=== PATIENT | female | born 1955 | race African-American/Black ===

== ENCOUNTER 2020-04-21 14:46 | Outpatient (CLI) | payer MEDICARE, MEDICAID, SELFPAY ==
[2020-04-21 16:32] LABS: Basophils Absolute Auto 0.1 K/mm3 (0.0-0.1); Basophils Percent Auto 0.8 % (0.2-1.2); Eosinophils Absolute Auto 0.2 K/mm3 (0-0.3); Eosinophils Percent Auto 3.8 % (0-4.4); Hematocrit 36.8 % (37.0-47.0); Hemoglobin 12.1 g/dL (12.0-15.0); Immature Granulocyte Absolute 0.04 K/mm3 (0.00-0.031); Immature Granulocyte Percent A 0.7 % (0-0.5); Lymphocytes Absolute Auto 2.47 K/mm3 (0.9-3.2); Lymphocytes Percent Auto 40.4 % (18.3-44.2); Mean Corpuscular HGB Conc 32.9 g/dl (32-36); Mean Corpuscular Hemoglobin 33.8 pg (26-34); Mean Corpuscular Volume 102.8 fl (80-100); Mean Platelet Volume 11.5 fl (7.4-10.4); Monocytes Absolute Auto 0.5 K/mm3 (0.1-0.6); Monocytes Percent Auto 7.5 % (2.6-8.5); Neutrophils Absolute Auto 2.9 K/mm3 (1.3-6.7); Neutrophils Percent Auto 46.8 % (45.5-73.1); Platelet Count Result 268 k/mm3 (150-375); Red Blood Count 3.58 M/mm3 (4.2-5.4); Red Cell Distribution Width 14.1 % (11.5-14.5); White Blood Count 6.1 K/mm3 (4.5-10.0)
[2020-04-21 16:35] LABS: Add Urine Microscopic? NO; Appearance Urine Clear (Clear); Bilirubin Urine Negative (Negative); Blood Urine Negative (Negative); Color Urine Yellow (Yellow); Glucose Urine UA Negative (Negative); Ketones Urine Negative (Negative); Leukocyte Esterase Ur Negative LEU/UL (NEGATIVE); Nitrate Urine Negative (Negative); Protein Urine Negative (Negative); Specific Grav Ur 1.013 (1.001-1.035); Urobilinogen Urine Negative mg/dL (<2.0)
[2020-04-21 16:43] LABS: INR 4.4; Prothrombin Time 41.6 Seconds (11.1-14.7)
[2020-04-21 17:14] LABS: Alanine Aminotransferase 14 U/L (4-35); Albumin Level 4.6 g/dL (3.5-5.1); Alkaline Phosphatase 117 U/L (38-126); Aspartate Amino Transferase 34 U/L (14-36); Bilirubin,Total 0.6 mg/dL (0.2-1.3); Blood Urea Nitrogen 25 mg/dL (7-17); Calcium 9.1 mg/dL (8.4-10.2); Carbon Dioxide 29 mmol/L (22-30); Chloride 102 mmol/L (98-107); Cholesterol 160 mg/dL (0-200); Estimated Glomerular Filt Rate 32; Glucose 81 mg/dL (65-105); HDL Direct 45 mg/dL; Potassium 3.8 mmol/L (3.4-5.0); Sodium 138 mmol/L (137-145); Triglycerides 121 mg/dL (<150); Uric Acid 9.4 mg/dL (2.5-7.5)
[2020-04-21 17:25] LABS: LDL Cholesterol Direct 75 mg/dL
[2020-04-21 18:21] LABS: Vitamin D 25 Hydroxy 25.1 ng/mL
== END 2020-04-21 14:47 | disposition home or self-care (01) ==
PROVIDERS: PCP Internal Medicine; Visit Provider Internal Medicine
DX: I10 Essential (primary) hypertension (principal); E78.2 Mixed hyperlipidemia; E55.9 Vitamin D deficiency, unspecified; D51.9 Vitamin B12 deficiency anemia, unspecified
CPT/HCPCS: 36415; 80053; 80061; 81003; 82306; 82607; 84550; 85025; 85610

== ENCOUNTER 2020-10-12 16:50 | Outpatient (RCR) | payer MEDICARE, MEDICAID, SELFPAY ==
[2020-07-15 17:46] LABS: INR 2.9; Prothrombin Time 29.9 Seconds (11.1-14.7)
[2020-08-19 18:01] LABS: INR 3.1; Prothrombin Time 31.2 Seconds (11.1-14.7)
[2020-09-14 17:53] LABS: INR 3.8; Prothrombin Time 36.9 Seconds (11.1-14.7)
[2020-10-12 17:27] LABS: INR 3.6; Prothrombin Time 36.5 Seconds (11.1-14.7)
== END 2020-10-13 23:59 | disposition home or self-care (01) ==
LOC: ANHLAB 16:50
PROVIDERS: PCP Internal Medicine; Visit Provider Internal Medicine
DX: I48.91 Unspecified atrial fibrillation (principal)
CPT/HCPCS: 36415; 85610

== ENCOUNTER 2021-01-07 16:28 | Outpatient (RCR) | payer MEDICARE, MEDICAID, SELFPAY ==
[2020-10-30 17:58] LABS: INR 2.2; Prothrombin Time 24.9 Seconds (11.1-14.7)
[2020-12-09 16:58] LABS: INR 2.1; Prothrombin Time 24.5 Seconds (11.1-14.7)
[2021-01-07 17:21] LABS: INR 2.7; Prothrombin Time 29.2 Seconds (11.1-14.7)
== END 2021-01-28 23:59 | disposition home or self-care (01) ==
LOC: ANHLAB 16:28
PROVIDERS: PCP Internal Medicine; Visit Provider Internal Medicine
DX: I48.91 Unspecified atrial fibrillation (principal)
CPT/HCPCS: 36415; 85610

== ENCOUNTER 2021-03-26 15:47 | Emergency (ER) | payer MEDICARE, MEDICAID, SELFPAY ==
[2021-03-26] VITALS (17 sets, daily range): BP systolic 102–117; BP diastolic 51–56; PULSE 51–60; RESP 14–23; TEMP 36.4; O2SAT 100
--- NOTE | ~2021-03-26 | XR_ITS ---
XR chest 2V 03/26/2021 16:26 Indication: Chest pain Procedure: 2 view chest Comparison: 11/14/2018 Findings: Status post median sternotomy. There is a prosthetic heart valve. Moderate cardiomegaly. No focal air space disease, pulmonary edema, pleural effusion or suspected pneumothorax. No acute osseo us abnormality. Impression: 1: No acute cardiopulmonary disease. Reviewed, dictated and finalized at location [facility]. Impression: 1: No acute cardiopulmonary disease.
--- NOTE | 2021-03-26 15:56 | ECG_ITS ---
Measurements Intervals [place] Rate: 56 P: 66 NV: 170 QRS: 98 QRSD: 112 T: 31 QT: 443 QTc: 428 Interpretive Statements SINUS BRADYCARDIA WITH MARKED SINUS ARRHYTHMIA RIGHT AXIS DEVIATION INCOMPLETE RIGHT BUNDLE BRANCH BLOCK NONSPECIFIC T-WAVE ABNORMALITY- INFERIOR LEADS BASELINE ARTIFACT- I, II, AVR BORDERLINE ECG Electronically Signed On 03-26-2021 19:26:34 CDT by Aston Vlilagomez D.O.
[2021-03-26 16:17] LABS: Basophils Absolute Auto 0.1 K/mm3 (0.0-0.1); Basophils Percent Auto 1.5 % (0.2-1.2); Eosinophils Absolute Auto 0.2 K/mm3 (0-0.3); Eosinophils Percent Auto 3.2 % (0-4.4); Hematocrit 34.8 % (37.0-47.0); Hemoglobin 11.6 g/dL (12.0-15.0); Immature Granulocyte Absolute 0.02 K/mm3 (0.00-0.031); Immature Granulocyte Percent A 0.3 % (0-0.5); Lymphocytes Absolute Auto 1.88 K/mm3 (0.9-3.2); Lymphocytes Percent Auto 30.4 % (18.3-44.2); Mean Corpuscular HGB Conc 33.3 g/dl (32-36); Mean Corpuscular Hemoglobin 34.9 pg (26-34); Mean Corpuscular Volume 104.8 fl (80-100); Mean Platelet Volume 11.2 fl (7.4-10.4); Monocytes Absolute Auto 0.6 K/mm3 (0.1-0.6); Monocytes Percent Auto 9.2 % (2.6-8.5); Neutrophils Absolute Auto 3.4 K/mm3 (1.3-6.7); Neutrophils Percent Auto 55.4 % (45.5-73.1); Platelet Count Result 229 k/mm3 (150-375); Red Blood Count 3.32 M/mm3 (4.2-5.4); Red Cell Distribution Width 13.3 % (11.5-14.5); White Blood Count 6.2 K/mm3 (4.5-10.0)
[2021-03-26 16:29] LABS: INR 2.3
[2021-03-26 16:30] LABS: Partial Thromboplastin Time 37.9 SECONDS (22.3-36.8)
--- NOTE | 2021-03-26 16:33 | PC.NURSE ---
PT REFUSED 325MG ASPIRIN. SHE STATES HER DOCTOR TOLD HER SHE SHOULDNT TAKE IT DUE TO HER BLOOD THINNERS
[2021-03-26 17:13] LABS: Anion Gap 5 mmol/L (8-16); Blood Urea Nitrogen 25 mg/dL (7-17); Calcium 8.8 mg/dL (8.4-10.2); Carbon Dioxide 30 mmol/L (22-30); Chloride 105 mmol/L (98-107); Estimated Glomerular Filt Rate 27; Glucose 94 mg/dL (65-105); Sodium 140 mmol/L (137-145)
--- NOTE | 2021-03-26 17:40 | ED.CHESTPAIN ---
HPI - Chest Pain General Chief Complaint: Chest Pain <DAVID Saab Last Filed: 03/26/21 19:59> Stated Complaint: chest pain with inspiration <DAVID Saab Last Filed: 03/26/21 19:59> Time Seen by Provider: 03/26/21 16:41 <DAVID Saab Last Filed: 03/26/21 19:59> Source: patient <DAVID Saab Last Filed: 03/26/21 19:59> Mode of arrival: ambulatory <DAVID Saab Last Filed: 03/26/21 19:59> Limitations: no limitations <DAVID Saab Last Filed: 03/26/21 19:59> History of Present Illness HPI narrative: This is a 66 year old female that presents to the ER for left sided chest pain since yesterday. Reports the pain is constant and a dull ache. No known alleviating or exacerbating factors. Denies fever, cough, shortness of breath or lower extremity edema. <DAVID Saab Last Filed: 03/26/21 19:59> Related Data Home Medications: Home Medications Medication Instructions Recorded Confirmed albuterol sulfate INHALATION 03/26/21 diltiazem HCl 03/26/21 furosemide 03/26/21 lisinopril 03/26/21 methimazole 03/26/21 metoprolol tartrate 03/26/21 03/26/21 simvastatin mg 03/26/21 warfarin 03/26/21 <DAVID Saab Last Filed: 03/26/21 19:59> Allergies/Adverse Reactions: Allergies Allergy/AdvReac Type Severity Reaction Status Date / Time methylprednisolone Allergy Unknown Other Verified 03/26/21 16:33 <DAVID Saab Last Filed: 03/26/21 19:59> Review of Systems Review of Systems: Narrative: CONSTITUTIONAL: Denies fever CARDIOVASCULAR: Reports chest pain. Denies edema. RESPIRATORY: Denies cough or dyspnea. <DAVID Saab Last Filed: 03/26/21 19:59> All systems reviewed & are unremarkable except as noted in HPI and below <Ning Mcdonald PA-C - Last Filed: 03/26/21 19:59> [facility] Past Medical History Medical History: Medical History (Updated 03/26/21 @ 19:49 by Ning Mcdonald PA-C) History of atrial fibrillation History of hyperlipidemia History of hypertension <Ning Mcdonald PA-C - Last Filed: 03/26/21 19:59> Social History Social History: Social History Gender identity (if verbalized by the patient): Female <Ning Mcdonald PA-C - Last Filed: 03/26/21 19:59> Exam Narrative: Exam Narrative: GENERAL: Well-appearing, obese, and in no acute distress. HEAD: Normocephalic, atraumatic. EYES: EOMI. ENT: Nares clear, no rhinorrhea or epistaxis. Mucous membranes moist. Oropharynx without tonsillar hypertrophy exudate or other lesions. NECK: Supple. No adenopathy or masses. CHEST: Clear to auscultation. No respiratory distress. No wheezes rales or rhonchi HEART: Irregularly irregular. No murmur heard. Normal peripheral pulses. EXTREMITIES: Normal range of motion. No edema. SKIN: Warm, dry, no rash. NEURO: No focal deficits. Alert and oriented x3. PSYCH: Normal mood and affect <Ning Mcdonald PA-C - Last Filed: 03/26/21 19:59> Course Consultations Consultation #1: Spoke with Dr. Jones about patient and work-up. Recommends admission for further observation <Ning Mcdonald PA-C - Last Filed: 03/26/21 19:59> Date: 03/26/21 <Ning Mcdonald PA-C - Last Filed: 03/26/21 19:59> Time: 19:46 <DAVID Saab Last Filed: 03/26/21 19:59> Vital Signs Vital signs: Vital Signs Temperature 36.4 C L 03/26/21 15:49 Pulse Rate 58 L 03/26/21 15:49 Respiratory Rate 20 03/26/21 15:49 Blood Pressure 102/51 L 03/26/21 15:49 Pulse Oximetry 100 03/26/21 15:49 Temperature 36.4 C L 03/26/21 15:49 Pulse Rate 57 L 03/26/21 19:00 Respiratory Rate 14 03/26/21 19:00 Blood Pressure 117/56 L 03/26/21 18:31 Pulse Oximetry 100 03/26/21 16:47 <Ning Mcdonald PA-C - Last Filed: 03/26/21 19:59> Vital Signs Temperature 36.4 C L 03/26/21 15:49 Pulse Rate 58 L 03/26/21 1
[2021-03-26 17:41] LABS: Troponin I < 0.012 ng/mL (0.000-0.034)
[2021-03-26] MEDS: ACETAMINOPHEN 500 MG TABLET 1000 MG PO (17:56)
--- NOTE | 2021-03-26 19:13 | PC.NURSE ---
Report received from SHERINE Price. Assumed care of patient at this time.
[2021-03-26 19:29] LABS: Troponin I < 0.012 ng/mL (0.000-0.034)
[2021-03-26 19:58] LABS: D Dimer 0.27 ug/mL (<0.48)
== END 2021-03-26 20:02 | disposition left against medical advice (07) ==
PROVIDERS: Emergency Medicine; Physician Assistant; Emergency Provider Emergency Medicine; PCP Internal Medicine
DX: R07.9 Chest pain, unspecified (principal); I48.91 Unspecified atrial fibrillation; I12.9 Hypertensive chronic kidney disease with stage 1 through stage 4 chronic kidney disease, or unspecified chronic kidney disease; N18.9 Chronic kidney disease, unspecified; E78.5 Hyperlipidemia, unspecified; D50.9 Iron deficiency anemia, unspecified; Z79.01 Long term (current) use of anticoagulants; R00.1 Bradycardia, unspecified; I45.10 Unspecified right bundle-branch block; R94.31 Abnormal electrocardiogram [ECG] [EKG]
CPT/HCPCS: 36415; 71046; 80048; 84484; 85025; 85380; 85610; 85730; 93005; 99284; A9270

== ENCOUNTER 2021-05-07 08:51 | Emergency (ER) | payer MEDICARE, MEDICAID, SELFPAY ==
--- NOTE | ~2021-05-07 | CT_ITS ---
EXAMINATION: CT abdomen pelvis w con EXAM DATE: 05/07/2021 10:40 INDICATION: Left lower quadrant pain . TECHNIQUE: Spiral CT of the abdomen and pelvis was performed following intravenous injection of 100 m L Omnipaque 350. Axial, coronal and sagittal images of the abdomen and pelvis were reviewed. The do se-length product (DLP) for this examination was 467.53 mGy-cm. The exposure was tailored according to patient size (auto mA exposure control), and iterative reconstruction (ASIR) was used as additiona l dose reduction technique. Comparison is made to prior examination from 11/11/2018. FINDINGS: There is severe right atrial enlargement. Mildly diffusely heterogeneous liver enhancement could be passive venous congestion from right heart failure. There is a 1.2 cm left liver lobe cyst. Spleen, adrenal glands, pancreas are unremarkable. Gallbladder is unremarkable. No biliary obstructi on. Portal and splenic veins are patent. Kidneys enhance symmetrically. There is no hydronephrosis . There are small regions bilateral renal cortical scarring from prior infections or infarctions. Lob ular renal contours bilaterally. The uterus is not identified and has likely been surgically resecte d. The bladder is unremarkable. There is no retroperitoneal or pelvic lymphadenopathy. There is m ild scattered arteriosclerotic disease. The appendix is normal. Mild to moderate scattered colonic diverticulosis. There is moderate amount o f inflammation along the descending colon, appearance is consistent with acute uncomplicated divertic ulitis. No drainable abscess or perforation. The stomach and small bowel are unremarkable. There is expected amount of colonic stool. No free intraperitoneal gas. The lung bases are unremarkable. Mild to moderate chronic compression fracture superior endplate of L2. Moderate disc disease at L4-5 . There are no osteoblastic or osteolytic lesions identified. IMPRESSION: 1. Acute uncomplicated descending colonic diverticulitis. 2. Right atrial enlargement. Heterogeneous liver enhancement likely from passive hepatic venous tani estion. 3. Small regions bilateral renal cortical scarring. Reviewed, dictated and finalized at location A. IMPRESSION: 1. Acute uncomplicated descending colonic diverticulitis. 2. Right atrial enlargement. Heterogeneous liver enhancement likely from passi ve hepatic venous congestion. 3. Small regions bilateral renal cortical scarring.
--- NOTE | 2021-05-07 09:32 | ED.ABDPAIN ---
HPI - Abdominal Pain General Chief Complaint: Abdominal Pain Stated Complaint: left flank pain Time Seen by Provider: 05/07/21 09:32 Source: patient and RN notes reviewed Mode of arrival: ambulatory Limitations: no limitations History of Present Illness HPI narrative: Patient 66 years old -[place] female brought to the emergency room by a family member via private car from home complaining of left lower quadrant pain that started last night, constant associated with nausea. Patient denies any fever, chills, vomiting or history of similar symptoms. History of atrial fibrillation on Coumadin, hypertension, hyperlipidemia, CABG, coronary stents, hysterectomy, patient smokes, does not drink or uses drugs,. Patient did not get vaccinated for COVID-19 Related Data Home Medications Medication Instructions Recorded Confirmed albuterol sulfate INHALATION 03/26/21 diltiazem HCl 03/26/21 furosemide 03/26/21 lisinopril 03/26/21 methimazole 03/26/21 metoprolol tartrate 03/26/21 03/26/21 simvastatin mg 03/26/21 warfarin 03/26/21 Allergies Allergy/AdvReac Type Severity Reaction Status Date / Time methylprednisolone Allergy Unknown Other Verified 05/07/21 09:57 Review of Systems Review of Systems: Narrative: CONSTITUTIONAL: Denies fever, chills, or sweats. EYES: Denies visual changes, redness, or discharge. ENT: Denies rhinorrhea, congestion, sore throat, or otalgia. CARDIOVASCULAR: Denies chest pain, palpitations, or edema. RESPIRATORY: Denies cough or dyspnea. GASTROINTESTINAL: Denies abdominal pain, nausea, vomiting, or diarrhea. GENITOURINARY: Denies dysuria or hematuria. SKIN: Denies rash or itching. MUSCULOSKELETAL: Denies back pain, joint pain, or myalgia. NEUROLOGIC: Denies headache, numbness, or weakness. PSYCHIATRIC: Denies anxiety or depression. PMFSH Past Medical History Medical History History of atrial fibrillation History of hyperlipidemia History of hypertension Social History Social History Gender identity (if verbalized by the patient): Female Exam Narrative: Exam Narrative: General appearance: Well-developed, well-nourished Skin: Normal color Head: Normocephalic, nontraumatic Eyes: Clear conjunctiva ENT: Oropharynx normal, ears normal, nose normal Neck: Supple, nontender Chest and respiratory: Airway patent, no respiratory distress, no accessory muscle use Heart: Regular rate/rhythm Abdomen: Soft, mild tenderness left abdomen, no organomegaly, quiet bowel sounds Vascular: Normal peripheral pulses, normal capillary refill. Musculoskeletal: Normal range of motion, nontender back Neurologic: Alert and oriented ?3, [employer] is normal as tested, no gross motor deficit Course Course Emergency Course: Stable Vital Signs Vital signs: Vital Signs Temperature 36.8 C 05/07/21 09:35 Pulse Rate 110 H 05/07/21 09:35 Respiratory Rate 16 05/07/21 09:35 Blood Pressure 115/85 05/07/21 09:35 Pulse Oximetry 99 05/07/21 09:35 Temperature 36.8 C 05/07/21 09:35 Pulse Rate 110 H 05/07/21 09:35 Respiratory Rate 16 05/07/21 09:35 Blood Pressure 115/85 05/07/21 09:35 Pulse Oximetry 99 05/07/21 09:35 MDM - Abdominal Pain MDM Narrative Medical decision making narrative: Patient presents with left lower quadrant pain. Diverticulitis is my concern. Labs, IV fluids, IV Dilaudid and Zofran, CT scan with contrast ordered. Further plan to follow Differential Diagnosis Differential diagnosis: Likely abdominal pain, constipation, diverticulitis and pancreatitis Lab Data Result diagrams: 0
[2021-05-07 09:35] VITALS: BP 115/85; PULSE 110; RESP 16; TEMP 36.8; O2SAT 99
[2021-05-07 09:59] LABS: Basophils Absolute Auto 0.1 K/mm3 (0.0-0.1); Basophils Percent Auto 0.7 % (0.2-1.2); Eosinophils Absolute Auto 0.1 K/mm3 (0-0.3); Eosinophils Percent Auto 0.8 % (0-4.4); Hematocrit 38.3 % (37.0-47.0); Hemoglobin 12.5 g/dL (12.0-15.0); Immature Granulocyte Absolute 0.02 K/mm3 (0.00-0.031); Immature Granulocyte Percent A 0.3 % (0-0.5); Lymphocytes Absolute Auto 0.93 K/mm3 (0.9-3.2); Lymphocytes Percent Auto 12.5 % (18.3-44.2); Mean Corpuscular HGB Conc 32.6 g/dl (32-36); Mean Corpuscular Hemoglobin 34.3 pg (26-34); Mean Corpuscular Volume 105.2 fl (80-100); Mean Platelet Volume 10.8 fl (7.4-10.4); Monocytes Absolute Auto 0.5 K/mm3 (0.1-0.6); Monocytes Percent Auto 6.9 % (2.6-8.5); Neutrophils Absolute Auto 5.9 K/mm3 (1.3-6.7); Neutrophils Percent Auto 78.8 % (45.5-73.1); Platelet Count Result 237 k/mm3 (150-375); Red Blood Count 3.64 M/mm3 (4.2-5.4); Red Cell Distribution Width 12.7 % (11.5-14.5); White Blood Count 7.4 K/mm3 (4.5-10.0)
[2021-05-07 10:11] LABS: Alanine Aminotransferase 21 U/L (4-35); Albumin Level 4.3 g/dL (3.5-5.1); Alkaline Phosphatase 86 U/L (38-126); Anion Gap 5 mmol/L (8-16); Aspartate Amino Transferase 41 U/L (14-36); Bilirubin,Total 0.5 mg/dL (0.2-1.3); Blood Urea Nitrogen 24 mg/dL (7-17); Calcium 9.5 mg/dL (8.4-10.2); Carbon Dioxide 31 mmol/L (22-30); Chloride 106 mmol/L (98-107); Estimated Glomerular Filt Rate 32; Glucose 93 mg/dL (65-105); Lipase 117 U/L (23-300); Potassium 4.9 mmol/L (3.4-5.0); Sodium 142 mmol/L (137-145)
[2021-05-07] MEDS: ONDANSETRON INJ 4 MG/2 ML VIAL IV PUSH (10:20)
[2021-05-07] MEDS: HYDROmorphone HCL INJ (*CRX) 1 MG/ML SYR 0.5 MG IV PUSH (10:20)
[2021-05-07] MEDS: SODIUM CHLORIDE 0.9% IV 1,000 ML 999 ML IV CONT (10:21)
[2021-05-07 10:22] LABS: Add Urine Microscopic? YES; Appearance Urine Clear (Clear); Bacteria Urine Trace /hpf; Bilirubin Urine Negative (Negative); Blood Urine Negative (Negative); Color Urine Yellow (Yellow); Glucose Urine UA Negative (Negative); Ketones Urine Negative (Negative); Leukocyte Esterase Ur Negative LEU/UL (Negative); Mucus Urine Rare /lpf; Nitrate Urine Negative (Negative); Protein Urine 1+ mg/dL (Negative); RBC Urine 0-2 /hpf (0-2); Specific Grav Ur 1.025 (1.001-1.035); Squamous Epithelial Cell Urine Many /hpf (Few); WBC Urine 0-3 /hpf
[2021-05-07 12:00] VITALS: BP 119/65; PULSE 99; RESP 16; O2SAT 97
== END 2021-05-07 12:00 | disposition home or self-care (01) ==
PROVIDERS: Emergency Provider Emergency Medicine; PCP Internal Medicine
DX: K57.92 Diverticulitis of intestine, part unspecified, without perforation or abscess without bleeding (principal); I48.91 Unspecified atrial fibrillation; E78.5 Hyperlipidemia, unspecified; I10 Essential (primary) hypertension; I25.10 Atherosclerotic heart disease of native coronary artery without angina pectoris; Z95.5 Presence of coronary angioplasty implant and graft; Z95.1 Presence of aortocoronary bypass graft; Z79.01 Long term (current) use of anticoagulants; F17.200 Nicotine dependence, unspecified, uncomplicated; R93.2 Abnormal findings on diagnostic imaging of liver and biliary tract
CPT/HCPCS: 36415; 74177; 80053; 81001; 83690; 85025; 96361; 96374; 96375; 99284; J1170; J2405; J7030; Q9967

== ENCOUNTER 2021-05-12 15:08 | Outpatient (RCR) | payer MEDICARE, MEDICAID, SELFPAY ==
[2021-02-12 16:01] LABS: INR 3.2; Prothrombin Time 33.1 Seconds (11.1-14.7)
[2021-03-12 10:19] LABS: INR 2.9; Prothrombin Time 31.2 Seconds (11.1-14.7)
[2021-04-19 16:40] LABS: INR 2.4
[2021-05-12 15:44] LABS: INR 2.7; Prothrombin Time 29.4 Seconds (11.1-14.7)
== END 2021-05-13 23:59 | disposition home or self-care (01) ==
LOC: ANHLAB 15:08
PROVIDERS: PCP Internal Medicine; Visit Provider Internal Medicine
DX: I48.91 Unspecified atrial fibrillation (principal)
CPT/HCPCS: 36415; 85610

== ENCOUNTER 2021-06-20 07:24 | Emergency (ER) | payer MEDICARE, MEDICAID, SELFPAY ==
--- NOTE | ~2021-06-20 | CT_ITS ---
EXAMINATION: CT lumbar spine wo con DATE: 06/20/2021 08:37 INDICATION: Low back pain TECHNIQUE: Computed tomography (CT) of the lumbar spine was performed without intravenous contrast. A utomated exposure control and iterative reconstruction technique were employed. Exam dose: 781.67 mG y-cm total exam DLP. COMPARISON: None FINDINGS: Normal alignment of the lumbar spine. No spondylolysis or spondylolisthesis. There is moderate compression fracture deformity of L2, with prominent concavity of the superior vert ebral endplate. There is moderate degenerative disease at L3-4 and moderately severe degenerative disc disease at L4- 5.. The sacroiliac joints appear normal. Incidentally noted is diverticulosis of the sigmoid colon. IMPRESSION: L2 compression fracture deformity of uncertain age Moderate degenerative disc disease at L3-4 Moderately severe degenerative disc disease at L4-5 Diverticulosis of the sigmoid colon Reviewed, dictated and finalized at Location [facility]. Reviewed, dictated and finalized at location A.
[2021-06-20 07:25] VITALS: BP 104/58; PULSE 96; RESP 20; TEMP 36.5; O2SAT 100
[2021-06-20 07:35] VITALS: BP 104/58; PULSE 96; RESP 20; TEMP 36.5; O2SAT 100
--- NOTE | 2021-06-20 07:43 | ED.BACK ---
HPI - Back Pain/Injury General Chief Complaint: Back Pain/Injury Stated Complaint: BACK PAIN Time Seen by Provider: 06/20/21 07:43 History of Present Illness HPI Narrative: 66 yo female w/ h/o htn, valve replacement presents to the ED for back pain. Pain in right lower back since yesterday. Radiates to the hip and lateral leg. She had similar pain after injuring her back lifting in the past. No known injury this time. Related Data Home Medications Medication Instructions Recorded Confirmed albuterol sulfate 1 mcg INHALATION PRN 03/26/21 06/20/21 diltiazem HCl 120 mg PO DAILY 03/26/21 06/20/21 furosemide 40 mg PO DAILY 03/26/21 06/20/21 lisinopril 2.5 mg PO DAILY 03/26/21 06/20/21 methimazole 5 mg PO DAILY 03/26/21 06/20/21 metoprolol tartrate 25 mg PO DAILY 03/26/21 06/20/21 simvastatin 10 mg PO DAILY 03/26/21 06/20/21 warfarin 5 mg PO DAILY 03/26/21 06/20/21 Allergies Allergy/AdvReac Type Severity Reaction Status Date / Time methylprednisolone Allergy Unknown Other Verified 06/20/21 07:31 Review of Systems Review of Systems: All systems reviewed & are unremarkable except as noted in HPI and below Constitutional: Constitutional: Denies fever(s) Cardiovascular: Cardiovascular: Denies chest pain Respiratory: Respiratory: Denies dyspnea Gastrointestinal: Gastrointestinal: Reports abdominal pain (minimal) Genitourinary: Genitourinary: Denies hematuria, Denies nocturia and Denies dysuria Neurologic: Denies dizziness, Denies numbness and Denies weakness [facility] Past Medical History Medical History History of atrial fibrillation History of hyperlipidemia History of hypertension Social History Social History Gender identity (if verbalized by the patient): Female Exam Const: General: no acute distress and alert Orientation/consciousness: patient oriented x3 HENMT: Head: normal to inspection Resp: Effort & Inspection: normal respiratory effort Auscultation: clear to auscultation bilaterally Cardio: Rate: tachycardic GI: Inspection: non-distended Other: nontender : General: Yes no CVA tenderness Back/Spine/Pelvis: Cervical Spine: No Cervical spine tenderness Thoracic/Lumbar Spine: paraspinal muscle tenderness on the right in the lower lumbar Course Vital Signs Vital signs: Vital Signs Temperature 36.5 C 06/20/21 07:25 Pulse Rate 96 06/20/21 07:25 Respiratory Rate 20 06/20/21 07:25 Blood Pressure 104/58 L 06/20/21 07:25 Pulse Oximetry 100 06/20/21 07:25 Temperature 36.5 C 06/20/21 07:35 Pulse Rate 96 06/20/21 07:35 Respiratory Rate 20 06/20/21 07:35 Blood Pressure 104/58 L 06/20/21 07:35 Pulse Oximetry 100 06/20/21 07:35 MDM - Back Pain/Injury MDM Narrative Medical decision making narrative: L2 compression fracture. Pain improved with valium. Ambulating with stable gait. Differential Diagnosis Differential diagnosis: Likely sciatica and strain of lumbar region Medical Records Attestation: I reviewed the patient's medical records. Imaging Data Radiologist's impression: ITS Impressions Lumbar Spine CT 06/20/21 08:48 IMPRESSION: L2 compression fracture deformity of uncertain age Moderate degenerative disc disease at L3-4 Moderately severe degenerative disc disease at L4-5 Diverticulosis of the sigmoid colon Discharge Plan Discharge Clinical Impression: Compression fracture of L2 Qualifiers: Encounter type: initial encounter Qualified Code(s): S32.020A - Wedge compression fracture of second lumbar vertebra, initial encounter for closed fracture Patient Disposition: Home, Self-Care Condition: Stable Instructions: Vertebral Compression Fracture (ED) Prescriptions: New diazepam [Valium] 5 mg tablet 5 mg PO BID PRN (Reason: muscle spasm) Qty: 10 RF: 0 No Action furosemide 40 mg tablet
[2021-06-20] MEDS: diazePAM INJ (*CRX) 10 MG/2 ML SYRINGE 5 MG IM (07:56)
== END 2021-06-20 09:16 | disposition home or self-care (01) ==
PROVIDERS: Emergency Provider Emergency Medicine; PCP Internal Medicine
DX: S32.020A Wedge compression fracture of second lumbar vertebra, initial encounter for closed fracture (principal); I10 Essential (primary) hypertension; E78.5 Hyperlipidemia, unspecified; I48.91 Unspecified atrial fibrillation; Z95.2 Presence of prosthetic heart valve; Z79.01 Long term (current) use of anticoagulants; M51.36 Other intervertebral disc degeneration, lumbar region; K57.30 Diverticulosis of large intestine without perforation or abscess without bleeding; X58.XXXA Exposure to other specified factors, initial encounter
CPT/HCPCS: 72131; 96372; 99284; J3360

== ENCOUNTER 2021-09-01 16:06 | Outpatient (RCR) | payer MEDICARE, OTHER, MEDICAID, SELFPAY ==
[2021-06-09 17:28] LABS: INR 2.1; Prothrombin Time 22.9 Seconds (11.1-14.7)
[2021-07-08 17:05] LABS: INR 3.1; Prothrombin Time 31.2 Seconds (11.1-14.7)
[2021-08-04 17:13] LABS: INR 2.6; Prothrombin Time 27.3 Seconds (11.1-14.7)
[2021-09-01 16:54] LABS: INR 2.4; Prothrombin Time 25.5 Seconds (11.1-14.7)
== END 2021-09-07 23:59 | disposition home or self-care (01) ==
LOC: ANHLAB 16:06
PROVIDERS: PCP Internal Medicine; Visit Provider Internal Medicine
DX: I48.91 Unspecified atrial fibrillation (principal)
CPT/HCPCS: 36415; 85610

== ENCOUNTER 2021-10-20 07:46 | Inpatient (IN) | payer OTHER, SELFPAY ==
[2021-10-20] VITALS (25 sets, daily range): BP systolic 95–132; BP diastolic 58–91; PULSE 67–133; RESP 12–34; TEMP 36.6–37.4; O2SAT 94–100; BMI 30.1
--- NOTE | ~2021-10-20 | XR_ITS ---
EXAMINATION: XR chest 1V portable DATE: 10/20/2021 08:30 INDICATION: Cough and shortness of breath. TECHNIQUE: A single frontal view of the chest was obtained. COMPARISON: Chest 2 views 03/26/2021, 11/14/2018, CT abdomen and pelvis 05/07/2021 FINDINGS: There are airspace opacities in right middle lobe. There is mild atelectasis in lingula. Th ere is a small right pleural effusion. No pneumothorax. Cardiomegaly is noted. There are changes of h eart valve replacement. There is a thoracotomy defect of left fifth rib. IMPRESSION: 1. Worsened airspace opacities in right middle lobe, consistent with atelectasis versus pneumonia. 2. Mild atelectasis in lingula. 3. New small right pleural effusion. 4. Cardiomegaly. Reviewed, dictated and finalized at location B. PAPER PUBLISHER IMPRESSION: 1. Worsened airspace opacities in right middle lobe, consistent with atelectasi s versus pneumonia. 2. Mild atelectasis in lingula. 3. New small right pleural effusion. 4. Cardiomegaly.
--- NOTE | ~2021-10-20 | CT_ITS ---
EXAMINATION: CTA chest PE protocol DATE: 10/20/2021 14:39 INDICATION: Soreness breath and left and midsternal chest pain. TECHNIQUE: Computed tomography (CT) pulmonary angiogram of the chest was performed with 100 mL Omnipa que-350 intravenous contrast. Additional 3D reconstructions utilizing coronal maximum intensity proje ction (MIP) were performed. Automated exposure control and iterative reconstruction technique were em ployed. The dose-length product was 298.54 mGy-cm. COMPARISON: CT abdomen and pelvis dated 05/07/2021 and 11/11/2018 FINDINGS: Excellent contrast opacification of the pulmonary arteries. There is mild streak artifact from dense contrast in the superior vena cava and right atrium. Mild scattered respiratory motion artifact which does not significantly limit evaluation. No pulmonary embolism. Moderate emphysema with upper lung p redominance. Small right pleural effusion portion of which are loculated along the major and minor fi ssures. Chronic atelectasis/scarring most prominent at the posterior basilar segment of the right low er lobe, to a lesser degree at the inferior lingula and linear discoid atelectasis/scarring in the ri ght middle lobe. No pneumonia, pulmonary edema or left-sided pleural effusion. Indeterminate 8 mm nod ule with smooth margins in the right upper lobe which appears to been present with similar size on est radiograph dated 11/14/2018 which would favor old granulomatous disease. Moderate cardiomegaly wi th right atrial enlargement predominance. Postoperative changes of prior mitral valve repair with med matt sternotomy and left thoracotomy with resection of majority of the left fifth rib. Atherosclerotic coronary artery calcifications. No pericardial effusion. Thoracic aorta is normal in caliber. Goiter with prominent asymmetric masslike enlargement of the inferior left thyroid which extends into the s uperior mediastinum. No pathologically enlarged thoracic lymphadenopathy. Reflux of contrast into the inferior vena cava and hepatic veins consistent with tricuspid regurgitation. Mild thoracic spondylo sis with prominent posterior osteophytes bridging the T7-T8 disc space resulting in mild to moderate central canal stenosis at this level. Superior endplate compression fracture with large central Schmo rl's node at L2 IMPRESSION: 1. No pulmonary embolism. 2. Moderate emphysema. 3. Small right pleural effusion. 4. Indeterminate 8 mm right upper lobe pulmonary nodule which appears to been present on radiographs from 3 years prior favoring a benign etiology. Consider 12 month follow-up low-dose noncontrast chest CT. 5. Moderate cardiomegaly with prominent right atrial enlargement and likely tricuspid regurgitation. 6. Goiter with prominent asymmetric masslike enlargement of the left thyroid lobe which extends into the superior mediastinum. Consider thyroid ultrasound for risk stratification. 7. Prominent endplate osteophytes at T7-T8 resulting in mild to moderate central canal stenosis at th is level. Reviewed, dictated and finalized at location A. 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 No pulmonary embolism. 2. Moderate emphysema. 3. Small right pleural effusion. 4. Indeterminate 8 mm right upper lobe pulmonary nodule which appears to been p resent on radiographs from 3 years prior favoring a benign etiology. Consider 1 2 month follow-up low-dose noncontrast chest CT. 5. Moderate cardiomegaly with prominent right atrial enlargement and likely tri cuspid regurgitation. 6. Goiter with prominent asymmetric masslike enlargement of the left thyroid lo be which extends into the superior mediastinum. Consider thyroid ultrasound for risk stratification. 7. Prominent endplate osteophytes at T7-T8 resulting in mild to moderate centra l canal stenosis at this le
--- NOTE | 2021-10-20 08:07 | ECG_ITS ---
Measurements Intervals [place] Rate: 93 P: [place]: 0 QRS: 179 QRSD: 109 T: 4 QT: 380 QTc: 473 Interpretive Statements ATRIAL FIBRILLATION RIGHT AXIS DEVIATION INCOMPLETE RIGHT BUNDLE BRANCH BLOCK BORDERLINE ST-T WAVE ABNORMALITY- ANTEROLAT/INF LEADS BASELINE ARTIFACT- I, II, III, AVR, AVL, AVF, V1, V3-V6 ABNORMAL ECG Electronically Signed On 10-20-2021 11:59:50 [employer]ITY SERV[employer] DIRECTOR by Aston Villagomez D.O.
--- NOTE | 2021-10-20 08:07 | ED.CHESTPAIN ---
HPI - Chest Pain General Chief Complaint: Chest Pain Stated Complaint: CP Time Seen by Provider: 10/20/21 07:49 Source: RN notes reviewed History of Present Illness HPI narrative: Patient presents to emergency department from home for chest pain. Patient states she has had chest pain over the past 2 days chest pain is midsternal in nature and does not radiate described as a pressure associated with shortness of breath that is worse with activity. Patient states she does have a history of atrial fibrillation and is on anticoagulation which she has been taking she is recently admitted to [facility] and discharged on 10 October for chest pain and at that time her Lasix have been discontinued she is followed by Dr Jones she denies any fevers or chills or abdominal pain Related Data Home Medications Medication Instructions Recorded Confirmed albuterol sulfate 1 mcg INHALATION PRN 03/26/21 06/20/21 diltiazem HCl 120 mg PO DAILY 03/26/21 06/20/21 furosemide 40 mg PO DAILY 03/26/21 06/20/21 lisinopril 2.5 mg PO DAILY 03/26/21 06/20/21 methimazole 5 mg PO DAILY 03/26/21 06/20/21 metoprolol tartrate 25 mg PO DAILY 03/26/21 06/20/21 simvastatin 10 mg PO DAILY 03/26/21 06/20/21 warfarin 5 mg PO DAILY 03/26/21 06/20/21 Allergies Allergy/AdvReac Type Severity Reaction Status Date / Time methylprednisolone Allergy Unknown Other Verified 06/20/21 07:31 Review of Systems Review of Systems: Gen.: Denies fevers or chills ENT: Denies congestion Respiratory: Reports shortness of breath CV: Reports chest pain GI: Denies abdominal pain nausea, emesis or diarrhea Musculoskeletal: Denies back pain or muscle pain Neuro: Denies numbness, tingling, weakness or focal weakness Skin: Denies rash Except as documented, all other systems reviewed and negative PMFSH Past Medical History Medical History History of atrial fibrillation History of hyperlipidemia History of hypertension Social History Social History (Updated 10/20/21 @ 08:10 by Otf Harding DO) Smoking status: Never smoker Gender identity (if verbalized by the patient): Female Exam Narrative: APPEARANCE: No acute distress, nontoxic, resting in bed EYES: EOMI HEENT: Normocephalic, atraumatic, OMM RESPIRATORY: No respiratory distress Clear to auscultation bilaterally with no rhonchi wheezing or rales. CARDIOVASCULAR: Tachycardic and regular with grade 3 out of 6 systolic ejection murmur ABDOMINAL: Soft, nontender, nondistended, no rebound or guarding MUSCULOSKELETAl: Moves all extremities. No clubbing, cyanosis or edema. NEURO: Awake and alert. Following commands, speech normal, no focal deficits SKIN:: Warm, dry. No rashes lesions or abrasions PSYCHIATRIC: Normal affect/mood, Course Course Emergency Course: Patient states she did not take her medications this morning Discussed with Dr Hamilton presentation work-up agrees with admission at this time. Discharge patient antibiotics will start patient back on her regular Cardizem 30 mg every 6 and hold on Cardizem drip Discussed with patient and family results of workup and diagnosis. Discussed need for admission. Patient and family understand and agree to current treatment plan Vital Signs Vital signs: Vital Signs Temperature 97.8 F 10/20/21 07:49 Pulse Rate 129 H 10/20/21 07:49 Respiratory Rate 16 10/20/21 07:49 Blood Pressure 112/91 H 10/20/21 07:49 Pulse Oximetry 99 10/20/21 07:49 Temperature 97.8 F 10/20/21 07:49 Pulse Rate 124 H 10/20/21 08:00 Respiratory Rate 16 10/20/21 07:49 Blood Pressure 112/91 H 10/20/21 07:49 Pulse Oximetry 99 10/20/21 07:49 MDM - Chest Pain Lab Data Result diagrams: 10/20/21 08:20 10/20/21 08:20 Labs: Lab Results 10/20/21 10/20/21 10/20/21 Range/Units 08:20 08:20 08:20 WBC 5.1 (4.5-10.0) K/mm3 RBC 3.73 L (4.2-5.4) M/mm3 Hgb 12.9 (
[2021-10-20 08:32] LABS: Basophils Absolute Auto 0.1 K/mm3 (0.0-0.1); Basophils Percent Auto 1.6 % (0.2-1.2); Eosinophils Absolute Auto 0.1 K/mm3 (0-0.3); Eosinophils Percent Auto 2.4 % (0-4.4); Hemoglobin 12.9 g/dL (12.0-15.0); Immature Granulocyte Absolute 0.03 K/mm3 (0.00-0.031); Immature Granulocyte Percent A 0.6 % (0-0.5); Lymphocytes Absolute Auto 1.56 K/mm3 (0.9-3.2); Lymphocytes Percent Auto 30.6 % (18.3-44.2); Mean Corpuscular HGB Conc 33.1 g/dl (32-36); Mean Corpuscular Hemoglobin 34.6 pg (26-34); Mean Corpuscular Volume 104.6 fl (80-100); Mean Platelet Volume 10.5 fl (7.4-10.4); Monocytes Absolute Auto 0.5 K/mm3 (0.1-0.6); Monocytes Percent Auto 10.2 % (2.6-8.5); Neutrophils Absolute Auto 2.8 K/mm3 (1.3-6.7); Neutrophils Percent Auto 54.6 % (45.5-73.1); Platelet Count Result 231 k/mm3 (150-375); Red Blood Count 3.73 M/mm3 (4.2-5.4); Red Cell Distribution Width 14.4 % (11.5-14.5); White Blood Count 5.1 K/mm3 (4.5-10.0)
[2021-10-20 08:47] LABS: Alanine Aminotransferase 26 U/L (4-35); Albumin Level 3.9 g/dL (3.5-5.1); Alkaline Phosphatase 74 U/L (38-126); Anion Gap 6 mmol/L (8-16); Aspartate Amino Transferase 41 U/L (14-36); Bilirubin,Total 1.2 mg/dL (0.2-1.3); Blood Urea Nitrogen 21 mg/dL (7-17); Calcium 8.7 mg/dL (8.4-10.2); Carbon Dioxide 21 mmol/L (22-30); Chloride 109 mmol/L (98-107); Estimated CRCL calculation 33 ml/min; Estimated Glomerular Filt Rate 45; Glucose 96 mg/dL (65-110); Potassium 4.5 mmol/L (3.4-5.0); Sodium 136 mmol/L (137-145)
[2021-10-20 08:53] LABS: INR 3.3; Partial Thromboplastin Time 39.5 SECONDS (22.3-36.8); Prothrombin Time 32.3 Seconds (11.1-14.7)
[2021-10-20 08:59] LABS: NT Pro B Type Natriuretic Pept 2190 pg/mL (5-100); Troponin I < 0.012 ng/mL (0.000-0.034)
[2021-10-20 09:15] LABS: Lactic Acid Reflex 1.2 mmol/L (0.7-2.1)
[2021-10-20] MEDS: dilTIAZem HCl INJ 25 MG/5 ML VIAL 5 MG IV PUSH (09:48)
--- NOTE | 2021-10-20 10:30 | PC.NURSE ---
Called pharmacy for azithromycin none in pyxis at this time
[2021-10-20] MEDS: dilTIAZem HCL 30 MG TABLET PO ×4 (10:39→23:10)
--- NOTE | 2021-10-20 11:16 | PC.NURSE ---
Just received azithromycin from pharmacy but had exploded in the tube, called report to Juli BASURTO, informed RN of azithromycin, pharmacy states they will send to 213, no further questions or concerns
[2021-10-20 12:49] LABS: Troponin I < 0.012 ng/mL (0.000-0.034)
--- NOTE | 2021-10-20 13:18 | PC.NURSE ---
Report received by SHERINE Silva with the ED department. All questions answered and plan of care reviewed patient to go to IMU room 213.
--- NOTE | 2021-10-20 13:20 | ADMGEN ---
This patient, Veronica Adler, was admitted to IMU Room 213-01 at 1145. Patient/family oriented to hospital policies and general routines including ID bracelet, bed and alarms, visiting hours, pain management, procedures, bathroom and other care routines, personal items, smoking policy, room service/diet, and visiting hours. Information on how to activate the Rapid Response Team has been discussed. Patient/Family are encouraged to report perceived risks to care and to ask questions if they do not understand what they are told or what they should do.
--- NOTE | 2021-10-20 13:32 | PM.IMHP ---
H&P: HPI History of Present Illness Date/Time: 10/20/21 13:32Thialbertina is a 66 year old female patient who has a past medical history of having a mechanical valve replacement, congestive heart failure and atrial fibrillation. The patient stated that she was recently hospitalized at [facility] in [facility] approximately 1 week ago. She said that she had some medications changed. She states she never gets edema to her lower extremities or gained any weight. The patient stated that she recently was taken off of her Lasix by an ER doctor and that her diltiazem was changed as well. The patient came to the emergency room from home today because she had with been having chest pain for approximately 2 days. This was not midsternal in nature and came around her left breast. The area is nontender. She short of breath with exertion. No fever chills. Patient typically sees Dr. bonilla. the daughter stated that the patient had an echo September 22 at her doctor's office. The patient stated that she was hyper thyroidism and she has not had her thyroid level checked that she is aware of. Sodium is 136. Creatinine 1.4. Troponin negative x2. BNP is 2190. Chest x-ray was read as worsened airspace opacities in right middle lobe, consistent with atelectasis versus pneumonia. Mild atelectasis in lingula. New small right pleural effusion. Cardiomegaly. Her heart rate was in the 120s. The patient was given Cardizem in the emergency room and then given oral Cardizem. She was started on a azithromycin Rocephin for the possibility of pneumonia. The patient is being admitted observation status on the date of service of 10/20/2021. Chief Complaint: chest pain Review of Systems Review of Systems: All systems reviewed & are unremarkable except as noted in HPI and below Constitutional: Constitutional: Reports as per HPI and Reports no additional constitutional complaints Eyes: Eyes: Reports as per HPI and Reports no additional eye complaints ENT: Reports system reviewed and no additional complaints, except as documented and Reports Normal hearing present Cardiovascular: Cardiovascular: Reports no additional cardiovascular complaints Respiratory: Respiratory: Reports no additional respiratory complaints and Reports no additional respiratory complaints Gastrointestinal: Gastrointestinal: Reports as per HPI and Reports no additional gastrointestinal complaints Musculoskeletal: Musculoskeletal: Reports no additional musculoskeletal complaints Integumentary/Breasts: Skin/Breast: Reports system reviewed and no additional complaints, except as docu and Reports as per HPI Neurologic: Reports system reviewed and no additional complaints, except as documented, Reports as per HPI and Reports Normal hearing present Psychiatric: Psychiatric: Reports no additional psychiatric complaints and Reports as per HPI Endocrine: Endocrine: Reports no additional endocrine complaints Hematologic/Lymphatic: Hematologic/Lymphatic: Reports no additional hematologic/lymphatic complaints Allergic/Immunologic: Allergic/Immunologic: Reports no additional allergic/immunologic complaints [facility] Past Medical History Medical History (Updated 10/20/21 @ 13:49 by Padma Barry NP) Atrial fibrillation Congestive heart failure History of atrial fibrillation History of hyperlipidemia History of hypertension History of subarachnoid hemorrhage Hyperlipidemia Hypertension Hyperthyroidism Tobacco abuse Surgical History Surgical History (Updated 10/20/21 @ 14:07 by Padma Barry NP) H/O mechanical aortic valve replacement H/O: hysterectomy Hx of brain surgery Family History Family History (Updated 10/20/21 @ 13:50 by Padma Barry NP) Mother Brain aneurysm Other No known health problems Social History Social History (Updated 10/20/21 @ 13:50 by Padma Barry NP) Social History: The patient still continues to smoke a half pack a cigarett
[2021-10-20] MEDS: WARFARIN (*PBKC) 5 MG TABLET PO (17:25)
[2021-10-20 17:27] LABS: Troponin I < 0.012 ng/mL (0.000-0.034)
[2021-10-20] MEDS: KETOROLAC 15 MG/ML VIAL (*BKC) IV PUSH (21:25)
[2021-10-21] VITALS (15 sets, daily range): BP systolic 91–102; BP diastolic 53–80; PULSE 80–124; RESP 14–20; TEMP 36.1–37; O2SAT 97–100
[2021-10-21] MEDS: dilTIAZem HCL 30 MG TABLET PO ×3 (05:10→17:00)
[2021-10-21 05:50] LABS: Lactic Acid Reflex 0.9 mmol/L (0.7-2.1)
[2021-10-21 05:51] LABS: Anion Gap 6 mmol/L (8-16); Blood Urea Nitrogen 22 mg/dL (7-17); Calcium 8.9 mg/dL (8.4-10.2); Carbon Dioxide 22 mmol/L (22-30); Chloride 107 mmol/L (98-107); Estimated CRCL calculation 29 ml/min; Estimated Glomerular Filt Rate 39; Glucose 91 mg/dL (65-110); INR 3.5; Lactate Dehydrogenase 738 U/L (313-618); Magnesium 1.8 mg/dL (1.6-2.3); Potassium 4.2 mmol/L (3.4-5.0); Prothrombin Time 33.8 Seconds (11.1-14.7); Sodium 135 mmol/L (137-145)
[2021-10-21] MEDS: methiMAzole 5 MG TAB PO (08:10)
[2021-10-21] MEDS: METOPROLOL TARTRATE 25 MG TABLET PO ×2 (08:10→21:12)
[2021-10-21] MEDS: FUROSEMIDE INJ 40 MG/4 ML VIAL 20 MG IV PUSH (08:10)
[2021-10-21] MEDS: lisinopriL 2.5 MG TABLET PO (08:10)
--- NOTE | 2021-10-21 09:06 | PM.IMPN ---
Progress Note: A&P Assessment and Plan (1) Chest pain: Code(s): R07.9 - Chest pain, unspecified Status: Acute Assessment and Plan: Endorses chest tightness, worsened with inspiration. Seems to be most consistent with pleuritic chest pain, likely secondary to pneumonia. Troponins negative. CTA negative for PE. No signs/symptoms to suggest cardiac etiology, no concern for ACS. (2) Community acquired pneumonia: Code(s): J18.9 - Pneumonia, unspecified organism Status: Acute Assessment and Plan: Presents with 1 week of productive cough and CXR with airspace opacities in the right middle lobe. Continue azithromycin and Rocephin. She remains afebrile. Blood and sputum cultures pending. Will check urinary Legionella and pneumococcal antigens. Supportive care to include bronchodilators, expectorants, incentive spirometry. She is maintaining adequate O2 sats on room air. (3) Atrial fibrillation: Code(s): I48.91 - Unspecified atrial fibrillation Status: Chronic Assessment and Plan: EKG on presentation showed atrial fibrillation. She did have rapid ventricular response in the ED up to 130s and received IV diltiazem. May be related to acute infection. HR today in the 115s this morning but now ranging 90-100 after receiving medications. Continue PO Cardizem 30 mg PO q6h. Continue metoprolol tartrate 25 mg BID. (4) Congestive heart failure: Code(s): I50.9 - Heart failure, unspecified Status: Chronic Assessment and Plan: No echocardiogram on file. Reported by previous provider that she had an echo 09/22/2021, records have been requested from her die drawing checker office, Dr. Jones. Appears to be clinically compensated at this time. BNP is 2100. CXR shows cardiomegaly and small pleural effusion. She received 20 mg IV lasix on presentation. Will hold off on further diuresis at this time given her renal function and again no clinical signs of volume overload. (5) COPD (chronic obstructive pulmonary disease): Code(s): J44.9 - Chronic obstructive pulmonary disease, unspecified Status: Acute Assessment and Plan: Not in acute exacerbation. Continue p.r.n. Xopenex. She is not on any inhalers at home. (6) Acute renal failure: Code(s): N17.9 - Acute kidney failure, unspecified Status: Acute Assessment and Plan: Baseline unclear, she may have CKD, though no documented history of this. Review of prior records indicates creatinine ranging between 1.4-1.6. Creatinine is 1.6 today with GFR 39, which is consistent with prior labs. Continue to monitor labs. Renally dose medications and avoid nephrotoxins. (7) Hypertension: Code(s): I10 - Essential (primary) hypertension Status: Chronic Assessment and Plan: Blood pressure has been soft last night and today, 90s/60s. She is asymptomatic. Hold lisinopril. Caution with cardizem and metoprolol needed for rate control. Monitor HR and BP closely. Monitor BP trends and adjust medications as needed. (8) Hyperthyroidism: Code(s): E05.90 - Thyrotoxicosis, unspecified without thyrotoxic crisis or storm Status: Chronic Assessment and Plan: TSH mildly elevated with normal T4, T3 is pending. Continue methimazole. Of note, there was a goiter with asymmetric enlargement of the left thyroid lobe noted on CTA. She will need a thyroid ultrasound as an outpatient. She will also need repeat TSH with reflex in 4 weeks. (9) Tobacco abuse: Code(s): Z72.0 - Tobacco use Status: Chronic Assessment and Plan: She smokes 1/2 pack per day. Continue to reinforce smoking cessation. (10) H/O mechanical aortic valve replacement: Code(s): Z95.2 - Presence of prosthetic heart valve Status: Inactive Assessment and Plan: Continue warfarin. INR is therapeutic at 3.5 today. Continue to monitor PT/INR (11) Pulmona
[2021-10-21] MEDS: traMADol HCL (*CRX) 50 MG TABLET PO (11:41)
[2021-10-21] MEDS: ONDANSETRON INJ 4 MG/2 ML VIAL (13:04)
[2021-10-21] MEDS: WARFARIN (*PBKC) 5 MG TABLET PO (17:00)
--- NOTE | 2021-10-21 17:48 | PC.NURSE ---
patient downgraded to med-tele, report given at [id number], transferred to [facility] at [id number]
--- NOTE | 2021-10-21 18:07 | PC.NURSE ---
This patient, Veronica Adler, was received from IMU on 10/21/21 at 1807. Patient/family oriented to unit policies and routines
[2021-10-21] MEDS: guaiFENesin 12 HR 600 MG TABCR PO (21:13)
[2021-10-22] VITALS (13 sets, daily range): BP systolic 88–115; BP diastolic 48–73; PULSE 83–129; RESP 14–18; TEMP 36–36.7; O2SAT 96–100
[2021-10-22] MEDS: dilTIAZem HCL 30 MG TABLET PO ×3 (00:42→16:39)
[2021-10-22] MEDS: traMADol HCL (*CRX) 50 MG TABLET PO ×2 (00:44→20:44)
[2021-10-22 05:58] LABS: Hematocrit 37.1 % (37.0-47.0); Hemoglobin 12.2 g/dL (12.0-15.0); Mean Corpuscular HGB Conc 32.9 g/dl (32-36); Mean Corpuscular Hemoglobin 33.8 pg (26-34); Mean Corpuscular Volume 102.8 fl (80-100); Platelet Count Result 222 k/mm3 (150-375); Red Blood Count 3.61 M/mm3 (4.2-5.4); Red Cell Distribution Width 14.6 % (11.5-14.5); White Blood Count 4.8 K/mm3 (4.5-10.0)
[2021-10-22 06:08] LABS: Anion Gap 2 mmol/L (8-16); Blood Urea Nitrogen 23 mg/dL (7-17); Calcium 8.7 mg/dL (8.4-10.2); Carbon Dioxide 28 mmol/L (22-30); Chloride 104 mmol/L (98-107); Estimated CRCL calculation 29 ml/min; Estimated Glomerular Filt Rate 39; Glucose 87 mg/dL (65-110); Potassium 4.7 mmol/L (3.4-5.0); Sodium 134 mmol/L (137-145)
[2021-10-22 06:10] LABS: INR 4.2; Prothrombin Time 38.8 Seconds (11.1-14.7)
[2021-10-22] MEDS: guaiFENesin 12 HR 600 MG TABCR PO ×2 (08:25→20:43)
[2021-10-22] MEDS: methiMAzole 5 MG TAB PO (08:25)
[2021-10-22] MEDS: ONDANSETRON INJ 4 MG/2 ML VIAL IV PUSH (14:07)
--- NOTE | 2021-10-22 14:18 | PM.IMPN ---
Progress Note: A&P Assessment and Plan (1) Chest pain: Code(s): R07.9 - Chest pain, unspecified Status: Acute Assessment and Plan: 10/21 endorsed chest tightness, worsened with inspiration. Seems to be most consistent with pleuritic chest pain, likely secondary to pneumonia. Troponins negative. CTA negative for PE. No signs/symptoms to suggest cardiac etiology, no concern for ACS. (2) Community acquired pneumonia: Code(s): J18.9 - Pneumonia, unspecified organism Status: Acute Assessment and Plan: Presented with 1 week of productive cough and CXR with airspace opacities in the right middle lobe. Continue azithromycin and Rocephin. She remains afebrile. Blood and sputum cultures pending, negative to date. Urinary Legionella and pneumococcal antigens pending. Supportive care to include bronchodilators, expectorants, incentive spirometry. She is maintaining adequate O2 sats on room air. Edited at 1435: Received call from RN that patient became very nauseous and had emesis following administration of azithromycin. She had a similar reaction yesterday. Will stop azithromycin and transition to doxycycline. Antiemetics available as needed. (3) Atrial fibrillation: Code(s): I48.91 - Unspecified atrial fibrillation Status: Chronic Assessment and Plan: EKG on presentation showed atrial fibrillation. She did have rapid ventricular response in the ED up to 130s and received IV diltiazem. May be related to acute infection. HR today in the 80s-100. Continue PO Cardizem 30 mg PO BID and metoprolol tartrate 25 mg BID. Monitor on telemetry (4) Orthostatic hypotension: Code(s): I95.1 - Orthostatic hypotension Status: Acute Assessment and Plan: Blood pressure declined to 88/61 upon standing this afternoon. She is asymptomatic. Apply Bear hose. Begin gentle IV fluid hydration. Repeat orthostatics tomorrow. Fall precautions implemented. (5) Congestive heart failure: Code(s): I50.9 - Heart failure, unspecified Status: Chronic Assessment and Plan: No echocardiogram on file. Reported by previous provider that she had an echo 09/22/2021, records have been requested from her coke crane operator office, Dr. Jones. Appears to be clinically compensated at this time. BNP is 2100. CXR shows cardiomegaly and small pleural effusion. She received 20 mg IV lasix on presentation. She is euvolemic and will hold off on further diuresis at this time. (6) COPD (chronic obstructive pulmonary disease): Code(s): J44.9 - Chronic obstructive pulmonary disease, unspecified Status: Acute Assessment and Plan: Not in acute exacerbation. Continue p.r.n. Xopenex. She is not on any inhalers at home. (7) Acute renal failure: Code(s): N17.9 - Acute kidney failure, unspecified Status: Acute Assessment and Plan: Baseline unclear, she may have CKD, though no documented history of this. Review of prior records indicates creatinine ranging between 1.4-1.6. Creatinine is 1.6 today with GFR 39, which is consistent with prior labs. Continue to monitor labs. Renally dose medications and avoid nephrotoxins. (8) Hypertension: Code(s): I10 - Essential (primary) hypertension Status: Chronic Assessment and Plan: Blood pressure has been soft and she is orthostatic. See above. Hold lisinopril. Caution with cardizem and metoprolol needed for rate control. Switched her Cardizem from q.6 to q.12, which is consistent with her home dose, this should improve her BP. Monitor HR and BP closely. Monitor BP trends and adjust medications as needed. (9) Hyperthyroidism: Code(s): E05.90 - Thyrotoxicosis, unspecified without thyrotoxic crisis or storm Status: Chronic Assessment and Plan: TSH mildly elevated with normal T4 and T3. Continue methimazole. Of note, there was a goiter with asymmetric enlar
[2021-10-22] MEDS: SODIUM CHLORIDE 0.9% IV 1,000 ML 70 ML IV CONT (14:37)
[2021-10-22] MEDS: METOPROLOL TARTRATE 25 MG TABLET PO (20:43)
[2021-10-22] MEDS: DOXYCYCLINE HYCLATE 100 MG TABLET PO (20:43)
[2021-10-23] VITALS (13 sets, daily range): BP systolic 98–117; BP diastolic 50–76; PULSE 86–133; RESP 14–20; TEMP 35.8–36.7; O2SAT 93–96
[2021-10-23] MEDS: SODIUM CHLORIDE 0.9% IV 1,000 ML 70 ML IV CONT (04:18)
[2021-10-23 05:30] LABS: Hematocrit 37.5 % (37.0-47.0); Hemoglobin 12.4 g/dL (12.0-15.0); Mean Corpuscular HGB Conc 33.1 g/dl (32-36); Mean Corpuscular Hemoglobin 34.5 pg (26-34); Mean Corpuscular Volume 104.5 fl (80-100); Mean Platelet Volume 10.6 fl (7.4-10.4); Platelet Count Result 219 k/mm3 (150-375); Red Blood Count 3.59 M/mm3 (4.2-5.4); Red Cell Distribution Width 14.7 % (11.5-14.5); White Blood Count 5.3 K/mm3 (4.5-10.0)
[2021-10-23 05:40] LABS: INR 3.7; Prothrombin Time 35.3 Seconds (11.1-14.7)
[2021-10-23 05:47] LABS: Anion Gap 4 mmol/L (8-16); Blood Urea Nitrogen 22 mg/dL (7-17); Calcium 8.7 mg/dL (8.4-10.2); Carbon Dioxide 25 mmol/L (22-30); Chloride 109 mmol/L (98-107); Estimated CRCL calculation 29 ml/min; Estimated Glomerular Filt Rate 39; Glucose 91 mg/dL (65-110); Sodium 138 mmol/L (137-145)
--- NOTE | 2021-10-23 07:25 | ECG_ITS ---
Measurements Intervals [place] Rate: 122 P: VA: 0 QRS: 125 QRSD: 114 T: -18 QT: 327 QTc: 466 Interpretive Statements ATRIAL FIBRILLATION WITH RAPID VENTRICULAR RESPONSE LOW QRS VOLTAGE IN PRECORDIAL LEADS RIGHT BUNDLE BRANCH BLOCK LEFT POSTERIOR FASCICULAR BLOCK BASELINE ARTIFACT- V5 ABNORMAL ECG Electronically Signed On 10-23-2021 10:56:30 DATABASE TESTER by Aston Villagomez D.O.
[2021-10-23] MEDS: METOPROLOL TARTRATE 25 MG TABLET PO ×4 (08:30→21:02)
[2021-10-23] MEDS: DOXYCYCLINE HYCLATE 100 MG TABLET PO ×2 (08:31→21:02)
[2021-10-23] MEDS: guaiFENesin 12 HR 600 MG TABCR PO ×2 (08:31→21:02)
[2021-10-23] MEDS: methiMAzole 5 MG TAB PO (08:31)
[2021-10-23] MEDS: dilTIAZem HCL 30 MG TABLET PO (08:31)
--- NOTE | 2021-10-23 10:25 | PM.IMPN ---
Progress Note: A&P Assessment and Plan (1) Atrial fibrillation with rapid ventricular response: Code(s): I48.91 - Unspecified atrial fibrillation Status: Acute Assessment and Plan: EKG on presentation showed atrial fibrillation with rate in the 90s. She did have an episode of rapid ventricular response in the ED up to 130s and received IV diltiazem with improvement in rate. Subsequently rate was controlled until yesterday evening. Repeat EKG this morning showed AFib with RVR up to 120s. Consult placed to Cardiology, recommendations are appreciated. Continue with current regimen p.o. Cardizem 30 mg b.i.d. and metoprolol tartrate 25 mg b.i.d. while awaiting Cardiology recommendations. She is anticoagulated with warfarin due to mechanical valve history. (2) Chest pain: Code(s): R07.9 - Chest pain, unspecified Status: Acute Assessment and Plan: Resolved. 10/21 endorsed chest tightness, worsened with inspiration. Seems to be most consistent with pleuritic chest pain, likely secondary to pneumonia. Troponins negative. CTA negative for PE. No signs/symptoms to suggest cardiac etiology, no concern for ACS. (3) Community acquired pneumonia: Code(s): J18.9 - Pneumonia, unspecified organism Status: Acute Assessment and Plan: Presented with 1 week of productive cough and CXR with airspace opacities in the right middle lobe. Continue Rocephin. Azithromycin discontinued 10/22 due to N/V. Started p.o. doxycycline yesterday evening. She remains afebrile. Blood and sputum cultures pending, negative to date. Urinary Legionella and pneumococcal antigens pending. Supportive care to include bronchodilators, expectorants, incentive spirometry. She is maintaining adequate O2 sats on room air. (4) Orthostatic hypotension: Code(s): I95.1 - Orthostatic hypotension Status: Acute Assessment and Plan: Blood pressure declined to 88/61 upon standing yesterday. She remained asymptomatic. Started on gentle IV fluid rehydration. Bear hose applied. Repeat orthostatics ordered for this morning, awaiting results. Fall precautions implemented. (5) Congestive heart failure: Code(s): I50.9 - Heart failure, unspecified Status: Chronic Assessment and Plan: No echocardiogram on file. Reported by previous provider that she had an echo 09/22/2021, records have been requested from her merchandise presentation manager office, Dr. Jones. Appears to be clinically compensated at this time. BNP is 2100. CXR shows cardiomegaly and small pleural effusion. She received 20 mg IV lasix on presentation. She is euvolemic and will hold off on further diuresis at this time. (6) COPD (chronic obstructive pulmonary disease): Code(s): J44.9 - Chronic obstructive pulmonary disease, unspecified Status: Acute Assessment and Plan: Not in acute exacerbation. Continue p.r.n. Xopenex. She is not on any inhalers at home. (7) Acute renal failure: Code(s): N17.9 - Acute kidney failure, unspecified Status: Acute Assessment and Plan: Baseline unclear, she may have CKD, though no documented history of this. Review of prior records indicates creatinine ranging between 1.4-1.6. Creatinine is 1.6 today with GFR 39, which is consistent with prior labs. Continue to monitor labs. Renally dose medications and avoid nephrotoxins. (8) Hypertension: Code(s): I10 - Essential (primary) hypertension Status: Chronic Assessment and Plan: Blood pressure has been soft and she is orthostatic. See above. Hold lisinopril. Caution with cardizem and metoprolol needed for rate control. Monitor HR and BP closely. Monitor BP trends and adjust medications as needed. (9) Hyperthyroidism: Code(s): E05.90 - Thyrotoxicosis, unspecified without thyrotoxic crisis or storm Status: Chronic Assessment and Plan: TSH mildly elevated with normal T4
--- NOTE | 2021-10-23 12:17 | PM.CNCAR ---
Assessment and Plan Additional Plan AF with RVR, acute on chronic CHF, Hx of mechanical MV replacement (Bi-leaflet), Hx of hyperthyroidism, Plan lasix IV 40 mg BID, warafrin with target INR 2.5 to 3.5, get records from [facility]. d/c deltiazem and increase metopolrol to 25 mg QID History of Present Illness History of Present Illness Consult date/time: 10/23/21 12:17 Consult reason: atrial fibrillation Reason For Visit: community acquired pneumonia,chest pain,atrial fi Narrative: Patient with Hx of mechanical MV replacement, CHF and AF. She presented with progressive SOB on mild activity started several days ago, associated with LE edema. She recently has been off lasix stoped by physician. She had Hx of hyperthyroidism. On arrival to hospital she was noted to have AF with RVR but she didn't feel palpitations. Review of Systems Review of Systems: All systems reviewed & are unremarkable except as noted in HPI and below PMFSH Past Medical History Medical History (Updated 10/23/21 @ 10:29 by Melissa Mack PA-C) Atrial fibrillation Congestive heart failure History of atrial fibrillation History of hyperlipidemia History of hypertension History of subarachnoid hemorrhage Hyperlipidemia Hypertension Hyperthyroidism Tobacco abuse Surgical History Surgical History (Updated 10/20/21 @ 14:07 by Padma Barry NP) H/O mechanical aortic valve replacement H/O: hysterectomy Hx of brain surgery Family History Family History (Updated 10/20/21 @ 13:50 by Padma Barry NP) Mother Brain aneurysm Other No known health problems Social History Social History (Updated 10/20/21 @ 13:50 by Padma Barry NP) Social History: The patient still continues to smoke a half pack a cigarettes a day. She has 3 children. She lives home alone she is . She does not have a durable power deputy prosecuting attorney for healthcare. 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 Code status she is a full code Smoking packs per day: 0.5 Smoking cigarettes per day: 10.0 Years smoked: 51 Smoking pack-years: 25.50 Smoking status: Current every day smoker Tobacco type: cigarettes Second hand tobacco smoke exposure: No Alcohol intake: never Substance use: never Substance use type: does not use Gender identity (if verbalized by the patient): Female Spiritual care concerns: No Meds Home Medications and Allergies Home Medications Medication Instructions Recorded Confirmed Type lisinopril 2.5 mg PO DAILY 03/26/21 10/20/21 History methimazole 5 mg PO DAILY 03/26/21 10/20/21 History metoprolol tartrate 25 mg PO BID 03/26/21 10/21/21 History warfarin 5 mg PO HS 03/26/21 10/20/21 History atorvastatin 20 mg PO HS 10/20/21 10/20/21 History diltiazem HCl 30 mg PO BID 10/20/21 10/20/21 History tramadol 50 mg PO BID PRN 10/21/21 10/21/21 History Allergies Allergy/AdvReac Type Severity Reaction Status Date / Time methylprednisolone Allergy Unknown Other Verified 06/20/21 07:31 azithromycin Allergy Nausea and Verified 10/22/21 14:35 Vomiting Vital Signs Vital Signs - 24 hr 10/22/21 12:39 10/22/21 12:40 10/22/21 12:41 Temperature Pulse Rate Respiratory Rate Blood Pressure 94/73 L 90/58 L 88/61 L Pulse Oximetry 10/22/21 13:10 10/22/21 16:00 10/22/21 16:40 Temperature 36.6 C Pulse Rate 115 H 129 H 122 H Respiratory Rate 18 Blood Pressure 115/68 Pulse Oximetry 96 10/22/21 20:00 10/22/21 20:43 10/23/21 00:00 Temperature 36.7 C 36.7 C Pulse Rate 126 H 123 H 110 H Respiratory Rate 14 16 Blood Pressure 109/55 L 104/52 L Pulse Oximetry 96 93 10/23/21 04:00 10/23/21 08:00 10/23/21 08:30 Temperature 36.2 C L 36.3 C L Pulse Rate 126 H 133 H 132 H Respiratory Rate 14 20 Blood Pressure 104/58 L 98/76 L Pulse Oximetry 95 95 Exam Const: General: comfortable and no acute distress Other: Able to lie flat HENMT: General nose exam: Normal nares present and no ep
[2021-10-23] MEDS: traMADol HCL (*CRX) 50 MG TABLET PO (17:15)
[2021-10-23] MEDS: FUROSEMIDE INJ 40 MG/4 ML VIAL 20 MG IV PUSH (18:30)
[2021-10-23] MEDS: ALBUTEROL SULFATE NEB 2.5 MG/0.5 ML INH INHALATION (19:53)
[2021-10-23] MEDS: IPRATROPIUM BR 0.02% INH SOLN 0.5 MG/2.5 ML VIAL INHALATION (19:54)
[2021-10-23 20:54] LABS: Pneumococcal Antigen Urine Not Detected (Not Detected)
[2021-10-24] VITALS (23 sets, daily range): BP systolic 80–112; BP diastolic 62–80; PULSE 81–133; RESP 16–22; TEMP 36–37.1; O2SAT 96–97
[2021-10-24 00:54] LABS: Legionella pneumophila Ag Ur Not Detected (Not Detected)
[2021-10-24] MEDS: IPRATROPIUM BR 0.02% INH SOLN 0.5 MG/2.5 ML VIAL INHALATION ×2 (01:02→07:39)
[2021-10-24] MEDS: ALBUTEROL SULFATE NEB 2.5 MG/0.5 ML INH INHALATION ×2 (01:02→07:39)
[2021-10-24 05:30] LABS: Hematocrit 38.3 % (37.0-47.0); Mean Corpuscular HGB Conc 33.9 g/dl (32-36); Mean Corpuscular Hemoglobin 34.4 pg (26-34); Mean Corpuscular Volume 101.3 fl (80-100); Mean Platelet Volume 10.8 fl (7.4-10.4); Platelet Count Result 246 k/mm3 (150-375); Red Blood Count 3.78 M/mm3 (4.2-5.4); Red Cell Distribution Width 14.5 % (11.5-14.5); White Blood Count 5.6 K/mm3 (4.5-10.0)
[2021-10-24 05:44] LABS: INR 2.7; Prothrombin Time 28.1 Seconds (11.1-14.7)
[2021-10-24 05:49] LABS: Anion Gap 6 mmol/L (8-16); Blood Urea Nitrogen 22 mg/dL (7-17); Calcium 8.5 mg/dL (8.4-10.2); Carbon Dioxide 22 mmol/L (22-30); Chloride 106 mmol/L (98-107); Estimated CRCL calculation 30 ml/min; Estimated Glomerular Filt Rate 39; Glucose 112 mg/dL (65-110); Potassium 4.6 mmol/L (3.4-5.0); Sodium 134 mmol/L (137-145)
[2021-10-24] MEDS: METOPROLOL TARTRATE 50 MG TAB PO ×3 (06:32→21:00)
[2021-10-24] MEDS: ACETAMINOPHEN 325 MG TABLET 650 MG PO (06:45)
[2021-10-24] MEDS: METOPROLOL TARTRATE 25 MG TABLET PO (08:45)
[2021-10-24] MEDS: guaiFENesin 12 HR 600 MG TABCR PO ×2 (08:45→21:01)
[2021-10-24] MEDS: methiMAzole 5 MG TAB PO (08:46)
[2021-10-24] MEDS: DOXYCYCLINE HYCLATE 100 MG TABLET PO ×2 (08:46→21:01)
--- NOTE | 2021-10-24 11:05 | PM.PNCARD ---
Progress Note: A&P Additional Plan AF with RVR, acute on chronic CHF, Hx of mechanical MV replacement (Bi-leaflet), Hx of hyperthyroidism, Patient had signfciant increase in oral intake, Plan lasix IV 80 mg TID, warafrin with target INR 2.5 to 3.5, get records from [facility]. d/c diltiazem and increase metopolrol to 50 mg TID, restrict fluid intake Subjective Date/time seen: 10/24/21 11:05 Interval history: no acute events Tele; AF with HR in 110 to 120 Review of Systems Review of Systems: All systems reviewed & are unremarkable except as noted in HPI and below Exam Const: General: comfortable and no acute distress Other: Able to lie flat HENMT: General nose exam: Normal nares present and no epistaxis Mouth: Yes moist mucous membranes Eyes: Sclera: sclerae normal Pupils: Equal, round and reactive pupils present Neck: Neck: supple and JVD Carotids: no bruits Resp: Auscultation: rales (basal) and lung sounds not diminished Other: No chest wall tenderness Cardio: Rate: abnormal rate Rhythm: abnormal rhythm Heart sounds: no gallops, Murmur heart sound present, no rubs and Other heart sounds present (click of mechanical MV ) GI: Auscultation: normal bowel sounds Skin: General skin exam: normal color, rashes and/or lesions noted and no erythema Other: Warm Neuro: Cranial nerves: Yes Equal, round and reactive pupils present Speech: normal speech Other: No obvious focal deficit or facial asymmetry Extrem: General: edema (Bilateral LE) Other: Normal capillary refills Intact distal pulses. Objective Data Vital Signs Vital Signs: Vital Signs - 24 hr 10/23/21 12:00 10/23/21 15:41 10/23/21 16:00 Temperature 36.3 C L 36.2 C L Pulse Rate 98 103 H 115 H Respiratory Rate 19 18 Blood Pressure 106/63 98/72 L Pulse Oximetry 96 95 10/23/21 17:13 10/23/21 19:57 10/23/21 20:00 Temperature 36.0 C L Pulse Rate 110 H 89 118 H Respiratory Rate 20 20 Blood Pressure 117/50 L Pulse Oximetry 95 10/23/21 20:04 10/23/21 21:02 10/23/21 23:48 Temperature 35.8 C L Pulse Rate 91 118 H 108 H Respiratory Rate 20 18 Blood Pressure 104/69 Pulse Oximetry 95 10/24/21 00:00 10/24/21 01:02 10/24/21 01:09 Temperature Pulse Rate 105 H 85 81 Respiratory Rate 20 20 Blood Pressure Pulse Oximetry 10/24/21 04:00 10/24/21 04:41 10/24/21 06:22 Temperature 36.0 C L Pulse Rate 130 H 117 H 125 H Respiratory Rate 20 Blood Pressure 107/70 Pulse Oximetry 96 10/24/21 06:32 10/24/21 06:36 10/24/21 07:41 Temperature Pulse Rate 130 H 126 H 113 H Respiratory Rate 22 H Blood Pressure 106/65 Pulse Oximetry 96 10/24/21 07:49 10/24/21 08:00 10/24/21 08:45 Temperature Pulse Rate 102 H 118 H 120 H Respiratory Rate 20 Blood Pressure Pulse Oximetry 10/24/21 09:51 Temperature 36.6 C Pulse Rate 105 H Respiratory Rate 16 Blood Pressure 101/67 Pulse Oximetry 97 Intake/Output Intake/Output: Intake & Output 10/21/21 10/22/21 10/23/21 10/24/21 23:59 23:59 23:59 23:59 Intake Total 1140 1280 3590 360 Output Total 482 694 3093 Balance 415 1280 2790 -840 Meds/Results Medications: Active Medications Generic Name Dose Route Start Last Admin Trade Name Popeyeq PRN Reason Stop Dose Admin Acetaminophen 650 mg 10/21/21 09:40 10/24/21 06:45 Acetaminophen 325 Mg Tablet PO 650 mg Q4H PRN Administration Pain 1-5 Albuterol 2.5 mg 10/23/21 20:00 10/24/21 07:39 Albuterol Sulfate Neb 2.5 Mg/0.5 Ml Inh INHALATION 2.5 mg Q6HRT SHIRA Administration Doxycycline Hyclate 100 mg 10/22/21 21:00 10/24/21 08:46 Doxycycline Hyclate 100 Mg Tablet PO 100 mg Q12HR SHIRA Administration Furosemide 40 mg 10/24/21 09:00 Furosemide Inj 40 Mg/4 Ml Vial IV PUSH DAILY SHIRA Guaifenesin 600 mg 10/21/21 21:00 10/24/21 08:45 Guaifenesin 12 Hr 600 Mg Tabcr PO 600 mg Q12HR SHIRA Administration Ceftriaxone Sodium/Dextros
--- NOTE | 2021-10-24 14:21 | PM.IMPN ---
Progress Note: A&P Assessment and Plan (1) Atrial fibrillation with rapid ventricular response: Code(s): I48.91 - Unspecified atrial fibrillation Status: Acute Assessment and Plan: EKG on presentation showed atrial fibrillation with rate in the 90s. She did have an episode of rapid ventricular response in the ED up to 130s and received IV diltiazem with improvement in rate. Now unfortunately with RVR again up to 120s. Appreciate cardiology consult. Rate still poorly controlled this morning, therefore she has been transition to metoprolol tartrate 50 mg TID. PO Cardizem has been discontinued. She is anticoagulated with warfarin due to mechanical valve history. (2) Chest pain: Code(s): R07.9 - Chest pain, unspecified Status: Acute Assessment and Plan: Resolved. 10/21 endorsed chest tightness, worsened with inspiration. Seems to be most consistent with pleuritic chest pain, likely secondary to pneumonia. Troponins negative. CTA negative for PE. No signs/symptoms to suggest cardiac etiology, no concern for ACS. (3) Community acquired pneumonia: Code(s): J18.9 - Pneumonia, unspecified organism Status: Acute Assessment and Plan: Presented with 1 week of productive cough and CXR with airspace opacities in the right middle lobe. Continue Rocephin. Azithromycin discontinued 10/22 due to N/V and transitioned to PO Doxycycline. She remains afebrile. Blood cultures pending, negative to date. Sputum culture negative. Urinary Legionella and pneumococcal antigens negative. Supportive care to include bronchodilators, expectorants, incentive spirometry. She is maintaining adequate O2 sats on room air. (4) Orthostatic hypotension: Code(s): I95.1 - Orthostatic hypotension Status: Acute Assessment and Plan: Blood pressure declined to 88/61 upon standing 10/22. She remained asymptomatic. Bear hose applied. Fall precautions implemented. Not orthostatic today. Repeat tomorrow. (5) Acute on chronic diastolic CHF (congestive heart failure): Code(s): I50.33 - Acute on chronic diastolic (congestive) heart failure Status: Acute Assessment and Plan: No echocardiogram on file. Reported by previous provider that she had an echo 09/22/2021, records have been requested from her senior office support assistant [facility] office, Dr. Jones. BNP is 2100. CXR showed cardiomegaly and small pleural effusion. Continue with Lasix 40 mg IV BID per cardiology. Monitor intake and output. Heart healthy diet. (6) COPD (chronic obstructive pulmonary disease): Code(s): J44.9 - Chronic obstructive pulmonary disease, unspecified Status: Acute Assessment and Plan: Not in acute exacerbation, no wheezing on my exam. Continue p.r.n. Xopenex. She is not on any inhalers at home. (7) Acute renal failure: Code(s): N17.9 - Acute kidney failure, unspecified Status: Acute Assessment and Plan: Baseline unclear, she may have CKD, though no documented history of this. Review of prior records indicates creatinine ranging between 1.4-1.6. Renal function is consistent with baseline at this time. Continue to monitor labs. Renally dose medications and avoid nephrotoxins. Caution with diuresis. (8) Hypertension: Code(s): I10 - Essential (primary) hypertension Status: Chronic Assessment and Plan: Blood pressure has been soft and she is orthostatic. See above. Home lisinopril on hold. Caution with metoprolol which is needed for rate control. (9) Hyperthyroidism: Code(s): E05.90 - Thyrotoxicosis, unspecified without thyrotoxic crisis or storm Status: Chronic Assessment and Plan: TSH mildly elevated with normal T4 and T3. Continue methimazole. Of note, there was a goiter with asymmetric enlargement of the left thyroid lobe noted on CTA. Thyroid ultrasound 08/31/2021 also demonstrates enlargement of left lobe measuring up
[2021-10-24] MEDS: FUROSEMIDE INJ 40 MG/4 ML VIAL IV PUSH (16:56)
[2021-10-24] MEDS: traMADol HCL (*CRX) 50 MG TABLET PO (21:03)
[2021-10-25] VITALS (16 sets, daily range): BP systolic 95–112; BP diastolic 57–77; PULSE 92–136; RESP 14–18; TEMP 36.3–37; O2SAT 95–99
[2021-10-25] MEDS: METOPROLOL TARTRATE 50 MG TAB PO (05:57)
[2021-10-25 06:12] LABS: Hematocrit 37.5 % (37.0-47.0); Hemoglobin 12.8 g/dL (12.0-15.0); Mean Corpuscular HGB Conc 34.1 g/dl (32-36); Mean Corpuscular Hemoglobin 34.7 pg (26-34); Mean Corpuscular Volume 101.6 fl (80-100); Mean Platelet Volume 10.7 fl (7.4-10.4); Platelet Count Result 249 k/mm3 (150-375); Red Blood Count 3.69 M/mm3 (4.2-5.4); Red Cell Distribution Width 14.6 % (11.5-14.5); White Blood Count 6.5 K/mm3 (4.5-10.0)
[2021-10-25 06:29] LABS: Anion Gap 7 mmol/L (8-16); Blood Urea Nitrogen 27 mg/dL (7-17); Calcium 8.9 mg/dL (8.4-10.2); Carbon Dioxide 23 mmol/L (22-30); Chloride 105 mmol/L (98-107); Estimated CRCL calculation 28 ml/min; Estimated Glomerular Filt Rate 36; Glucose 109 mg/dL (65-110); Potassium 4.7 mmol/L (3.4-5.0); Sodium 135 mmol/L (137-145)
[2021-10-25] MEDS: METOPROLOL TARTRATE INJ 5 MG/5 ML VIAL IV PUSH (06:33)
[2021-10-25] MEDS: guaiFENesin 12 HR 600 MG TABCR PO ×2 (08:06→20:01)
[2021-10-25] MEDS: DOXYCYCLINE HYCLATE 100 MG TABLET PO ×2 (08:06→20:01)
[2021-10-25] MEDS: methiMAzole 5 MG TAB PO (08:06)
[2021-10-25] MEDS: FUROSEMIDE INJ 40 MG/4 ML VIAL IV PUSH (08:07)
--- NOTE | 2021-10-25 08:27 | PM.PNCARD ---
Progress Note: A&P Assessment and Plan (1) Acute on chronic diastolic CHF (congestive heart failure): Code(s): I50.33 - Acute on chronic diastolic (congestive) heart failure Status: Acute Assessment and Plan: There is no echocardiogram available for my review at this point. The most recent cardiac imaging I have available to me is from 2019 and shows normal LV systolic function. Today she seems to be well compensated to she can be shifted from IV lasix to oral. (2) Atrial fibrillation with rapid ventricular response: Code(s): I48.91 - Unspecified atrial fibrillation Status: Acute Assessment and Plan: Chronic atrial fibrillation which is ordinarily controlled with Diltiazem as an outpatient. Diltiazem was changed during recent admission at [facility] from diltiazem SR 120 q12 to IR diltiazem 30mg q12. She tells me she had been well controlled on her home dose of diltiazem SR 120mg b.i.d. Unsure why the change was made on discharge. My recommendation would be to simply place her back on her home dose of diltiazem that had been working well for her and discontinue her metoprolol. Continue to monitor on telemetry. Monitor HR and BP. (3) H/O mitral valve replacement with mechanical valve: Code(s): Z95.2 - Presence of prosthetic heart valve Status: Acute Assessment and Plan: Hx mechanical MVR on warfarin with target INR 2.5 - 3.5 Subjective Date/time seen: 10/25/21 08:27 Interval history: Cardiology follow up for atrial fibrillation Date of service 10/25/2021: She feels well this morning with no complaints whatsoever. She denies shortness of breath, chest pain, palpitations. Review of Systems Review of Systems: All systems reviewed & are unremarkable except as noted in HPI and below Exam Const: General: comfortable and no acute distress Other: Pleasant black woman sitting up on her couch in her room. Alert and oriented. Pleasant and cooperative. HENMT: Head: normal to inspection Ears: hearing grossly normal bilaterally General nose exam: Normal nares present and no epistaxis Mouth: Yes moist mucous membranes Eyes: Sclera: sclerae normal Pupils: Equal, round and reactive pupils present Neck: Neck: supple and JVD Carotids: no bruits Resp: Auscultation: not clear to auscultation bilaterally, rales (basal) on the right, no wheezes and lung sounds not diminished Cardio: Rate: abnormal rate and tachycardic Rhythm: abnormal rhythm Heart sounds: Clicking heart sound present, no gallops, Murmur heart sound present and no rubs Peripheral pulses: Peripheral pulses 2+ throughout GI: Auscultation: normal bowel sounds Skin: General skin exam: normal color, rashes and/or lesions noted and no erythema Other: Warm Neuro: Cranial nerves: Yes Equal, round and reactive pupils present Speech: normal speech Other: No obvious focal deficit or facial asymmetry Extrem: General: edema (trace bilateral LE) Psych: Appearance: grossly normal Mental Status: mental status grossly normal Objective Data Vital Signs Vital Signs: Vital Signs - 24 hr 10/24/21 08:45 10/24/21 09:51 10/24/21 11:17 Temperature 36.6 C Pulse Rate 120 H 105 H Respiratory Rate 16 Blood Pressure 101/67 80/62 L Pulse Oximetry 97 10/24/21 11:20 10/24/21 11:23 10/24/21 12:00 Temperature Pulse Rate 115 H Respiratory Rate Blood Pressure 105/69 112/68 Pulse Oximetry 10/24/21 13:41 10/24/21 14:00 10/24/21 16:00 Temperature 36.7 C Pulse Rate 116 H 120 H 133 H Respiratory Rate 18 Blood Pressure 108/76 Pulse Oximetry 97 10/24/21 18:00 10/24/21 20:00 10/24/21 21:00 Temperature 36.7 C 37.1 C Pulse Rate 119 H 131 H 119 H Respiratory Rate 18 16 Blood Pressure 105/80 109/68 Pulse Oximetry 97 96 10/25/21 00:00 10/25/21 04:00 10/25/21 04:38 Temperature 36.4 C L 36.4 C Pulse Rate 114 H 114 H 111 H Respiratory Rate 14 16 Blood Pressure 1
[2021-10-25 09:36] LABS: Prothrombin Time 22.2 Seconds (11.1-14.7)
--- NOTE | 2021-10-25 11:30 | PM.IMPN ---
Progress Note: A&P Assessment and Plan (1) Atrial fibrillation with rapid ventricular response: Code(s): I48.91 - Unspecified atrial fibrillation Status: Acute Assessment and Plan: EKG on presentation showed atrial fibrillation with rate in the 90s. She did have an episode of rapid ventricular response in the ED up to 130s and received IV diltiazem with improvement in rate. Now unfortunately with RVR again up to 120-130s. Appreciate cardiology consult. Received 5 mg IV Lopressor early this morning and rate remains elevated. She has been restarted on her PO diltiazem 120 mg BID. Metoprolol discontinued. Continue to monitor on telemetry. She is anticoagulated with warfarin due to mechanical valve history. (2) Chest pain: Code(s): R07.9 - Chest pain, unspecified Status: Acute Assessment and Plan: Resolved. 10/21 endorsed chest tightness, worsened with inspiration. Seems to be most consistent with pleuritic chest pain, likely secondary to pneumonia. Troponins negative. CTA negative for PE. No signs/symptoms to suggest cardiac etiology, no concern for ACS. (3) Community acquired pneumonia: Code(s): J18.9 - Pneumonia, unspecified organism Status: Acute Assessment and Plan: Presented with 1 week of productive cough and CXR with airspace opacities in the right middle lobe. Continue Rocephin. Azithromycin discontinued 10/22 due to N/V and transitioned to PO Doxycycline. She remains afebrile. Blood cultures pending, negative to date. Sputum culture negative. Urinary Legionella and pneumococcal antigens negative. Supportive care to include bronchodilators, expectorants, incentive spirometry. She is maintaining adequate O2 sats on room air. (4) Orthostatic hypotension: Code(s): I95.1 - Orthostatic hypotension Status: Acute Assessment and Plan: Blood pressure declined to 88/61 upon standing on 10/22. She remained asymptomatic. Bear hose applied. Fall precautions implemented. Negative orthostatics yesterday. Will repeat again today (5) Acute on chronic diastolic CHF (congestive heart failure): Code(s): I50.33 - Acute on chronic diastolic (congestive) heart failure Status: Acute Assessment and Plan: No echocardiogram on file. Reported by previous provider that she had an echo 09/22/2021, records have been requested from her door puller office, Dr. Jones. BNP is 2100. CXR showed cardiomegaly and small pleural effusion. Switch to Lasix 40 mg PO BID per cardiology. Monitor intake and output. Heart healthy diet. (6) COPD (chronic obstructive pulmonary disease): Code(s): J44.9 - Chronic obstructive pulmonary disease, unspecified Status: Acute Assessment and Plan: Not in acute exacerbation, no wheezing on my exam. Continue p.r.n. Xopenex. She is not on any inhalers at home. (7) Acute renal failure: Code(s): N17.9 - Acute kidney failure, unspecified Status: Acute Assessment and Plan: Baseline unclear, she may have CKD, though no documented history of this. Review of prior records indicates creatinine ranging between 1.4-1.6. Renal function is consistent with baseline at this time. Continue to monitor labs. Renally dose medications and avoid nephrotoxins. Caution with diuresis. (8) Hypertension: Code(s): I10 - Essential (primary) hypertension Status: Chronic Assessment and Plan: Blood pressure has been soft and she is orthostatic. See above. Home lisinopril on hold. Caution with diltiazem which is needed for rate control. (9) Hyperthyroidism: Code(s): E05.90 - Thyrotoxicosis, unspecified without thyrotoxic crisis or storm Status: Chronic Assessment and Plan: TSH mildly elevated with normal T4 and T3. Continue methimazole. Of note, there was a goiter with asymmetric enlargement of the left thyroid lobe noted on CTA. Thyroid ultrasound
[2021-10-25] MEDS: HEPARIN SOD/D5W 100 UNITS/ML 25,000 UNITS/250 ML BAG 11 UNITS IV CONT (14:19)
[2021-10-25] MEDS: FUROSEMIDE 40 MG TABLET PO (16:39)
[2021-10-25] MEDS: WARFARIN (*PBKC) 4 MG TABLET PO (17:31)
[2021-10-25 18:40] LABS: Partial Thromboplastin Time 110.7 SECONDS (22.3-36.8)
[2021-10-25] MEDS: traMADol HCL (*CRX) 50 MG TABLET PO (20:38)
[2021-10-26] VITALS (15 sets, daily range): BP systolic 90–108; BP diastolic 55–72; PULSE 85–140; RESP 15–18; TEMP 36.4–36.6; O2SAT 96–98
[2021-10-26 01:10] LABS: Partial Thromboplastin Time > 200.0 SECONDS (22.3-36.8)
[2021-10-26] MEDS: dilTIAZem HCL 60 MG TABLET 120 MG PO (02:50)
[2021-10-26 05:38] LABS: Hematocrit 35.8 % (37.0-47.0); Hemoglobin 12.1 g/dL (12.0-15.0); Mean Corpuscular HGB Conc 33.8 g/dl (32-36); Mean Corpuscular Volume 103.5 fl (80-100); Mean Platelet Volume 10.8 fl (7.4-10.4); Platelet Count Result 240 k/mm3 (150-375); Red Blood Count 3.46 M/mm3 (4.2-5.4); White Blood Count 7.9 K/mm3 (4.5-10.0)
[2021-10-26 05:42] LABS: Basophils Absolute Auto 0.1 K/mm3 (0.0-0.1); Basophils Percent Auto 1.3 % (0.2-1.2); Eosinophils Absolute Auto 0.1 K/mm3 (0-0.3); Eosinophils Percent Auto 1.7 % (0-4.4); Hemoglobin 11.9 g/dL (12.0-15.0); Immature Granulocyte Absolute 0.06 K/mm3 (0.00-0.031); Immature Granulocyte Percent A 0.7 % (0-0.5); Lymphocytes Absolute Auto 2.14 K/mm3 (0.9-3.2); Lymphocytes Percent Auto 25.9 % (18.3-44.2); Mean Corpuscular Hemoglobin 34.5 pg (26-34); Mean Corpuscular Volume 101.4 fl (80-100); Mean Platelet Volume 10.5 fl (7.4-10.4); Monocytes Absolute Auto 0.9 K/mm3 (0.1-0.6); Monocytes Percent Auto 10.3 % (2.6-8.5); Neutrophils Percent Auto 60.1 % (45.5-73.1); Platelet Count Result 252 k/mm3 (150-375); Red Blood Count 3.45 M/mm3 (4.2-5.4); Red Cell Distribution Width 14.9 % (11.5-14.5); White Blood Count 8.3 K/mm3 (4.5-10.0)
[2021-10-26 05:43] LABS: Anion Gap 8 mmol/L (8-16); Blood Urea Nitrogen 30 mg/dL (7-17); Calcium 8.6 mg/dL (8.4-10.2); Carbon Dioxide 24 mmol/L (22-30); Chloride 105 mmol/L (98-107); Estimated CRCL calculation 27 ml/min; Estimated Glomerular Filt Rate 36; Glucose 96 mg/dL (65-110); Potassium 3.7 mmol/L (3.4-5.0); Sodium 137 mmol/L (137-145)
[2021-10-26 05:44] LABS: INR 1.8; Prothrombin Time 20.7 Seconds (11.1-14.7)
[2021-10-26] MEDS: DOXYCYCLINE HYCLATE 100 MG TABLET PO ×2 (08:29→20:47)
[2021-10-26] MEDS: guaiFENesin 12 HR 600 MG TABCR PO ×2 (08:29→20:45)
--- NOTE | 2021-10-26 08:36 | PM.PNCARD ---
Progress Note: A&P Assessment and Plan (1) Acute on chronic diastolic CHF (congestive heart failure): Code(s): I50.33 - Acute on chronic diastolic (congestive) heart failure Status: Acute Assessment and Plan: There is no echocardiogram available for my review at this point. The most recent cardiac imaging I have available to me is from 2019 and shows normal LV systolic function. She was shifted to oral furosemide yesterday - will hold this a.m. due to hypotension. Still no evidence of decompensated heart failure on exam today. (2) Atrial fibrillation with rapid ventricular response: Code(s): I48.91 - Unspecified atrial fibrillation Status: Acute Assessment and Plan: Chronic atrial fibrillation which is ordinarily controlled with Diltiazem as an outpatient. Diltiazem was changed during recent admission at [facility] from diltiazem SR 120 q12 to IR diltiazem 30mg q12. She tells me she had been well controlled on her home dose of diltiazem SR 120mg b.i.d. Diltiazem restarted at 120mg q12. Periods of adequate rate control noted on telemetry in the last 24 hours but generally her rate is not ideally controlled. Metoprolol 25mg b.i.d added but not given this morning due to hypotension. (3) H/O mitral valve replacement with mechanical valve: Code(s): Z95.2 - Presence of prosthetic heart valve Status: Acute Assessment and Plan: Hx mechanical MVR on warfarin with target INR 2.5 - 3.5. On heparin drip for bridging - INR 1.8 today. Warfarin increased to 5mg. Subjective Date/time seen: 10/26/21 08:36 Interval history: Cardiology follow up for atrial fibrillation Date of service 10/25/2021: She feels well this morning with no complaints whatsoever. She denies shortness of breath, chest pain, palpitations. Date of service 10/26/2021: Continues to feel well. She is upset that she is still in the hospital. Discussed medication changes and plan for rate controlling her atrial fibrillation. Review of Systems Review of Systems: All systems reviewed & are unremarkable except as noted in HPI and below Exam Const: General: comfortable and no acute distress HENMT: Head: normal to inspection Ears: hearing grossly normal bilaterally General nose exam: Normal nares present and no epistaxis Mouth: Yes moist mucous membranes Eyes: Sclera: sclerae normal Pupils: Equal, round and reactive pupils present Neck: Neck: supple and JVD Carotids: no bruits Resp: Auscultation: not clear to auscultation bilaterally, crackles (mild fine crackles R base ), no wheezes and lung sounds not diminished Cardio: Rate: abnormal rate and tachycardic Rhythm: abnormal rhythm Heart sounds: Clicking heart sound present, no gallops, Murmur heart sound present and no rubs Peripheral pulses: Peripheral pulses 2+ throughout GI: Auscultation: normal bowel sounds Skin: General skin exam: normal color, rashes and/or lesions noted and no erythema Neuro: Cranial nerves: Yes Equal, round and reactive pupils present Speech: normal speech Extrem: General: no edema Psych: Appearance: grossly normal Mental Status: mental status grossly normal Objective Data Vital Signs Vital Signs: Vital Signs - 24 hr 10/25/21 10:15 10/25/21 12:00 10/25/21 12:50 Temperature 36.3 C L Pulse Rate 118 H 118 H 111 H Respiratory Rate 16 Blood Pressure 107/77 100/57 L Pulse Oximetry 99 10/25/21 12:54 10/25/21 12:57 10/25/21 14:14 Temperature 36.7 C Pulse Rate 115 H 106 H 92 Respiratory Rate 16 Blood Pressure 95/57 L 101/66 109/65 Pulse Oximetry 98 10/25/21 16:00 10/25/21 17:35 10/25/21 20:25 Temperature 37.0 C 36.9 C Pulse Rate 93 93 136 H Respiratory Rate 18 16 Blood Pressure 105/63 111/75 Pulse Oximetry 97 98 10/25/21 20:30 10/26/21 00:00 10/26/21 02:00 Temperature 36.4 C Pulse Rate 112 H 123 H 134 H Respiratory Rate 16 Blood Pressure 96/63 L Pulse Oximetry
[2021-10-26 08:45] LABS: Partial Thromboplastin Time 61.9 SECONDS (22.3-36.8)
[2021-10-26] MEDS: methiMAzole 5 MG TAB PO (09:36)
[2021-10-26 09:47] LABS: Partial Thromboplastin Time 98.9 SECONDS (22.3-36.8)
--- NOTE | 2021-10-26 14:47 | PM.IMPN ---
Progress Note: A&P Assessment and Plan (1) Atrial fibrillation with rapid ventricular response: Code(s): I48.91 - Unspecified atrial fibrillation Status: Acute Assessment and Plan: EKG on presentation showed atrial fibrillation with rate in the 90s. She did have an episode of rapid ventricular response in the ED up to 130s and received IV diltiazem with improvement in rate. Now unfortunately with RVR again up to 120-130s. Appreciate cardiology consult. Still not adequately controlled. Continue diltiazem 120 mg BID and metoprolol 25 mg BID. Continue to monitor on telemetry. She is anticoagulated with warfarin due to mechanical valve history. (2) Chest pain: Code(s): R07.9 - Chest pain, unspecified Status: Acute Assessment and Plan: Resolved. 10/21 endorsed chest tightness, worsened with inspiration. Seemed to be most consistent with pleuritic chest pain, likely secondary to pneumonia. Troponins negative. CTA negative for PE. No signs/symptoms to suggest cardiac etiology, no concern for ACS. (3) Community acquired pneumonia: Code(s): J18.9 - Pneumonia, unspecified organism Status: Acute Assessment and Plan: Presented with 1 week of productive cough and CXR with airspace opacities in the right middle lobe. Completed 7 days IV Rocephin today. Azithromycin discontinued 10/22 due to N/V and transitioned to PO Doxycycline, last dose this evening. She remains afebrile. Blood cultures and sputum culture negative. Urinary Legionella and pneumococcal antigens negative. Supportive care to include bronchodilators, expectorants, incentive spirometry. She is maintaining adequate O2 sats on room air. (4) Orthostatic hypotension: Code(s): I95.1 - Orthostatic hypotension Status: Acute Assessment and Plan: Blood pressure declined to 88/61 upon standing on 10/22. She remained asymptomatic. Bear hose applied. Fall precautions implemented. Subsequent orthostatics negative. BP still somewhat soft but remaining stable and she is asymptomatic. (5) Acute on chronic diastolic CHF (congestive heart failure): Code(s): I50.33 - Acute on chronic diastolic (congestive) heart failure Status: Acute Assessment and Plan: No echocardiogram on file. BNP is 2100. CXR showed cardiomegaly and small pleural effusion. Continue Lasix 40 mg PO BID per cardiology. Monitor intake and output. Heart healthy diet. (6) COPD (chronic obstructive pulmonary disease): Code(s): J44.9 - Chronic obstructive pulmonary disease, unspecified Status: Acute Assessment and Plan: Not in acute exacerbation. Continue p.r.n. Xopenex. She is not on any inhalers at home. (7) Acute renal failure: Code(s): N17.9 - Acute kidney failure, unspecified Status: Acute Assessment and Plan: Baseline unclear, she likely has CKD, though no documented history of this. Review of prior records indicates creatinine ranging between 1.4-1.6. Renal function is consistent with baseline at this time. Continue to monitor labs. Renally dose medications and avoid nephrotoxins. Caution with diuresis. (8) Hypertension: Code(s): I10 - Essential (primary) hypertension Status: Chronic Assessment and Plan: Blood pressure has been soft and she is orthostatic. See above. Home lisinopril on hold. Caution with diltiazem and metoprolol which is needed for rate control. (9) Hyperthyroidism: Code(s): E05.90 - Thyrotoxicosis, unspecified without thyrotoxic crisis or storm Status: Chronic Assessment and Plan: TSH mildly elevated with normal T4 and T3. Continue methimazole. Of note, there was a goiter with asymmetric enlargement of the left thyroid lobe noted on CTA. Thyroid ultrasound 08/31/2021 also demonstrates enlargement of left lobe measuring up to 3.8 cm. Noted to be amenable to percutaneous tissue sampling. This is being fo
[2021-10-26] MEDS: WARFARIN (*PBKC) 5 MG TABLET PO (16:38)
[2021-10-26 16:54] LABS: Partial Thromboplastin Time 84.9 SECONDS (22.3-36.8)
[2021-10-26] MEDS: ONDANSETRON INJ 4 MG/2 ML VIAL IV PUSH (16:54)
[2021-10-26] MEDS: HEPARIN SOD/D5W 100 UNITS/ML 25,000 UNITS/250 ML BAG 8 UNITS IV CONT (17:09)
[2021-10-26] MEDS: METOPROLOL TARTRATE 12.5 MG TABLET PO (18:11)
[2021-10-26] MEDS: METOPROLOL TARTRATE 25 MG TABLET PO (20:47)
[2021-10-27] VITALS (18 sets, daily range): BP systolic 102–118; BP diastolic 52–75; PULSE 92–128; RESP 16–18; TEMP 36.3–36.8; O2SAT 94–99
[2021-10-27 05:52] LABS: Hematocrit 37.8 % (37.0-47.0); Hemoglobin 12.6 g/dL (12.0-15.0); Mean Corpuscular HGB Conc 33.3 g/dl (32-36); Mean Platelet Volume 10.8 fl (7.4-10.4); Platelet Count Result 253 k/mm3 (150-375); Red Cell Distribution Width 15.2 % (11.5-14.5); White Blood Count 8.6 K/mm3 (4.5-10.0)
[2021-10-27 06:15] LABS: Anion Gap 5 mmol/L (8-16); Blood Urea Nitrogen 26 mg/dL (7-17); Calcium 8.9 mg/dL (8.4-10.2); Carbon Dioxide 27 mmol/L (22-30); Chloride 103 mmol/L (98-107); Estimated CRCL calculation 31 ml/min; Estimated Glomerular Filt Rate 42; Glucose 90 mg/dL (65-110); Potassium 4.1 mmol/L (3.4-5.0); Sodium 135 mmol/L (137-145)
[2021-10-27 06:18] LABS: INR 2.1; Prothrombin Time 22.8 Seconds (11.1-14.7)
[2021-10-27 06:20] LABS: Partial Thromboplastin Time 97.8 SECONDS (22.3-36.8)
[2021-10-27] MEDS: FUROSEMIDE 40 MG TABLET PO ×2 (08:01→16:44)
[2021-10-27] MEDS: methiMAzole 5 MG TAB PO (08:01)
[2021-10-27] MEDS: METOPROLOL TARTRATE 25 MG TABLET PO ×2 (08:01→22:02)
[2021-10-27] MEDS: guaiFENesin 12 HR 600 MG TABCR PO ×2 (08:01→22:02)
--- NOTE | 2021-10-27 10:25 | PM.IMPN ---
Progress Note: A&P Assessment and Plan (1) Atrial fibrillation with rapid ventricular response: Code(s): I48.91 - Unspecified atrial fibrillation Status: Acute Assessment and Plan: POA, rate in the 90s; episode of RVR in the ED up to 130s; s/p IV diltiazem with improvement in rate HR 100s-120s thi a.m. Cardiology following, recommendations appreciated Continue diltiazem 120 mg BID and metoprolol 25 mg BID Tele monitoring Continue with warfarin (hx of mechanical valve) (2) Chest pain: Code(s): R07.9 - Chest pain, unspecified Status: Acute Assessment and Plan: Resolved 10/21 endorsed chest tightness, worsened with inspiration Seemed to be most consistent with pleuritic chest pain, likely secondary to pneumonia Troponins negative CTA negative for PE No concern for ACS (3) Community acquired pneumonia: Code(s): J18.9 - Pneumonia, unspecified organism Status: Acute Assessment and Plan: Reported reported productive cough x1 week CXR with airspace opacities in the right middle lobe S/p 7 days IV Rocephin, Azithromycin discontinued 10/22 due to N/V and transitioned to PO Doxycycline, last dose 10/26 Blood cultures and sputum culture negative Urinary Legionella and pneumococcal antigens negative Supportive care On RA (4) Orthostatic hypotension: Code(s): I95.1 - Orthostatic hypotension Status: Acute Assessment and Plan: + on 10/22, asymptomatic Continue with Bear hose applied Fall precautions Subsequent orthostatics negative BP stable (5) Acute on chronic diastolic CHF (congestive heart failure): Code(s): I50.33 - Acute on chronic diastolic (congestive) heart failure Status: Acute Assessment and Plan: No echocardiogram on file. BNP is 2100. CXR showed cardiomegaly and small pleural effusion Continue Lasix 40 mg PO BID per cardiology Monitor intake and output Heart healthy diet Daily weights (6) COPD (chronic obstructive pulmonary disease): Code(s): J44.9 - Chronic obstructive pulmonary disease, unspecified Status: Acute Assessment and Plan: Not in acute exacerbation Continue p.r.n. Xopenex She is not on any inhalers at home (7) Acute renal failure: Code(s): N17.9 - Acute kidney failure, unspecified Status: Acute Assessment and Plan: Baseline unclear, CKD suspected eview of prior records indicates creatinine ranging between 1.4-1.6 Renal function is consistent with baseline at this time Continue to monitor labs Renally dose medications and avoid nephrotoxins Caution with diuresis (8) Hypertension: Code(s): I10 - Essential (primary) hypertension Status: Chronic Assessment and Plan: Stable Home lisinopril on hold Continue diltiazem and metoprolol which is needed for rate control Monitor (9) Hyperthyroidism: Code(s): E05.90 - Thyrotoxicosis, unspecified without thyrotoxic crisis or storm Status: Chronic Assessment and Plan: TSH mildly elevated with normal T4 and T3 Continue methimazole CTA-->goiter with asymmetric enlargement of the left thyroid lobe noted Thyroid ultrasound 08/31/2021 also demonstrates enlargement of left lobe measuring up to 3.8 cm Followed by PCP She will also need repeat TSH with reflex in 4 weeks (10) Tobacco abuse: Code(s): Z72.0 - Tobacco use Status: Chronic Assessment and Plan: She smokes 1/2 pack per day Continue to reinforce smoking cessation (11) H/O mechanical aortic valve replacement: Code(s): Z95.2 - Presence of prosthetic heart valve Status: Inactive Assessment and Plan: INR is subtherapeutic at 1.8-->2.1 today Goal INR is 2.5-3.5 Continue warfarin at 5 mg daily and bridge with heparin while subtherapeutic Continue to monitor PT/INR daily (12) Pulmonary nodule: Code(s): R91.1 - Solitary pulmonary nodule Status: Acute Assessment and Plan: CTA showed i
--- NOTE | 2021-10-27 16:16 | PM.PNCARD ---
Progress Note: A&P Assessment and Plan (1) Acute on chronic diastolic CHF (congestive heart failure): Code(s): I50.33 - Acute on chronic diastolic (congestive) heart failure Status: Acute Assessment and Plan: Normal left ventricular function by echo in August 2021. Has diastolic dysfunction. Still no evidence of decompensated heart failure on exam today. Doing well and feels good. (2) Atrial fibrillation with rapid ventricular response: Code(s): I48.91 - Unspecified atrial fibrillation Status: Acute Assessment and Plan: Atrial fibrillation (unsure if persistent or paroxysmal; EKG from 2019 showed sinus rhythm but otherwise AFib has been reported) which is ordinarily controlled with Diltiazem as an outpatient. Diltiazem was changed during recent admission at [facility] from diltiazem SR 120 q12 to IR diltiazem 30mg q12. She tells me she had been well controlled on her home dose of diltiazem SR 120mg b.i.d. Diltiazem restarted at 120mg q12. Generally her rate is not ideally controlled. Metoprolol 25mg b.i.d added. Our ability to control the patient's AFib rate has been hampered by her low blood pressure although that has been a little better recently and systolic blood pressure in the 90s does not seem to bother her much. Call put out to Dr. Jones to find out if this is paroxysmal AFib (and patient might benefit from a cardioversion) or persistent AFib (then will work more toward rate control, possibly w/ amiodarone, and continue anticoagulation). I suspect this is persistent AFib with an exacerbation. Have not been able to titrate the meds much further because of low blood pressure although it has been persistently greater than 100 today. However, she is toelrating it well. Will add amiodarone for HR control and pt can FU w/ Dr. Jones. Hopefully discharge tmr. (3) H/O mitral valve replacement with mechanical valve: Code(s): Z95.2 - Presence of prosthetic heart valve Status: Acute Assessment and Plan: Hx mechanical MVR on warfarin with target INR 2.5 - 3.5. On heparin drip for bridging - INR 2.1 today. Warfarin increased to 5mg. Hopefully can DC the heparin gtt tmr and discharge. The INR will climb higher on amiodarone, so pt will need close OPT FU of INR. Subjective Date/time seen: 10/27/21 16:16 Interval history: Cardiology follow up for atrial fibrillation Date of service 10/25/2021: She feels well this morning with no complaints whatsoever. She denies shortness of breath, chest pain, palpitations. Date of service 10/26/2021: Continues to feel well. She is upset that she is still in the hospital. Discussed medication changes and plan for rate controlling her atrial fibrillation. Date of service 10/27/2021: ?I feel great. ? Up and about in her room, no problems with shortness of breath or dizziness. Off oxygen and antibiotics. Telemetry shows heart rate is generally 100-115 beats per minute, but at times up to 120-135 with activity. Remains on heparin drip. Some records from [facility] reviewed, admitted October 10 and discharged on the with CHF, AFib RVR. Dr. Arreola's note reviewed. Diuresed and treated with beta-blockers. Echo 09/22/2021 showed normal LV function and diastolic dysfunction. Patient's heart rate was mildly high on diltiazem 120 mg daily and metoprolol 25 mg b.i.d., at 101 beats per minute but overall she looked good and was discharged on the . Review of Systems Review of Systems: All systems reviewed & are unremarkable except as noted in HPI and below Constitutional: Constitutional: Denies fatigue and Denies weakness Eyes: Eyes: Reports no additional eye complaints ENT: Denies epistaxis Cardiovascular: Cardiovascular: Denies chest pain, Denies leg edema, Denies lightheadedness and Denies palpitations Respiratory: Respiratory: Denies dyspnea on exertion Gastrointestinal: Gastrointestinal: Denies
[2021-10-27] MEDS: HEPARIN SOD/D5W 100 UNITS/ML 25,000 UNITS/250 ML BAG 8 UNITS IV CONT (16:43)
[2021-10-27] MEDS: WARFARIN (*PBKC) 5 MG TABLET PO (16:44)
[2021-10-27] MEDS: AMIODARONE HCL 200 MG TABLET PO (18:25)
[2021-10-27] MEDS: traMADol HCL (*CRX) 50 MG TABLET PO (22:03)
[2021-10-28] VITALS: PULSE 123
[2021-10-28 01:16] VITALS: BP 110/66; PULSE 100; RESP 14; TEMP 36.2; O2SAT 94
[2021-10-28 04:00] VITALS: PULSE 94
[2021-10-28 06:00] VITALS: BP 104/68; PULSE 97; RESP 14; TEMP 36.1; O2SAT 93
[2021-10-28 06:30] LABS: INR 2.5
[2021-10-28 06:40] LABS: Anion Gap 5 mmol/L (8-16); Blood Urea Nitrogen 23 mg/dL (7-17); Calcium 8.5 mg/dL (8.4-10.2); Carbon Dioxide 30 mmol/L (22-30); Chloride 102 mmol/L (98-107); Estimated CRCL calculation 29 ml/min; Estimated Glomerular Filt Rate 39; Glucose 88 mg/dL (65-110); Potassium 3.9 mmol/L (3.4-5.0); Sodium 137 mmol/L (137-145)
[2021-10-28 07:24] LABS: Partial Thromboplastin Time 124.7 SECONDS (22.3-36.8)
--- NOTE | 2021-10-28 08:29 | PCNWS ---
Weekly nutritional screen. Patient is tolerating current diet with adequate intake. No weight loss reported, weight has been documented at 73.1 kg on 10/27 and been stable. No nutritional needs at this time.
[2021-10-28 08:42] VITALS: PULSE 112
[2021-10-28] MEDS: METOPROLOL TARTRATE 25 MG TABLET PO (08:42)
[2021-10-28] MEDS: methiMAzole 5 MG TAB PO (08:42)
[2021-10-28] MEDS: FUROSEMIDE 40 MG TABLET PO (08:42)
[2021-10-28] MEDS: AMIODARONE HCL 200 MG TABLET PO (08:42)
--- NOTE | 2021-10-28 08:47 | PM.PNCARD ---
Progress Note: A&P Assessment and Plan (1) Acute on chronic diastolic CHF (congestive heart failure): Code(s): I50.33 - Acute on chronic diastolic (congestive) heart failure Status: Acute Assessment and Plan: Normal left ventricular function by echo in August 2021. Has diastolic dysfunction. Still no evidence of decompensated heart failure on exam today. Doing well and feels good. (2) Atrial fibrillation with rapid ventricular response: Code(s): I48.91 - Unspecified atrial fibrillation Status: Acute Assessment and Plan: Atrial fibrillation (unsure if persistent or paroxysmal; EKG from 2019 showed sinus rhythm but otherwise AFib has been reported) which is ordinarily controlled with Diltiazem as an outpatient. Diltiazem was changed during recent admission at [facility] from diltiazem SR 120 q12 to IR diltiazem 30mg q12. She tells me she had been well controlled on her home dose of diltiazem SR 120mg b.i.d. Diltiazem restarted at 120mg q12. Generally her rate is not ideally controlled. Metoprolol 25mg b.i.d added. Our ability to control the patient's AFib rate has been hampered by her low blood pressure although that has been a little better recently and systolic blood pressure in the 90s does not seem to bother her much. Added amiodarone to her regimen for additional rate control. On telemetry her rate has been better controlled, around 100 generally but she does get into the 120s with activity. Continue amiodarone 200 mg b.i.d. in addition to diltiazem and metoprolol. 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 (3) H/O mitral valve replacement with mechanical valve: Code(s): Z95.2 - Presence of prosthetic heart valve Status: Acute Assessment and Plan: Hx mechanical MVR on warfarin with target INR 2.5 - 3.5. On heparin drip for bridging - INR 2.5 today. Discontinue heparin drip. Warfarin 5mg daily. The INR will climb higher on amiodarone, so pt will need close OPT FU of INR. INR on Monday. Subjective Date/time seen: 10/28/21 08:47 Interval history: Cardiology follow up for atrial fibrillation Date of service 10/25/2021: She feels well this morning with no complaints whatsoever. She denies shortness of breath, chest pain, palpitations. Date of service 10/26/2021: Continues to feel well. She is upset that she is still in the hospital. Discussed medication changes and plan for rate controlling her atrial fibrillation. Date of service 10/27/2021: ?I feel great. ? Up and about in her room, no problems with shortness of breath or dizziness. Off oxygen and antibiotics. Telemetry shows heart rate is generally 100-115 beats per minute, but at times up to 120-135 with activity. Remains on heparin drip. Some records from [facility] reviewed, admitted October 10 and discharged on the with CHF, AFib RVR. Dr. Arreola's note reviewed. Diuresed and treated with beta-blockers. Echo 09/22/2021 showed normal LV function and diastolic dysfunction. Patient's heart rate was mildly high on diltiazem 120 mg daily and metoprolol 25 mg b.i.d., at 101 beats per minute but overall she looked good and was discharged on the . Date of service 10/28/2021: Feeling well this morning with no complaints. She denies any chest pain, palpitations, shortness of breath. Review of Systems Review of Systems: All systems reviewed & are unremarkable except as noted in HPI and below Constitutional: Constitutional: Denies fatigue and Denies weakness Eyes: Eyes: Reports no additional eye complaints ENT: Denies epistaxis Cardiovascular: Cardiovascular: Denies chest pain, Denies leg edema, Denies lightheadedness, Denies palpitations and Denies dyspnea on exertion Respiratory: Respiratory: Denies dyspnea on exertion Gastrointestinal: Gastrointestinal: Denies hematemesis Genitourinary: Genitourinary: Denies hematuria Musculoskeletal: Mus
[2021-10-28 09:00] VITALS: PULSE 119
--- NOTE | 2021-10-28 10:38 | PM.DS ---
DS: Admitting Diagnosis Discharge Date 10/28/2021 Admitting Diagnosis Community-acquired pneumonia DS: Discharge Diagnosis Discharge Diagnosis (1) Atrial fibrillation with rapid ventricular response: Code(s): I48.91 - Unspecified atrial fibrillation Status: Acute Assessment and Plan: Noted to be in atrial fibrillation with rapid ventricular response. She was seen in consultation by Cardiology. Rate was initially difficult to control and was more challenging due to issues with hypotension. She did have improvement with her home regimen diltiazem 120 mg b.i.d. and metoprolol tartrate 25 mg b.i.d. plus the addition of amiodarone 200 mg b.i.d.. Still occasionally with elevated heart rate with activity, but overall much improved on this regimen which will be continued. 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 Jones in 1-2 weeks. She is anticoagulated with warfarin due to mechanical valve history. (2) Chest pain: Code(s): R07.9 - Chest pain, unspecified Status: Acute Assessment and Plan: Resolved. 10/21 endorsed chest tightness, worsened with inspiration. Seemed to be most consistent with pleuritic chest pain, likely secondary to pneumonia. Troponins negative. CTA negative for PE. No signs/symptoms to suggest cardiac etiology, no concern for ACS. (3) Community acquired pneumonia: Code(s): J18.9 - Pneumonia, unspecified organism Status: Acute Assessment and Plan: Presented with 1 week of productive cough and CXR with airspace opacities in the right middle lobe. Completed 7 days IV Rocephin. Azithromycin discontinued 10/22 due to N/V and transitioned to PO Doxycycline, and she completed this course as well. She remained afebrile. Blood cultures and sputum culture negative. Urinary Legionella and pneumococcal antigens negative. Supportive care provided including bronchodilators, expectorants, incentive spirometry. O2 sats were stable on room air. (4) Orthostatic hypotension: Code(s): I95.1 - Orthostatic hypotension Status: Acute Assessment and Plan: She had decline in blood pressure with positional changes. She remained asymptomatic. Bear hose applied. Fall precautions implemented. Overall, blood pressure improved and was stable on the low end of normal. (5) Acute on chronic diastolic CHF (congestive heart failure): Code(s): I50.33 - Acute on chronic diastolic (congestive) heart failure Status: Acute Assessment and Plan: No echocardiogram on file. BNP is 2100. CXR showed cardiomegaly and small pleural effusion. She was diuresed with Lasix and was euvolemic on exam. (6) Acute renal failure: Code(s): N17.9 - Acute kidney failure, unspecified Status: Acute Assessment and Plan: Baseline unclear, she likely has CKD, though no documented history of this. Review of prior records indicates creatinine ranging between 1.4-1.6. Renal function remained consistent with baseline. (7) Hypertension: Code(s): I10 - Essential (primary) hypertension Status: Chronic Assessment and Plan: Blood pressure was soft and she was orthostatic. See above. Home lisinopril held. Follow-up with PCP for further BP monitoring (8) Hyperthyroidism: Code(s): E05.90 - Thyrotoxicosis, unspecified without thyrotoxic crisis or storm Status: Chronic Assessment and Plan: TSH mildly elevated with normal T4 and T3. Continue methimazole. Of note, there was a goiter with asymmetric enlargement of the left thyroid lobe noted on CTA. Thyroid ultrasound 08/31/2021 also demonstrates enlargement of left lobe measuring up to 3.8 cm. Noted to be amenable to percutaneous tissue sampling. This is being followed by PCP. She will also need repeat TSH with reflex in 4 weeks. (9) Tobacco abuse: Code(s): Z72.0 - Tobacco use Status: Chronic Assessment and Plan: She smokes 1/2
== END 2021-10-28 15:00 | disposition home or self-care (01) | DRG 291 ==
LOC: ANHED 08:24 → ANHIMU 10:30 → ANH2MED 10-22 08:13 → ANHIMU 10-29 15:35
PROVIDERS: Internal Medicine; Nurse Practitioner; Nurse Practitioner Adult Health; Physician Assistant; Admitting Provider Internal Medicine; Emergency Provider Emergency Medicine; PCP Internal Medicine; Visit Provider Family Medicine
DX: I13.0 Hypertensive heart and chronic kidney disease with heart failure and stage 1 through stage 4 chronic kidney disease, or unspecified chronic kidney disease (principal); I50.33 Acute on chronic diastolic (congestive) heart failure; I48.20 Chronic atrial fibrillation, unspecified; N17.9 Acute kidney failure, unspecified; N18.9 Chronic kidney disease, unspecified; E78.5 Hyperlipidemia, unspecified; E05.90 Thyrotoxicosis, unspecified without thyrotoxic crisis or storm; I95.1 Orthostatic hypotension; R91.1 Solitary pulmonary nodule; F17.210 Nicotine dependence, cigarettes, uncomplicated; Z79.01 Long term (current) use of anticoagulants; Z95.2 Presence of prosthetic heart valve; Z90.710 Acquired absence of both cervix and uterus; J44.9 Chronic obstructive pulmonary disease, unspecified
CPT/HCPCS: 36415; 71045; 71275; 80048; 80053; 82728; 83605; 83615; 83735; 83880; 84439; 84443; 84480; 84484; 85025; 85027; 85610; 85730; 87040; 87070; 87205; 87449; 87899; 93005; 94640; 96365; 96367; 96375; 99285; A9270; G0378; J0456; J0696; J1644; J1885; J1940; J2405; J7030; Q9967

== ENCOUNTER 2021-10-31 23:44 | Emergency (ER) | payer OTHER, SELFPAY ==
--- NOTE | ~2021-10-31 | XR_ITS ---
EXAMINATION: XR chest 2V DATE: 11/01/2021 00:38 INDICATION: Shortness of breath. TECHNIQUE: Frontal and lateral views of the chest were obtained. COMPARISON: Chest single view 10/20/2021, chest CT 10/20/2021 FINDINGS: There is a chronic nodule in right lung upper lobe, likely benign. There is a small loculat ed right pleural effusion. There are airspace opacities in right mid and lower lung zones and left lo wer lung zone. No pneumothorax. Cardiomegaly is noted. There are changes of mitral valve replacement. There is an intrathoracic goiter on the left. There is old deformity of left fifth rib. IMPRESSION: 1. Stable small loculated right pleural effusion. 2. Stable airspace opacities in right mid and lower lung zones and left lower lung zone, consistent w ith atelectasis versus pneumonia. 3. Cardiomegaly. Reviewed, dictated and finalized at location A. [employer] IMPRESSION: 1. Stable small loculated right pleural effusion. 2. Stable airspace opacities in right mid and lower lung zones and left lower l raymon zone, consistent with atelectasis versus pneumonia. 3. Cardiomegaly.
[2021-10-31 23:51] VITALS: BP 124/69; PULSE 97; RESP 22; TEMP 36.1; O2SAT 99
--- NOTE | 2021-11-01 00:14 | ECG_ITS ---
Measurements Intervals [place] Rate: 90 P: MI: 0 QRS: 116 QRSD: 122 T: 0 QT: 401 QTc: 492 Interpretive Statements ATRIAL FIBRILLATION RIGHT BUNDLE BRANCH BLOCK LEFT POSTERIOR FASCICULAR BLOCK ABNORMAL ECG Electronically Signed On 11-01-2021 5:38:43 [employer] by Aston Villagomez D.O.
[2021-11-01 00:18] VITALS: O2SAT 99
--- NOTE | 2021-11-01 00:34 | ED.SOB ---
HPI - SOB/Dyspnea General Chief Complaint: Shortness of Breath/Dyspnea Stated Complaint: recent pne dx, short of breath Time Seen by Provider: 11/01/21 00:22 Source: patient History of Present Illness HPI Narrative: Patient presents with shortness of breath and left-sided chest pain. Reports symptoms started around 6:00 this evening has gradually improved but not resolved so she came to the ER for evaluation. Pain is achy, constant, no clear aggravating or alleviating factors. She denies any association with nausea, diaphoresis, or change with exertion. Also reports shortness of breath most noted with walking around is not noted any change with position. He was recently admitted for irregular heartbeat and pneumonia Related Data Home Medications Medication Instructions Recorded Confirmed lisinopril 2.5 mg PO DAILY 03/26/21 10/20/21 methimazole 5 mg PO DAILY 03/26/21 10/20/21 metoprolol tartrate 25 mg PO BID 03/26/21 10/21/21 warfarin 5 mg PO HS 03/26/21 10/20/21 atorvastatin 20 mg PO HS 10/20/21 10/20/21 tramadol 50 mg PO BID PRN 10/21/21 10/21/21 Allergies Allergy/AdvReac Type Severity Reaction Status Date / Time methylprednisolone Allergy Unknown Other Verified 11/01/21 00:20 azithromycin AdvReac Unknown Nausea and Verified 11/01/21 00:20 Vomiting Review of Systems Review of Systems: CONSTITUTIONAL: Denies fever, chills, or sweats. EYES: Denies visual changes, redness, or discharge. ENT: Denies rhinorrhea, congestion, sore throat, or otalgia. CARDIOVASCULAR: Denies palpitations, or edema. RESPIRATORY: Denies cough GASTROINTESTINAL: Denies abdominal pain, nausea, vomiting, or diarrhea. GENITOURINARY: Denies dysuria or hematuria. SKIN: Denies rash or itching. MUSCULOSKELETAL: Denies back pain, joint pain, or myalgia. NEUROLOGIC: Denies headache, numbness, dizziness, or weakness. PSYCHIATRIC: Denies anxiety or depression. All systems reviewed & are unremarkable except as noted in HPI and below PMFSH Past Medical History Medical History Atrial fibrillation Congestive heart failure History of atrial fibrillation History of hyperlipidemia History of hypertension History of subarachnoid hemorrhage Hyperlipidemia Hypertension Hyperthyroidism Tobacco abuse Surgical History Surgical History H/O mechanical aortic valve replacement H/O: hysterectomy Hx of brain surgery Family History Family History Mother Brain aneurysm Other No known health problems Social History Social History Social History: The patient still continues to smoke a half pack a cigarettes a day. She has 3 children. She lives home alone she is . She does not have a durable power civil attorney for healthcare. 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 Code status she is a full code Smoking packs per day: 0.5 Smoking cigarettes per day: 10.0 Years smoked: 51 Smoking pack-years: 25.50 Smoking status: Current every day smoker Tobacco type: cigarettes Second hand tobacco smoke exposure: No Alcohol intake: never Substance use: never Substance use type: does not use Gender identity (if verbalized by the patient): Female Spiritual care concerns: No Exam Narrative: GENERAL: Well-appearing, well-nourished, and in no acute distress. HEAD: Normocephalic, atraumatic. EYES: PERRLA and EOMI. ENT: Nares clear, no rhinorrhea or epistaxis. Mucous membranes moist. NECK: Supple. No masses. No JVD CHEST: Diminished aeration at the right lung base no respiratory distress. No wheezes rales or rhonchi HEART: Regular rate and rhythm. No murmur heard. Normal peripheral pulses. ABDOMEN: Soft, nontender, nondistended, normal active bowel sounds. EXTREMITIES: Normal range of motion. Symmetric 1+ pitting edema in the lowe
[2021-11-01 01:05] LABS: Basophils Absolute Auto 0.1 K/mm3 (0.0-0.1); Basophils Percent Auto 0.9 % (0.2-1.2); Eosinophils Absolute Auto 0.2 K/mm3 (0-0.3); Eosinophils Percent Auto 3.1 % (0-4.4); Hematocrit 39.3 % (37.0-47.0); Hemoglobin 12.7 g/dL (12.0-15.0); Immature Granulocyte Absolute 0.05 K/mm3 (0.00-0.031); Immature Granulocyte Percent A 0.7 % (0-0.5); Lymphocytes Absolute Auto 1.36 K/mm3 (0.9-3.2); Lymphocytes Percent Auto 18.3 % (18.3-44.2); Mean Corpuscular HGB Conc 32.3 g/dl (32-36); Mean Corpuscular Hemoglobin 34.4 pg (26-34); Mean Corpuscular Volume 106.5 fl (80-100); Mean Platelet Volume 10.7 fl (7.4-10.4); Monocytes Absolute Auto 0.7 K/mm3 (0.1-0.6); Monocytes Percent Auto 8.7 % (2.6-8.5); Neutrophils Absolute Auto 5.1 K/mm3 (1.3-6.7); Neutrophils Percent Auto 68.3 % (45.5-73.1); Platelet Count Result 261 k/mm3 (150-375); Red Blood Count 3.69 M/mm3 (4.2-5.4); Red Cell Distribution Width 16.1 % (11.5-14.5); White Blood Count 7.4 K/mm3 (4.5-10.0)
[2021-11-01 01:14] LABS: Add Urine Microscopic? YES; Appearance Urine Clear (Clear); Bilirubin Urine Negative (Negative); Blood Urine Negative (Negative); Color Urine Yellow (Yellow); Glucose Urine UA Negative (Negative); Ketones Urine Negative (Negative); Leukocyte Esterase Ur Negative LEU/UL (Negative); Mucus Urine Rare /lpf; Nitrate Urine Negative (Negative); Protein Urine 2+ mg/dL (Negative); RBC Urine 0-2 /hpf (0-2); Specific Grav Ur 1.033 (1.001-1.035); Squamous Epithelial Cell Urine Rare /hpf (Few); WBC Urine 0-3 /hpf
[2021-11-01 01:16] LABS: INR 3.2; Prothrombin Time 31.9 Seconds (11.1-14.7)
[2021-11-01 01:17] LABS: Partial Thromboplastin Time 38.9 SECONDS (22.3-36.8)
[2021-11-01 01:18] LABS: Alanine Aminotransferase 33 U/L (4-35); Albumin Level 3.9 g/dL (3.5-5.1); Alkaline Phosphatase 59 U/L (38-126); Anion Gap 7 mmol/L (8-16); Aspartate Amino Transferase 49 U/L (14-36); Bilirubin,Total 0.9 mg/dL (0.2-1.3); Blood Urea Nitrogen 26 mg/dL (7-17); Calcium 9.1 mg/dL (8.4-10.2); Carbon Dioxide 26 mmol/L (22-30); Chloride 105 mmol/L (98-107); Estimated CRCL calculation 28 ml/min; Estimated Glomerular Filt Rate 42; Glucose 104 mg/dL (65-110); Sodium 138 mmol/L (137-145)
[2021-11-01 01:33] LABS: NT Pro B Type Natriuretic Pept 1590 pg/mL (5-100); Troponin I < 0.012 ng/mL (0.000-0.034)
[2021-11-01 03:07] VITALS: BP 109/73; PULSE 100; RESP 16; O2SAT 100
== END 2021-11-01 03:08 | disposition home or self-care (01) ==
PROVIDERS: Emergency Provider Emergency Medicine; PCP Internal Medicine
DX: R06.00 Dyspnea, unspecified (principal); R07.9 Chest pain, unspecified; F17.210 Nicotine dependence, cigarettes, uncomplicated; I48.91 Unspecified atrial fibrillation; I11.0 Hypertensive heart disease with heart failure; I50.9 Heart failure, unspecified; E78.5 Hyperlipidemia, unspecified
CPT/HCPCS: 36415; 71046; 80053; 81001; 83880; 84484; 85025; 85610; 85730; 93005; 99284

== ENCOUNTER 2022-01-04 17:18 | Outpatient (RCR) | payer MEDICARE, OTHER, SELFPAY ==
[2021-10-08 13:45] LABS: INR 3.2; Prothrombin Time 31.8 Seconds (11.1-14.7)
[2021-11-01 16:28] LABS: INR 3.6; Prothrombin Time 34.6 Seconds (11.1-14.7)
[2021-11-16 17:15] LABS: Prothrombin Time 50.4 Seconds (11.1-14.7)
[2021-11-16 19:53] LABS: INR 5.8
[2021-11-24 12:14] LABS: INR 3.8; Prothrombin Time 36.3 Seconds (11.1-14.7)
[2021-12-03 12:19] LABS: INR 3.5; Prothrombin Time 34.4 Seconds (11.1-14.7)
[2021-12-20 17:29] LABS: INR 3.3; Prothrombin Time 32.5 Seconds (11.1-14.7)
[2022-01-04 18:08] LABS: INR 3.1; Prothrombin Time 30.7 Seconds (11.1-14.7)
== END 2022-01-06 23:59 | disposition home or self-care (01) ==
LOC: ANHLAB 17:18
PROVIDERS: PCP Internal Medicine; Visit Provider Specialist
DX: Z95.4 Presence of other heart-valve replacement (principal)
CPT/HCPCS: 36415; 85610

== ENCOUNTER 2022-04-01 16:37 | Outpatient (RCR) | payer MEDICARE, SELFPAY ==
[2022-02-03 17:15] LABS: INR 4.1; Prothrombin Time 38.4 Seconds (11.1-14.7)
[2022-02-14 17:35] LABS: INR 4.2; Prothrombin Time 39.3 Seconds (11.1-14.7)
[2022-02-22 17:37] LABS: INR 3.4; Prothrombin Time 33.6 Seconds (11.1-14.7)
[2022-03-08 17:04] LABS: INR 2.5; Prothrombin Time 26.3 Seconds (11.1-14.7)
[2022-04-01 17:10] LABS: INR 2.5; Prothrombin Time 26.2 Seconds (11.1-14.7)
== END 2022-05-04 23:59 | disposition home or self-care (01) ==
LOC: ANHLAB 16:37
PROVIDERS: PCP Internal Medicine; Visit Provider Specialist
DX: Z51.81 Encounter for therapeutic drug level monitoring (principal); Z95.4 Presence of other heart-valve replacement; Z79.01 Long term (current) use of anticoagulants
CPT/HCPCS: 36415; 85610

== ENCOUNTER 2022-04-27 12:05 | Observation (INO) | payer MEDICARE, MEDICAID, SELFPAY ==
[2022-04-27] VITALS (20 sets, daily range): BP systolic 121–141; BP diastolic 49–117; PULSE 49–59; RESP 16–29; TEMP 36.1–36.9; O2SAT 91–99; BMI 31.4
--- NOTE | ~2022-04-27 | XR_ITS ---
EXAMINATION: XR chest 2V DATE: 04/27/2022 12:45 INDICATION: Shortness of breath TECHNIQUE: PA and lateral views of the chest were obtained. COMPARISON: Chest radiograph dated 11/01/2021 and 11/14/2018 FINDINGS: Cardiomegaly with change of prior median sternotomy and mitral valve repair. There is also a left fif th rib thoracotomy defect. Interstitial and hazy airspace opacities in the bilateral mid to lower jerilyn g zones consistent with mild pulmonary edema. Small right pleural effusion. 7 mm right upper lobe pul monary nodule which appears unchanged since 11/14/2018 consistent with old granulomatous disease. No pneumothorax. Old healed right rib fracture. IMPRESSION: 1. Opacities in the bilateral mid and lower lung zones likely related to congestive heart failure wit h mild pulmonary edema and small right pleural effusion. 2. Cardiomegaly unchanged mitral valve repair. Reviewed, dictated and finalized at location B. IMPRESSION: 1. Opacities in the bilateral mid and lower lung zones likely related to conges tive heart failure with mild pulmonary edema and small right pleural effusion. 2. Cardiomegaly unchanged mitral valve repair.
--- NOTE | 2022-04-27 12:12 | ECG_ITS ---
Measurements Intervals [place] Rate: 55 P: 29 FL: 187 QRS: 104 QRSD: 107 T: -32 QT: 406 QTc: 390 Interpretive Statements SINUS BRADYCARDIA WITH MARKED SINUS ARRHYTHMIA RIGHT AXIS DEVIATION [QRS AXIS > 100] LOW QRS VOLTAGE IN PRECORDIAL LEADS [QRS DEFLECTION < 1.0 mV IN CHEST LEADS] INCOMPLETE RIGHT BUNDLE BRANCH BLOCK [90+ ms QRS DURATION, TERMINAL R IN V1/V2, 40+ ms S IN I/aVL/V4/V5/V6] NONSPECIFIC T-WAVE ABNORMALITY BORDERLINE ECG COMPARED TO ECG 11/01/2021 00:29:35 SINUS BRADYCARDIA HAS REPLACED ATRIAL FIBRILLATION INCOMPLETE RIGHT BUNDLE-BRANCH BLOCK NOW PRESENT Electronically Signed On 04-27-2022 12:53:39 CDT by Vignesh Dennison M.D.
[2022-04-27 12:26] LABS: Basophils Percent Auto 0.7 % (0.2-1.2); Eosinophils Absolute Auto 0.1 K/mm3 (0-0.3); Eosinophils Percent Auto 1.2 % (0-4.4); Hemoglobin 12.4 g/dL (12.0-15.0); Immature Granulocyte Absolute 0.02 K/mm3 (0.00-0.031); Immature Granulocyte Percent A 0.3 % (0-0.5); Lymphocytes Percent Auto 22.6 % (18.3-44.2); Mean Corpuscular HGB Conc 31.8 g/dl (32-36); Mean Corpuscular Hemoglobin 34.3 pg (26-34); Mean Platelet Volume 10.7 fl (7.4-10.4); Monocytes Absolute Auto 0.5 K/mm3 (0.1-0.6); Monocytes Percent Auto 9.4 % (2.6-8.5); Neutrophils Absolute Auto 3.8 K/mm3 (1.3-6.7); Neutrophils Percent Auto 65.8 % (45.5-73.1); Platelet Count Result 259 k/mm3 (150-375); Red Blood Count 3.61 M/mm3 (4.2-5.4); Red Cell Distribution Width 14.1 % (11.5-14.5); White Blood Count 5.8 K/mm3 (4.5-10.0)
[2022-04-27 12:39] LABS: Alanine Aminotransferase 25 U/L (6-35); Albumin Level 4.1 g/dL (3.5-5.1); Alkaline Phosphatase 135 U/L (38-126); Anion Gap 6 mmol/L (8-16); Aspartate Amino Transferase 44 U/L (14-36); Bilirubin,Total 1.1 mg/dL (0.2-1.3); Blood Urea Nitrogen 20 mg/dL (7-17); Calcium 8.7 mg/dL (8.4-10.2); Carbon Dioxide 25 mmol/L (22-30); Chloride 111 mmol/L (98-107); Estimated Glomerular Filt Rate 45; Glucose 108 mg/dL (65-110); Potassium 4.2 mmol/L (3.4-5.0); Sodium 142 mmol/L (137-145)
--- NOTE | 2022-04-27 13:13 | ED.SOB ---
HPI - SOB/Dyspnea General Chief Complaint: Shortness of Breath/Dyspnea Stated Complaint: chest tightness/sob Time Seen by Provider: 04/27/22 12:59 Source: RN notes reviewed History of Present Illness HPI Narrative: Patient presents emergency department from home for shortness of breath. Patient states symptoms have been ongoing for the past 2 days states has been associated with a cough this been nonproductive states shortness of breath is worse with ambulation she denies any fevers or chills, chest pain abdominal pain nausea vomiting or any other symptoms. Patient states she does have a history of heart failure and is followed by Dr Jones. States she has been taking her medications as prescribed Related Data Home Medications Medication Instructions Recorded Confirmed lisinopril 2.5 mg tablet 2.5 mg PO DAILY 03/26/21 10/20/21 methimazole 5 mg tablet 5 mg PO DAILY 03/26/21 10/20/21 metoprolol tartrate 25 mg tablet 25 mg PO BID 03/26/21 10/21/21 warfarin 5 mg tablet 5 mg PO HS 03/26/21 10/20/21 atorvastatin 20 mg tablet 20 mg PO HS 10/20/21 10/20/21 tramadol 50 mg tablet 50 mg PO BID PRN Pain 10/21/21 10/21/21 Allergies Allergy/AdvReac Type Severity Reaction Status Date / Time methylprednisolone Allergy Unknown Other Verified 04/27/22 13:02 azithromycin AdvReac Unknown Nausea and Verified 04/27/22 13:02 Vomiting aspirin AdvReac Unknown Verified 04/27/22 14:29 Review of Systems Review of Systems: Gen.: Denies fevers or chills ENT: Denies congestion Respiratory: See HPI CV: Denies chest pain or palpitations GI: Denies abdominal pain nausea, emesis or diarrhea Musculoskeletal: Denies back pain or muscle pain Neuro: Denies numbness, tingling, weakness or focal weakness Skin: Denies rash Except as documented, all other systems reviewed and negative [facility] Past Medical History Medical History Atrial fibrillation Congestive heart failure History of atrial fibrillation History of hyperlipidemia History of hypertension History of subarachnoid hemorrhage Hyperlipidemia Hypertension Hyperthyroidism Tobacco abuse Surgical History Surgical History H/O mechanical aortic valve replacement H/O: hysterectomy Hx of brain surgery Family History Family History Mother Brain aneurysm Other No known health problems Social History Social History Social History: The patient still continues to smoke a half pack a cigarettes a day. She has 3 children. She lives home alone she is . She does not have a durable power litigation attorney for healthcare. 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 Code status she is a full code Smoking packs per day: 0.5 Smoking cigarettes per day: 10.0 Years smoked: 51 Smoking pack-years: 25.50 Smoking status: Current every day smoker Tobacco type: cigarettes Second hand tobacco smoke exposure: No Alcohol intake: never Substance use: never Substance use type: does not use Gender identity (if verbalized by the patient): Female Spiritual care concerns: No Exam Narrative: APPEARANCE: No acute distress, nontoxic, resting in bed EYES: EOMI HEENT: Normocephalic, atraumatic, OMM RESPIRATORY: No respiratory distress who Rales throughout the bilateral lung angel CARDIOVASCULAR: Regular rate and rhythm without murmurs rubs or gallops. ABDOMINAL: Soft, nontender, nondistended, no rebound or guarding MUSCULOSKELETAl: Moves all extremities. No clubbing, cyanosis 2+ edema the bilateral lower extremities NEURO: Awake and alert. Following commands, speech normal, no focal deficits SKIN:: Warm, dry. No rashes lesions or abrasions PSYCHIATRIC: Normal affect/mood, Course Course Emergency Course: Reviewed old records Discussed with Dr. Dennison presentation work-up ag
[2022-04-27 13:47] LABS: Lactic Acid Reflex 1.1 mmol/L (0.7-2.0)
[2022-04-27 13:48] LABS: INR 2.9; Partial Thromboplastin Time 41.7 SECONDS (22.3-36.8); Prothrombin Time 29.7 Seconds (11.1-14.7)
[2022-04-27 13:49] LABS: NT Pro B Type Natriuretic Pept 2000 pg/mL (5-100); Troponin I < 0.012 ng/mL (0.000-0.034)
[2022-04-27] MEDS: FUROSEMIDE INJ 40 MG/4 ML VIAL IV PUSH ×2 (13:59→22:02)
[2022-04-27] MEDS: MORPHINE SULFATE (*CRX) 2 MG/ML INJ IV PUSH (14:33)
--- NOTE | 2022-04-27 18:13 | ADMIMU ---
This patient, Veronica Adler, was admitted to IMU status, and placed in IMU Room 201-01. Patient/family oriented to hospital policies and general routines including ID bracelet, bed and alarms, visiting hours, pain management, procedures, bathroom and other care routines, personal items, smoking policy, room service/diet, and visiting hours. Valuables list has been completed. Information on how to activate the Rapid Response Team has been discussed. Patient/Family are encouraged to report perceived risks to care and to ask questions if they do not understand what they are told or what they should do.
[2022-04-27 18:20] LABS: Troponin I < 0.012 ng/mL (0.000-0.034)
--- NOTE | 2022-04-27 21:00 | PM.IMHP ---
H&P: HPI History of Present Illness Date/Time: 04/27/22 21:00 Chief Complaint: Shortness of breath. Narrative: This is a very pleasant 67-year-old female smoker with history of mechanical mitral valve replacement, congestive heart failure, paroxysmal atrial fibrillation, hypertension, chronic kidney disease, COPD, and hyperthyroidism who presented to the emergency department for evaluation of shortness of breath. She gives a two day history of progressive dyspnea on lesser and lesser exertion, orthopnea, and cough occasionally productive of clear phlegm. This morning she was short of breath when ambulating to the bathroom at which time she was having heaviness in her chest and she decided to come in for evaluation. Chest x-ray showed evidence congestive heart failure and she is being admitted in this setting. She has had great urine output after receiving IV Lasix 40 mg x 1 in the ER and is feeling much better. She has no complaints at this time and specifically denies chest pain, pleuritic pain, palpitations, nausea, vomiting, and sweats. She also denies sinus congestion, rhinorrhea, otalgia, and odynophagia. No sick contacts. Review of Systems Review of Systems: Twelve systems were reviewed. No syncope or near syncope. Appetite has been good. No dysphagia or concerns for aspiration. States compliance with her medications. She has not had any noticeable weight gain. She has not used inhalers for her COPD for many years and she reports that they did not help anyway. She denies wheezing. Except as documented, all other systems were reviewed and are negative. [facility] Past Medical History Medical History (Updated 04/27/22 @ 23:13 by Luna Man PA-C) Chronic anticoagulation Chronic kidney disease, stage 3 Congestive heart failure Glaucoma Hyperlipidemia Hypertension Hyperthyroidism Kidney stones Paroxysmal atrial fibrillation Pulmonary hypertension Right chylothorax Subarachnoid hemorrhage Tobacco abuse Surgical History Surgical History (Updated 04/27/22 @ 23:06 by Luna Man PA-C) History of cardiac catheterization History of coronary artery bypass graft History of craniotomy History of hysterectomy History of mechanical aortic valve replacement Family History Family History Mother Brain aneurysm Other No known health problems Social History Social History Social History: Surrogate decision maker: Laurel or Yulisa Juan, daughters. Code status: Full code. Smoking packs per day: 0.5 Smoking cigarettes per day: 10.0 Years smoked: 51 Smoking pack-years: 25.50 Smoking status: Current every day smoker Second hand tobacco smoke exposure: No Alcohol intake: former Substance use: never Substance use type: does not use Living arrangements: alone Additional living arrangements comments: with 3 children. Spiritual care concerns: No Meds Home Medications and Allergies Home Medications Medication Instructions Recorded Confirmed Type lisinopril 2.5 mg tablet 2.5 mg PO DAILY 03/26/21 04/27/22 History methimazole 5 mg tablet 5 mg PO DAILY 03/26/21 04/27/22 History metoprolol tartrate 25 mg tablet 25 mg PO BID 03/26/21 04/27/22 History atorvastatin 20 mg tablet 20 mg PO HS 10/20/21 04/27/22 History tramadol 50 mg tablet 50 mg PO BID PRN Pain 10/21/21 04/27/22 History diltiazem HCl 60 mg 120 mg PO Q12HR #120 caps 10/28/21 04/27/22 Rx capsule,extended release 12 hr amiodarone 200 mg tablet 200 mg PO DAILY 04/27/22 04/27/22 History furosemide 40 mg tablet (Lasix) 40 mg PO DAILY 04/27/22 04/27/22 History warfarin 3 mg tablet 1 tablet PO HS 04/27/22 04/27/22 History Allergies Allergy/AdvReac Type Severity Reaction Status Date / Time methylprednisolone Allergy Unknown Other Verified 04/27/22 13:02 azithromycin AdvR
[2022-04-27 21:34] LABS: Troponin I < 0.012 ng/mL (0.000-0.034)
[2022-04-27] MEDS: traMADol HCL (*CRX) 50 MG TABLET PO (22:01)
[2022-04-27] MEDS: WARFARIN (*PBKC) 3 MG TABLET PO (22:01)
[2022-04-27] MEDS: METOPROLOL TARTRATE 25 MG TABLET PO (22:01)
[2022-04-28] VITALS (8 sets, daily range): BP systolic 107–125; BP diastolic 49–53; PULSE 45–66; RESP 16–18; TEMP 36.4–36.7; O2SAT 96–100
[2022-04-28 04:52] LABS: Basophils Absolute Auto 0.1 K/mm3 (0.0-0.1); Basophils Percent Auto 1.1 % (0.2-1.2); Eosinophils Absolute Auto 0.1 K/mm3 (0-0.3); Eosinophils Percent Auto 2.6 % (0-4.4); Hematocrit 36.4 % (37.0-47.0); Hemoglobin 12.1 g/dL (12.0-15.0); Immature Granulocyte Absolute 0.03 K/mm3 (0.00-0.031); Immature Granulocyte Percent A 0.6 % (0-0.5); Lymphocytes Absolute Auto 1.43 K/mm3 (0.9-3.2); Mean Corpuscular HGB Conc 33.2 g/dl (32-36); Mean Corpuscular Hemoglobin 34.2 pg (26-34); Mean Corpuscular Volume 102.8 fl (80-100); Monocytes Absolute Auto 0.6 K/mm3 (0.1-0.6); Monocytes Percent Auto 11.9 % (2.6-8.5); Neutrophils Percent Auto 56.8 % (45.5-73.1); Platelet Count Result 243 k/mm3 (150-375); Red Blood Count 3.54 M/mm3 (4.2-5.4); Red Cell Distribution Width 13.5 % (11.5-14.5); White Blood Count 5.3 K/mm3 (4.5-10.0)
[2022-04-28 05:02] LABS: INR 2.5; Prothrombin Time 25.9 Seconds (11.1-14.7)
[2022-04-28 05:07] LABS: Anion Gap 5 mmol/L (8-16); Blood Urea Nitrogen 21 mg/dL (7-17); Calcium 8.7 mg/dL (8.4-10.2); Carbon Dioxide 32 mmol/L (22-30); Chloride 103 mmol/L (98-107); Estimated Glomerular Filt Rate 42; Glucose 81 mg/dL (65-110); Magnesium 1.6 mg/dL (1.6-2.3); Potassium 3.4 mmol/L (3.4-5.0); Sodium 140 mmol/L (137-145)
[2022-04-28 05:34] LABS: Thyroid Stimulating Hormone < 0.015 uIU/mL (0.465-4.680)
[2022-04-28 06:05] LABS: Free T4 Free Thyroxine 5.56 ng/mL (0.78-2.19)
--- NOTE | 2022-04-28 08:27 | ECG_ITS ---
Measurements Intervals [place] Rate: 48 P: 18 [place]: 185 QRS: 116 QRSD: 113 T: 67 QT: 479 QTc: 429 Interpretive Statements SINUS BRADYCARDIA WITH MARKED SINUS ARRHYTHMIA INCOMPLETE RIGHT BUNDLE-BRANCH BLOCK LEFT POSTERIOR FASCICULAR BLOCK [QRS AXIS > 109, INFERIOR Q] MODERATE T-WAVE ABNORMALITY, CONSIDER LATERAL ISCHEMIA [-0.1+ mV T WAVE IN I/aVL/V5/V6] ABNORMAL ECG COMPARED TO ECG 04/27/2022 12:24:06 LEFT POSTERIOR FASCICULAR BLOCK NOW PRESENT Electronically Signed On 04-28-2022 17:43:40 CDT by Vignesh Dennison M.D.
[2022-04-28] MEDS: lisinopriL 2.5 MG TABLET PO (09:02)
[2022-04-28] MEDS: FUROSEMIDE INJ 40 MG/4 ML VIAL IV PUSH (09:02)
[2022-04-28] MEDS: methiMAzole 5 MG TAB PO (09:02)
--- NOTE | 2022-04-28 09:02 | PM.IMPN ---
Progress Note: A&P Assessment and Plan (1) Acute exacerbation of congestive heart failure: Code(s): I50.9 - Heart failure, unspecified Status: Acute Assessment and Plan: Precipitating etiology not entirely clear; states compliance with medication and diet. Ruled out for acute coronary syndrome by serial troponins which remains negative Continue IV diuresis with Lasix 40 mg IV b.i.d. with close monitoring of volume status. Cardiology consultation (2) Paroxysmal atrial fibrillation: Code(s): I48.0 - Paroxysmal atrial fibrillation Status: Acute Assessment and Plan: Currently sounds to be in a sinus rhythm. Patient on amiodarone, diltiazem, and metoprolol. 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 She is on warfarin (4) Chronic kidney disease, stage 3: Code(s): N18.30 - Chronic kidney disease, stage 3 unspecified Status: Acute Assessment and Plan: Creatinine is stable on review of previous labs. (5) Hypertension: Code(s): I10 - Essential (primary) hypertension Status: Chronic Assessment and Plan: Blood pressures were reviewed and they are stable. Continue antihypertensives and monitor daily. (6) Hyperthyroidism: Code(s): E05.90 - Thyrotoxicosis, unspecified without thyrotoxic crisis or storm Status: Chronic Assessment and Plan: Continue methimazole. TSH is low T4 high (7) Tobacco abuse: Code(s): Z72.0 - Tobacco use Status: Chronic Assessment and Plan: Smoking cessation is encouraged and was discussed. Patient declines the need for nicotine patch. (8) H/O mitral valve replacement with mechanical valve: Code(s): Z95.2 - Presence of prosthetic heart valve Status: Acute Assessment and Plan: History of mechanical mitral valve placement On chronic anticoagulation INR target goal 2.5-3.5 Subjective Date/time seen: 04/28/22 09:02 Interval history: HPI:This is a very pleasant 67-year-old female smoker with history of mechanical mitral valve replacement, congestive heart failure, paroxysmal atrial fibrillation, hypertension, chronic kidney disease, COPD, and hyperthyroidism who presented to the emergency department for evaluation of shortness of breath. She gives a two day history of progressive dyspnea on lesser and lesser exertion, orthopnea, and cough occasionally productive of clear phlegm. This morning she was short of breath when ambulating to the bathroom at which time she was having heaviness in her chest and she decided to come in for evaluation. Chest x-ray showed evidence congestive heart failure and she is being admitted in this setting. She has had great urine output after receiving IV Lasix 40 mg x 1 in the ER and is feeling much better. She has no complaints at this time and specifically denies chest pain, pleuritic pain, palpitations, nausea, vomiting, and sweats. She also denies sinus congestion, rhinorrhea, otalgia, and odynophagia. No sick contacts. 04/28/2022 patient seen and examined. Labs reviewed. Her heart rate dipping down to high 30s to low 40s. EKG was sinus bradycardia Review of Systems Review of Systems: All systems reviewed & are unremarkable except as noted in HPI and below (HPI) Exam Narrative: General: Well-developed female sitting up in bed in no distress. HEENT: Changes consistent with history of left craniotomy. PERRL, EOMI. Sclerae anicteric. Oral mucosa moist. Neck: Supple. Thyroid enlarged. Respiratory: Respirations are even and nonlabored. Bibasilar crackles with diminished lung sounds at the right base. No respiratory distress Cardiovascular: Regular rate and rhy
--- NOTE | 2022-04-28 09:25 | PM.CNCAR ---
Assessment and Plan Assessment and plan (1) Acute on chronic diastolic CHF (congestive heart failure): Code(s): I50.33 - Acute on chronic diastolic (congestive) heart failure Status: Acute Assessment and Plan: Acute on chronic heart failure preserved ejection fraction resolved with IV Lasix x1. Patient is currently completely asymptomatic. Maintaining sinus rhythm although bradycardic intermittently. Continue home Lasix 40 mg daily. Precise etiology for explanation unclear although patient was somewhat uncertain with regards to which medication she was taking initially states she was off methimazole for 7-8 months then later stating no I am taking medication if it is on my medication list. Stable for discharge home to follow-up with her compliance aide Dr. Karan TAPIA for further management. CHF counseling performed. Monitor daily weight, low-sodium intake, notify compliance aide with weight-bearing greater than 3 lb in 1 day 5 lb in 1 week exertional dyspnea, orthopnea PND. Patient agrees. Smoking cessation consult performed as well. (2) Bradycardia: Code(s): R00.1 - Bradycardia, unspecified Status: Acute Assessment and Plan: Asymptomatic hemodynamically stable bradycardia. Patient is on amiodarone 200 mg twice daily, metoprolol tartrate 25 mg twice daily and diltiazem 120 mg daily. Although she has a history of difficult to control atrial fibrillation given bradycardia into the 30s would discontinue diltiazem, reduce metoprolol tartrate to 12.5 mg twice daily reduce amiodarone to 200 mg daily and follow-up with her compliance aide as soon as possible. Discussed at length complication risks with amiodarone particularly given history of hyperthyroidism on methimazole. Will defer to her private compliance aide has been managing this but would consider alternative antiarrhythmic therapy. (3) Paroxysmal atrial fibrillation: Code(s): I48.0 - Paroxysmal atrial fibrillation Status: Acute Assessment and Plan: Maintaining sinus rhythm as above. Continue systemic anticoagulation goal INR of 2.5-3.5 given mechanical mitral valve and atrial fibrillation history. (4) Hyperthyroidism: Code(s): E05.90 - Thyrotoxicosis, unspecified without thyrotoxic crisis or storm Status: Chronic Assessment and Plan: Very low TSH less than 0.015. She initially stated she was not on methimazole but then back tracking states she was taking this consistently. In the left this must be addressed. Alternative to amiodarone discussed but will defer to her primary compliance aide as an outpatient. Patient verbalized understanding and agreed with plan of care. (5) H/O mitral valve replacement with mechanical valve: Code(s): Z95.2 - Presence of prosthetic heart valve Status: Acute Assessment and Plan: Therapeutic INR. Clinically stable no evidence for valvular dysfunction at this time. As above. (6) Chronic anticoagulation: Code(s): Z79.01 - longterm (current) use of anticoagulants Status: Acute Assessment and Plan: As above. (7) Tobacco abuse: Code(s): Z72.0 - Tobacco use Status: Chronic History of Present Illness History of Present Illness Consult date/time: Date of service: 04/28/22 09:25 Requesting physician: Luna Man PA-C Reason For Visit: CHF/renal insufficiency Narrative: Patient is a very pleasant 67-year-old female with past medical history significant for paroxysmal atrial fibrillation, cardioversion in December 2021 maintained on amiodarone by her primary compliance aide Dr. Russo, heart failure with preserved ejection fraction, COPD, chronic kidney disease stage 3, hyperthyroidism on methimazole, history mechanical mitral valve replacement who presented with progressive shortness of breath with past several weeks but without associated abdominal fullness, weight gain or lower extremity edema. Patient did admit
--- NOTE | 2022-04-28 14:16 | PM.DS ---
DS: Admitting Diagnosis Discharge Date 04/28/2022 Admitting Diagnosis Shortness of breath DS: Discharge Diagnosis Discharge Diagnosis (1) Acute exacerbation of congestive heart failure: Code(s): I50.9 - Heart failure, unspecified Status: Acute Assessment and Plan: Precipitating etiology not entirely clear; states compliance with medication and diet. Ruled out for acute coronary syndrome by serial troponins which remains negative Continue IV diuresis with Lasix 40 mg IV b.i.d. with close monitoring of volume status. Cardiology consultation obtained. Patient was euvolemic with IV diuresis overnight hemodynamically stable. Okay to discharge per Cardiology medication adjusted (2) Paroxysmal atrial fibrillation: Code(s): I48.0 - Paroxysmal atrial fibrillation Status: Acute Assessment and Plan: Currently sounds to be in a sinus rhythm. Patient on amiodarone, diltiazem, and metoprolol. With bradycardia her diltiazem was stopped as recommended by the Cardiology. 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 She is on warfarin INR monitoring as previously ordered (4) Chronic kidney disease, stage 3: Code(s): N18.30 - Chronic kidney disease, stage 3 unspecified Status: Acute Assessment and Plan: Creatinine is stable on review of previous labs. (5) Hypertension: Code(s): I10 - Essential (primary) hypertension Status: Chronic Assessment and Plan: Blood pressures were reviewed and they are stable. Continue antihypertensives and monitor daily. (6) Hyperthyroidism: Code(s): E05.90 - Thyrotoxicosis, unspecified without thyrotoxic crisis or storm Status: Chronic Assessment and Plan: Continue methimazole. TSH is low T4 high She does have goiter on clinical examination. CTA head also revealed left which extends to superior mediastinum. (7) Tobacco abuse: Code(s): Z72.0 - Tobacco use Status: Chronic Assessment and Plan: Smoking cessation is encouraged and was discussed. Patient declines the need for nicotine patch. (8) H/O mitral valve replacement with mechanical valve: Code(s): Z95.2 - Presence of prosthetic heart valve Status: Acute Assessment and Plan: History of mechanical mitral valve placement On chronic anticoagulation INR target goal 2.5-3.5 DS: Summary Hospital Course Hospital Course: See above Time Spent with Patient Time attestation: Total time spent providing and/or coordinating discharge services: 45 minutes Exam Narrative: General: Well-developed female sitting up in bed in no distress. HEENT: Changes consistent with history of left craniotomy. PERRL, EOMI. Sclerae anicteric. Oral mucosa moist. Neck: Supple. Thyroid enlarged. Respiratory: Respirations are even and nonlabored. Bibasilar crackles with diminished lung sounds at the right base. No respiratory distress Cardiovascular: Regular rate and rhythm with S1-S2. Click noted Gastrointestinal: Abdomen is soft, nontender, and nondistended with positive bowel sounds. Skin: Warm and dry. No rash or lesions on limited exam. Extremities: No cyanosis or clubbing. Trace bilateral lower extremity edema to mid tibial region. Radial and pedal pulses intact. Neurological: Alert. Cranial nerves 2-12 are grossly intact. No gross focal deficits to casual conversation. Psychiatric: Pleasant and cooperative with normal mood and affect. DS: Data Data Completed and Pending Labs on day of discharge: Labs from last 24 hours 04/28/22 04/28/22 04/28/22 04:21 04:21 04:21 WBC RBC Hgb Hct MCV MCH MCHC
== END 2022-04-28 15:44 | disposition home or self-care (01) ==
LOC: ANHED 14:48 → ANHIMU 18:45
PROVIDERS: Physician Assistant; Admitting Provider Hospitalist; Emergency Provider Emergency Medicine; PCP Internal Medicine; Visit Provider Internal Medicine
DX: I50.33 Acute on chronic diastolic (congestive) heart failure (principal); R07.89 Other chest pain; R06.02 Shortness of breath; E78.5 Hyperlipidemia, unspecified; F17.210 Nicotine dependence, cigarettes, uncomplicated; N18.30 Chronic kidney disease, stage 3 unspecified; Z79.01 Long term (current) use of anticoagulants; I13.0 Hypertensive heart and chronic kidney disease with heart failure and stage 1 through stage 4 chronic kidney disease, or unspecified chronic kidney disease; I48.0 Paroxysmal atrial fibrillation; E05.90 Thyrotoxicosis, unspecified without thyrotoxic crisis or storm; R00.1 Bradycardia, unspecified; Z95.2 Presence of prosthetic heart valve
CPT/HCPCS: 36415; 71046; 80048; 80053; 83605; 83735; 83880; 84439; 84443; 84484; 85025; 85610; 85730; 93005; 96374; 96375; 96376; 99284; A9270; G0378; J1940; J2270

== ENCOUNTER → 2022-06-10 15:07 | Outpatient (CLI) | payer MEDICARE, MEDICAID, SELFPAY ==
--- NOTE | ~2022-06-10 | XR_ITS ---
XR hip RT min 2V 06/10/2022 15:26 Indication: Right hip pain Procedure: 3 views right hip Comparison: No prior studies for comparison. Findings: No fracture, subluxation or dislocation. No significant joint space narrowing. There is ying tomic alignment. No significant soft tissue abnormality. Sacral foramen are symmetric. Impression: 1: No significant bone or joint abnormality. Reviewed, dictated and finalized at location A. Impression: 1: No significant bone or joint abnormality.
== END ==
PROVIDERS: PCP Family Medicine; Visit Provider Family Medicine
DX: M25.551 Pain in right hip (principal)
CPT/HCPCS: 73502

== ENCOUNTER 2022-07-05 15:46 | Outpatient (CLI) | payer MEDICARE, MEDICAID, SELFPAY ==
[2022-07-05 16:18] LABS: Cholesterol 128 mg/dL (0-200); HDL Direct 43 mg/dL; Triglycerides 81 mg/dL (<150)
[2022-07-05 16:28] LABS: LDL Cholesterol Direct 46 mg/dL
== END 2022-07-05 15:47 | disposition home or self-care (01) ==
PROVIDERS: PCP Family Medicine; Visit Provider Family Medicine
DX: E78.5 Hyperlipidemia, unspecified (principal)
CPT/HCPCS: 36415; 80061

== ENCOUNTER 2022-08-04 15:44 | Outpatient (CLI) | payer MEDICARE, MEDICAID, SELFPAY ==
--- NOTE | ~2022-08-04 | MM_ITS ---
EXAMINATION: MM screening [facility] w jolene HISTORY: Screening mammogram TECHNIQUE: Craniocaudal and mediolateral oblique 3-D tomosynthesis images were obtained and synthetic 2-D images were generated. CAD analysis was submitted and interpreted. COMPARISON: No prior mammogram is available for comparison at this institution. BREAST PARENCHYMAL COMPOSITION: The breasts are heterogeneously dense, which may obscure small masses . FINDINGS: There is fibroglandular asymmetry. Comparison with prior mammogram examinations is recommen ded. There is no evidence of suspicious mass, calcification, or architectural distortion to suggest m alignancy in either breast. IMPRESSION: 1. Fibroglandular asymmetry. 2. Comparison with prior mammograms is recommended. BI-RADS Category 0: Incomplete: Needs additional imaging evaluation. Reviewed, dictated and finalized at location A.
== END 2022-08-04 15:45 | disposition home or self-care (01) ==
PROVIDERS: Visit Provider Family Medicine
DX: Z12.31 Encounter for screening mammogram for malignant neoplasm of breast (principal); R92.8 Other abnormal and inconclusive findings on diagnostic imaging of breast
CPT/HCPCS: 36415; 77063; 77067; 85610

== ENCOUNTER 2022-08-04 16:10 | Outpatient (RCR) | payer MEDICARE, MEDICAID, SELFPAY ==
[2022-05-20 13:17] LABS: INR 3.2; Prothrombin Time 31.6 Seconds (11.1-14.7)
[2022-06-20 16:49] LABS: Prothrombin Time 37.6 Seconds (11.1-14.7)
[2022-07-05 16:23] LABS: INR 3.8; Prothrombin Time 36.3 Seconds (11.1-14.7)
[2022-08-04 16:42] LABS: Prothrombin Time 37.5 Seconds (11.1-14.7)
== END 2022-08-18 23:59 | disposition home or self-care (01) ==
LOC: ANHLAB 16:10
PROVIDERS: PCP Internal Medicine; Visit Provider Specialist
DX: Z95.4 Presence of other heart-valve replacement (principal)
CPT/HCPCS: 36415; 85610

== ENCOUNTER 2022-08-23 17:16 | Outpatient (CLI) | payer MEDICARE, MEDICAID, SELFPAY ==
[2022-08-23 18:59] LABS: Thyroid Stimulating Hormone Reflex < 0.015 uIU/mL (0.465-4.68)
[2022-08-24 11:14] LABS: Free T4 Free Thyroxine Reflex 6.42 ng/dL (0.78-2.19)
== END 2022-08-23 17:17 | disposition home or self-care (01) ==
PROVIDERS: PCP Family Medicine; Visit Provider Family Medicine
DX: E05.90 Thyrotoxicosis, unspecified without thyrotoxic crisis or storm (principal)
CPT/HCPCS: 36415; 84439; 84443; 85610

== ENCOUNTER 2022-09-23 00:50 | Day surgery (SDC) | payer MEDICARE, MEDICAID, SELFPAY ==
[2022-09-15 15:03] VITALS: BMI 27.7
--- NOTE | 2022-09-19 13:39 | PCNDS ---
Patient consumed [ ]% of [f his/her] [ ] diet without complaints status post [ ]. Weight remained stable during stay. [f he/she c] was discharged [ ]
--- NOTE | 2022-09-19 13:39 | PC.NURSE ---
spoke with thor at dr martínez office. he has okayed pt to stop her warfarin and wants her to start lovenox injections on mondaysep 21. they ask that pt restart warfarin after procedure. called pt to confirm she had these instructions, voiced understanding.
--- NOTE | 2022-09-23 10:58 | SUR.PREOP ---
Patient was prescribed lovenox for two after stopping warfarin for EGD procedure. Patient states last warfarin dose was on 09/19. Last lovenox dose was on 09/21. Informed Dr. Henriquez. No new orders at this time.
[2022-09-23 11:01] VITALS: BP 103/65; PULSE 50; RESP 18; TEMP 36.4; O2SAT 100
[2022-09-23] MEDS: LACTATED RINGERS 1,000 ML 150 ML IV CONT (11:23)
[2022-09-23] MEDS: GENTAMICIN 80MG/SOD CHL 50 ML 80 MG/50 ML BAG 100 MG IVPB (11:24)
[2022-09-23] MEDS: AMPICILLIN 2 GM/NS 100 ML 2 GM/100 ML BAG IVPB (11:25)
--- NOTE | 2022-09-23 11:30 | PM.HPGS ---
History of Present Illness History of Present Illness Consent: Risks, benefits, and alternatives have been discussed and questions answered. Patient agrees to proceed with procedure. Chief complaint: weight loss Narrative: Veronica Adler is a 67 year old female who has had a poor appetite and decreased intake. Consequently she has been losing weight. She has lost at least 30 lb over the last year so she denies abdominal pain. Review of Systems Review of Systems: All systems reviewed & are unremarkable except as noted in HPI and below PMFSH Past Medical History Medical History Chronic anticoagulation Chronic kidney disease, stage 3 Congestive heart failure Glaucoma Hyperlipidemia Hypertension Hyperthyroidism Kidney stones Paroxysmal atrial fibrillation Pulmonary hypertension Right chylothorax Subarachnoid hemorrhage Tobacco abuse Surgical History Surgical History History of cardiac catheterization History of coronary artery bypass graft History of craniotomy History of hysterectomy History of mechanical aortic valve replacement Family History Family History Mother Brain aneurysm Other No known health problems Social History Social History Social History: Surrogate decision maker: Laurel or Yulisa Juan, daughters. Code status: Full code. Smoking packs per day: 0.5 Smoking cigarettes per day: 10.0 Years smoked: 52 Smoking pack-years: 26.00 Smoking status: Current every day smoker Tobacco type: cigarettes Second hand tobacco smoke exposure: No Alcohol intake: never Substance use: never Substance use type: does not use Living arrangements: with family Additional living arrangements comments: with 3 children. Spiritual care concerns: No Meds Home Medications and Allergies Home Medications Medication Instructions Recorded Confirmed Type atorvastatin 20 mg tablet 20 mg PO HS 10/20/21 09/23/22 History amiodarone 200 mg tablet 200 mg PO DAILY 04/27/22 09/23/22 History furosemide 40 mg tablet (Lasix) 40 mg PO DAILY 04/27/22 09/23/22 History warfarin 3 mg tablet 1 tablet PO HS 04/27/22 09/23/22 History metoprolol tartrate 25 mg tablet 12.5 mg PO BID #30 tabs 06/02/22 10/28/22 Rx methimazole 5 mg tablet 5 mg PO TID 90 days #270 tabs 08/30/22 09/23/22 Rx warfarin 2 mg tablet 2 mg PO HS 09/15/22 09/23/22 History Allergies Allergy/AdvReac Type Severity Reaction Status Date / Time methylprednisolone Allergy Unknown Other Verified 09/23/22 10:57 azithromycin AdvReac Intermediate Nausea and Verified 09/23/22 10:57 Vomiting aspirin AdvReac Unknown Verified 09/23/22 10:57 Vital Signs Vital Signs - 24 hr 09/23/22 11:01 Temperature 36.4 C Pulse Rate 50 L Respiratory Rate 18 Blood Pressure 103/65 Pulse Oximetry 100 Oxygen Delivery Room Air Exam Const: General: alert Orientation/consciousness: patient oriented x3 Resp: Auscultation: clear to auscultation bilaterally Cardio: Rhythm: regular rhythm GI: GI Palp: Yes Soft to palpation and No Tenderness to palpation present (GI) Neuro: General: patient oriented x3 Assessment and Plan Assessment and plan (1) Weight loss: Code(s): R63.4 - Abnormal weight loss Status: Acute Assessment and Plan: EGD with possible biopsy or dilatation or cautery.
--- NOTE | 2022-09-23 11:47 | WPDANESEPPF ---
Anes - Initial Pre Proc Eval Procedure: Operation Date: 09/23/22 13:30 Proposed Procedures p Esophagogastroduodenoscopy EGD - Dimitris Henriquez MD Date/Time: 09/23/22 11:47 Surgeon: Dimitris Henriquez MD Pre Op Diagnosis: weight loss Patient Data Age: 67 Gender: F Height: 1.52 m Weight: 64.6 kg Last Vital Signs Temp 97.6 F 09/23/22 11:01 Pulse 50 L 09/23/22 11:01 Resp 18 09/23/22 11:01 BP 103/65 09/23/22 11:01 Pulse Ox 100 09/23/22 11:01 O2 Del Method Room Air 09/23/22 11:01 Allergies Allergy/AdvReac Type Severity Reaction Status Date / Time methylprednisolone Allergy Unknown Other Verified 09/23/22 10:57 azithromycin AdvReac Intermediate Nausea and Verified 09/23/22 10:57 Vomiting aspirin AdvReac Unknown Verified 09/23/22 10:57 Home Medications Medication Instructions Recorded Confirmed Type atorvastatin 20 mg tablet 20 mg PO HS 10/20/21 09/23/22 History amiodarone 200 mg tablet 200 mg PO DAILY 04/27/22 09/23/22 History furosemide 40 mg tablet (Lasix) 40 mg PO DAILY 04/27/22 09/23/22 History warfarin 3 mg tablet 1 tablet PO HS 04/27/22 09/23/22 History metoprolol tartrate 25 mg tablet 12.5 mg PO BID #30 tabs 04/28/22 09/23/22 Rx methimazole 5 mg tablet 5 mg PO TID 90 days #270 tabs 08/30/22 09/23/22 Rx warfarin 2 mg tablet 2 mg PO HS 09/15/22 09/23/22 History Patient hx anesthesia problems: none Family hx anesthesia problems: none Results Review: All pre-operative results and documents have been reviewed as part of the pre-operative evaluation. [facility] Past Medical History Medical History Chronic anticoagulation Chronic kidney disease, stage 3 Congestive heart failure Glaucoma Hyperlipidemia Hypertension Hyperthyroidism Kidney stones Paroxysmal atrial fibrillation Pulmonary hypertension Right chylothorax Subarachnoid hemorrhage Tobacco abuse Surgical History Surgical History History of cardiac catheterization History of coronary artery bypass graft History of craniotomy History of hysterectomy History of mechanical aortic valve replacement Family History Family History Mother Brain aneurysm Other No known health problems Social History Social History Social History: Surrogate decision maker: Laurel or Yulisa Juan, daughters. Code status: Full code. Smoking packs per day: 0.5 Smoking cigarettes per day: 10.0 Years smoked: 52 Smoking pack-years: 26.00 Smoking status: Current every day smoker Tobacco type: cigarettes Second hand tobacco smoke exposure: No Alcohol intake: never Substance use: never Substance use type: does not use Living arrangements: with family Additional living arrangements comments: with 3 children. Spiritual care concerns: No Anes - Eval Final PreProcedure Day of Procedure 09/23/22 11:47 Patient weight: normal Heart: regular rate and rhythm Lungs: clear to auscultation Airway: Mallampati scale class II Neurological: alert and oriented Last oral intake: >/= 8 hours ASA classification: IV Emergent: no Anesthetic plan: proceed Anesthesia type and monitoring: general GIVS and standard monitoring Results Review: All pre-operative results and documents have been reviewed as part of the pre-operative evaluation. Informed Consent: The patient's anesthetic plan and its attendant risks and benefits were discussed with the patient/family/POA. Questions were solicited and answers provided to the satisfaction of the patient/family/POA.
[2022-09-23 11:54] VITALS: BP 118/58; PULSE 44; RESP 18; TEMP 36.4; O2SAT 100
[2022-09-23 12:04] VITALS: BP 122/57; PULSE 53; RESP 18; O2SAT 100
[2022-09-23 12:14] VITALS: BP 133/60; PULSE 58; RESP 18; O2SAT 100
== END 2022-09-23 12:32 | disposition home or self-care (01) ==
PROVIDERS: PCP Family Medicine; Visit Provider Internal Medicine Gastroenterology
PROC: 0DJ08ZZ Inspection of Upper Intestinal Tract, Via Natural or Artificial Opening Endoscopic (ICD-10-PCS; CPT 43235; principal; 2022-09-23 13:30)
DX: K29.70 Gastritis, unspecified, without bleeding (principal); I12.9 Hypertensive chronic kidney disease with stage 1 through stage 4 chronic kidney disease, or unspecified chronic kidney disease; N18.30 Chronic kidney disease, stage 3 unspecified; E78.5 Hyperlipidemia, unspecified; I48.0 Paroxysmal atrial fibrillation; I27.20 Pulmonary hypertension, unspecified; E05.90 Thyrotoxicosis, unspecified without thyrotoxic crisis or storm; Z95.1 Presence of aortocoronary bypass graft; Z95.4 Presence of other heart-valve replacement; F17.210 Nicotine dependence, cigarettes, uncomplicated; Z79.01 Long term (current) use of anticoagulants
CPT/HCPCS: 43239; 87081; 88305; J0290; J1580; J2704; J7120

== ENCOUNTER → 2022-10-04 14:51 | Outpatient (CLI) | payer MEDICARE, MEDICAID, SELFPAY ==
--- NOTE | ~2022-10-04 | DEXA_ITS ---
Bone Density Report Name: ELAINE GUTHRIE Age: 67 Sex: Female Ethnicity: Black Date of : 1955 Indication: hyperparathyroidism; hysterectomy; postmenopausal Referring Provider: MICHELLE RAMIREZ Study: Bone densitometry was performed. Exam Date: October 04, 2022 Accession number: [id number] Bone Density: Region BMD T-score Z-score Classification AP Spine (L1-L4) 1.142 0.9 2.1 Normal Femoral Neck (Left) 0.589 -2.3 -1.2 Osteopenia Total Hip (Left) 0.859 -0.7 0.0 Normal Femoral Neck (Right) 0.660 -1.7 -0.7 Osteopenia Total Hip (Right) 0.744 -1.6 -0.8 Osteopenia Total Hip Mean 0.802 -1.2 -0.4 Osteopenia World Health Organization criteria for BMD impression classify patients as: Normal (T-score at or above -1.0), Osteopenia (T-score between -1.0 and -2.5), or Osteoporosis (T-score at or below -2.5). 10-year Fracture Risk(1): Major Osteoporotic Fracture 6.1% Hip Fracture 1.9% Reported Risk Factors: [place] (Black), Neck BMD=0.589, BMI=26.7, smoking (1) FRAX(R) Version 3.08. Fracture probability calculated for an untreated patient. Fracture probability may be lower if the patient has received treatment. Clinical Information Provided by Patient: Smokes Has the following medical conditions: Hyperparathyroidism, Hysterectomy Patient maximum height was 61.3 Menopause Age: 31 Does not regularly consume dairy products Drinks caffeinated beverages Onset of menses at age 14 Number of children 3 Impression: The patient has low bone mass, based on the Left Femoral Neck T-score. The patient has an estimated ten-year risk of hip fracture of 1.9% and an estimated ten-year risk of major fracture of 6.1%, based on the WHO FRAX algorithm. The patient has risk factors, including: smoking. Discussion: BONE DENSITY IS LOW AT ONE OR MORE SKELETAL SITES. This patient's lowest T-score is low at one or more skeletal sites. It meets the World Health Organization's (WHO) criteria for ?low bone mass? (T-score between -1.0 and -2.5). The patient's 10-year risk of fracture as calculated by FRAX is less than the threshold where pharmacological therapy is recommended by the National Osteoporosis Foundation (NOF). However, all treatment decisions require clinical judgment and consideration of individual patient factors, including patient preferences, comorbidities, previous drug use, risk factors not captured in the FRAX model (e.g., frailty, falls, vitamin D deficiency, increased bone turnover, interval significant decline in bone density) and possible under or overestimation of fracture risk by FRAX. The patient should follow a healthful lifestyle (good nutrition with adequate calcium and vitamin D, and appropriate weight-bearing exercise). Follow-Up: Consider repeating this study in 2 to 3 years to reassess this patien
== END ==
PROVIDERS: PCP Family Medicine; Visit Provider Family Medicine
DX: Z78.0 Asymptomatic menopausal state (principal); M85.852 Other specified disorders of bone density and structure, left thigh; M85.851 Other specified disorders of bone density and structure, right thigh
CPT/HCPCS: 77080

== ENCOUNTER 2022-10-26 09:09 | Outpatient (CLI) | payer MEDICARE, MEDICAID, SELFPAY ==
[2022-10-26 10:20] LABS: Alanine Aminotransferase 23 U/L (6-35); Alkaline Phosphatase 117 U/L (38-126); Anion Gap 5 mmol/L (8-16); Aspartate Amino Transferase 34 U/L (14-36); Bilirubin,Total 0.9 mg/dL (0.2-1.3); Blood Urea Nitrogen 27 mg/dL (7-17); Calcium 8.7 mg/dL (8.4-10.2); Carbon Dioxide 29 mmol/L (22-30); Chloride 107 mmol/L (98-107); Estimated Glomerular Filt Rate 45; Glucose 94 mg/dL (65-110); Potassium 4.2 mmol/L (3.4-5.0); Sodium 141 mmol/L (137-145)
[2022-10-26 10:51] LABS: Thyroid Stimulating Hormone < 0.015 uIU/mL (0.465-4.680)
[2022-10-26 10:55] LABS: Free T4 Free Thyroxine 3.24 ng/mL (0.78-2.19); Vitamin D 25 Hydroxy 49.7 ng/mL
[2022-10-29 03:04] LABS: Triiodothyronine T3 Free 3.5 pg/mL (2.3-4.2)
[2022-10-30 04:28] LABS: Thyroid Peroxidase Antibodies 7 IU/mL (<9)
[2022-10-31 07:47] LABS: Reference Lab Test Result 2785
[2022-11-01 15:21] LABS: Thyroid Stimulating Immunoglob <89 % baseline (<140)
== END 2022-10-26 09:10 | disposition home or self-care (01) ==
LOC: ANHLAB 09:12
PROVIDERS: PCP Family Medicine; Visit Provider Internal Medicine Endocrinology, Diabetes & Metabolism
DX: E05.90 Thyrotoxicosis, unspecified without thyrotoxic crisis or storm (principal); E04.9 Nontoxic goiter, unspecified; E55.9 Vitamin D deficiency, unspecified
CPT/HCPCS: 36415; 80053; 82306; 84439; 84443; 84445; 84481; 86376

== ENCOUNTER 2022-10-28 15:20 | Outpatient (CLI) | payer MEDICARE, MEDICAID, SELFPAY ==
--- NOTE | ~2022-10-28 | US_ITS ---
US thyroid INDICATION: Right goiter TECHNIQUE: Real-time sonographic images of the thyroid gland were obtained. COMPARISON: No prior studies for comparison. FINDINGS: The right thyroid lobe measures 5.6 x 2.1 x 2 cm. The left thyroid lobe measures 7.1 x 3.4 x 4.1 cm. There are multiple bilateral thyroid nodules. Largest dominant mass in the right lobe ashlee ures 1.9 x 1 x 1.6 cm and is almost completely solid, slightly hyperechoic, wider than tall, irregula r margins and no internal echogenic foci, TR 4. Largest mass in the left lobe measures 4.7 x 2.6 x 3. 4 cm this mass is solid, hyperechoic, wider than tall without internal echogenic foci. The margins ar e slightly irregular, TR 4. IMPRESSION: 1. Abnormal bilateral thyroid masses which meet sonographic criteria for biopsy. Recommend biopsy of both dominant masses in the right and left lobes. Reviewed, dictated and finalized at location A. COORDINATOR IMPRESSION: 1. Abnormal bilateral thyroid masses which meet sonographic criteria for biops y. Recommend biopsy of both dominant masses in the right and left lobes.
== END 2022-10-28 15:21 | disposition home or self-care (01) ==
PROVIDERS: PCP Family Medicine; Visit Provider Internal Medicine Endocrinology, Diabetes & Metabolism
DX: E04.9 Nontoxic goiter, unspecified (principal)
CPT/HCPCS: 76536

== ENCOUNTER 2022-10-31 17:29 | Outpatient (RCR) | payer MEDICARE, MEDICAID, SELFPAY ==
[2022-08-23 17:59] LABS: Prothrombin Time 46.1 Seconds (11.1-14.7)
[2022-08-23 18:34] LABS: INR 5.2
[2022-08-31 17:43] LABS: INR 2.8; Prothrombin Time 28.6 Seconds (11.1-14.7)
[2022-10-03 14:35] LABS: INR 1.5; Prothrombin Time 17.8 Seconds (11.1-14.7)
[2022-10-07 13:53] LABS: INR 1.9; Prothrombin Time 21.3 Seconds (11.1-14.7)
[2022-10-24 12:49] LABS: INR 2.3; Prothrombin Time 24.6 Seconds (11.1-14.7)
[2022-10-31 18:14] LABS: INR 2.7; Prothrombin Time 27.5 Seconds (11.1-14.7)
== END 2022-11-21 23:59 | disposition home or self-care (01) ==
LOC: ANHLAB 17:29
PROVIDERS: PCP Family Medicine; Visit Provider Specialist
DX: Z51.81 Encounter for therapeutic drug level monitoring (principal); Z95.4 Presence of other heart-valve replacement; Z79.01 Long term (current) use of anticoagulants
CPT/HCPCS: 36415; 85610

== ENCOUNTER 2022-12-27 09:31 | Emergency (ER) | payer MEDICARE, MEDICAID, SELFPAY ==
--- NOTE | ~2022-12-27 | CT_ITS ---
EXAMINATION: CT abdomen pelvis wo con DATE: 12/27/2022 10:24 INDICATION: Left flank pain. TECHNIQUE: Computed tomography (CT) of the abdomen and pelvis was performed without intravenous contr ast. Automated exposure control and iterative reconstruction technique were employed. The dose-length product was 179.16 mGy-cm. COMPARISON: CT abdomen and pelvis 05/07/2021 FINDINGS: The visualized portions of the lung bases demonstrate mild atelectasis. There is a trace ri ght pleural effusion versus pleural thickening. Cardiomegaly is noted. No pericardial effusion. There is a 10 mm cyst in the liver. The gallbladder, spleen, pancreas, and adrenal glands are normal. Ther e is cortical thinning of the kidneys. There are two 1 mm stones in right kidney. There is diverticul osis of the colon without evidence of diverticulitis. There are no dilated loops of bowel. The append ix is normal. There are no pathologically enlarged lymph nodes. There is no free intraperitoneal flui d. There is mild thoracic spondylosis and moderate lumbar spondylosis. There is a chronic compression fracture of L2. IMPRESSION: 1. No specific etiology for the patient's symptoms. Reviewed, dictated and finalized at location A. [facility]
[2022-12-27 09:33] VITALS: BP 152/62; PULSE 47; RESP 18; TEMP 36.3; O2SAT 95
--- NOTE | 2022-12-27 10:12 | ED.BACK ---
HPI - Back Pain/Injury General Chief Complaint: Back Pain/Injury Stated Complaint: L side pain Time Seen by Provider: 12/27/22 10:06 History of Present Illness HPI Narrative: Patient is a 67-year-old female with a history of CKD, A. fib, here for evaluation of left flank pain over the past day. Patient states that she woke up with the pain around her left flank that wraps around to the front of her abdomen and occasionally in her left hip. The pain will also occasionally radiate down her left lower extremity. She attempted 650 mg Tylenol without relief of her symptoms. Denies history of previous similar symptoms. Denies any incontinence or retention of bowel or bladder, saddle anesthesia, nausea, vomiting, dysuria, urgency, frequency, fevers, chills, chest pain or shortness of breath. No trauma to the area. Related Data Home Medications Medication Instructions Recorded Confirmed atorvastatin 20 mg tablet 20 mg PO HS 10/20/21 09/23/22 amiodarone 200 mg tablet 200 mg PO DAILY 04/27/22 09/23/22 furosemide 40 mg tablet (Lasix) 40 mg PO DAILY 04/27/22 09/23/22 warfarin 3 mg tablet 1 tablet PO HS 04/27/22 09/23/22 warfarin 2 mg tablet 2 mg PO HS 09/15/22 09/23/22 Allergies Allergy/AdvReac Type Severity Reaction Status Date / Time methylprednisolone Allergy Unknown Other Verified 09/23/22 10:57 azithromycin AdvReac Intermediate Nausea and Verified 09/23/22 10:57 Vomiting aspirin AdvReac Unknown Verified 09/23/22 10:57 Review of Systems Review of Systems: Gen: Denies fevers or chills Eyes: Denies eye pain or visual change ENT: Denies congestion Respiratory: Denies shortness of breath or cough CV: Denies chest pain or palpitations GI: Denies abdominal pain nausea, emesis or diarrhea : denies burning, urgency, frequency or hematuria Musculoskeletal: Reports left flank pain. Neuro: Denies numbness, tingling, weakness or focal weakness Skin: Denies rash Except as documented, all other systems reviewed and negative [facility] Past Medical History Medical History Chronic anticoagulation Chronic kidney disease, stage 3 Congestive heart failure Glaucoma Hyperlipidemia Hypertension Hyperthyroidism Kidney stones Paroxysmal atrial fibrillation Pulmonary hypertension Right chylothorax Subarachnoid hemorrhage Tobacco abuse Surgical History Surgical History History of cardiac catheterization History of coronary artery bypass graft History of craniotomy History of hysterectomy History of mechanical aortic valve replacement Family History Family History Mother Brain aneurysm Other No known health problems Social History Social History Social History: Surrogate decision maker: Laurel or Yulisa Juan, daughters. Code status: Full code. Smoking packs per day: 0.5 Smoking cigarettes per day: 10.0 Years smoked: 52 Smoking pack-years: 26.00 Smoking status: Current every day smoker Tobacco type: cigarettes Second hand tobacco smoke exposure: No Alcohol intake: never Substance use: never Substance use type: does not use Living arrangements: with family Additional living arrangements comments: with 3 children. Spiritual care concerns: No Exam Narrative: APPEARANCE: Uncomfortable appearing. Normal gait noted. Head: Normocephalic and atraumatic. EYES: PERRLA/EOMI, conjunctivae clear NOSE: No nasal drainage EARS: External ear normal in appearance THROAT: Oropharynx is clear. Mucous membranes are moist. NECK: Supple. No adenopathy, no masses. RESPIRATORY: Airway patent, respirations nonlabored. Clear to auscultation bilaterally, no rales, rhonchi, wheezing. CARDIOVASCULAR: Regular rate and rhythm without murmurs, rub
--- NOTE | 2022-12-27 10:21 | PC.NURSE ---
Patient in radiology
[2022-12-27 10:40] LABS: Basophils Absolute Auto 0.1 K/mm3 (0.0-0.1); Basophils Percent Auto 1.2 % (0.2-1.2); Eosinophils Absolute Auto 0.1 K/mm3 (0-0.3); Eosinophils Percent Auto 2.7 % (0-4.4); Hematocrit 38.8 % (37.0-47.0); Hemoglobin 12.4 g/dL (12.0-15.0); Immature Granulocyte Absolute 0.03 K/mm3 (0.00-0.031); Immature Granulocyte Percent A 0.6 % (0-0.5); Lymphocytes Absolute Auto 1.27 K/mm3 (0.9-3.2); Lymphocytes Percent Auto 24.8 % (18.3-44.2); Mean Corpuscular Hemoglobin 33.6 pg (26-34); Mean Corpuscular Volume 105.1 fl (80-100); Monocytes Absolute Auto 0.6 K/mm3 (0.1-0.6); Monocytes Percent Auto 10.9 % (2.6-8.5); Neutrophils Absolute Auto 3.1 K/mm3 (1.3-6.7); Neutrophils Percent Auto 59.8 % (45.5-73.1); Platelet Count Result 205 k/mm3 (150-375); Red Blood Count 3.69 M/mm3 (4.2-5.4); Red Cell Distribution Width 14.7 % (11.5-14.5); White Blood Count 5.1 K/mm3 (4.5-10.0)
[2022-12-27 10:41] LABS: Add Urine Microscopic? YES; Appearance Urine Clear (Clear); Bilirubin Urine 1+ (Negative); Blood Urine Negative (Negative); Color Urine Orange (Yellow); Glucose Urine UA Negative (Negative); Ketones Urine Trace mg/dL (Negative); Leukocyte Esterase Ur Negative LEU/UL (Negative); Nitrate Urine Negative (Negative); Protein Urine 1+ mg/dL (Negative); Specific Grav Ur 1.025 (1.001-1.035); Urobilinogen Urine 0.2 mg/dL (<2.0); pH Urine 5.5 (5.0-9.0)
[2022-12-27 10:44] LABS: Mucus Urine Rare /lpf; Squamous Epithelial Cell Urine Many /hpf (Few)
[2022-12-27 10:48] LABS: Alanine Aminotransferase 21 U/L (6-35); Albumin Level 4.2 g/dL (3.5-5.1); Alkaline Phosphatase 104 U/L (38-126); Anion Gap 2 mmol/L (8-16); Aspartate Amino Transferase 34 U/L (14-36); Bilirubin,Total 0.6 mg/dL (0.2-1.3); Blood Urea Nitrogen 19 mg/dL (7-17); Calcium 8.8 mg/dL (8.4-10.2); Carbon Dioxide 33 mmol/L (22-30); Chloride 101 mmol/L (98-107); Estimated CRCL calculation 26 ml/min; Estimated Glomerular Filt Rate 39; Glucose 87 mg/dL (65-110); Potassium 4.1 mmol/L (3.4-5.0); Sodium 136 mmol/L (137-145)
[2022-12-27 10:55] LABS: Macrocytosis 1+ (NORMAL); Ovalocytes 1+ (NORMAL); Platelet Estimate Adequate (Adequate); Schistocytes None Seen (NORMAL)
[2022-12-27] MEDS: HYDROcodone/acetaminophen (*CRX) 5-325 MG TABLET 1 TAB PO (11:05)
== END 2022-12-27 12:20 | disposition home or self-care (01) ==
PROVIDERS: Emergency Provider Physician Assistant; PCP Family Medicine
DX: M54.32 Sciatica, left side (principal); I48.0 Paroxysmal atrial fibrillation; I13.0 Hypertensive heart and chronic kidney disease with heart failure and stage 1 through stage 4 chronic kidney disease, or unspecified chronic kidney disease; N18.30 Chronic kidney disease, stage 3 unspecified; I50.9 Heart failure, unspecified; I27.20 Pulmonary hypertension, unspecified; E78.5 Hyperlipidemia, unspecified; E05.90 Thyrotoxicosis, unspecified without thyrotoxic crisis or storm; H40.9 Unspecified glaucoma; F17.210 Nicotine dependence, cigarettes, uncomplicated; Z90.710 Acquired absence of both cervix and uterus; Z95.2 Presence of prosthetic heart valve; Z95.1 Presence of aortocoronary bypass graft; Z87.442 Personal history of urinary calculi; Z79.01 Long term (current) use of anticoagulants
CPT/HCPCS: 36415; 74176; 80053; 81001; 85025; 99284; A9270

== ENCOUNTER 2023-03-02 09:50 | Outpatient (RCR) | payer MEDICARE, MEDICAID, SELFPAY ==
[2022-12-02 11:14] LABS: INR 2.2; Prothrombin Time 23.5 Seconds (11.1-14.7)
[2022-12-16 08:54] LABS: Prothrombin Time 29.9 Seconds (11.1-14.7)
[2023-01-16 14:28] LABS: INR 2.7; Prothrombin Time 27.5 Seconds (11.1-14.7)
[2023-02-08 14:24] LABS: INR 2.3; Prothrombin Time 24.7 Seconds (11.1-14.7)
[2023-02-15 16:55] LABS: INR 2.7; Prothrombin Time 27.4 Seconds (11.1-14.7)
[2023-03-02 10:53] LABS: INR 2.7; Prothrombin Time 28.1 Seconds (11.1-14.7)
== END 2023-03-02 23:59 | disposition home or self-care (01) ==
LOC: ANHLAB 09:50
PROVIDERS: PCP Family Medicine; Visit Provider Specialist
DX: Z51.81 Encounter for therapeutic drug level monitoring (principal); Z95.2 Presence of prosthetic heart valve; Z79.01 Long term (current) use of anticoagulants
CPT/HCPCS: 36415; 85610

== ENCOUNTER 2023-03-07 16:46 | Outpatient (CLI) | payer MEDICARE, MEDICAID, SELFPAY ==
[2023-03-07 17:12] LABS: Alanine Aminotransferase 20 U/L (6-35); Albumin Level 4.6 g/dL (3.5-5.1); Alkaline Phosphatase 106 U/L (38-126); Anion Gap 5 mmol/L (8-16); Aspartate Amino Transferase 33 U/L (14-36); Bilirubin,Total 1.1 mg/dL (0.2-1.3); Blood Urea Nitrogen 33 mg/dL (7-17); Calcium 8.8 mg/dL (8.4-10.2); Carbon Dioxide 32 mmol/L (22-30); Chloride 100 mmol/L (98-107); Estimated Glomerular Filt Rate 30; Glucose 83 mg/dL (65-110); Potassium 4.2 mmol/L (3.4-5.0); Sodium 137 mmol/L (137-145)
[2023-03-07 19:12] LABS: Free T4 Free Thyroxine 1.43 ng/mL (0.78-2.19); Vitamin D 25 Hydroxy 57.4 ng/mL
[2023-03-10 04:30] LABS: Triiodothyronine T3 Free 2.8 pg/mL (2.3-4.2)
[2023-03-10 06:08] LABS: Thyroid Peroxidase Antibodies 6 IU/mL (<9)
[2023-03-10 14:38] LABS: Thyroid Stimulating Immunoglob 102 % baseline (<140)
== END 2023-03-07 16:47 | disposition home or self-care (01) ==
PROVIDERS: PCP Family Medicine; Visit Provider Internal Medicine Endocrinology, Diabetes & Metabolism
DX: E05.90 Thyrotoxicosis, unspecified without thyrotoxic crisis or storm (principal); E55.9 Vitamin D deficiency, unspecified
CPT/HCPCS: 36415; 80053; 82306; 84439; 84443; 84445; 84481; 86376

== ENCOUNTER 2023-06-27 08:59 | Outpatient (RCR) | payer MEDICARE, MEDICAID, SELFPAY ==
[2023-04-11 16:46] LABS: INR 2.8; Prothrombin Time 31.4 Seconds (11.1-14.7)
[2023-05-15 11:34] LABS: INR 3.2; Prothrombin Time 35.2 Seconds (11.1-14.7)
[2023-05-31 13:41] LABS: INR 1.9; Prothrombin Time 23.3 Seconds (11.1-14.7)
[2023-06-16 10:01] LABS: INR 3.6; Prothrombin Time 38.9 Seconds (11.1-14.7)
[2023-06-27 09:56] LABS: INR 3.6; Prothrombin Time 39.1 Seconds (11.1-14.7)
== END 2023-07-10 23:59 | disposition home or self-care (01) ==
LOC: ANHLAB 08:59
PROVIDERS: PCP Family Medicine; Visit Provider Specialist
DX: Z95.2 Presence of prosthetic heart valve (principal); Z79.01 Long term (current) use of anticoagulants
CPT/HCPCS: 36415; 85610

== ENCOUNTER 2023-09-27 16:57 | Outpatient (RCR) | payer MEDICARE, MEDICAID, SELFPAY ==
[2023-07-25 13:41] LABS: INR 3.7; Prothrombin Time 39.6 Seconds (11.1-14.7)
[2023-08-22 15:02] LABS: INR 4.6; Prothrombin Time 47.4 Seconds (11.1-14.7)
[2023-09-20 17:39] LABS: INR 4.3; Prothrombin Time 45.2 Seconds (11.1-14.7)
[2023-09-27 17:40] LABS: INR 2.4; Prothrombin Time 27.9 Seconds (11.1-14.7)
== END 2023-10-05 10:55 | disposition home or self-care (01) ==
LOC: ANHLAB 16:57
PROVIDERS: PCP Family Medicine; Visit Provider Specialist
DX: Z51.81 Encounter for therapeutic drug level monitoring (principal); Z95.2 Presence of prosthetic heart valve; Z79.01 Long term (current) use of anticoagulants
CPT/HCPCS: 36415; 85610

== ENCOUNTER 2024-01-10 16:56 | Outpatient (RCR) | payer MEDICARE, MEDICAID, SELFPAY ==
[2023-10-23 17:51] LABS: INR 3.2; Prothrombin Time 35.7 Seconds (11.1-14.7)
[2023-11-28 14:53] LABS: INR 3.9; Prothrombin Time 41.1 Seconds (11.1-14.7)
[2023-12-14 17:04] LABS: INR 3.9; Prothrombin Time 41.5 Seconds (11.1-14.7)
[2023-12-25 17:28] LABS: INR 2.3; Prothrombin Time 26.6 Seconds (11.1-14.7)
[2024-01-10 17:40] LABS: INR 2.6; Prothrombin Time 30.2 Seconds (11.1-14.7)
== END 2024-01-21 23:59 | disposition home or self-care (01) ==
LOC: ANHLAB 16:56
PROVIDERS: PCP Family Medicine; Visit Provider Specialist
DX: I48.91 Unspecified atrial fibrillation (principal); Z95.2 Presence of prosthetic heart valve
CPT/HCPCS: 36415; 85610

== ENCOUNTER 2024-02-12 17:25 | Outpatient (CLI) | payer MEDICARE, MEDICAID, SELFPAY ==
[2024-02-12 18:35] LABS: Alanine Aminotransferase 20 U/L (6-35); Albumin Level 4.2 g/dL (3.5-5.1); Alkaline Phosphatase 103 U/L (38-126); Anion Gap 1 mmol/L (8-16); Aspartate Amino Transferase 34 U/L (14-36); Bilirubin,Total 1.2 mg/dL (0.2-1.3); Blood Urea Nitrogen 20 mg/dL (7-17); Calcium 9.5 mg/dL (8.4-10.2); Carbon Dioxide 30 mmol/L (22-30); Chloride 106 mmol/L (98-107); Cholesterol 117 mg/dL (0-200); Estimated Glomerular Filt Rate 45; Glucose 65 mg/dL (65-110); HDL Direct 53 mg/dL; Potassium 3.8 mmol/L (3.4-5.0); Sodium 137 mmol/L (137-145); Triglycerides 74 mg/dL (<150)
[2024-02-12 18:46] LABS: LDL Cholesterol Direct 51 mg/dL
[2024-02-12 19:06] LABS: Thyroid Stimulating Hormone < 0.015 uIU/mL (0.465-4.680)
== END 2024-02-12 17:26 | disposition home or self-care (01) ==
PROVIDERS: PCP Family Medicine; Visit Provider Family Medicine
DX: E03.9 Hypothyroidism, unspecified (principal); Z13.228 Encounter for screening for other metabolic disorders; E05.00 Thyrotoxicosis with diffuse goiter without thyrotoxic crisis or storm; Z13.220 Encounter for screening for lipoid disorders
CPT/HCPCS: 36415; 80053; 80061; 84439; 84443

== ENCOUNTER 2024-04-25 13:51 | Outpatient (RCR) | payer MEDICARE, MEDICAID, SELFPAY ==
[2024-02-12 18:31] LABS: INR 2.8; Prothrombin Time 31.9 Seconds (11.1-14.7)
[2024-02-27 17:37] LABS: INR 2.9; Prothrombin Time 33.2 Seconds (11.1-14.7)
[2024-03-26 14:14] LABS: INR 2.8; Prothrombin Time 31.7 Seconds (11.1-14.7)
[2024-04-25 14:25] LABS: INR 1.6; Prothrombin Time 20.5 Seconds (11.1-14.7)
== END 2024-05-12 23:59 | disposition home or self-care (01) ==
LOC: ANHLAB 13:51
PROVIDERS: PCP Family Medicine; Visit Provider Specialist
DX: I48.91 Unspecified atrial fibrillation (principal); Z95.2 Presence of prosthetic heart valve
CPT/HCPCS: 36415; 85610

== ENCOUNTER 2024-07-23 15:16 | Outpatient (CLI) | payer MEDICARE, SELFPAY ==
--- NOTE | ~2024-07-23 | MM_ITS ---
EXAMINATION: MM screening [facility] BI w jolene HISTORY: Screening TECHNIQUE: Craniocaudal and mediolateral oblique 3-D tomosynthesis images were obtained and synthetic 2-D images were generated. CAD analysis was submitted and interpreted. COMPARISON: 08/04/2022 and 02/08/2014 BREAST PARENCHYMAL COMPOSITION: Dense: The breasts are heterogeneously dense, which may obscure small masses FINDINGS: There is no evidence of suspicious mass, calcification, or architectural distortion to sugg est malignancy in either breast. There has been no suspicious interval change. IMPRESSION: 1. No mammographic evidence of malignancy. 2. Recommend routine screening mammography in one year. BI-RADS Category 1: Negative Reviewed, dictated and finalized at location B.
== END 2024-07-23 15:17 | disposition home or self-care (01) ==
PROVIDERS: PCP Family Medicine; Visit Provider Family Medicine
DX: Z12.31 Encounter for screening mammogram for malignant neoplasm of breast (principal)
CPT/HCPCS: 77063; 77067

== ENCOUNTER 2024-07-25 15:48 | Outpatient (RCR) | payer MEDICARE, MEDICAID, SELFPAY ==
[2024-05-27 17:40] LABS: INR 2.2; Prothrombin Time 25.5 Seconds (11.1-14.7)
[2024-06-25 16:53] LABS: INR 1.9; Prothrombin Time 22.8 Seconds (11.1-14.7)
[2024-07-25 16:40] LABS: INR 2.2; Prothrombin Time 24.8 Seconds (11.1-14.7)
== END 2024-08-25 23:59 | disposition home or self-care (01) ==
LOC: ANHLAB 15:48
PROVIDERS: PCP Family Medicine; Visit Provider Specialist
DX: Z51.81 Encounter for therapeutic drug level monitoring (principal); I48.91 Unspecified atrial fibrillation; Z95.2 Presence of prosthetic heart valve; Z79.01 Long term (current) use of anticoagulants
CPT/HCPCS: 36415; 85610

== ENCOUNTER 2024-09-04 14:50 | Outpatient (CLI) | payer MEDICARE, MEDICAID, SELFPAY ==
[2024-09-04 15:14] LABS: Hematocrit 38.3 % (37.0-47.0); Hemoglobin 12.5 g/dL (12.0-15.0); Mean Corpuscular HGB Conc 32.6 g/dl (32-36); Mean Corpuscular Hemoglobin 35.1 pg (26-34); Mean Corpuscular Volume 107.6 fl (80-100); Mean Platelet Volume 10.3 fl (7.4-10.4); Platelet Count Result 200 k/mm3 (150-375); Red Blood Count 3.56 M/mm3 (4.2-5.4); White Blood Count 5.1 K/mm3 (4.5-10.0)
[2024-09-04 15:30] LABS: Alanine Aminotransferase 25 U/L (6-35); Alkaline Phosphatase 72 U/L (38-126); Anion Gap 1 mmol/L (4-12); Aspartate Amino Transferase 42 U/L (14-36); Bilirubin,Total 0.9 mg/dL (0.2-1.3); Blood Urea Nitrogen 16 mg/dL (7-17); Carbon Dioxide 30 mmol/L (22-30); Chloride 108 mmol/L (98-107); Estimated Glomerular Filt Rate 39; Glucose 78 mg/dL (65-110); Sodium 139 mmol/L (137-145)
[2024-09-04 15:55] LABS: Free T4 Free Thyroxine 1.45 ng/mL (0.78-2.19); Vitamin D 25 Hydroxy 46.1 ng/mL
[2024-09-05 21:03] LABS: Triiodothyronine T3 Free 2.7 pg/mL (2.3-4.2)
== END 2024-09-04 14:51 | disposition home or self-care (01) ==
PROVIDERS: PCP Family Medicine; Visit Provider Internal Medicine Endocrinology, Diabetes & Metabolism
DX: E55.9 Vitamin D deficiency, unspecified (principal); E04.9 Nontoxic goiter, unspecified; I50.42 Chronic combined systolic (congestive) and diastolic (congestive) heart failure; E05.90 Thyrotoxicosis, unspecified without thyrotoxic crisis or storm
CPT/HCPCS: 36415; 80053; 82306; 84439; 84443; 84481; 85027

== ENCOUNTER 2024-09-20 08:37 | Outpatient (CLI) | payer MEDICARE, MEDICAID, SELFPAY ==
--- NOTE | ~2024-09-20 | US_ITS ---
EXAMINATION: US thyroid DATE: 09/20/2024 09:26 INDICATION: Nontoxic single thyroid nodule. TECHNIQUE: Multiple ultrasound images of the thyroid were obtained. COMPARISON: Ultrasound 10/28/2022, chest CT 10/20/21 FINDINGS: The right thyroid lobe measures 5.3 x 3.5 x 2.8 cm. The left thyroid lobe measures 7.4 x 3.6 x 4.5 c m. The thyroid is diffusely heterogeneous and filled with large, ill-defined nodules of similar ultr asound appearance. The prior CT demonstrates extension of the thyroid into the mediastinum. IMPRESSION: 1. Chronic multinodular goiter. Biopsy is likely not needed. Reviewed, dictated and finalized at location A.
== END 2024-09-20 08:38 | disposition home or self-care (01) ==
LOC: ANHIMG 08:39
PROVIDERS: PCP Family Medicine; Visit Provider Internal Medicine Endocrinology, Diabetes & Metabolism
DX: E04.2 Nontoxic multinodular goiter (principal)
CPT/HCPCS: 76536

== ENCOUNTER 2024-10-23 15:33 | Outpatient (RCR) | payer MEDICARE, SELFPAY ==
[2024-08-26 17:45] LABS: INR 2.8; Prothrombin Time 29.7 Seconds (11.1-14.7)
[2024-09-20 10:25] LABS: INR 3.5; Prothrombin Time 35.9 Seconds (11.1-14.7)
[2024-10-23 16:06] LABS: INR 2.2; Prothrombin Time 24.9 Seconds (11.1-14.7)
== END 2024-11-24 23:59 | disposition home or self-care (01) ==
LOC: ANHLAB 15:33
PROVIDERS: PCP Family Medicine; Visit Provider Specialist
DX: I48.91 Unspecified atrial fibrillation (principal); Z95.2 Presence of prosthetic heart valve
CPT/HCPCS: 36415; 85610

== ENCOUNTER 2025-02-20 17:16 | Outpatient (RCR) | payer MEDICARE, MEDICAID, SELFPAY ==
[2024-11-26 12:15] LABS: INR 2.6; Prothrombin Time 28.6 Seconds (11.1-14.7)
[2024-12-19 10:47] LABS: Prothrombin Time 31.6 Seconds (11.1-14.7)
[2025-01-23 09:47] LABS: INR 3.1; Prothrombin Time 32.9 Seconds (11.1-14.7)
[2025-02-20 17:47] LABS: INR 2.6; Prothrombin Time 28.4 Seconds (11.1-14.7)
== END 2025-02-24 23:59 | disposition home or self-care (01) ==
LOC: ANHLAB 17:16
PROVIDERS: PCP Family Medicine; Visit Provider Specialist
DX: Z95.4 Presence of other heart-valve replacement (principal)
CPT/HCPCS: 36415; 85610

== ENCOUNTER 2025-04-08 12:56 | Outpatient (CLI) | payer MEDICARE, MEDICAID, SELFPAY ==
--- NOTE | ~2025-04-08 | DEXA_ITS ---
Bone Density Report Name: ELAINE GUTHRIE Age: 70 Sex: Female Ethnicity: White Date of : 1955 Indication: postmenopausal; screening for osteoporosis; height loss; hysterectomy; Referring Provider: EULA KRAUSE Study: Bone densitometry was performed. Exam Date: April 08, 2025 Accession number: [id number] Bone Density: Region BMD T-score Z-score Classification AP Spine(L1-L4) 1.120 0.7 2.8 Normal Femoral Neck (Left) 0.618 -2.1 -0.2 Osteopenia Total Hip (Left) 0.825 -1.0 0.6 Normal Femoral Neck (Right) 0.644 -1.8 0.0 Osteopenia Total Hip (Right) 0.758 -1.5 0.1 Osteopenia Total Hip Mean 0.791 -1.3 0.4 Osteopenia World Health Organization criteria for BMD impression classify patients as: Normal (T-score at or above -1.0), Osteopenia (T-score between -1.0 and -2.5), or Osteoporosis (T-score at or below -2.5). 10-year Fracture Risk(1): Major Osteoporotic Fracture 12% Hip Fracture 3.6% Reported Risk Factors: [place] (), Neck BMD=0.618, BMI=37.9, smoking (1) FRAX(R) Version 3.08. Fracture probability calculated for an untreated patient. Fracture probability may be lower if the patient has received treatment. Clinical Information Provided by Patient: Smokes Has used the following medications: Vitamin D, Calcium Has the following medical conditions: Hysterectomy Patient maximum height was 63 Menopause Age: 37 Does not regularly consume dairy products Drinks caffeinated beverages Onset of menses at age 11 Number of children 3 Impression: The patient has low bone mass, based on the Left Femoral Neck T-score. The patient has an estimated ten-year risk of hip fracture of 3.6% and an estimated ten-year risk of major fracture of 12%, based on the WHO FRAX algorithm. The patient has risk factors, including: smoking. Discussion: BONE DENSITY IS LOW AT ONE OR MORE SKELETAL SITES. THE PATIENT'S BMD AND CLINICAL RISK FACTORS CONTRIBUTE TO THIS PATIENT'S INCREASED RISK OF FRACTURE. This patient's lowest T-score is low at one or more skeletal sites. It meets the World Health Organization's (WHO) criteria for ?low bone mass? (T-score between -1.0 and -2.5). The patient's 10-year risk of hip fracture as calculated by FRAX exceeds the threshold where pharmacological therapy is recommended by the National Osteoporosis Foundation (NOF). However, all treatment decisions require clinical judgment and consideration of individual patient factors, including patient preferences, comorbidities, previous drug use, risk factors not captured in the FRAX model (e.g., frailty, falls, vitamin D deficiency, increased bone turnover, interval significant decline in bone density) and possible under or overestimation of fracture risk by FRAX. The patient should follow a healthful lifestyle (good nutrition with adequate calcium and vitamin D, and appropriate weight-bearing exercise). Follow-Up: Consider a repeat BMD and Vertebral Fracture Assessment (VFA) exam in 2 years or sooner if medically necessary, to reassess this patient's status. Reported by: [place] on 04/08/2025 1:38:00 PM. Reviewed, dictated and finalized at location A.
--- OUTSIDE RECORDS SUMMARY | 2025-04-08 13:05 | XMS_ITS | Data Portability ---
Author Organization [facility] OFFICE Address [address] [place] [address] Care Team Providers Care End User Consultant Name Role Phone MICHELLE RAMIREZ Primary Care Provider [phone] Assessment Encounter Date Assessment Date Assessment LastModified by Organization Details LastModified Time 03/21/2023 03/21/2023 Patient Examined by LEN Perez, Also interviewed / examined by Supervising physician. Assessment / plan discussed and implemented Encounter scribed by LEN Perez. Documentation reviewed and approved by supervising physician jero Not available 03/21/2023 17:39:10 Plan of Treatment Reminders Order Date Submit Date Provider Last Modified By Organization Details Last Modified Time Details Appointments ESTABLISH ED PATIENT DETAILED 2024 04:15P M Hieu Washington i, MD Not available Not available Not available Lab None recorded. Referral None recorded. Procedures None recorded. Surgeries None recorded. Imaging None recorded. Medication Orders amiodaron e 100 mg tablet 2022 023 [id number], [address] [facility] [address], [place], [place], [id number], 04/11/2023 09:48:51 Patient TargetsNo targets recorded. Patient Instructions Encounter Date Encounter Id Patient Instructions Last Modified By Organization Details Last Modified Time 03/21/2023 [id number] Exercise advised Low cholesterol diet advised Low sodium diet advised. [email or web address] Not available 03/21/2023 17:44:30 Reason for Referral None Reported. Results Created Date Observation Date Name Description Value Unit Range Abnormal Flag Note LastModifiedBy Organization Detail LastModifiedTime 04/25/2004/19/2023 , echo ardio gram No observ ation record ed. Not Available 2022 16:09:39 07/19/20 23 05/01/2023 trans -thor acic echoc ardio gram (TTE) (PROC ) No observ ation record ed. Not Available 2022 14:17:03 07/19/20 23 05/01/2023 rest and exerc ise ambul ation test (PROC ) No observ ation record ed. Not Available 2022 14:26:54 12/27/19 24 12/26/2023 elect rocar diogr am No observ ation record ed. Not Available 2023 12:06:32 08/21/20 24 08/20/2024 elect rocar diogr am No observ ation record ed. [email or web address] Not Available 2024 18:24:49 09/29/20 24 09/26/2024 , echoc ardio gram No observ ation record ed. [email or web address] Not Available 2024 18:24:01 03/12/20 25 03/11/2025 elect rocar diogr am No observ ation record ed. [email or web address] Not Available 2024 10:02:48 Result Notes Documentation Provider Name and Address Organization Details Recorded Time Inr, Blood : 05/15/23:PT 35.2,INR 3.2. Deborah [place], [place] - [facility] 05/23/2023 09:23:39 Inr, Blood : 07/25/23:PT 39.6,INR 3.7. Mara [place], [place] - [facility] 07/27/2023 11:14:13 Bmp, Serum Or Plasma : 09/14/23:Na 140,K 4.7,CL 110,CO2 23,Glu 84,Bun 35,Cr 1.50. Kalyan [place], [place] - [facility] 09/23/2023 10:34:37 Pt/inr : 09/27/23:INR 2.4,PT 27.9. Kalyan [place], [place] - [facility] 09/28/2023 13:14:46 Problems Name Problem SNOMED Code Status Onset Date Resolution Date Notes Provider Name and Address Organization Details Recorded Time Palpitat ions 85378522 Active 2015 Not Available [facility] 4 00:50:22 Dyspnea 981982339 Active 2015 Not Available [facility] 4 00:50:21 Cerebrov ascular accident 096859348 Active 2015 Not Available [facility] 4 00:50:21 Congesti ve heart failure 35743705 Active 2015 Kalyan [place], [place] - [facility] 4 07:53:36 Kidney stone 03708371 Active 2015 Not Available [facility] 4 00:50:22 Coronary arterios clerosis 09696940 Active 2015 Not Available [facility] 4 00:50:22 Pleural effusion 97126954 Active 2015 Not Available [facility] 4 00:50:22 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/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 al mitral valve replacem ent 58774086375 109 Active 2015 Not Available [facility] 4 00:50:22 Hypothyr oidism 34732500 Active 2017 Kalyan [place], [place] - [facility] 4 07:52:49 Obstruct jose roberto sleep apnea syndrome 00855838 Active 2017 Kalyan [place], [place] - [facility] 4 07:52:48 Atrial fibrilla tion 91081539 Active 2015 Not Available [facility] 4 00:50:21 Dyslipid emia 569602620 Active 2015 Not Available [facility] 4 00:50:21 [facility] hyperten kamron 35715571 Active 2015 Kalyan [place], [place] - [facility] 4 07:52:53 Cerebrov ascular accident 578662750 Completed 201503/13/2016 Darrel [place], [place] - [facility] 6 01:22:50 Mitral valve disorder 38660004 Active 2015 S/P mitral valve replacem ent with Remedial Reading Teacher al valve Not Available [facility] 4 00:50:21 Tobacco dependen ce syndrome 61782293 Active 2015 Not Available [facility] 4 00:50:22 Hyperkal emia 00265529 Active 2017 Not Available [facility] 4 00:50:21 Cerebral hemorrha ge 607276921 Active 2018 Not Available [facility] 4 00:50:21 Notes:Some problems listed i n Documents: #[id number], #[id number], #[id number], #[id number], #[id number], #[id number], #[id number] could not be added to this patient's chart. Please review these documents and add these problems to the patient's chart manually as needed. Problem Notes None recorded. Procedures Surgical History Date Name Laterality Status Provider Name and Address Organization Details Recorded Time Hysterectomy completed [facility] 03/13/2016 08:05:18 Replacement of mitral valve completed [facility] 03/13/2016 08:06:19 CABG completed [facility] 02/18/2018 17:32:16 Hysterectomy completed [facility] 02/18/2018 17:33:48 Imaging Results Imaging Date Name Status LastModified by Organization Details LastModified Time 04/19/2023 US, echocardiogram completed Inform ation not available 04/25/2023 16:09:39 05/01/2023 trans-thoracic echocardiogram (TTE) (PROC) completed Information not available 07/19/2023 14:17:03 05/01/2023 rest and exercise ambulation test (PROC) completed Information not available 07/19/2023 14:26:54 12/26/2023 electrocardiogram completed Informa tion not available 12/27/2023 12:06:32 08/20/2024 electrocardiogram completed Informa tion not available 03/10/2025 18:24:49 09/26/2024 US, echocardiogram completed Inform ation not available 03/10/2025 18:24:01 03/11/2025 electrocardiogram completed [email or web address] Informa tion not available 03/13/2025 10:02:48 Procedure Notes None recorded. Medical Equipment None Reported. Allergies No known drug allergies Medications Name Sig Start Date Stop Date Status Note LastModified by Organization Details LastModified Time warfarin sodium 5 mg tabs 11/02 completed Not Available Not Available Not Available symbicort 160-4.5 mcg/act aero 11/03 completed Not Available Not Available Not Available metoprolo l tartrate 25 mg tabs 11/02 completed Not Available Not Available Not Available warfarin sodium 3 mg tabs 11/02 completed Not Available Not Available Not Available warfarin sodium 4 mg tabs 11/02 completed Not Available Not Available Not Available fluticaso ne propionat e/salmete rol 232-14 mcg/act aepb 11/02 completed Not Available Not Available Not Available furosemid e 40 mg tabs 1 tablet once a day 11/02 completed Not Available Not Available Not Available simvastat in 10 mg tabs 11/02 completed Not Available Not Available Not Available albuterol sulfate hfa 108 (90 base) mcg/act aers 11/02 completed Not Available Not Available Not Available tramadol hcl 50 mg tabs 11/02 completed Not Available Not Available Not Available diltiazem hydrochlo ride er 240 mg cp24 11/02 completed Not Available Not Available Not Available lisinopri l 5 mg tabs 11/02 completed Not Available Not Available Not Available methimazo le 5 mg tabs 11/02 completed Not Available Not Available Not Available warfarin sodium 1 mg tabs 11/02 completed Not Available Not Available Not Available cyclobenz aprine 10 mg tablet 02/06 completed Not Available Not Available Not Available furosemid e 40 mg tablet TAKE 1 TABLET BY MOUTH EVERY DAY active Not Available Not Available No t Available prednison e 10 mg tablet 05/31 completed Filled, but not sure if it has been started Not Available Not Available Not Available cefuroxim e axetil 250 mg tablet Take 1 tablet every 12 hours by oral route for 7 days. 11/02 completed Not Available Not Available Not Available atorvasta tin 20 mg tablet Take 1 tablet every day by oral route at bedtime 2024 active Not Available Not Available Not Avai lable nicotine 14 mg/24 hr daily transderm al patch Apply 1 patch every day by transder mal route. 02/06 completed Not Available Not Available Not Available Klor-Con 20 mEq tablet,ex tended release Take 1 tablet every day by oral route. 11/02 completed Pt is not taking this medicati on 08/14/19 sm Not Available Not Available Not Available tizanidin e 2 mg tablet Take 1 tablet every day by oral route for 30 days. 02/06 completed Not Available Not Available Not Available trazodone 50 mg tablet 11/03 completed Not Available Not Available Not Available azithromy gallo 250 mg tablet 12/26 completed Not Available Not Available Not Available amiodaron e 200 mg tablet TAKE 0.5 TABLET BY MOUTH EVERY DAY 2024 active no longer takes 02/16/20 21 rl Not Available Not Available Not Available hydrocodo ne 5 mg-acetam inophen 325 mg tablet prn 05/04 completed Not Available Not Available Not Available diltiazem CD 240 mg capsule,e xtended release 24 hr TAKE 1 CAPSULE BY MOUTH EVERY DAY 11/02 completed Not Available Not Available Not Available famotidin e 40 mg tablet 12/19 completed Not Available Not Available Not Available simvastat in 10 mg tablet TAKE 1 TABLET BY MOUTH EVERY DAY active Not Available Not Available No t Available lidocaine 4 % topical cream 02/06 completed Not Available Not Available Not Available allopurin ol 100 mg tablet 11/03 completed qd Not Available Not Available Not Available hydrocodo ne 10 mg-acetam inophen 325 mg tablet 02/06 completed Not Available Not Available Not Available tramadol 50 mg tablet 1 tab prn active Not Available Not Available No t Available warfarin 4 mg tablet Take 1 tablet every day by oral route. active Not Available Not Available No t Available warfarin 3 mg tablet TAKE 1 TABLET BY MOUTH EVERY DAY 2024 active Not Available Not Available Not Avai lable diltiazem 120 mg tablet TAKE 1 TABLET BY MOUTH TWICE DAILY active Not Available Not Available No t Available famotidin e 20 mg tablet Take 1 tablet twice a day by oral route. 02/06 completed Not Available Not Available Not Available benzonata te 100 mg capsule Take 1 capsule 3 times a day by oral route. 11/03 completed Not Available Not Available Not Available pantopraz ole 40 mg tablet,de layed release 12/26 completed Not Available Not Available Not Available warfarin 2 mg tablet TAKE 1 TABLET BY MOUTH EVERY DAY 2024 active Not Available Not Available Not Avai lable warfarin 5 mg tablet Take 1 tablet every day by oral route as directed . 11/16 completed Not Available Not Available Not Available methimazo le 5 mg tablet Take 1 tablet every day by oral route. active Not Available Not Available No t Available lisinopri l 5 mg tablet Take 1 tablet every day by oral route for 30 days. 11/02 completed Not Available Not Available Not Available diltiazem ER 60 mg capsule,e xtended release 12 hr TAKE 1 CAPSULE BY MOUTH EVERY DAY active Not Available Not Available No t Available gabapenti n 100 mg capsule 02/06 completed Not Available Not Available Not Available albuterol 90 mcg/actua tion aerosol inhaler Inhale 2 puffs 4 times a day by inhalati on route. 05/31 completed Not Available Not Available Not Available ergocalci ferol (vitamin D2) 1,250 mcg (50,000 unit) capsule 1 tab q week 11/02 completed Pt is not taking this medicati on 08/14/19 Not Available Not Available Not Available warfarin 1 mg tablet TAKE 1 TABLET BY MOUTH EVERY DAY 09/06 completed no longer takes 02/16/20 21 rl Not Available Not Available Not Available Digoxin-T ab 0.25 mg tablet Take 1 tablet every day by oral route. 02/06 completed Not Available Not Available Not Available levofloxa gallo 500 mg tablet 02/06 completed Not Available Not Available Not Available methylpre dnisolone 4 mg tablets in a dose pack 11/03 completed Not Available Not Available Not Available albuterol sulfate HFA 90 mcg/actua tion aerosol inhaler Inhale 2 puffs every 4-6 hours by inhalati on route as needed for 30 days. 11/03 completed Not Available Not Available Not Available diltiazem 30 mg tablet 11/03 completed Not Available Not Available Not Available ondansetr on 4 mg disintegr ating tablet 12/19 completed Not Available Not Available Not Available fluticaso ne propionat e 50 mcg/actua tion nasal spray,zachery pension 1 sppray each nostril, daily, PRN 11/03 completed no longer uses 02/16/20 21 rl Not Available Not Available Not Available lisinopri l 2.5 mg tablet Take 1 tablet every day by oral route. 11/16 completed no longer take 05/23/22 mb Not Available Not Available Not Available amoxicill in 875 mg-potass ium clavulana te 125 mg tablet 11/03 completed Not Available Not Available Not Available amoxicill in 500 mg-potass ium clavulana te 125 mg tablet 03/15 completed Not Available Not Available Not Available enoxapari n 80 mg/0.8 mL subcutane ous syringe Inject 0.8 mL twice a day by subcutan eous route. active Not Available Not Available No t Available amiodaron e 100 mg tablet Take 1 tablet twice a day by oral route. 04/11 completed 04/05/[address] it only comes in 200mg. tablets, so will need to be split/ek Not Available Not Available Not Available metoprolo l tartrate 25 mg tablet Take 1 tablet by mouth daily. 2024 active Not Available Not Available Not Avai lable Spiriva with HandiHale r 18 mcg and inhalatio n capsules Inhale 1 capsule every day by inhalati on route. 02/06 completed Not Available Not Available Not Available tizanidin e 2 mg once a day 11/03 completed No longer takes 02/16/20 21 rl Not Available Not Available Not Available warfarin 4mg. 1 tablet by mouth every day 11/17 completed Not Available Not Available Not Available Tums PRN 11/03 completed no longer takes 02/16/20 21 rl Not Available Not Available Not Available Vitamin D3 03/16 completed Not Available Not Available Not Available varenicli ne tartrate 0.5 mg (11)-1 mg (42) tablets in a dose pack 12/26 completed Not Available Not Available Not Available budesonid e-formote rol HFA 160 mcg-4.5 mcg/actua tion aerosol inhaler Inhale 2 puffs twice a day by inhalati on route. 11/03 completed PRN Not Available Not Available Not Available cholecalc iferol (vitamin D3) 1,250 mcg (50,000 unit) capsule Take 1 capsule by oral route. 02/06 completed Not Available Not Available Not Available omeprazol e 20 mg tablet,de layed release 12/19 completed Not Available Not Available Not Available Vitamin D2 1 tablet once a week 01/02 completed Not Available Not Available Not Available Digox 250 mcg (0.25 mg) tablet TAKE 1 TABLET BY MOUTH EVERY DAY 05/21 completed Not Available Not Available Not Available Digox 125 mcg (0.125 mg) tablet Take 1 tablet 3 times a week by oral route for 29 days. 06/27 completed Not Available Not Available Not Available Anoro Ellipta 62.5 mcg-25 mcg/actua tion powder for inhalatio n active Not Available Not Available Not Available Incruse Ellipta 62.5 mcg/actua tion powder for inhalatio n qd 05/31 completed Not Available Not Available Not Available fluticaso ne 113 mcg-salme terol 14 mcg/actua tion breath [facility] 02/06 completed Not Available Not Available Not Available fluticaso ne 232 mcg-salme terol 14 mcg/actua tion breath activated [facility] 02/06 completed Not Available Not Available Not Available Vitals Date Recorded Body height Body mass index (BMI) Body weight Heart rate Respiratory rate Oxygen saturation Oxygen saturation in Arterial blood by Pulse oximetry Systolic blood pressure Diastolic blood pressure Provider Name and Address Organization Details Last Updated DateTime 3 154.94 cm 29.5 kg/m2 41867.4 1 g 80 /min 16 /min 97 % 97 % 122 mm[Hg] 78 mm[Hg] Sander ALEJANDRE [facility] 3 17:07:09 Date Recorded Body height Body mass index (BMI) Body weight Heart rate Respiratory rate Oxygen saturation Oxygen saturation in Arterial blood by Pulse oximetry Systolic blood pressure Diastolic blood pressure Systolic blood pressure Diastolic blood pressure Provider Name and Address Organization Details Last Updated DateTime 3 154.94 cm 29.9 kg/m2 55369.5 9 g 55 /min 16 /min 95 % 95 % 136 mm[Hg] 78 mm[Hg] 148 mm[Hg] 68 mm[Hg] Sander Norberto [facility] 3 17:56:31 Date Recorded Body height Body mass index (BMI) Body weight Oxygen saturation Oxygen saturation in Arterial blood by Pulse oximetry Heart rate Systolic blood pressure Diastolic blood pressure Provider Name and Address Organization Details Last Updated DateTime 4 154.94 cm 29.1 kg/m2 92724.2 2 g 96 % 96 % 75 /min 128 mm[Hg] 66 mm[Hg] Beryl Che [facility] 4 16:40:49 Date Recorded Body height Body mass index (BMI) Body weight Heart rate Respiratory rate Oxygen saturation Oxygen saturation in Arterial blood by Pulse oximetry Systolic blood pressure Diastolic blood pressure Provider Name and Address Organization Details Last Updated DateTime 4 154.94 cm 29.3 kg/m2 39942.8 2 g 48 /min 16 /min 99 % 99 % 122 mm[Hg] 84 mm[Hg] Karissa Gera [facility] 4 16:24:52 Date Recorded Body height Body mass index (BMI) Body weight Heart rate Oxygen saturation Oxygen saturation in Arterial blood by Pulse oximetry Systolic blood pressure Diastolic blood pressure Provider Name and Address Organization Details Last Updated DateTime 5 154.94 cm 28.5 kg/m2 27148.4 5 g 60 /min 97 % 97 % 124 mm[Hg] 74 mm[Hg] Beryl Che [facility] 5 17:40:25 Social History Question Answer Notes LastModified by Mysterio Details LastModified Time Tobacco Smoking Status Former Smoker Not Available [facility] 09/29/2020 03:30:19 Which Illicit Or Recreational Drugs Have You Used? None [id number] Information not available 09/29/2020 What Was The Date Of Your Most Recent Tobacco Screening? 02/11/2019 [id number] Information not available 09/29/2020 How Many Years Have You Smoked Tobacco? 48 [id number] Information not available 09/29/2020 Sex: Unknown Functional Status Question Answer Note LastModified by Mysterio Details LastModified Time Do you or have you ever used smokeless tobacco? Former smokeless tobacco user [id number] Information not available 09/29/2020 Do you or have you ever used e-cigarettes or vape? Never used electronic cigarettes [id number] Information not available 09/29/2020 Mental Status None recorded. Family History Relationship Description Onset Age of this Age Resolved Age Notes LastModified by Organization Details LastModified Time Mother Mother 76 with hypert ension , heart diseas e . [email or web address] Not available 05/02/2017 14:18:02 Notes:Father no history . Br other x7. Alive x 6. x 1 . Sister Alive Medical History Condition Response Atrial Fibrillation Y Stroke Y Valvular Heart Disease Y Hyperlipidemia Y Hypertension Y Gynecological HistoryNo gynecological history recorded. Obstetrics History GPAL:G 0 P 0 0 0 0 Past Encounters Encounter ID Performer Location Encounter Start Date Encounter Closed Date Diagnosis/Indication Diagnosis SNOMED-CT Code Diagnosis ICD10 Code Diagnosis Note [id number] Hieu Jones MD [facility] [address] [place] [address] 03/15/2016 17:20:06 03/15/2016 18:12:07 Dyspnea 405948822 R06.00 with COPD Atrial fibrillation 4943 6004 I48.91 Now in NSR On coumadin Essential hypertension 79317336 I10 Seems to be well compensate d now Tobacco de pendence syndrome 34197826 F17.290 she is trying to quit Mitral valve disorder 11 197944 I05.9 s/p MVR, on comdain Palpitations 07948888 R0 0.2 [id number] Hieu Jones MD [facility] Office [address] [place] [address] 06/16/2016 10:39:13 06/20/2016 15:41:06 Mitral valve disorder 56079485 I05.9 s/p MVR, on codamin Atrial fibrillation 4943 6004 I48.91 Now in NSR On coumadin Palpitations 72815047 R0 0.2 Tobacco de pendence syndrome 01575393 F17.290 she is trying to quit [id number] Hieu Jones MD [facility] [place] [address] 08/12/2016 12:55:09 08/15/2016 12:08:34 Atrial fibrillation 82999095 I48.91 A. fib. with moderate ventricula r response on EKG today. Continue coumadin and metoprolol . Coumadin management per [facility]. Dyspnea 498705483 R06.00 Echo now to confirm appropriat e MV mechanical prosthesis function, as well as evidence of left- or right-side d heart failure. INR therapeuti c on 07/22/16 but needs repeat INR today. Echo performed today showed evidence of both increased left and right heart pressures. Will need MARIA ELENA next week to better evaluate MVR and exclude possible thrombus or vegetation . Increase Lasix to 40 mg bid for 3 days. Pt to use her Ventolin bronchodil ator q 6 hrs for three days, then as needed for possible contributi on of COPD to her current heart failure exacerbati on, with increased LE edema, wheezing, and exertional dyspnea. Pt instructed to go to ED if dyspnea progresses , especially if dyspneic at rest. Mitral valve disorder 11 384413 I05.9 S/p MV replacemen t with mechanical [facility]. Ever valve. Reassess on echo today given dyspnea. Essential hypertension 63099388 I10 Patient's blood pressure is {{well-con trolled so mewhat well-contr olled* not well-contr olled}} on present medical therapy. Patient is {{tolerati ng, without difficulty ,* having side effects with}} the current medication s. I have {{not made* made the following} } changes to the current regimen. {{ Patient is advised to maintain a blood pressure diary.}} Patient was advised to eat a low-sodium diet (2 grams sodium or less daily). Tobacco de pendence syndrome 07050092 F17.290 Cessation recommende d. Palpitations 40412458 R0 0.2 No recurrence . Stable. Cerebrovas cular accident 142240761 I63.9 Continue coumadin. 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 969391110 Z95.2 stable Smokes tobacco daily 449 269871 Z72.0 Advised to quit, patient is trying [id number] MD [facility] [address] [place] [address] 11/16/2016 13:45:21 11/18/2016 12:11:09 Atrial fibrillation 06528454 I48.91 Now in A Flutter On coumadin 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 691348006 Z95.2 stable Smokes tobacco daily 449 440381 Z72.0 Advised to quit, patient is trying Anticoagulant therapy 18 1442438 Z79.01 [id number] MD [facility] [address] [place] [address] 12/28/2016 16:48:14 12/29/2016 12:16:20 Atrial fibrillation 99337021 I48.91 Now in A Flutter On coumadin Chronic di astolic heart failure 736511282 I50.32 Will increase Lasix to bid for 3 days Anticoagulant therapy 18 0803748 Z79.01 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 Pleural effusion 1336089 8 J90 Thoracente sis 11/12/16 Essential hypertension 12320060 I10 Now well controlled . Congestive heart failure 56806671 I50.9 Seems to be well compensate d now MD [facility] [place] [facility] [address] [place] [address] 12/19/2017 09:57:03 12/19/2017 13:19:33 Essential hypertension 86471720 I10 Now well controlled . Atrial fibrillation 4943 6004 I48.91 Now in A Fib On coumadin DC Dig due to bradycardi a and high dig level Now she in in A Flutter, will consider cardiovers ion Palpitations 97920593 R0 0.2 with fair control Tobacco de pendence syndrome 29975143 F17.290 she is trying to quit History of mechanical mitral valve replacement 7164417290 9109 Z95.2 Stable. Pleural effusion 7022541 8 J90 Thoracente sis 11/12/16 Congestive heart failure 37503415 I50.9 Seems to be well compensate d now [id number] MD [facility] Office [address] [place] [address] 01/31/2018 15:43:08 01/31/2018 17:24:47 Essential hypertension 71027757 I10 Now well controlled . 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 Pleural effusion 1376262 8 J90 Thoracente sis 16 Congestive heart failure 66424257 I50.9 Seems to be well compensate d now Obstructiv e sleep apnea syndrome 95523334 G47.[address] Miguel 43098 MD [facility] [address] [place] [address] 02/21/2018 16:54:25 02/21/2018 17:57:02 Essential hypertension 08481988 I10 Now well controlled . Atrial fibrillation 4943 6004 I48.91 Now in A Fib On coumadin DC Dig due to bradycardi a and high dig level Palpitations 94700619 R0 0.2 with fair control Tobacco de pendence syndrome 33815098 F17.290 she is trying to quit - Pt smokes 2.5 cigarettes per day History of mechanical mitral valve replacement 5629037027 9109 Z95.2 Stable. Pleural effusion 9756673 8 J90 Thoracente sis 1217/16 Congestive heart failure 37001121 I50.9 Seems to be well compensate d now Obstructiv e sleep apnea syndrome 27413458 G47.[address] Miguel 02/13/18 ECHO: LV chamber size is normal. LV wall thickness is mildly increased. There are multiple segmental wall motion abnormalit ies. The estimated left ventricle ejection fraction is 45-50% (abnormal) . There is paradoxica l septal motion /diastolic flattening (D -shaped LV) Consistent with RV volume overload. Diastolic function is indetermin ed due to atrial fibrillati on. RV size is moderately dilated. Left atrium chamber is moderately dilated. Right atrium chamber is severely dilated. The aortic valve is mildly calcified. There is mild aortic regurgitat ion. There is mechanical mitral valve prosthesis : [employer] St- ever. There is severe tricuspid regurgitat ion. Estimated RVSP is 48 mmHg. There is moderate pulmonic regurgitat ion. The IVC is dilated and collapses <50% with inspiratio n.(RAP-15 mmHG). [place]. [address] MD [facility] [address] [place] [address] 03/21/2018 17:04:54 03/21/2018 18:11:31 Essential hypertension 64628498 I10 Now well controlled . Atrial fibrillation 4943 6004 I48.91 Now in A Fib On coumadin DC Dig due to bradycardi a and high dig level Palpitations 15340765 R0 0.2 with fair control Tobacco de pendence syndrome 87527108 F17.290 she is trying to quit - Pt smokes 2.5 cigarettes per day History of mechanical mitral valve replacement 1121632794 9109 Z95.2 Stable. Pleural effusion 3882185 8 J90 Thoracente sis 17/16 Congestive heart failure 51134686 I50.9 Seems to be well compensate d now Obstructiv e sleep apnea syndrome 91660130 G47.[address] Miguel 39447 MD [facility] [address] [place] [address] 05/21/2018 12:31:59 05/21/2018 15:05:18 Essential hypertension 80709418 I10 Now well controlled . Atrial fibrillation 4943 6004 I48.91 Now in A Fib On coumadin DC Dig due to bradycardi a and high dig level Palpitations 30315557 R0 0.2 with fair control Tobacco de pendence syndrome 27263249 F17.290 she is trying to quit - Pt smokes 2.5 cigarettes per day History of mechanical mitral valve replacement 3260673457 9109 Z95.2 Stable. Pleural effusion 2704649 8 J90 Better now Congestive heart failure 11131353 I50.9 Seems to be well compensate d now Obstructiv e sleep apnea syndrome 65973805 G47.[address] Miguel [address]397 Hieu Jones MD [facility] [address] [place] [address] 05/31/2018 10:10:25 05/31/2018 11:19:43 Essential hypertension 41654232 I10 Now well controlled . Atrial fibrillation 4943 6004 I48.91 Now in A Fib On coumadin DC Dig due to bradycardi a and high dig level Palpitations 72661816 R0 0.2 with fair control Tobacco de pendence syndrome 73411917 F17.290 Pt reports cessation 2-3 weeks ago. History of mechanical mitral valve replacement 2565489258 9109 Z95.2 Stable. Pleural effusion 7566833 8 J90 Better now Congestive heart failure 14966736 I50.9 Seems to be well compensate d now Obstructiv e sleep apnea syndrome 93421625 G47.[address] Miguel 19714 Hieu Jones [facility] [address] [place] [address] 06/27/2018 15:35:30 06/27/2018 17:01:59 Essential hypertension 46930521 I10 Now well controlled . Atrial fibrillation 4943 6004 I48.91 Now in Atrial flutter but with bradycardi a. On coumadin No longer taking Amiodarone . DC digoxin Palpitations 04568082 R0 0.2 Continue toprol. Tobacco de pendence syndrome 12471812 F17.290 Pt reports cessation 04/2018 History of mechanical mitral valve replacement 2991256249 9109 Z95.2 Continue Coumadin.I NR 2.22 Pleural effusion 4722964 8 J90 Better now Congestive heart failure 18230084 I50.9 Seems to be well compensate d now Had echo 02/13/18. The LV chamber size is normal. LV wall thickness is mildly increased. There are multiple segmental wall motion abnormalit ies. EF 45-50%. Obstructiv e sleep apnea syndrome 19717237 G47.[address] Miguel Hyperkalemia 21966117 E8 7.5 05/29/18 5.4 34430 MD [facility] Office [address] [place] [address] 10/03/2018 16:21:29 10/03/2018 17:25:19 Essential hypertension 94716438 I10 Now well controlled . Atrial fibrillation 4943 6004 I48.91 Now in NSR On coumadin No longer taking Amiodarone . Palpitations 60172859 R0 0.2 Continue toprol. Hyperkalemia 98279242 E8 7.5 05/29/18 5.4 Tobacco de pendence syndrome 90957774 F17.290 Pt reports cessation 04/2018 History of mechanical mitral valve replacement 6206001702 9109 Z95.2 Continue Coumadin.I NR 2.22 Pleural effusion 4548782 8 J90 Better now Congestive heart failure 91324004 I50.9 Seems to be well compensate d now Had echo 02/13/18. The LV chamber size is normal. LV wall thickness is mildly increased. There are multiple segmental wall motion abnormalit ies. EF 45-50%. Obstructiv e sleep apnea syndrome 88091294 G47.[address] Miguel 69993 MD [facility] [address] [place] [address] 01/02/2019 16:48:57 01/02/2019 17:32:48 Essential hypertension 09772861 I10 Now well controlled . Atrial fibrillation 4943 6004 I48.91 Now in NSR On coumadin Palpitations 49155452 R0 0.2 Continue toprol. Hyperkalemia 27198135 E8 7.5 05/29/18 5.4 Tobacco de pendence syndrome 14552106 F17.290 Pt reports cessation 04/2018 History of mechanical mitral valve replacement 2286718135 9109 Z95.2 Continue Coumadin.I NR 2.22 Pleural effusion 5502236 8 J90 Better now Congestive heart failure 12698233 I50.9 Seems to be well compensate d now Had echo 02/13/18. The LV chamber size is normal. LV wall thickness is mildly increased. There are multiple segmental wall motion abnormalit ies. EF 45-50%. Obstructiv e sleep apnea syndrome 92772308 G47.[address] Mgiuel 90053 MD [facility] Office [address] [place] [address] 2019 16:58:56 2019 17:56:22 Cerebrovascular accident 734037590 I63.9 Continue maximal medical treatment and risk factor modificati on Atrial fibrillation 4943 6004 I48.91 Now in NSR On coumadin but off now due to cerebral hemorrhage . Congestive heart failure 03748419 I50.9 Seems to be well compensate d now had an 01/30/19 ECHO: LV chamber size is normal. LV wall thickness is normal. There is normal global systolic function and contractil ity. The estimated left ventricle ejection fraction is 55-60%(nor mal). Increased left atrial pressure with grade III diastolic dysfunctio n is present . Left atrium chamber is mildly to moderately dilated. Right atrium chamber is moderately dilated. The aortic valve is mildly calcified. There is mild aortic regurgitat ion. There is a mechanical mitral valve prosthesis with trace regurgitat ion. MV mean gradient: 5 mmHg. MV peak gradient: 12 mmHg. There is moderate tricuspid regurgitat ion.Modera te elevation of estimated RV systolic pressure. Estimated RVSP is 49 mmHg. There is mild to moderate pulmonic regurgitat ion. Essential hypertension 35402336 I10 Now well controlled . Palpitations 32445361 R0 0.2 Continue toprol. Tobacco de pendence syndrome 84541214 F17.290 Pt reports cessation 04/2018 History of mechanical mitral valve replacement 6279496911 9109 Z95.2 Off Coumadin now due to cerebral hemorrhage .WE HAVE TO RESUME COUMADIN WILLIE Pleural effusion 0520418 8 J90 Better now Obstructiv e sleep apnea syndrome 55407038 G47.[address] Miguel Cerebral hemorrhage 2740 81812 I61.9 She had horrible headaches and was dx with a bleed on her brain on 01/15/19 that required surgery at [facility] done by Dr. Good (neurosurg bryon). She has been off her Coumadin for 3 weeks. Currently unsure what caused the brain bleed. 39[address] MD Kar[facility] Office [address] [place] [address] 02/11/2019 09:20:58 02/11/2019 10:55:16 Atrial fibrillation 71887574 I48.91 Now in NSR was off coumadin but off now due to cerebral hemorrhage . Congestive heart failure 24709722 I50.9 Seems to be well compensate d now had an 01/30/19 ECHO: LV chamber size is normal. LV wall thickness is normal. There is normal global systolic function and contractil ity. The estimated left ventricle ejection fraction is 55-60%(nor mal). Increased left atrial pressure with grade III diastolic dysfunctio n is present . Left atrium chamber is mildly to moderately dilated. Right atrium chamber is moderately dilated. The aortic valve is mildly calcified. There is mild aortic regurgitat ion. There is a mechanical mitral valve prosthesis with trace regurgitat ion. MV mean gradient: 5 mmHg. MV peak gradient: 12 mmHg. There is moderate tricuspid regurgitat ion.Modera te elevation of estimated RV systolic pressure. Estimated RVSP is 49 mmHg. There is mild to moderate pulmonic regurgitat ion. Cerebrovas cular accident 678892872 I63.9 Continue maximal medical treatment and risk factor modificati on Cerebral hemorrhage 2741 27553 I61.9 She had horrible headaches and was dx with a bleed on her brain on 01/15/19 that required surgery at [facility] done by Dr. Good (neurosurg bryon). She has been off her Coumadin for 3 weeks. Currently unsure what caused the brain bleed. History of mechanical mitral valve replacement 9721401753 9109 Z95.2 Off Coumadin now due to cerebral hemorrhage .WE HAVE TO RESUME COUMADIN WILLIE Essential hypertension 65451798 I10 Now well controlled . Palpitations 67507419 R0 0.2 Continue toprol. Tobacco de pendence syndrome 85234238 F17.290 Pt reports cessation 04/2018 Pleural effusion 2068413 8 J90 Better now Obstructiv e sleep apnea syndrome 81424771 G47.[address] Miguel 60550 MD [facility] Office [address] [place] [address] 08/14/2019 15:27:31 08/14/2019 15:59:24 Atrial fibrillation 88123652 I48.91 Now in NSR was off coumadin but off now due to cerebral hemorrhage . Congestive heart failure 80759034 I50.9 Seems to be well compensate d now had an 01/30/19 ECHO: LV chamber size is normal. LV wall thickness is normal. There is normal global systolic function and contractil ity. The estimated left ventricle ejection fraction is 55-60%(nor mal). Increased left atrial pressure with grade III diastolic dysfunctio n is present . Left atrium chamber is mildly to moderately dilated. Right atrium chamber is moderately dilated. The aortic valve is mildly calcified. There is mild aortic regurgitat ion. There is a mechanical mitral valve prosthesis with trace regurgitat ion. MV mean gradient: 5 mmHg. MV peak gradient: 12 mmHg. There is moderate tricuspid regurgitat ion.Modera te elevation of estimated RV systolic pressure. Estimated RVSP is 49 mmHg. There is mild to moderate pulmonic regurgitat ion. Cerebrovas cular accident 985160972 I63.9 Continue maximal medical treatment and risk factor modificati on Cerebral hemorrhage 2741 17622 I61.9 She had horrible headaches and was dx with a bleed on her brain on 01/15/19 that required surgery at [facility] done by Dr. Good (neurosurg [facility]). She has been off her Coumadin for 3 weeks. Currently unsure what caused the brain bleed. History of mechanical mitral valve replacement 7268486234 9109 Z95.2 Off Coumadin now due to cerebral hemorrhage .WE HAVE TO RESUME COUMADIN WILLIE Essential hypertension 60485650 I10 Now well controlled . Palpitations 42821767 R0 0.2 Continue toprol. Tobacco de pendence syndrome 58418215 F17.290 Pt reports cessation 04/2018 Pleural effusion 7472512 8 J90 Better now Obstructiv e sleep apnea syndrome 95848189 G47.[address] Miguel 13153 MD [facility] Office [address] [place] [address] 05/25/2020 12:06:49 05/25/2020 13:00:18 Atrial fibrillation 87464671 I48.91 in NSR 05/25/2020, asymptomat ic. Rate controlled with metoprolol on warfarin Congestive heart failure 20022155 I50.9 Stable, seems to be well compensate d. Will repeat echo. 01/30/2019 ECHO: LV chamber size is normal. LV wall thickness is normal. There is normal global systolic function and contractil ity. The estimated left ventricle ejection fraction is 55-60%(nor mal). Increased left atrial pressure with grade III diastolic dysfunctio n is present . Left atrium chamber is mildly to moderately dilated. Right atrium chamber is moderately dilated. The aortic valve is mildly calcified. There is mild aortic regurgitat ion. There is a mechanical mitral valve prosthesis with trace regurgitat ion. MV mean gradient: 5 mmHg. MV peak gradient: 12 mmHg. There is moderate tricuspid regurgitat ion.Modera te elevation of estimated RV systolic pressure. Estimated RVSP is 49 mmHg. There is mild to moderate pulmonic regurgitat ion. Cerebrovas cular accident 305677981 I63.9 Continue maximal medical treatment and risk factor modificati onFollows with neurology History of mechanical mitral valve replacement 7796174159 9109 Z95.2 on warfarin, ordering ultrasound Essential hypertension 21368354 I10 Well controlled Palpitations 42537022 R0 0.2 Resolved with metoprolol Tobacco de pendence syndrome 42371480 F17.290 Previously reported cessation but now reports smoking about 3/4 ppd Pleural effusion 6018041 8 J90 Improved Obstructiv e sleep apnea syndrome 66014176 G47.[address] Esparza not use CPAP at night Dyslipidemia 349390517 E 78.5 Needs to keep LDL less than 70, and HDL more than 40. 8 LDL 58Continue simvastati Tonny get fasting lipids for follow-up 79126 Hieu Jones MD [facility] [address] [place] [address] 11/02/2020 14:09:00 11/02/2020 15:28:43 Atrial fibrillation 92641248 I48.91 Stable, remains asymptomat [id number] VASc = 6Rate controlled with metoprolol and Cardizem on warfarin Congestive heart failure 99024840 I50.9 Seems to remain well compensate d, appears euvolemic. Echo 06/17/2020 : LV chamber size is normal. LV wall thickness is normal. There is normal global systolic function and contractil ity. The estimated left ventricle ejection fraction is 55-60% (normal). There is increased left atrial pressure and Grade II diastolic dysfunctio n. Left atrium chamber is moderately dilated. Right atrium chamber is moderately dilated. There is mild aortic regurgitat ion. There is a mechanical mitral valve prosthesis with mild regurgitat ion. There is moderate to severe tricuspid regurgitat ion. Mild elevation of estimated RV systolic pressure. Estimated RVSP systolic pressure is 44.32 mmHg. There is mild pulmonic regurgitat ion. Cerebrovas cular accident 863715084 I63.9 Continue maximal medical treatment and risk factor modificati on History of mechanical mitral valve replacement 0971681107 9109 Z95.2 on warfarin, managed by Essential hypertension 60441766 I10 Well controlled on current regimen Palpitations 44560797 R0 0.2 Resolved with metoprolol Tobacco de pendence syndrome 71974391 F17.290 Cessation highly advised Pleural effusion 3787159 8 J90 Improved Obstructiv e sleep apnea syndrome 40827836 G47.33 Will order outpatient sleep study given elevated PA pressure Dyslipidemia 754985390 E 78.5 Needs to keep LDL less than 70, and HDL more than 40. 020 LDL 66Continue simvastati n 10mgWill get fasting lipids for follow-up 34455 Malina Harper MD [facility] [place] [address] 02/15/2021 16:30:38 02/15/2021 17:20:40 Atrial fibrillation 46850746 I48.91 Stable, remains asymptomat ic [id number] Sc = 6 Rate controlled with metoprolol and Cardizem on warfarin Congestive heart failure 00830804 I50.9 Seems to remain well compensate d, appears euvolemic. Echo 06/17/2020 : LV chamber size is normal. LV wall thickness is normal. There is normal global systolic function and contractil ity. The estimated left ventricle ejection fraction is 55-60% (normal). There is increased left atrial pressure and Grade II diastolic dysfunctio n. Left atrium chamber is moderately dilated. Right atrium chamber is moderately dilated. There is mild aortic regurgitat ion. There is a mechanical mitral valve prosthesis with mild regurgitat ion. There is moderate to severe tricuspid regurgitat ion. Mild elevation of estimated RV systolic pressure. Estimated RVSP systolic pressure is 44.32 mmHg. There is mild pulmonic regurgitat ion. Cerebrovas cular accident 785095391 I63.9 Continue maximal medical treatment and risk factor modificati on History of mechanical mitral valve replacement 3948405148 9109 Z95.2 on warfarin INR 02/12/2021 3.2, recheck 03/12/2021 . Essential hypertension 33596508 I10 Well controlled on current regimen Palpitations 78412475 R0 0.2 Resolved with metoprolol Tobacco de pendence syndrome 41780664 F17.290 Cessation highly advised Obstructiv e sleep apnea syndrome 89624612 G47.33 Declines sleep study Dyslipidemia 063093642 E 78.5 Needs to keep LDL less than 70, and HDL more than 40. 020 LDL 66Continue simvastati n 10mgWill get fasting lipids for follow-up 01158 MD Karlo [facility] Office [address] [facility] [place] [address] 09/06/2021 11:09:34 09/06/2021 11:43:05 Atrial fibrillation 91740229 I48.91 Stable, remains asymptomat ic [id number] Sc = 6 Rate controlled with metoprolol and Cardizem on warfarin Congestive heart failure 66463969 I50.9 Seems to remain well compensate d, appears euvolemic. Echo 06/17/2020 : LV chamber size is normal. LV wall thickness is normal. There is normal global systolic function and contractil ity. The estimated left ventricle ejection fraction is 55-60% (normal). There is increased left atrial pressure and Grade II diastolic dysfunctio n. Left atrium chamber is moderately dilated. Right atrium chamber is moderately dilated. There is mild aortic regurgitat ion. There is a mechanical mitral valve prosthesis with mild regurgitat ion. There is moderate to severe tricuspid regurgitat ion. Mild elevation of estimated RV systolic pressure. Estimated RVSP systolic pressure is 44.32 mmHg. There is mild pulmonic regurgitat ion. Cerebrovas cular accident 107934596 I63.9 Continue maximal medical treatment and risk factor modificati on History of mechanical mitral valve replacement 1820581941 9109 Z95.2 on warfarinOb tain echo to evaluate for structural /functiona l disease. Essential hypertension 59302820 I10 Well controlled on current regimen Palpitations 37364725 R0 0.2 Resolved with metoprolol Tobacco de pendence syndrome 65514878 F17.290 Cessation highly advised Obstructiv e sleep apnea syndrome 84607030 G47.33 Declines sleep study Dyslipidemia 750015520 E 78.5 Needs to keep LDL less than 70, and HDL more than 40. 020 LDL 66Continue simvastati n 10mgWill get fasting lipids for follow-up 26555 MD Kar[facility] Office [address] [place] [address] [place] [address] 11/03/2021 16:01:08 11/03/2021 16:54:02 Atrial fibrillation 95756951 I48.91 Stable, remains asymptomat ic [id number] Sc = 6 Rate controlled with metoprolol and Cardizem on warfarinWi plan MARIA ELENA and Cardiovers ion Congestive heart failure 33203919 I50.9 Seems to remain well compensate d, appears euvolemic. Echo 06/17/2020 : LV chamber size is normal. LV wall thickness is normal. There is normal global systolic function and contractil ity. The estimated left ventricle ejection fraction is 55-60% (normal). There is increased left atrial pressure and Grade II diastolic dysfunctio n. Left atrium chamber is moderately dilated. Right atrium chamber is moderately dilated. There is mild aortic regurgitat ion. There is a mechanical mitral valve prosthesis with mild regurgitat ion. There is moderate to severe tricuspid regurgitat ion. Mild elevation of estimated RV systolic pressure. Estimated RVSP systolic pressure is 44.32 mmHg. There is mild pulmonic regurgitat ion. Cerebrovas cular accident 545764747 I63.9 Continue maximal medical treatment and risk factor modificati on History of mechanical mitral valve replacement 4447295735 9109 Z95.2 on warfarinOb tain echo to evaluate for structural /functiona l disease. Essential hypertension 08278663 I10 Well controlled on current regimen Palpitations 28984596 R0 0.2 Resolved with metoprolol Tobacco de pendence syndrome 60578078 F17.290 Cessation highly advised Obstructiv e sleep apnea syndrome 43898169 G47.33 Declines sleep study Dyslipidemia 139124543 E 78.5 Needs to keep LDL less than 70, and HDL more than 40. 020 LDL 66Continue simvastati n 10mgWill get fasting lipids for follow-up 40852 MD [facility] Office [address] [place] [address] 11/29/2021 09:57:10 11/29/2021 11:42:19 Atrial fibrillation 46866023 I48.91 Stable, remains asymptomat ic [id number] Sc = 6 Rate controlled with metoprolol and Cardizems/ p Cardiovers ion Congestive heart failure 35116328 I50.9 Seems to remain well compensate d, appears euvolemic. Echo 06/17/2020 : LV chamber size is normal. LV wall thickness is normal. There is normal global systolic function and contractil ity. The estimated left ventricle ejection fraction is 55-60% (normal). There is increased left atrial pressure and Grade II diastolic dysfunctio n. Left atrium chamber is moderately dilated. Right atrium chamber is moderately dilated. There is mild aortic regurgitat ion. There is a mechanical mitral valve prosthesis with mild regurgitat ion. There is moderate to severe tricuspid regurgitat ion. Mild elevation of estimated RV systolic pressure. Estimated RVSP systolic pressure is 44.32 mmHg. There is mild pulmonic regurgitat ion. Cerebrovas cular accident 889182049 I63.9 Continue maximal medical treatment and risk factor modificati on History of mechanical mitral valve replacement 8342447772 9109 Z95.2 on warfarinOb tain echo to evaluate for structural /functiona l disease. Essential hypertension 78056879 I10 Well controlled on current regimen Palpitations 62998305 R0 0.2 Resolved with metoprolol Tobacco de pendence syndrome 68975088 F17.290 Cessation highly advised Obstructiv e sleep apnea syndrome 67009485 G47.33 Declines sleep study Dyslipidemia 496710842 E 78.5 Needs to keep LDL less than 70, and HDL more than 40. 020 LDL 66Continue simvastati n 10mgWill get fasting lipids for follow-up 51438 MD [facility] [address] [place] [address] 01/26/2022 16:28:42 01/26/2022 16:53:29 Atrial fibrillation [id number] I48.91 Stable, remains asymptomat ic [id number] Sc = 6 Rate controlled with metoprolol and Cardizems/ p Cardiovers ion Congestive heart failure 85835172 I50.9 Seems to remain well compensate d, appears euvolemic. Echo 06/17/2020 : LV chamber size is normal. LV wall thickness is normal. There is normal global systolic function and contractil ity. The estimated left ventricle ejection fraction is 55-60% (normal). There is increased left atrial pressure and Grade II diastolic dysfunctio n. Left atrium chamber is moderately dilated. Right atrium chamber is moderately dilated. There is mild aortic regurgitat ion. There is a mechanical mitral valve prosthesis with mild regurgitat ion. There is moderate to severe tricuspid regurgitat ion. Mild elevation of estimated RV systolic pressure. Estimated RVSP systolic pressure is 44.32 mmHg. There is mild pulmonic regurgitat ion. Cerebrovas cular accident [id number] I63.9 Continue maximal medical treatment and risk factor modificati on History of mechanical mitral valve replacement [id number] 9109 Z95.2 on warfarinOb tain echo to evaluate for structural /functiona l disease. Essential hypertension 33295334 I10 Well controlled on current regimen Palpitations 76333259 R0 0.2 Resolved with metoprolol Tobacco de pendence syndrome 70660721 F17.290 Cessation highly advised Obstructiv e sleep apnea syndrome 84824404 G47.33 Declines sleep study Dyslipidemia 541373678 E 78.5 Needs to keep LDL less than 70, and HDL more than 40. 020 LDL 66Continue simvastati n 10mgWill get fasting lipids for follow-up 73054 MD Karlo Diane e Office [address] [place] [address] 05/04/2022 16:09:12 05/04/2022 16:44:37 Atrial fibrillation [id number] I48.91 Stable, remains asymptomat ic [id number] Sc = 6 Rate controlled with metoprolol s/p Cardiovers ion Congestive heart failure 39795064 I50.9 will send her to ERfor Covid test, and CXR Cerebrovas cular accident [id number] I63.9 Continue maximal medical treatment and risk factor modificati on History of mechanical mitral valve replacement 7604510110 9109 Z95.2 on warfarinOb tain echo to evaluate for structural /functiona l disease. 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 020 LDL 66Continue simvastati n 10mgWill get fasting lipids for follow-up Pneumonia 908572952 J18. 9 Possible COVIDwill send her to ER for CXR and covid testing 10110 MD Karlo Diane e Office [address] [place] [address] 05/23/2022 11:57:49 05/23/2022 12:52:24 Atrial fibrillation 60984175 I48.91 Stable, remains asymptomat ic [id number] Sc = 6 Rate controlled with metoprolol s/p Cardiovers ion Congestive heart failure 49152452 I50.9 will send her to ERfor Covid test, and CXR Cerebrovas cular accident [id number] I63.9 Continue maximal medical treatment and risk factor modificati on History of mechanical mitral valve replacement 7919484357 9109 Z95.2 on warfarinOb tain echo to evaluate for structural /functiona l disease. Essential hypertension 12622817 I10 Well controlled on current regimen Palpitations 88366329 R0 0.2 Resolved with metoprolol Tobacco de pendence syndrome 16441698 F17.290 Cessation highly advised Obstructiv e sleep apnea syndrome 07423368 G47.33 Declines sleep study Dyslipidemia 191315103 E 78.5 Needs to keep LDL less than 70, and HDL more than 40. 020 LDL 66Continue simvastati n 10mgWill get fasting lipids for follow-up Pneumonia 917434814 J18. 9 Better now 24989 MD Karlo Diane [facility] [address] [place] [facility] [address] 11/16/2022 16:44:48 11/16/2022 17:19:54 Atrial fibrillation 19399389 I48.91 Stable, remains asymptomat ic [id number] Sc = 6 Rate controlled with metoprolol s/p Cardiovers ion Congestive heart failure 24682784 I50.9 will send her to [facility] test, and CXR Cerebrovas cular accident 285117521 I63.9 Continue maximal medical treatment and risk factor modificati on History of mechanical mitral valve replacement 5266455625 9109 Z95.2 on warfarinIN R 4.0 will decreased to 2/3 Essential hypertension 59575550 I10 Well controlled on current regimen Palpitations 07664410 R0 0.2 Resolved with metoprolol Tobacco de pendence syndrome 62763574 F17.290 Cessation highly advised Obstructiv e sleep apnea syndrome 49106891 G47.33 Declines sleep study Dyslipidemia 251448615 E 78.5 Needs to keep LDL less than 70, and HDL more than 40. 020 LDL 66Continue simvastati n 10mgWill get fasting lipids for follow-up Bradycardia 35474621 R00 .1 DC CardizemHo ld Amiodarone 24 Hour Holter, to evaluate arrhythmia 39495 Hieu Jones MD [facility] [address] [place] [address] 12/20/2022 17:09:19 12/20/2022 17:51:49 Atrial fibrillation 97082271 I48.91 Stable, remains asymptomat ic [id number] Sc = 6 Rate controlled with metoprolol s/p Cardiovers ionNow with Bradycardi a , will DC Cardizem and decrease Toprol o 25 qd Congestive heart failure 11225846 I50.9 will send her to [facility] test, and CXR Cerebrovas cular accident 715907553 I63.9 Continue maximal medical treatment and risk factor modificati on History of mechanical mitral valve replacement 8530884221 9109 Z95.2 on warfarin Essential hypertension 14230924 I10 Well controlled on current regimen Palpitations 80663630 R0 0.2 Resolved with metoprolol Tobacco de pendence syndrome 86332754 F17.290 Cessation highly advised Obstructiv e sleep apnea syndrome 29160228 G47.33 Declines sleep study Dyslipidemia 607753315 E 78.5 Needs to keep LDL less than 70, and HDL more than 40.06/17/2 020 LDL 66Continue simvastati n 10mgWill get fasting lipids for follow-up Bradycardia 43992544 R00 .1 DC CardizemHo ld Amiodarone Decreased Toprol to 25 qd 17407 Hieu Jones MD [facility] [place] [address] 03/21/2023 17:02:24 03/21/2023 17:49:56 Atrial fibrillation 42958728 I48.91 Stable, remains asymptomat ic [id number] Sc = 6 Rate controlled with metoprolol s/p Cardiovers ionback in a fib after DC Cardizem and decrease Toprol o 25 qdshe is taking warfarinwi ll restarting amiodarone 100 mg daily Congestive heart failure 01846729 I50.9 will do echo Cerebrovas cular accident 876181590 I63.9 Continue maximal medical treatment and risk factor modificati on History of mechanical mitral valve replacement 6459762446 9109 Z95.2 on warfarin Essential hypertension 30353676 I10 Well controlled on current regimen Palpitations 79900743 R0 0.2 Resolved with metoprolol Tobacco de pendence syndrome 73542678 F17.290 Cessation highly advised Obstructiv e sleep apnea syndrome 04193310 G47.33 Declines sleep study Dyslipidemia 719151813 E 78.5 Needs to keep LDL less than 70, and HDL more than 40.22/2 020 LDL 66Continue simvastati n 10mgWill get fasting lipids for follow-up Bradycardia 11543418 R00 .1 DC CardizemHo ld Amiodarone Decreased Toprol to 25 qd 74953 Hieu Jones MD [facility] [address] [place] [address] 06/20/2023 17:08:12 06/20/2023 18:34:46 Atrial fibrillation 37060539 I48.91 Stable, remains asymptomat ic [id number] Sc = 6 Rate controlled with metoprolol s/p Cardiovers ionback in a fib after DC Cardizem and decrease Toprol o 25 qdshe is taking warfarinwi ll restarting amiodarone 100 mg daily Congestive heart failure 61545929 I50.9 will do echo Cerebrovas cular accident 987016952 I63.9 Continue maximal medical treatment and risk factor modificati on History of mechanical mitral valve replacement 3838509499 9109 Z95.2 on warfarin Essential hypertension 39049173 I10 Well controlled on current regimen Palpitations 34695375 R0 0.2 Resolved with metoprolol Tobacco de pendence syndrome 30696496 F17.290 Cessation highly advised Obstructiv e sleep apnea syndrome 25133778 G47.33 Declines sleep study Dyslipidemia 499875987 E 78.5 Needs to keep LDL less than 70, and HDL more than 40. 020 LDL 66Continue simvastati n 10mgWill get fasting lipids for follow-up Bradycardia 19746393 R00 .1 DC CardizemHo ld Amiodarone Decreased Toprol to 25 qd 60974 Hieu Jones MD [facility] [address] [place] [address] 12/26/2023 16:20:12 12/26/2023 16:52:08 Atrial fibrillation 84326870 I48.91 Stable, remains asymptomat ic [id number] Sc = 6 Rate controlled with metoprolol s/p Cardiovers ionback in a fib after DC Cardizem and decrease Toprol o 25 qdshe is taking warfarinwi ll restarting amiodarone 100 mg daily Congestive heart failure 92239375 I50.9 Normal Left ventricula r systolic function Cerebrovas cular accident 793238907 I63.9 Continue maximal medical treatment and risk factor modificati on History of mechanical mitral valve replacement 8849104215 9109 Z95.2 on warfarin Essential hypertension 91924113 I10 Well controlled on current regimen Palpitations 42556907 R0 0.2 Resolved with metoprolol Tobacco de pendence syndrome 61666737 F17.290 Cessation highly advised Obstructiv e sleep apnea syndrome 91566111 G47.33 Declines sleep study Dyslipidemia 761758627 E 78.5 Needs to keep LDL less than 70, and HDL more than 40.06/17/ 020 LDL 66Continue simvastati n 10mgWill get fasting lipids for follow-up Bradycardia 56114626 R00 .1 Hold Amiodarone Decreased Toprol to 25 qd 751094 Hieu Jones MD [facility] [address] [place] [address] 08/20/2024 16:12:25 08/20/2024 16:45:24 Atrial fibrillation 63013965 I48.91 Stable, remains asymptomat ic [id number] Sc = 6 Rate controlled with metoprolol s/p Cardiovers ionback in a fib after DC Cardizem and decrease Toprol o 25 qdshe is taking warfarin Congestive heart failure 61578819 I50.9 Normal Left ventricula r systolic functionOb tain echo to evaluate for structural /functiona l disease. Cerebrovas cular accident 127625763 I63.9 Continue maximal medical treatment and risk factor modificati on History of mechanical mitral valve replacement 3053188823 9109 Z95.2 on warfarin Essential hypertension 72349917 I10 Well controlled on current regimen Palpitations 57165830 R0 0.2 Resolved with metoprolol Tobacco de pendence syndrome 92040226 F17.290 Cessation highly advised Obstructiv e sleep apnea syndrome 01137068 G47.33 Declines sleep study Dyslipidemia 006966562 E 78.5 Needs to keep LDL less than 70, and HDL more than 40.06/17/2 020 LDL 66Continue simvastati n 10mgWill get fasting lipids for follow-up Bradycardia 03386125 R00 .1 Resolved 460402 Hieu Jones MD [facility] [address] [place] [address] 03/11/2025 17:14:16 03/11/2025 18:13:56 Atrial fibrillation 07133822 I48.91 Stable, remains asymptomat ic [id number] Sc = 6 Rate controlled with metoprolol s/p Cardiovers ionback in a fib after DC Cardizem and decrease Toprol o 25 qdshe is taking warfarin Congestive heart failure 82511185 I50.9 Normal Left ventricula r systolic functionOb tain echo to evaluate for structural /functiona l disease. Cerebrovas cular accident 567654293 I63.9 Continue maximal medical treatment and risk factor modificati on History of mechanical mitral valve replacement 5258759576 9109 Z95.2 on warfarin Essential hypertension 81787617 I10 Well controlled on current regimen Palpitations 64731372 R0 0.2 Resolved with metoprolol Tobacco de pendence syndrome 33559847 F17.290 Cessation highly advised Obstructiv e sleep apnea syndrome 00525137 G47.33 Declines sleep study Dyslipidemia 164494105 E 78.5 Needs to keep LDL less than 70, and HDL more than 40. 020 LDL 66Continue simvastati n 10mgWill get fasting lipids for follow-up Bradycardia 78669454 R00 .1 Resolved Health Concerns Section Related Observation LastModified by Organization Detai ls LastModified Time None Recorded Concern Status LastModified by Organization Details LastModified Time None Recorded Advance Directives Directive None Recorded Payers Insurance Date Sequence Insurance Name Policy Number Policy Kwon Covered Member ID Kwon Member ID Guarantor Name 08/20/2024 1 [place] Veronica Adler [id number] Veronica Adler 08/20/2024 1 [employer] (MEDICARE REPLACEMENT HMO) Veronica Adler [id number] Veronica Adler 08/20/2024 1 [place] Veronica Adler [id number] Veronica Adler 08/20/2024 2 [employer] Veronica Adler [id number] Veronica Adler 08/20/2024 2 [place]MEDICARE REPLAC[place]/AD VANTAGE - POS) Veronica Adler [id number] Veronica Adler 08/20/2024 2 [employer] (MEDICARE REPLACEMENT/AD VANTAGE - HMO) Veronica Adler [id number] Veronica Adler 08/20/2024 3 [place] [place] (MEDICARE REPLACEMENT/AD VANTAGE - HMO) Veronica Adler [id number] Veronica Adler 08/20/2024 2 [place] - HMO) Veronica Adler [id number] Veronica Adler 08/20/2024 1 [place] Veronica Adler [id number] Veronica Adler 03/08/2025 1 [facility] (MEDICARE REPLACEMENT/AD VANTAGE - PPO) [id number] Veronica Adler [id number] Veronica Adler 08/20/2024 1 [facility] ON OR AFTER 11/27/2020 - DUAL ELIGIBLE (MEDICARE REPLACEMENT/AD VANTAGE - HMO) Veronica Adler [id number] Veronica Adler 08/20/2024 1 [facility]) Veronica Adler [id number] Veronica Adler 08/20/2024 1 [facility] PRIOR TO 05/27/2021 (MEDICAID REPLACEMENT - HMO) Veronica Adler [id number] Veronica Adler Notes Date Note Type Note Provider Name and Address Organization Details Recorded Time 03/21/2023 text/html 03/21/23CC : [facility] follow up chest pain and dyspnea on vrvybinc36 year-old -[place]ican woman with a PMH of mitral valve replacement (St. Ever valve in 2010), atrial fibrillation, atrial flutter, dyslipidemia, hypertension, COPD, MARCUS, cerebrovascular accident (2003) hyperthyroidism, presents today for 3 month follow-up. She was last seen in the clinic on 12/20/22, She is doing well in general. She denied chest pian or dyspnea on exertion. Her heart rate back to the 80 after stopping her cardizem. She denies ER visits and hospitalizations since she was last seen. Today reports:Denies chest pain.Denies shortness of breath at rest. Has mild dyspnea on exertion.No orthopnea. No PNDs.Denies heart palpitations.Denies dizziness. Denies syncope or near syncope.No ankle or leg edema.No major bleeding events.No reported side effects from medications. Taking medications as prescribed with no missed doses.Denies snoring, daytime somnolence and AM headache.*Last LDL was 46 done on 07/04/22.Pt takes atorvastatin 20 mg. 03/02/23:PT 28.1,INR 2.7. Previously:Last visit she came with c/o Bradycardia *24 HR Holter Monitor 12/06/22: Moderate Bradycardia. *12/02/22 PT/INR: PT 23.5, INR 2.2 *Had ECHO done in 11/11/21 showed There is mild concentric left ventricular hypertrophy. The left ventricle is normal size. Ejection Fraction= 60-65%. The left atrium is moderately dilated. No left atrial mass or thrombus visualized. There is moderate to severe triscupid regurgitation. *She continues to smoke and recently has been smoking more than 1/2 ppd. She was at [place] with ICH, had to have surgery, her coumadin was stopped. She has mechanical MVR, now on Coumadin She was at [facility] on 05/10/18 with complaints of chest pain and shortness of breath. Was found to be in A-fib RVR. Was also found to have a moderate sized right plueral effusion requiring thoracentesis. She wears 2L/NC PRN at home. She has been using at night hoerver she does not use. *Had MARIA ELENA (08/26/16) with a scar close to MVR but no vegetation Feels well overall. Back on Coumadin. No neuro deficits since the intracranial hemorrhage (January 2019). Denies chest pain or shortness of breath. *Had venous US done 06/26/19 showed No evidence of deep venous thrombosis, left lower extremity. Evidence of small hematoma medial aspect of the left calf.Results from this visit, or from the past:12/09/20:PT 24.5,INR 2.1. 06/17/20 LIPID: TC 125, TR 86, HDL 42, LDL 66 06/27/19 : Na 146,K 4.5,Cl 107,Co2 28,Glucose 85,BUN 18,Creati 1.5,Ca 9.6 CBC: WBC 6.6,RBC 3.61,HGB 12.1,HCT 36.6,PLT 245 PT/INR 07-25-2019 07/25/19: PT 26.8, INR 2.38 06/26/19: Na 141,K 5.0,CL 102,Glucose 89,BUN 17,Creati 1.6,Ca 10.1,AST 23,ALT 14,Alkaline phosphatase 140 CBC 01/16/2019 WBC 6.6 RBC 3.87 HGB 13.1 HCT 39.1 PLT 235 01/02/19: Na 141 , K 4.4, CL 100 ,CO2 31 , GLU 93 ,BUN 23 , CR 1.6, 01/02/19: HB 12.3, HT 37.1 01/02/19: PT 28.7, INR 2.60 10/03/18: TSH 1.78, DIG< 0.4 CBC w/ diff 10-03-2018 10/03/18: HB 13.8, HT 42.4 EKG 05/25/2020 Sinus bradycardia. Low voltage, chest leads EKG 08/14/19 Sinus Rhythm ,low voltage in chest leads EKG 01/02/2019 sinus Bradycardia incomplete RBBB EKG 10/03/18: Atrial premature beats Left posterior hemiblock EKG 06/27/18: Atrial fibrillation. Prominent R(V1) and right axis-consider right ventricular hypertrophy-consider pulmonary disease. -ST depression + J-hlyniqszogj-Jtxisulu Anterolateral and inferior ischemia. Abnormal EKG 05/31/18: Incomplete rbbb. Anteroseptal myocardial infarction, age undetermined EKG 03/21/18: Probably atrial fibrillation; incomplete rbbb; right ventricular hypertrophy EKG 02/21/18: Arrhythmia of unclear origin incomplete RBBB left posterior hemiblock 01/31/2018: Incomplete rbbb, right ventricular hypertrophy EK05/04/17 Possible atrial fibrillation. Incomplete RBBB. ST depression. Nondiagnostic . Possible digitalis effect. Consider subendocardial injury/ischemia. Abnormal. 04/05/17 EKG: Atrial flutter with controlled ventricular response. Right bundle branch block. Left posterior fascicular block. *Bifascicular block*Cannot rule out inferior infarct, age undetermined. Abnormal ECG. When compared with ECG of 04-APR-2017, Inverted T waves have replaced nonspecific T wave abnormality in inferior leads. Nonspecific T wave abnormality now evident in lateral leads. EK05/30/[address]&T wave changes in the inferior leads, likely secondary to repolarization changes. Abnormal ECG. When compared with ECG of 29-MAY-2016 QT has lengthened. US, duplex, venous, lower extremity 06-26-2019 No evidence of deep venous thrombosis, left lower extremity. Evidence of small hematoma medial aspect of the left calf. 06/17/20 ECHO: Study quality: technically difficult. LV chamber size is normal. LV wall thickness is normal. There is normal global systolic function and contractility. The estimated left ventricle ejection fraction is 55-60% (normal). There is increased left atrial pressure and Grade II diastolic dysfunction. Left atrium chamber is moderately dilated. Right atrium chamber is moderately dilated. There is mild aortic regurgitation. There is a mechanical mitral valve prosthesis with mild regurgitation. There is moderate to severe tricuspid regurgitation. Mild elevation of estimated RV systolic pressure. Estimated RVSP systolic pressure is 44.32 mmHg. There is mild pulmonic regurgitation. 01/30/19 ECHO: LV chamber size is normal. LV wall thickness is normal. There is normal global systolic function and contractility. The estimated left ventricle ejection fraction is electrocardiogram 01-02-2019 02/13/18 ECHO: LV chamber size is normal. LV wall thickness is mildly increased. There are multipe segmental wall motion abnormalities. The estimated left ventricle ejection fraction is 45-50% (abnormal). There is paradoxical septal motion /diastolic flattening (D -shaped LV) Consistent with RV volume overload. Diastolic function is indetermined due to atrial fibrillation. RV size is moderately dilated. Left atrium chamber is moderately dilated. Right atrium chamber is severely dilated. The aortic valve is mildly calcified. There is mild aortic regurgitation. There is mechanical mitral valve prosthesis: bileaflet St- ever. There is severe tricuspid regurgitation. Estimated RVSP is 48 mmHg. There is moderate pulmonic regurgitation. The IVC is dilated and collapses <50% with inspiration.(RAP-15 mmHG). Atrial fibrillation. ECHO: 05/31/16 D shaped septum secondary to right sided volume overload. There is mild concentric left ventricular hypertrophy. Left ventricular systolic function is normal. Ejection fraction = 55-60%. Septal motion is consistent with post-operative state. The right ventricle is moderately dilated. The right atrium is severely dilated. There is bi-leaflet (ST Ever) mechanical prosthesis. Prosthetic mitral valve peak and or mean gradients are normal. Max PG 5 mmHg, Mean PG 3 mmHg. There is severe tricuspid regurgitation. Right ventricular systolic pressure is elevated at 30-40 mmHg. Mild aortic regurgitation. CT CHEST: 04/06/17 Small right pleural effusion and mild atelectasis in the right middle lobe. No pulmonary embolism or aortic dissection. Moderate emphysema. CHEST: 04/05/17 Cardiomegaly with mild pulmonary vascularity congestion and small right pleural effusion. Bibasilar atelectasis. Follow up to ensure resolution. CXR: 05/29/16 Again seen is cardiomegaly. Mild interstitial prominence may reflect mild edema. COPD. CXR: 01/26/18: interval development of a moderate right pleural effusion with associated atelectasis. Stable Cardiomegaly. CXR: 01/26/18: Interval development of a moderate pleural effusion with associated atelectasis. Stable cardiomegaly.12/28/16 CHEST PA/AP AND LATERAL: Interval development of right-sided pleural effusion with associated atelectasis/ infiltrate at the right lung base. Follow-up to document resolution recommended. Cardiomegaly and mild pulmonary vascular congestion. CT CHEST: 04/06/17 Small right pleural effusion and mild atelectasis in the right middle lobe. No pulmonary embolism or aortic dissection. Moderate emphysema. ANIVAL horton [place] [facility] 03/21/2023 17:44:35 06/20/2023 text/html 06/21/23CC : [facility] up68 year-old -[place] woman with a PMH of mitral valve replacement (St. Ever valve in 2010), atrial fibrillation, atrial flutter, dyslipidemia, hypertension, COPD, MARCUS, cerebrovascular accident (2003) hyperthyroidism, presents today for 6 month follow-up. She was last seen in the clinic on 03/21/23, since then [place] denies ER visits and hospitalizations since she was last seen. Today reports:Denies chest pain.Denies shortness of breath at rest. Has mild dyspnea on exertion.No orthopnea. No PNDs.Denies heart palpitations.Denies dizziness. Denies syncope or near syncope.No ankle or leg edema.No major bleeding events.No reported side effects from medications. Taking medications as prescribed with no missed doses.Denies snoring, daytime somnolence and AM headache.*Last LDL was 46 done on 07/04/22.Pt takes atorvastatin 20 mg. PT/INR 06/16/23 3.6 Previously: Last visit she came with c/o Bradycardia *24 HR Holter Monitor 12/06/22: Moderate Bradycardia. *12/02/22 PT/INR: PT 23.5, INR 2.2 *Had ECHO done in 11/11/21 showed There is mild concentric left ventricular hypertrophy. The left ventricle is normal size. Ejection Fraction= 60-65%. The left atrium is moderately dilated. No left atrial mass or thrombus visualized. There is moderate to severe triscupid regurgitation. *She continues to smoke and recently has been smoking more than 1/2 ppd. She was at [place] with ICH, had to have surgery, her coumadin was stopped. She has mechanical MVR, now on Coumadin She was at [facility] on 05/10/18 with complaints of chest pain and shortness of breath. Was found to be in A-fib RVR. Was also found to have a moderate sized right plueral effusion requiring thoracentesis. She wears 2L/NC PRN at home. She has been using at night hoerver she does not use. *Had MARIA ELENA (08/26/16) with a scar close to MVR but no vegetation Feels well overall. Back on Coumadin. No neuro deficits since the intracranial hemorrhage (January 2019). Denies chest pain or shortness of breath. *Had venous US done 06/26/19 showed No evidence of deep venous thrombosis, left lower extremity. Evidence of small hematoma medial aspect of the left calf.Results from this visit, or from the past:12/09/20:PT 24.5,INR 2.1. 06/17/20 LIPID: TC 125, TR 86, HDL 42, LDL 66 06/27/19 : Na 146,K 4.5,Cl 107,Co2 28,Glucose 85,BUN 18,Creati 1.5,Ca 9.6 CBC: WBC 6.6,RBC 3.61,HGB 12.1,HCT 36.6,PLT 245 PT/INR 07-25-201807/25/19: PT 26.8, INR 2.38 06/26/19: Na 141,K 5.0,CL 102,Glucose 89,BUN 17,Creati 1.6,Ca 10.1,AST 23,ALT 14,Alkaline phosphatase 140 CBC 01/16/2019 WBC 6.6 RBC 3.87 HGB 13.1 HCT 39.1 PLT 235 01/02/19: Na 141 , K 4.4, CL 100 ,CO2 31 , GLU 93 ,BUN 23 , CR 1.6, 01/02/19: HB 12.3, HT 37.1 01/02/19: PT 28.7, INR 2.60 10/03/18: TSH 1.78, DIG< 0.4 CBC w/ diff 10-03-2018 10/03/18: HB 13.8, HT 42.4 EKG 05/25/2020 Sinus bradycardia. Low voltage, chest leads EKG 08/14/19 Sinus Rhythm ,low voltage in chest leads EKG 01/02/2019 sinus Bradycardia incomplete RBBB EKG 10/03/18: Atrial premature beats Left posterior hemiblock EKG 06/27/18: Atrial fibrillation. Prominent R(V1) and right axis-consider right ventricular hypertrophy-consider pulmonary disease. -ST depression + L-vaivtkcyjlw-Xuvtknpy Anterolateral and inferior ischemia. Abnormal EKG 05/31/18: Incomplete rbbb. Anteroseptal myocardial infarction, age undetermined EKG 03/21/18: Probably atrial fibrillation; incomplete rbbb; right ventricular hypertrophy EKG 02/21/18: Arrhythmia of unclear origin incomplete RBBB left posterior hemiblock 01/31/2018: Incomplete rbbb, right ventricular hypertrophy EK05/04/17 Possible atrial fibrillation. Incomplete RBBB. ST depression. Nondiagnostic . Possible digitalis effect. Consider subendocardial injury/ischemia. Abnormal. 04/05/17 EKG: Atrial flutter with controlled ventricular response. Right bundle branch block. Left posterior fascicular block. *Bifascicular block*Cannot rule out inferior infarct, age undetermined. Abnormal ECG. When compared with ECG of 04-APR-2017, Inverted T waves have replaced nonspecific T wave abnormality in inferior leads. Nonspecific T wave abnormality now evident in lateral leads. EK05/30/[address] ST&T wave changes in the inferior leads, likely secondary to repolarization changes. Abnormal ECG. When compared with ECG of 29-MAY-2016 QT has lengthened. US, duplex, venous, lower extremity 06-26-2019 No evidence of deep venous thrombosis, left lower extremity. Evidence of small hematoma medial aspect of the left calf. 06/17/20 ECHO: Study quality: technically difficult. LV chamber size is normal. LV wall thickness is normal. There is normal global systolic function and contractility. The estimated left ventricle ejection fraction is 55-60% (normal). There is increased left atrial pressure and Grade II diastolic dysfunction. Left atrium chamber is moderately dilated. Right atrium chamber is moderately dilated. There is mild aortic regurgitation. There is a mechanical mitral valve prosthesis with mild regurgitation. There is moderate to severe tricuspid regurgitation. Mild elevation of estimated RV systolic pressure. Estimated RVSP systolic pressure is 44.32 mmHg. There is mild pulmonic regurgitation. 01/30/19 ECHO: LV chamber size is normal. LV wall thickness is normal. There is normal global systolic function and contractility. The estimated left ventricle ejection fraction is electrocardiogram 01-02-2019 02/13/18 ECHO: LV chamber size is normal. LV wall thickness is mildly increased. There are multipe segmental wall motion abnormalities. The estimated left ventricle ejection fraction is 45-50% (abnormal). There is paradoxical septal motion /diastolic flattening (D -shaped LV) Consistent with RV volume overload. Diastolic function is indetermined due to atrial fibrillation. RV size is moderately dilated. Left atrium chamber is moderately dilated. Right atrium chamber is severely dilated. The aortic valve is mildly calcified. There is mild aortic regurgitation. There is mechanical mitral valve prosthesis: bileaflet St- ever. There is severe tricuspid regurgitation. Estimated RVSP is 48 mmHg. There is moderate pulmonic regurgitation. The IVC is dilated and collapses <50% with inspiration.(RAP-15 mmHG). Atrial fibrillation. ECHO: 05/31/16 D shaped septum secondary to right sided volume overload. There is mild concentric left ventricular hypertrophy. Left ventricular systolic function is normal. Ejection fraction = 55-60%. Septal motion is consistent with post-operative state. The right ventricle is moderately dilated. The right atrium is severely dilated. There is bi-leaflet (ST Ever) mechanical prosthesis. Prosthetic mitral valve peak and or mean gradients are normal. Max PG 5 mmHg, Mean PG 3 mmHg. There is severe tricuspid regurgitation. Right ventricular systolic pressure is elevated at 30-40 mmHg. Mild aortic regurgitation. CT CHEST: 04/06/17 Small right pleural effusion and mild atelectasis in the right middle lobe. No pulmonary embolism or aortic dissection. Moderate emphysema. CHEST: 04/05/17 Cardiomegaly with mild pulmonary vascularity congestion and small right pleural effusion. Bibasilar atelectasis. Follow up to ensure resolution. CXR: 05/29/16 Again seen is cardiomegaly. Mild interstitial prominence may reflect mild edema. COPD. CXR: 01/26/18: interval development of a moderate right pleural effusion with associated atelectasis. Stable Cardiomegaly. CXR: 01/26/18: Interval development of a moderate pleural effusion with associated atelectasis. Stable cardiomegaly.12/28/16 CHEST PA/AP AND LATERAL: Interval development of right-sided pleural effusion with associated atelectasis/ infiltrate at the right lung base. Follow-up to document resolution recommended. Cardiomegaly and mild pulmonary vascular congestion. CT CHEST: 04/06/17 Small right pleural effusion and mild atelectasis in the right middle lobe. No pulmonary embolism or aortic dissection. Moderate emphysema. Hieu Jones MD [address] [place], [address], [facility] 06/20/2023 18:12:35 12/26/2023 text/html 12/26/23CC : [facility] follow up68 year-old -[place] woman with a PMH of mitral valve replacement (St. Ever valve in 2010), atrial fibrillation, atrial flutter, dyslipidemia, hypertension, COPD, MARCUS, cerebrovascular accident (2003) hyperthyroidism, presents today for 6 month follow-up. She was last seen in the clinic on 06/20/23, since then she is doing wellShe denies ER visits and hospitalizations since she was last seen. Denies chest pain.Denies shortness of breath at rest. Has mild dyspnea on exertion.No orthopnea. No PNDs.Denies heart palpitations.Denies dizziness. Denies syncope or near syncope.No ankle or leg edema.No major bleeding events.No reported side effects from medications. Taking medications as prescribed with no missed doses.Denies snoring, daytime somnolence and AM headache.*Last LDL was 46 done on 07/04/22.Pt takes atorvastatin 20 mg. 12/14/2023 : INR-3.9 , PT-41.5 Previously:*24 HR Holter Monitor 12/06/22: Moderate Bradycardia. *12/02/22 PT/INR: PT 23.5, INR 2.2 *Had ECHO done in 11/11/21 showed There is mild concentric left ventricular hypertrophy. The left ventricle is normal size. Ejection Fraction= 60-65%. The left atrium is moderately dilated. No left atrial mass or thrombus visualized. There is moderate to severe triscupid regurgitation. *She continues to smoke and recently has been smoking more than 1/2 ppd. She was at [place] with ICH, had to have surgery, her coumadin was stopped. She has mechanical MVR, now on Coumadin She was at [facility] on 05/10/18 with complaints of chest pain and shortness of breath. Was found to be in A-fib RVR. Was also found to have a moderate sized right plueral effusion requiring thoracentesis. She wears 2L/NC PRN at home. She has been using at night hoerver she does not use. *Had MARIA ELENA (08/26/16) with a scar close to MVR but no vegetation Feels well overall. Back on Coumadin. No neuro deficits since the intracranial hemorrhage (January 2019). Denies chest pain or shortness of breath. *Had venous US done 06/26/19 showed No evidence of deep venous thrombosis, left lower extremity. Evidence of small hematoma medial aspect of the left calf.Results from this visit, or from the past:12/09/20:PT 24.5,INR 2.1. 06/17/20 LIPID: TC 125, TR 86, HDL 42, LDL 66 06/27/19 : Na 146,K 4.5,Cl 107,Co2 28,Glucose 85,BUN 18,Creati 1.5,Ca 9.6 CBC: WBC 6.6,RBC 3.61,HGB 12.1,HCT 36.6,PLT 245 PT/INR 07-25-2019 07/25/19: PT 26.8, INR 2.38 06/26/19: Na 141,K 5.0,CL 102,Glucose 89,BUN 17,Creati 1.6,Ca 10.1,AST 23,ALT 14,Alkaline phosphatase 140 CBC 01/16/2019 WBC 6.6 RBC 3.87 HGB 13.1 HCT 39.1 PLT 235 01/02/19: Na 141 , K 4.4, CL 100 ,CO2 31 , GLU 93 ,BUN 23 , CR 1.6, 01/02/19: HB 12.3, HT 37.1 01/02/19: PT 28.7, INR 2.60 10/03/18: TSH 1.78, DIG< 0.4 CBC w/ diff 10-03-2018 10/03/18: HB 13.8, HT 42.4 EKG 05/25/2020 Sinus bradycardia. Low voltage, chest leads EKG 08/14/19 Sinus Rhythm ,low voltage in chest leads EKG 01/02/2019 sinus Bradycardia incomplete RBBB EKG 10/03/18: Atrial premature beats Left posterior hemiblock EKG 06/27/18: Atrial fibrillation. Prominent R(V1) and right axis-consider right ventricular hypertrophy-consider pulmonary disease. -ST depression + Z-cmudlkrgpva-Hocyokac Anterolateral and inferior ischemia. Abnormal EKG 05/31/18: Incomplete rbbb. Anteroseptal myocardial infarction, age undetermined EKG 03/21/18: Probably atrial fibrillation; incomplete rbbb; right ventricular hypertrophy EKG 02/21/18: Arrhythmia of unclear origin incomplete RBBB left posterior hemiblock 01/31/2018: Incomplete rbbb, right ventricular hypertrophy EK05/04/17 Possible atrial fibrillation. Incomplete RBBB. ST depression. Nondiagnostic . Possible digitalis effect. Consider subendocardial injury/ischemia. Abnormal. 04/05/17 EKG: Atrial flutter with controlled ventricular response. Right bundle branch block. Left posterior fascicular block. *Bifascicular block*Cannot rule out inferior infarct, age undetermined. Abnormal ECG. When compared with ECG of 04-APR-2017, Inverted T waves have replaced nonspecific T wave abnormality in inferior leads. Nonspecific T wave abnormality now evident in lateral leads. EK05/30/[address] ST&T wave changes in the inferior leads, likely secondary to repolarization changes. Abnormal ECG. When compared with ECG of 29-MAY-2016 QT has lengthened. US, duplex, venous, lower extremity 06-26-2019 No evidence of deep venous thrombosis, left lower extremity. Evidence of small hematoma medial aspect of the left calf. 06/17/20 ECHO: Study quality: technically difficult. LV chamber size is normal. LV wall thickness is normal. There is normal global systolic function and contractility. The estimated left ventricle ejection fraction is 55-60% (normal). There is increased left atrial pressure and Grade II diastolic dysfunction. Left atrium chamber is moderately dilated. Right atrium chamber is moderately dilated. There is mild aortic regurgitation. There is a mechanical mitral valve prosthesis with mild regurgitation. There is moderate to severe tricuspid regurgitation. Mild elevation of estimated RV systolic pressure. Estimated RVSP systolic pressure is 44.32 mmHg. There is mild pulmonic regurgitation. 01/30/19 ECHO: LV chamber size is normal. LV wall thickness is normal. There is normal global systolic function and contractility. The estimated left ventricle ejection fraction is electrocardiogram 01-02-2019 02/13/18 ECHO: LV chamber size is normal. LV wall thickness is mildly increased. There are multipe segmental wall motion abnormalities. The estimated left ventricle ejection fraction is 45-50% (abnormal). There is paradoxical septal motion /diastolic flattening (D -shaped LV) Consistent with RV volume overload. Diastolic function is indetermined due to atrial fibrillation. RV size is moderately dilated. Left atrium chamber is moderately dilated. Right atrium chamber is severely dilated. The aortic valve is mildly calcified. There is mild aortic regurgitation. There is mechanical mitral valve prosthesis: bileaflet St- ever. There is severe tricuspid regurgitation. Estimated RVSP is 48 mmHg. There is moderate pulmonic regurgitation. The IVC is dilated and collapses <50% with inspiration.(RAP-15 mmHG). Atrial fibrillation. ECHO: 05/31/16 D shaped septum secondary to right sided volume overload. There is mild concentric left ventricular hypertrophy. Left ventricular systolic function is normal. Ejection fraction = 55-60%. Septal motion is consistent with post-operative state. The right ventricle is moderately dilated. The right atrium is severely dilated. There is bi-leaflet (ST Ever) mechanical prosthesis. Prosthetic mitral valve peak and or mean gradients are normal. Max PG 5 mmHg, Mean PG 3 mmHg. There is severe tricuspid regurgitation. Right ventricular systolic pressure is elevated at 30-40 mmHg. Mild aortic regurgitation. CT CHEST: 04/06/17 Small right pleural effusion and mild atelectasis in the right middle lobe. No pulmonary embolism or aortic dissection. Moderate emphysema. CHEST: 04/05/17 Cardiomegaly with mild pulmonary vascularity congestion and small right pleural effusion. Bibasilar atelectasis. Follow up to ensure resolution. CXR: 05/29/16 Again seen is cardiomegaly. Mild interstitial prominence may reflect mild edema. COPD. CXR: 01/26/18: interval development of a moderate right pleural effusion with associated atelectasis. Stable Cardiomegaly. CXR: 01/26/18: Interval development of a moderate pleural effusion with associated atelectasis. Stable cardiomegaly.12/28/16 CHEST PA/AP AND LATERAL: Interval development of right-sided pleural effusion with associated atelectasis/ infiltrate at the right lung base. Follow-up to document resolution recommended. Cardiomegaly and mild pulmonary vascular congestion. CT CHEST: 04/06/17 Small right pleural effusion and mild atelectasis in the right middle lobe. No pulmonary embolism or aortic dissection. Moderate emphysema. ANIVAL horton [place] - [facility] 12/26/2023 16:46:49 08/20/2024 text/html 08/20/24CC : Cardiac follow up, chest pain69 year-old -[place] woman with a PMH of mitral valve replacement (St. Ever valve in 2010), atrial fibrillation, atrial flutter, dyslipidemia, hypertension, COPD, MARCUS, cerebrovascular accident (2003) hyperthyroidism, presents today for 6 month follow-up with labs results. She was last seen in the clinic on 12/26/23, since then she is doing goodShe denies ER visits and hospitalizations since she was last seen. Denies chest pain.Denies shortness of breath at rest. Has mild dyspnea on exertion.No orthopnea. No PNDs.Denies heart palpitations.Denies dizziness. Denies syncope or near syncope.No ankle or leg edema.No major bleeding events.No reported side effects from medications. Taking medications as prescribed with no missed doses.Denies snoring, daytime somnolence and AM headache.*Last LDL was 46 done on 07/04/22.Pt takes atorvastatin 20 mg. 06/25/2024 : PT-22.8 , INR-1.9 *CT LUNG CANCER SCREENING 05/05/22:Noncalcified pulmonary nodules measuring up to 9 mm are unchanged.Moderate pulmonary emphysema. Asymmetric soft tissue in the lateral right breast likely related to fibroglandular tissue. However, given asymmetry, consider correlation with mammography as warranted. Grossly stable substernal extension and enlargement of the left thyroid lobe.Stable enlargement of the main pulmonary artery which can be seen with pulmonary hypertension.Lung-RADS category 2S: Benign appearance or behavior. Finding other than a pulmonary nodule which is potentially clinically significant. Previously:*24 HR Holter Monitor 12/06/22: Moderate Bradycardia. *12/02/22 PT/INR: PT 23.5, INR 2.2 *Had ECHO done in 11/11/21 showed There is mild concentric left ventricular hypertrophy. The left ventricle is normal size. Ejection Fraction= 60-65%. The left atrium is moderately dilated. No left atrial mass or thrombus visualized. There is moderate to severe triscupid regurgitation. *She continues to smoke and recently has been smoking more than 1/2 ppd. She was at [place] with ICH, had to have surgery, her coumadin was stopped. She has mechanical MVR, now on Coumadin She was at [facility] on 05/10/18 with complaints of chest pain and shortness of breath. Was found to be in A-fib RVR. Was also found to have a moderate sized right plueral effusion requiring thoracentesis. She wears 2L/NC PRN at home. She has been using at night. Feels well overall. Back on Coumadin. No neuro deficits since the intracranial hemorrhage (January 2019). Denies chest pain or shortness of breath. *Had venous US done 06/26/19 showed No evidence of deep venous thrombosis, left lower extremity. Evidence of small hematoma medial aspect of the left calf.Results from this visit, or from the past:12/09/20:PT 24.5,INR 2.1. 06/17/20 LIPID: TC 125, TR 86, HDL 42, LDL 66 06/27/19 : Na 146,K 4.5,Cl 107,Co2 28,Glucose 85,BUN 18,Creati 1.5,Ca 9.6 CBC: WBC 6.6,RBC 3.61,HGB 12.1,HCT 36.6,PLT 245 PT/INR 07-25-201807/25/19: PT 26.8, INR 2.38 06/26/19: Na 141,K 5.0,CL 102,Glucose 89,BUN 17,Creati 1.6,Ca 10.1,AST 23,ALT 14,Alkaline phosphatase 140 CBC 01/16/2019 WBC 6.6 RBC 3.87 HGB 13.1 HCT 39.1 PLT 235 01/02/19: Na 141 , K 4.4, CL 100 ,CO2 31 , GLU 93 ,BUN 23 , CR 1.6, 01/02/19: HB 12.3, HT 37.1 01/02/19: PT 28.7, INR 2.60 10/03/18: TSH 1.78, DIG< 0.4 CBC w/ diff 10-03-2018 10/03/18: HB 13.8, HT 42.4 EKG 05/25/2020 Sinus bradycardia. Low voltage, chest leads EKG 08/14/19 Sinus Rhythm ,low voltage in chest leads EKG 01/02/2019 sinus Bradycardia incomplete RBBB EKG 10/03/18: Atrial premature beats Left posterior hemiblock EKG 06/27/18: Atrial fibrillation. Prominent R(V1) and right axis-consider right ventricular hypertrophy-consider pulmonary disease. -ST depression + J-ggnaqlndomg-Hajpwjhl Anterolateral and inferior ischemia. Abnormal EKG 05/31/18: Incomplete rbbb. Anteroseptal myocardial infarction, age undetermined EKG 03/21/18: Probably atrial fibrillation; incomplete rbbb; right ventricular hypertrophy EKG 02/21/18: Arrhythmia of unclear origin incomplete RBBB left posterior hemiblock 01/31/2018: Incomplete rbbb, right ventricular hypertrophy EK05/04/17 Possible atrial fibrillation. Incomplete RBBB. ST depression. Nondiagnostic . Possible digitalis effect. Consider subendocardial injury/ischemia. Abnormal. 04/05/17 EKG: Atrial flutter with controlled ventricular response. Right bundle branch block. Left posterior fascicular block. *Bifascicular block*Cannot rule out inferior infarct, age undetermined. Abnormal ECG. When compared with ECG of 04-APR-2017, Inverted T waves have replaced nonspecific T wave abnormality in inferior leads. Nonspecific T wave abnormality now evident in lateral leads. EK05/30/[address] Atrial fibrillation[address] RBB[address] ST&T wave changes in the inferior leads, likely secondary to repolarization changes. Abnormal ECG. When compared with ECG of 29-MAY-2016 QT has lengthened. US, duplex, venous, lower extremity 06-26-2019 No evidence of deep venous thrombosis, left lower extremity. Evidence of small hematoma medial aspect of the left calf. 06/17/20 ECHO: Study quality: technically difficult. LV chamber size is normal. LV wall thickness is normal. There is normal global systolic function and contractility. The estimated left ventricle ejection fraction is 55-60% (normal). There is increased left atrial pressure and Grade II diastolic dysfunction. Left atrium chamber is moderately dilated. Right atrium chamber is moderately dilated. There is mild aortic regurgitation. There is a mechanical mitral valve prosthesis with mild regurgitation. There is moderate to severe tricuspid regurgitation. Mild elevation of estimated RV systolic pressure. Estimated RVSP systolic pressure is 44.32 mmHg. There is mild pulmonic regurgitation. 01/30/19 ECHO: LV chamber size is normal. LV wall thickness is normal. There is normal global systolic function and contractility. The estimated left ventricle ejection fraction is electrocardiogram 01-02-2019 02/13/18 ECHO: LV chamber size is normal. LV wall thickness is mildly increased. There are multipe segmental wall motion abnormalities. The estimated left ventricle ejection fraction is 45-50% (abnormal). There is paradoxical septal motion /diastolic flattening (D -shaped LV) Consistent with RV volume overload. Diastolic function is indetermined due to atrial fibrillation. RV size is moderately dilated. Left atrium chamber is moderately dilated. Right atrium chamber is severely dilated. The aortic valve is mildly calcified. There is mild aortic regurgitation. There is mechanical mitral valve prosthesis: bileaflet St- ever. There is severe tricuspid regurgitation. Estimated RVSP is 48 mmHg. There is moderate pulmonic regurgitation. The IVC is dilated and collapses <50% with inspiration.(RAP-15 mmHG). Atrial fibrillation. ECHO: 05/31/16 D shaped septum secondary to right sided volume overload. There is mild concentric left ventricular hypertrophy. Left ventricular systolic function is normal. Ejection fraction = 55-60%. Septal motion is consistent with post-operative state. The right ventricle is moderately dilated. The right atrium is severely dilated. There is bi-leaflet (ST Ever) mechanical prosthesis. Prosthetic mitral valve peak and or mean gradients are normal. Max PG 5 mmHg, Mean PG 3 mmHg. There is severe tricuspid regurgitation. Right ventricular systolic pressure is elevated at 30-40 mmHg. Mild aortic regurgitation. CT CHEST: 04/06/17 Small right pleural effusion and mild atelectasis in the right middle lobe. No pulmonary embolism or aortic dissection. Moderate emphysema. CHEST: 04/05/17 Cardiomegaly with mild pulmonary vascularity congestion and small right pleural effusion. Bibasilar atelectasis. Follow up to ensure resolution. CXR: 05/29/16 Again seen is cardiomegaly. Mild interstitial prominence may reflect mild edema. COPD. CXR: 01/26/18: interval development of a moderate right pleural effusion with associated atelectasis. Stable Cardiomegaly. CXR: 01/26/18: Interval development of a moderate pleural effusion with associated atelectasis. Stable cardiomegaly.12/28/16 CHEST PA/AP AND LATERAL: Interval development of right-sided pleural effusion with associated atelectasis/ infiltrate at the right lung base. Follow-up to document resolution recommended. Cardiomegaly and mild pulmonary vascular congestion. CT CHEST: 04/06/17 Small right pleural effusion and mild atelectasis in the right middle lobe. No pulmonary embolism or aortic dissection. Moderate emphysema. Hieu Jones MD [address] [place], [address], [facility] 08/20/2024 16:40:15 03/11/2025 text/html 03/11/25CC : Cardiac follow up70 year-old -[place] woman with a PMH of mitral valve replacement (St. Ever valve in 2010), atrial fibrillation, atrial flutter, dyslipidemia, hypertension, COPD, MARCUS, cerebrovascular accident (2003) hyperthyroidism, presents today for 6 month follow-up with ECHO and labs results. She was last seen in the clinic on 08/20/24, since then she is doing wellShe denies ER visits and hospitalizations since she was last seen. Denies chest pain.Denies shortness of breath at rest. Has mild dyspnea on exertion.No orthopnea. No PNDs.Denies heart palpitations.Denies dizziness. Denies syncope or near syncope.No ankle or leg edema.No major bleeding events.No reported side effects from medications. Taking medications as prescribed with no missed doses.Denies snoring, daytime somnolence and AM headache.*Last LDL was 46 done on 07/04/22.Pt takes atorvastatin 20 mg. *02/20/25 : INR 2.6 , PT 28.4 *Had ECHO on 09/26/24 showed LV chamber size is normal, LVEF 50-55%, increased left atrial pressure and grade III diastolic dysfunction is present, left atrium chamber is mildly dilated, right atrium chamber is moderately dilated, the aortic valve is mildly calcified, there is mild aortic regurgitation, there is mechanical mitral valve prosthesis with mild regurgitation, there is moderate tricuspid regurgitation, moderate elevation of estimated RV systolic pressure, estimated RVSP systolic pressure is 59.95 mmHg, there is mild to moderate pulmonic regurgitation, the IVC dilated and collapses <50% with inspiration(RAP-15 mmHg). Previously:*EKG 08/20/24: Too small P-wave duration, sinus rhythm, P; no analysis; QRS; right axis deviation, septal infarct. QS in V2, ST-T; normal, conclusion: abnormal ECG. *CT LUNG CANCER SCREENING 05/05/22:Noncalcified pulmonary nodules measuring up to 9 mm are unchanged.Moderate pulmonary emphysema. Asymmetric soft tissue in the lateral right breast likely related to fibroglandular tissue. However, given asymmetry, consider correlation with mammography as warranted. Grossly stable substernal extension and enlargement of the left thyroid lobe.Stable enlargement of the main pulmonary artery which can be seen with pulmonary hypertension.Lung-RADS category 2S: Benign appearance or behavior. Finding other than a pulmonary nodule which is potentially clinically significant. *24 HR Holter Monitor 12/06/22: Moderate Bradycardia. *She continues to smoke and recently has been smoking more than 1/2 ppd. She was at [place] with ICH, had to have surgery, her coumadin was stopped. She has mechanical MVR, now on Coumadin She was at [facility] on 05/10/18 with complaints of chest pain and shortness of breath. Was found to be in A-fib RVR. Was also found to have a moderate sized right plueral effusion requiring thoracentesis. She wears 2L/NC PRN at home. She has been using at night. Feels well overall. Back on Coumadin. No neuro deficits since the intracranial hemorrhage (January 2019). Denies chest pain or shortness of breath. *Had venous US done 06/26/19 showed No evidence of deep venous thrombosis, left lower extremity. Evidence of small hematoma medial aspect of the left calf.Results from this visit, or from the past:12/09/20:PT 24.5,INR 2.1. 06/17/20 LIPID: TC 125, TR 86, HDL 42, LDL 66 06/27/19 : Na 146,K 4.5,Cl 107,Co2 28,Glucose 85,BUN 18,Creati 1.5,Ca 9.6 CBC: WBC 6.6,RBC 3.61,HGB 12.1,HCT 36.6,PLT 245 PT/INR 07-25-2019 07/25/19: PT 26.8, INR 2.38 06/26/19: Na 141,K 5.0,CL 102,Glucose 89,BUN 17,Creati 1.6,Ca 10.1,AST 23,ALT 14,Alkaline phosphatase 140 CBC 01/16/2019 WBC 6.6 RBC 3.87 HGB 13.1 HCT 39.1 PLT 235 01/02/19: Na 141 , K 4.4, CL 100 ,CO2 31 , GLU 93 ,BUN 23 , CR 1.6, 01/02/19: HB 12.3, HT 37.1 01/02/19: PT 28.7, INR 2.60 10/03/18: TSH 1.78, DIG< 0.4 CBC w/ diff 10-03-2018 10/03/18: HB 13.8, HT 42.4 EKG 05/25/2020 Sinus bradycardia. Low voltage, chest leads EKG 08/14/19 Sinus Rhythm ,low voltage in chest leads EKG 01/02/2019 sinus Bradycardia incomplete RBBB EKG 10/03/18: Atrial premature beats Left posterior hemiblock EKG 06/27/18: Atrial fibrillation. Prominent R(V1) and right axis-consider right ventricular hypertrophy-consider pulmonary disease. -ST depression + V-qeofbihhclt-Oiemjbln Anterolateral and inferior ischemia. Abnormal EKG 05/31/18: Incomplete rbbb. Anteroseptal myocardial infarction, age undetermined EKG 03/21/18: Probably atrial fibrillation; incomplete rbbb; right ventricular hypertrophy EKG 02/21/18: Arrhythmia of unclear origin incomplete RBBB left posterior hemiblock 01/31/2018: Incomplete rbbb, right ventricular hypertrophy EK05/04/17 Possible atrial fibrillation. Incomplete RBBB. ST depression. Nondiagnostic . Possible digitalis effect. Consider subendocardial injury/ischemia. Abnormal. 04/05/17 EKG: Atrial flutter with controlled ventricular response. Right bundle branch block. Left posterior fascicular block. *Bifascicular block*Cannot rule out inferior infarct, age undetermined. Abnormal ECG. When compared with ECG of 04-APR-2017, Inverted T waves have replaced nonspecific T wave abnormality in inferior leads. Nonspecific T wave abnormality now evident in lateral leads. EK05/30/[address] ST&T wave changes in the inferior leads, likely secondary to repolarization changes. Abnormal ECG. When compared with ECG of 29-MAY-2016 QT has lengthened. US, duplex, venous, lower extremity 06-26-2019 No evidence of deep venous thrombosis, left lower extremity. Evidence of small hematoma medial aspect of the left calf. 06/17/20 ECHO: Study quality: technically difficult. LV chamber size is normal. LV wall thickness is normal. There is normal global systolic function and contractility. The estimated left ventricle ejection fraction is 55-60% (normal). There is increased left atrial pressure and Grade II diastolic dysfunction. Left atrium chamber is moderately dilated. Right atrium chamber is moderately dilated. There is mild aortic regurgitation. There is a mechanical mitral valve prosthesis with mild regurgitation. There is moderate to severe tricuspid regurgitation. Mild elevation of estimated RV systolic pressure. Estimated RVSP systolic pressure is 44.32 mmHg. There is mild pulmonic regurgitation. 01/30/19 ECHO: LV chamber size is normal. LV wall thickness is normal. There is normal global systolic function and contractility. The estimated left ventricle ejection fraction is electrocardiogram 01-02-2019 02/13/18 ECHO: LV chamber size is normal. LV wall thickness is mildly increased. There are multipe segmental wall motion abnormalities. The estimated left ventricle ejection fraction is 45-50% (abnormal). There is paradoxical septal motion /diastolic flattening (D -shaped LV) Consistent with RV volume overload. Diastolic function is indetermined due to atrial fibrillation. RV size is moderately dilated. Left atrium chamber is moderately dilated. Right atrium chamber is severely dilated. The aortic valve is mildly calcified. There is mild aortic regurgitation. There is mechanical mitral valve prosthesis: bileaflet St- ever. There is severe tricuspid regurgitation. Estimated RVSP is 48 mmHg. There is moderate pulmonic regurgitation. The IVC is dilated and collapses <50% with inspiration.(RAP-15 mmHG). Atrial fibrillation. ECHO: 05/31/16 D shaped septum secondary to right sided volume overload. There is mild concentric left ventricular hypertrophy. Left ventricular systolic function is normal. Ejection fraction = 55-60%. Septal motion is consistent with post-operative state. The right ventricle is moderately dilated. The right atrium is severely dilated. There is bi-leaflet (ST Ever) mechanical prosthesis. Prosthetic mitral valve peak and or mean gradients are normal. Max PG 5 mmHg, Mean PG 3 mmHg. There is severe tricuspid regurgitation. Right ventricular systolic pressure is elevated at 30-40 mmHg. Mild aortic regurgitation. CT CHEST: 04/06/17 Small right pleural effusion and mild atelectasis in the right middle lobe. No pulmonary embolism or aortic dissection. Moderate emphysema. CHEST: 04/05/17 Cardiomegaly with mild pulmonary vascularity congestion and small right pleural effusion. Bibasilar atelectasis. Follow up to ensure resolution. CXR: 05/29/16 Again seen is cardiomegaly. Mild interstitial prominence may reflect mild edema. COPD. CXR: 01/26/18: interval development of a moderate right pleural effusion with associated atelectasis. Stable Cardiomegaly. CXR: 01/26/18: Interval development of a moderate pleural effusion with associated atelectasis. Stable cardiomegaly.12/28/16 CHEST PA/AP AND LATERAL: Interval development of right-sided pleural effusion with associated atelectasis/ infiltrate at the right lung base. Follow-up to document resolution recommended. Cardiomegaly and mild pulmonary vascular congestion. CT CHEST: 04/06/17 Small right pleural effusion and mild atelectasis in the right middle lobe. No pulmonary embolism or aortic dissection. Moderate emphysema. Hieu Jones MD [address] [place], [address], [facility] 03/11/2025 18:12:15 OBGyn Episode No OBEpisode recorded.
--- OUTSIDE RECORDS SUMMARY | 2025-04-08 13:06 | XMS_ITS | Encounter Summary ---
Author Organization [facility] Facility Care Team Providers Care Hedge Fund Accountant Name Role Phone No, Physician Primary Care Provider [phone] Juan Head MD Primary Care Provider [phone] Juan Head MD Primary Care Provider [phone] Roosevelt Mane DO Primary Care Provider [phone] Encounter Details Date Type Department Care Team (Latest Contact Info) Description 07/04/2018 Orders Only [facility] ProviderSean MD [address] [place] [id number] Social History Tobacco Use Types Packs/Day Years Used Date Smoking Tobacco: Never Assessed Comments Unknown Sex and Gender Information Value Date Recorded Sex Assigned at Not on file Legal Sex Female 10:53 AM CDT Gender Identity Not on file Sexual Orientation Not on file documented as of this encounter Plan of Treatment Not on file documented as of this encounter Procedures Procedure Name Priority Date/Time Associated Diagnosis Comments SCAN - PATHOLOGY 07/06/2018 12:0 0 AM CDT documented in this encounter Results * SCAN - PATHOLOGY (07/06/2018 12:00 AM CDT) Narrative 07/06/2018 12:00 AM CDT Ordered by an unspecified provider. 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
--- OUTSIDE RECORDS SUMMARY | 2025-04-08 13:06 | XMS_ITS | Clinical Summary ---
Author Organization [facility] Address [address] [place] [address] Care Team Providers Care Screwmaker Automatic Name Role Phone Juan Head MD Primary Care Provider [phone] Source Comments [facility],non-owned Affiliates and Associated Physician Practices is amultiple site organization consisting of ambulatory clinics and hospital sitesin [place], [place], [place] and [place]. This disclosure is being madepursuant to the Care Everywhere program and may not contain all information available regarding this patient. Last updated 18.[facility] Allergies Active Allergy Reactions Criticality Noted Date Comments Corticosteroids Other 09/14/2018 Delusions, hallucinating, agressive to staff. Medications * Be aware that medications may not be up to date on this document. Alwaysverify current medications with the patient. dilTIAZem coated beads 24hr (CARTIA XT) 240 MG capsule Take 240 mg by mouth once daily Active methIMAzole (TAPAZOLE) 5 MG tablet Take 5 mg by mouth once daily Active lisinopril (PRINIVIL;ZESTR IL) 5 MG tablet Take 5 mg by mouth once daily Active warfarin (COUMADIN) 3 MG tablet Take 3 mg by mouth once daily Active simvastatin (ZOCOR) 10 MG tablet Take 10 mg by mouth once daily Active furosemide (LASIX) 40 MG tablet Take 40 mg by mouth once daily Active vitamin D, ergocalciferol, (DRISDOL) 93301 UNITS capsule Take 1 capsule by mouth every 7 days Active metoprolol tartrate (LOPRESSOR) 25 MG tablet Take 25 mg by mouth 2 times daily Active budesonide-form oterol (SYMBICORT) 160-4.5 MCG/ACT inhaler Inhale 2 puffs by mouth 2 times daily Active Social History Tobacco Use Types Packs/Day Years Used Date Smoking Tobacco: Every Day Cigarettes 0.3 55.3 Started: [birth year]/15/1969 Smokeless Tobacco: Never Tobacco Cessation:Ready to Q uit: Yes Comments:reports reducing Alcohol Use Standard Drinks/Week Comments No 0 (1 standard drink = 0.6 oz pur e alcohol) Comments No Sex and Gender Information Value Date Recorded Sex Assigned at Not on file Legal Sex Female 6: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 Gender Identity Not on file Sexual Orientation Not on file Last Filed Vital Signs Vital Sign Reading Time Taken Comments Blood Pressure 129/45 09/14/2018 11:15 AM CDT Pulse 58 09/14/2018 11:15 AM CDT Temperature 36.4 C (97.5 F) 09/14/2018 11:15 AM CDT Respiratory Rate - - Oxygen Saturation 97% 09/14/2018 11:15 AM CDT Inhaled Oxygen Concentration - - Weight 73.9 kg (163 lb) 09/14/2018 11:15 AM CDT Height 149.9 cm (4' 11 ) 09/14/2018 11:15 AM CDT Body Mass Index 32.92 09/14/2018 11:15 AM CDT Plan of Treatment Health Maintenance Due Date Last Done Comments BONE DENSITY TESTING 1954 COLOGUARD (AGES 45-75) - COL ON CA SCREENING 1954 COLON MONITORING 1954 COLONOSCOPY - COLON CA SCREENING 1954 CT COLONOGRAPHY - COLON CA SCREENING 1954 Colorectal Cancer Screening 1954 FIT - COLON CA SCREENING 1954 FLEX SIG - COLON CA SCREENING 1954 MAMMOGRAM 1954 HEPATITIS C SCREENING 02/02/1972 DTAP/TDAP/TD VACCINES (1 - Tdap) 1973 PNEUMOCOCCAL VACCINE 50+ (1 of 1 - PCV) 02/07/2004 ZOSTER VACCINE (1 of 2) 02/07/2004 SCREENING FOR DIABETES 09/14/2018 COVID-19 VACCINE ( - 2023-2 5 season) 2024 DEPRESSION SCREENING 11/27/2024 INFLUENZA VACCINE (Season Ended) 2025 Respiratory Syncytial Virus (RSV) Vaccine Pt: or over 60 yrs (1 - 1-dose 75+ series) 2029 HEPATITIS B VACCINE Aged Out No longe r eligible based on patient's age to complete this topic HIB VACCINE Aged Out No longer eligi ble based on patient's age to complete this topic HPV VACCINE Aged Out No longer eligi ble based on patient's age to complete this topic MENINGOCOCCAL (Group B) VACC INE SHARED DECISION-MAKING Aged Out No longer eligibl e based on patient's age to complete this topic MENINGOCOCCAL GROUPS A/C/Y/W VACCINE Aged Out No longer eligible b ased on patient's age to complete this topic Insurance MEDICAID - OUT OF STATE UHC MANAGED MEDICARE ADV [facility] Care Teams Screwmaker Automatic Relationship Specialty Start Date End Date Juan Head MD PCP - General 09/14/18
--- OUTSIDE RECORDS SUMMARY | 2025-04-08 13:06 | XMS_ITS | Referral Summary ---
Author Organization [facility] [address] [facility] Address [address] [place] [address] Care Team Providers Care Kitchen Porter Name Role Phone Roosevelt Mane Primary Care Provider [phone] Allergies Active Allergy Reactions Criticality Noted Date Comments Corticosteroids (Glucocorticoids) Other (See comments) Low 09/14/2018 Delusions, hallucinating, agressive to staff. Methylprednisolone Other (See comments) Low 01/16/2019 Psychosis Medications methIMAzole (TAPAZOLE) 5 mg tablet Take 1 tablet (5 mg total) by mouth 3 (three) times a day Active metoprolol (LOPRESSOR) 25 mg tablet Take 1 tablet (25 mg total) by mouth 2 (two) times a day Active warfarin (COUMADIN) 3 mg tablet Take 1 tablet (3 mg total) by mouth nightly Active albuterol HFA (PROVENTIL HFA,VENTOLIN HFA,PROAIR HFA) 90 mcg/actuation inhaler Inhale 2 puffs every 6 (six) hours as needed Active atorvastatin (LIPITOR) 20 mg tablet Take 1 tablet (20 mg total) by mouth daily 30 tablet 5 1 Active Additional Information Patient taking differently:20 mg oral Daily,Indications: hyperlipidemia, Reported on 05/01/2023 amiodarone (PACERONE) 200 mg tablet Take 1 tablet (200 mg total) by mouth daily Active furosemide (LASIX) 40 mg tablet Take 1 tablet (40 mg total) by mouth daily Active lidocaine (LIDODERM) 5 % Place 1 patch on the skin daily Apply to painful area 12 hours per day, remove for 12 hours. 30 patch 2 Active Additional Information Patient not taking.Reported on 04/09/[address] (PROTONIX) 40 mg EC tablet Take 1 tablet (40 mg total) by mouth daily Active multivitamin-mi nerals-lutein (Multivitamin 50 Plus) tablet Take by mouth Active warfarin (COUMADIN) 4 mg tablet 4 Active umeclidinium-vi lanteroL (ANORO ELLIPTA) 62.5-25 mcg/actuation blister with device Inhale 1 puff daily 30 each 3 4 Active Active Problems Problem Noted Date Diagnosed Date Simple chronic bronchitis 07/11/2024 Chest pain, unspecified type 05/01/2023 Assessment & Plan (05/01/2023 4:08 PM CDT): Pt presented with CP.Troonins were neg.Pt is having a stress test done today.Further mgt pending stress test findings. Acute bronchitis due to other specified organism s 05/01/2023 Assessment & Plan (05/01/2023 10:36 PM CDT): Patient complaining of cough productive of white sputum. Treat with empiric IV antibiotics. Continue bronchodilator therapy. 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 Found to have elevated pro BNP. Treat with IV Lasix diuresis. Monitor electrolytes. Assessment & Plan (05/05/2022 5:15 PM CDT): Patient presented with worsening shortness of breath. Treat with iv lasix diuresis.Monitor electrolytes closely Chest pain 10/11/2021 Assessment & Plan (10/11/2021 7:54 AM QUANTITATIVE ANALYST DEVELOPER): Patient presented with chest pains and worsening shortness of breath. Cardiac enzymes are negative. Cardiology has been consulted Cerebral hemorrhage 2019 Subdural hematoma 01/17/2019 History of mitral valve repair 01/17/2019 DM (diabetes mellitus) 01/17/2019 Chronic anticoagulation 01/17/2019 Multiple pulmonary nodules 12/27/2018 Nocturnal hypoxemia 12/03/2018 Aortic valve regurgitation 10/08/2018 COPD exacerbation 10/08/2018 Assessment & Plan (05/01/2023 10:35 PM CDT): Patient with history of COPD presents with chest pains and complaining of cough. Treat with nebs. Patient states allergic to steroids. Patient received a dose of IV Decadron in the emergency room. Will hold off on steroids at this time. Treat with empiric antibiotics. Assessment & Plan (05/05/2022 5:17 PM CDT): Continue neb treatments. Assessment & Plan (10/11/2021 7:54 AM QUANTITATIVE ANALYST DEVELOPER): Patient with history of COPD presents with worsening shortness of breath. Treat with neb treatments. H/O prosthetic mitral valve 10/08/2018 Post-nasal drainage 10/08/2018 Pulmonary hypertension 10/08/2018 Restrictive lung disease 10/08/2018 Hyperkalemia 06/27/2018 Hypothyroidism 02/08/2018 History of mitral valve replacement with mechani hector valve 11/16/2016 Assessment & Plan (05/05/2022 5:16 PM CDT): Patient with history of mitral valve replacement with mechanical heart valve. Continue Coumadin and keep INR between 2.5 and 3.5. Assessment & Plan (10/11/2021 7:51 AM QUANTITATIVE ANALYST DEVELOPER): Patient with history of prostatic heart valve. Patient is on Coumadin. INR is 3.5. Continue Coumadin and monitor PT INR closely. Assessment & Plan (01/19/2019 9:24 AM QUANTITATIVE ANALYST DEVELOPER): Exam stable. Valve sounds as expected for mechanical valve. Call for any questions Coronary arteriosclerosis 11/16/2016 Pleural effusion 11/16/2016 Congestive heart failure (CMS/HCC) 09/21/2016 Assessment & Plan (10/11/2021 7:50 AM QUANTITATIVE ANALYST DEVELOPER): Patient with history of congestive heart failure diastolic dysfunction presented with worsening shortness of breath and elevated BNP. Treat with IV Lasix diuresis and beta-blockers. Cardiology has been consulted. Kidney stone 09/21/2016 Cerebrovascular accident ([facility]) 08/12/2016 Overview (02/13/2019): 2001 Assessment & Plan (05/05/2022 5:16 PM CDT): Continue aspirin and statins Dyspnea 06/14/2016 Palpitations 06/14/2016 Atrial fibrillation ([facility]) 03/13/2016 Assessment & Plan (05/01/2023 10:34 PM CDT): Patient with history of AFib with RVR. Rate is currently controlled. Continue metoprolol for rate control. Continue amiodarone. Continue Coumadin. Assessment & Plan (05/05/2022 5:16 PM CDT): Patient with atrial fibrillation. Rate is currently controlled. Continue amiodarone Cardizem and metoprolol. Patient is on Coumadin. Assessment & Plan (10/11/2021 9:48 AM QUANTITATIVE ANALYST DEVELOPER): Patient with history of AFib, kaylah in RVR She is on Cardizem and oral anticoagulation with Coumadin. Control rate. Discussed with sugar laboratory assistant Cigarette nicotine dependence without complicati on 03/13/2016 Dyslipidemia 03/13/2016 Assessment & Plan (10/11/2021 7:53 AM QUANTITATIVE ANALYST DEVELOPER): Continue statins. Essential hypertension 03/13/2016 Assessment & Plan (05/01/2023 10:37 PM CDT): Monitor and control blood pressure. Assessment & Plan (10/11/2021 7:52 AM QUANTITATIVE ANALYST DEVELOPER): Monitor and control blood pressure. Mitral valve disorder 03/13/2016 Resolved Problems Problem Noted Date Diagnosed Date Resolved Date Obstructive sleep apnea syndrome 02/08/2018 12/03/2021 Assessment & Plan (10/11/2021 7:52 AM QUANTITATIVE ANALYST DEVELOPER): Continue CPAP at night. Immunizations Immunization Administration Dates Next Due Influenza, Quadrivalent, Spl it, Preservative Free, Intramuscular 12/03/2021 Social History Tobacco Use Types Packs/Day Years Used Date Smoking Tobacco: Every Day Cigarettes 0.5 46 Started: 04/10/1979 Smokeless Tobacco: Never Tobacco Cessation:Ready to Q uit: Not Asked; Counseling Given: Not Answered Alcohol Use Standard Drinks/Week Comments Never 0 (1 standard drink = 0.6 oz pur e alcohol) Social Connection and Isolation Panel [NHANES] A nswer Date Recorded In a typical week, how many times do you talk on the phone with family, friends, or neighbors? Three times a week 05/01/20 How often do you get togethe r with friends or relatives? Three times a week 05/01/2023 How often do you attend chur ch or baptist services? 1 to 4 times per year 05/01/2023 Do you belong to any clubs o r organizations such as yazdanism groups, unions, fraternal or athletic groups, or school groups? No 05/01/2023 How often do you attend meet ings of the clubs or organizations you belong to? Never 05/01/2023 Are you , , di vorced, , never , or living with a partner? 05/01/2023 AUDIT-C Answer Date Recorded Q1: How often do you have a drink containing alc ohol? Never 05/04/2022 Average Number of Drinks Not on file 022 Frequency of Binge Drinking Not on file 06/2022 Overall Financial Resource Strain (CARDIA) Answe r Date Recorded How hard is it for you to pa y for the very basics like food, housing, medical care, and heating? Not hard at all 05/01/2023 Hunger Vital Sign Answer Date Recorded Within the past 12 months, y ou worried that your food would run out before you got the money to buy more. Never true 05/01/20 23 Within the past 12 months, t he food you bought just didn't last and you didn't have money to get more. Never true 05/01/2023 PRAPARE - Transportation Answer Date Re corded In the past 12 months, has l ack of transportation kept you from medical appointments or from getting medications? No 03/2023 In the past 12 months, has l ack of transportation kept you from meetings, work, or from getting things needed for daily living? No 05/01/2023 Housing Stability Vital Sign Answer Omari e Recorded In the last 12 months, was t here a time when you were not able to pay the mortgage or rent on time? No 05/01/2023 In the last 12 months, how many places have you lived? 1 05/01/2023 In the last 12 months, was t here a time when you did not have a steady place to sleep or slept in a nursing home (including now)? No 05/01/2023 Personal Safety Answer Date Recorded Getting School Help Needed Not on file 05/18 Comments No Sex and Gender Information Value Date Recorded Sex Assigned at Not on file Legal Sex Female 10:53 AM CDT Gender Identity Not on file Sexual Orientation Not on file Last Filed Vital Signs Vital Sign Reading Time Taken Comments Blood Pressure 125/70 07/11/2024 3:25 PM CDT Pulse 57 07/11/2024 3:25 PM CDT Temperature 36.5 C (97.7 F) 07/11/2024 3:25 PM CDT Respiratory Rate 20 07/11/2024 3:25 PM CDT Oxygen Saturation 97% 07/11/2024 3:25 PM CDT Inhaled Oxygen Concentration - - Weight 69.2 kg (152 lb 9.6 oz) 07/11/2024 3:25 P M CDT Height 149.9 cm (4' 11 ) 04/09/2024 2:53 PM CDT Body Mass Index 30.82 04/09/2024 2:53 PM CDT Plan of Treatment Not on file Medical Devices Implanted Type Area Blasting Gang Miner Device Identifier Shelf Expiration Date Model / Serial / Lot [place] Craniomaxillofacial [id number] [employer] Iii 16mmx.4mm 2 Hole Low Profile [facility] - [id number] Implanted:Qty: 1 on 01/18/2019 by Jovan Good MD PhD at [facility] Left: Cranial [place] Craniomaxillofacial [id number] / / [employer] Craniomaxillofacial [id number] [employer] Iii .4mm 2x2 Hole Low Profile Craniomaxillofacial - [id number] Implanted:Qty: 1 on 01/18/2019 by Jovan Good MD PhD at [facility] Left: Cranial [place] Craniomaxillofacial [id number] 0 / / [employer] Craniomaxillofacial [id number] [employer] [employer] Iii 20mmx.4mm Low Profile Shunt Tab - [id number] Implanted:Qty: 1 on 01/18/2019 by Jovan Good MD PhD at [facility] Left: Cranial [place] Craniomaxillofacial [id number] 0 / / [place] Craniomaxillofacial [id number] [employer] [employer] 3 1.5mm 4mm Self Drill Axial Stability Screw Bone Latex Free - [id number] Implanted:Qty: 12 on 01/18/2019 by Jovan Good MD PhD at [facility] Left: Cranial [place] Craniomaxillofacial [id number] / / Procedures Procedure Name Priority Date/Time Associated Diagnosis Comments CT LUNG CANCER SCREENING Schedule Routine, Read Routine (OP Routine) 06/06/2024 9:00 AM CDT Personal history of nicotine dependence EGFR Routine 05/02/2023 3:08 AM CDT LIPID PANEL Routine 05/06/2022 8:52 AM CDT HEMOGLOBIN A1C Routine 06/27/2019 5:57 AM CDT HEPATITIS C ANTIBODY STAT 01/18/2019 1:06 PM QUANTITATIVE ANALYST DEVELOPER OCCULT BLOOD, FECAL (FIT) Routine 11/01/2018 9:53 PM QUANTITATIVE ANALYST DEVELOPER SCREENING MAMMOGRAM 2D BILATERAL Routine 02/08/2014 8:36 AM CDT from Last 3 Months or Most Recently Relevant to Health Maintenance Results * CT Lung Cancer Screening (06/06/2024 9:00 AM CDT) Anatomical Region Laterality Modality Chest N/A Computed Tomogra phy 06/07/2024 8:25 AM CDT Narrative 06/07/2024 8:48 AM CDT EXAM DESCRIPTION: CT LUNG CANCER SCREENING REASON FOR STUDY: Screening CT of the chest in a current smoker with a 26 pack year smoking history. Additional history: None. TECHNIQUE: Low dose CT scan of the chest was performed without intravenous contrast using helical scanning technique. The exam extends from the lung apices through the lung bases. Automatic exposure control was used as a dose optimization technique. NOTE: This study was performed for the specific purposes of lung cancer screening and is not an alternative to diagnostic chest CT. RADIATION DOSE: CT dose index volume (CTDIvol) = 2.86 mGy COMPARISON: CT chest 05/05/2022 FINDINGS: SMOKING RELATED LUNG DISEASE: Moderate pulmonary emphysema. Bandlike scarring in the medial right lower lobe is unchanged. Mild bronchial wall thickening. LUNG NODULES: Noncalcified 9 mm nodule in the central right upper lobe (image 74) is unchanged. Noncalcified 3 mm nodule in the inferior right upper lobe (image 164) is unchanged. Noncalcified 3 mm nodule in the lateral left apex (image 28) is unchanged. Subpleural 3 mm nodule in the medial left upper lobe (image 41) is unchanged. The previously seen ground-glass nodule in the right upper lobe has resolved. PLEURAE: No pneumothorax or pleural effusion. Calcified pleural plaques in the left hemithorax are noted. CORONARY ARTERY CALCIFICATION: Moderate MEDIASTINUM/SOLO: Prominent subcarinal lymph nodes are unchanged. Substernal extension of the left lobe of the thyroid is grossly similar extending to the level of the aortic arch displacing the trachea to the right. The appearance is grossly similar. HEART: The heart is enlarged, particularly biatrial enlargement. Mitral valve replacement. No pericardial effusion. VASCULATURE: No thoracic aortic aneurysm. The main pulmonary artery is borderline dilated which could represent pulmonary hypertension. AXILLAE: No lymphadenopathy. CHEST WALL: Asymmetric soft tissue in the lateral right breast likely related to fibroglandular tissue. However, given asymmetry, consider correlation with mammography as warranted. HARDWARE/LINES/TUBES: Prior sternotomy. UPPER ABDOMEN: Low-attenuation lesion in the left hepatic lobe measuring 1.1 cm is unchanged and likely a cyst or hemangioma. No further follow-up is required. Lymph node at the GE junction to the left of the descending thoracic aorta (image 219) measuring 1.6 x 1.2 cm is unchanged from 2021 and likely reactive. MUSCULOSKELETAL: Minimal thoracic spondylosis. Bulging posterior osteophyte at T7-8 causing moderate spinal canal narrowing is unchanged. Mild compression fracture at L2 is partially included but appears unchanged. IMPRESSION: Noncalcified pulmonary nodules measuring up to 9 mm are unchanged. Moderate pulmonary emphysema. Asymmetric soft tissue in the lateral right breast likely related to fibroglandular tissue. However, given asymmetry, consider correlation with mammography as warranted. Grossly stable substernal extension and enlargement of the left thyroid lobe. Stable enlargement of the main pulmonary artery which can be seen with pulmonary hypertension. Lung-RADS category 2S: Benign appearance or behavior. Finding other than a pulmonary nodule which is potentially clinically significant. Recommendation: Low dose Screening CT of chest in 12 months. Correlation with mammographic history. THIS IS AN ELECTRONICALLY VERIFIED FINAL REPORT 06/07/2024 8:48 AM - Electronically signed by Godfrey Pineda M.D. LB: LB Report ID: [id number] Reading Location: [place] [address] Griselda Miguel MD IMG CT PROCEDURES Final Res ult * eGFR (05/02/2023 3:08 AM CDT) eGFR 30 mL/min/1. 73 m2 [facility] Comment: Interpretive Data Reference Interval Normal >/= 90 mL/min/1.73m2 Mildly decreased* 60 - 89 mL/min/1.73m2 Mildly to moderately decreased 45 - 59 mL/min/1.73m2 Moderately to severely decreased 30 - 44 mL/min/1.73m2 Severely decreased 15 - 29 mL/min/1.73m2 Kidney Failure < 15 mL/min/1.73m2 *Relative to young adult level Estimated glomerular filtration rate is determined by the 2020 CKD-EPI equation recommended by the National Kidney Foundation (A Unifying Approach to GFR Estimation: Recommendations of the NKF-ASK Task Force on Reassessing the Inclusion of Race in Diagnosing Kidney Disease, JASN 2020). The CKD-EPI equation should not be used for patients with unstable renal function and has not been validated in children and those over 70. Current interpretive data was last reviewed 2021. Blood 05/02/2023 3:08 AM CDT 05/02/2023 4:06 AM CDT Clara Payton MD LAB BLOOD ORDERABLES F inal Result [facility] [address] [facility] Department [place] [address] * Lipid panel (05/06/2022 8:52 AM CDT) Cholesterol 116 30 - 199 mg/dL [facility] Comment: Interpretive Data Ages < or = 19 years Acceptable: <170 mg/dL Borderline high: 170-199 mg/dL High: >or= 200 mg/dL Ages > or = 20 years Desirable: <200 mg/dL Borderline high: 200-239 mg/dL High: >or= 240 mg/dL Literature References: 1. Expert Panel on Integrated Guidelines for Cardiovascular Health and Risk Reduction in Children and Adolescents. Pediatrics 2011;128:S213 2. NCEP Expert Panel. Circulation 2004;110:227 Current Interpretive Data was last revised on 2018. Triglycerides 72 <=149 mg/dL [facility] Comment: Interpretive Data Ages < or = 9 years Acceptable: <75 mg/dL Borderline high: 75-99 mg/dL High: >or= 100 mg/dL Ages 10 to 20 years Acceptable: <90 mg/dL Borderline high: 90-129 mg/dL High: >or= 130 mg/dL Ages > or = 20 years Desirable: <150 mg/dL Borderline high: 150-199 mg/dL High: 200-499 mg/dL Very high: >or= 499 mg/dL Literature References: 1. Expert Panel on Integrated Guidelines for Cardiovascular Health and Risk Reduction in Children and Adolescents. Pediatrics 2011;128:S213 2. NCEP Expert Panel. Circulation 2004;110:227 Current Interpretive Data was last revised on 2018. HDL 43 >=40 mg/dL [facility] Comment: Interpretive Data Ages < or = 19 years Acceptable: >45 mg/dL Borderline low: 40-45 mg/dL Low: <40 mg/dL Ages > or = 20 years Desirable: >or= 60 mg/dL Low: <40 mg/dL Literature References: 1. Expert Panel on Integrated Guidelines for Cardiovascular Health and Risk Reduction in Children and Adolescents. Pediatrics 2011;128:S213 2. NCEP Expert Panel. Circulation 2004;110:227 Current Interpretive Data was last revised on 2018. LDL, calculated 59 <=129 mg/dL [facility] Comment: Interpretive Data Ages < or = 19 years Acceptable: <110 mg/dL Borderline high: 110-129 mg/dL High: >or= 130 mg/dL Ages > or = 20 years Optimal: <100 mg/dL Near optimal: 100-129 mg/dL Borderline high: 130-159 mg/dL High: >160 mg/dL Literature References: 1. Expert Panel on Integrated Guidelines for Cardiovascular Health and Risk Reduction in Children and Adolescents. Pediatrics 2011;128:S213 2. NCEP Expert Panel. Circulation 2004;110:227 Current Interpretive Data was last revised on 2018. Non-HDL Cholesterol 73 mg/dL [facility] Comment: Interpretive Data Ages < or = 19 years Acceptable: <120 mg/dL Borderline high: 120-144 mg/dL High: >145 mg/dL Ages > or = 20 years When triglycerides are >200 mg/dL, Non-HDL cholesterol is a secondary target of therapy with treatment goals that are 30 mg/dL greater than the LDL cholesterol target. Literature References: 1. Expert Panel on Integrated Guidelines for Cardiovascular Health and Risk Reduction in Children and Adolescents. Pediatrics 2011;128:S213 2. NCEP Expert Panel. Circulation 2004;110:227 Current Interpretive Data was last revised on 2018. Chol/HDL ratio 3 [facility] Blood 05/06/2022 8:52 AM CDT 05/06/2022 9:05 AM CDT us John Tay MD LAB BLOOD ORDERABLES Final Result [facility] [address] [facility] Department [place] [address] * Hemoglobin A1c (06/27/2019 5:57 AM CDT) Hemoglobin A1c % 5.1 4.0 - 5.6 % [facility] Comment: ADA 2016 GUIDELINES: Initial Diagnostic Criteria HbA1c Result: Interpretation: <5.7% Normal 5.7-6.4% At risk for diabetes mellitus >=6.5% Consistent with diabetes mellitus Diabetes monitoring Target value (ADA Recommended) <7% 06/27/2019 5:57 AM CDT 06/27/2019 6:36 AM CDT Narrative Resulting Agency Comment DANIEL Juan Head MD LAB BLOOD ORDERABLES Final Result [place] [id number] [place], [place] [address] [phone] * Hepatitis C antibody (01/18/2019 1:06 PM QUANTITATIVE ANALYST DEVELOPER) Pathologist [facility] Hep C Ab Nonreactive Nonreactive [facility] Comment: Interpretive Data Positive results should be confirmed by a molecular method. If positive, a second separately collected sample should be submitted for Hepatitis C Virus (HCV) RNA Detection and Quantitation by Real-Time Reverse Elevator Erector Helper-PCR (RT-PCR). Current interpretive data was last revised on 2016. Blood specimen (specimen) 01/18/2019 1:06 PM QUANTITATIVE ANALYST DEVELOPER 01/18/2019 1:42 PM QUANTITATIVE ANALYST DEVELOPER Ubaldo [facility] - 01/18/2019 2:52 PM QUANTITATIVE ANALYST DEVELOPER us Notinfile Unknown LAB MICROBIOLOGY - GENERAL ORD ERABLES Final Result Performing Organization Address City/[facility] Co de Phone Number [facility] One [facility] Department [place] [address] * Occult blood, fecal non neoplasm screening (11/01/2018 9:53 PM QUANTITATIVE ANALYST DEVELOPER) Pathologist [facility] Stool Occult Blood POSITIVE NEGATIVE 11/01/2018 11:04 PM QUANTITATIVE ANALYST DEVELOPER [facility] HISTORICAL RESULTS 11/01/2018 9:53 PM QUANTITATIVE ANALYST DEVELOPER 11/01/2018 10:55 PM QUANTITATIVE ANALYST DEVELOPER Narrative [facility] HISTORICAL RESULTS - 11/01/2018 11:04 PM QUANTITATIVE ANALYST DEVELOPER Collected By Charbel Dejesus Jr., MD LAB BODY FLUIDS AND STOOLS ORDERABLES Final Result [facility] HISTORICAL RESULTS * Screening Mammogram 2D Bilateral (02/08/2014 8:36 AM CDT) Anatomical Region Laterality Modality Breast Bilateral Mammography 02/08/2014 8:36 AM CDT Impressions 02/10/2014 8:17 AM CDT No mammographic evidence of malignancy. ASSESSMENT: BI-RADS: 1 NEGATIVE. The patient will be entered into a reminder system for an annual screening mammogram in 1 year. THIS IS AN ELECTRONICALLY VERIFIED REPORT 02/10/2014 8:14 AM: Barydon Delvalle M.D. Braydon Delvalle M.D. [place] 08:14 AM 08:14 AM [facility] [EOD] Narrative 02/10/2014 8:17 AM CDT EXAMINATION: BILATERAL DIGITAL SCREENING MAMMOGRAM HISTORY: Routine screening. FINDINGS: There are no prior studies available for comparison. The breast tissue is heterogeneously dense, which may limit the sensitivity of mammography. There is no dominant mass, suspicious calcification, or architectural distortion. CAD was utilized to evaluate this mammogram. Procedure Note Provider, MD Sean - 04/13/2021 EXAMINATION: BILATERAL DIGITAL SCREENING MAMMOGRAM HISTORY: Routine screening. FINDINGS: There are no prior studies available for comparison. The breast tissue is heterogeneously dense, which may limit thesensitivity of mammography. There is no dominant mass, suspicious calcification, or architectural distortion. CAD was utilized to evaluate this mammogram. IMPRESSION: No mammographic evidence of malignancy. ASSESSMENT: BI-RADS: 1 NEGATIVE. The patient will be entered into [employer] system for an annual screening mammogram in 1 year. THIS IS AN ELECTRONICALLY VERIFIED REPORT 02/10/2014 8:14 AM: Braydon Delvalle M.D. Braydon Delvalle M.D. [place] 08:14 AM 08:14 AM [facility] [EOD] Beto Colmenares MD IMG MAMMO PROCEDURES Fi nal Result from Last 3 Months or Most Recently Relevant to Health Maintenance Insurance MEDICARE IDPA IDPA [facility] MEDICARE ADVANTAGE [facility] MEDICARE ADVANTAGE MEDICARE Advance Directives For more information, please contact: [phone] * Full Code (Latest Code Status on File) Date Activated Date Inactivated Comments 05/01/2023 9:25 AM 05/02/2023 8:40 PM * Full Code Date Activated Date Inactivated Comments 05/05/2022 9:27 AM 05/06/2022 8:20 PM * Full Code Date Activated Date Inactivated Comments 10/10/2021 4:55 PM 10/12/2021 7:45 PM * Full Code Date Activated Date Inactivated Comments 10/10/2021 1:35 PM 10/10/2021 4:55 PM * Full Code Date Activated Date Inactivated Comments 01/17/2019 4:35 AM 01/23/2019 5:03 PM Care Teams Kitchen Porter Relationship Specialty Start Date End Date Roosevelt Mane DO [address] [place] [address] DR WILDER [address] [place] [id number] PCP - General Family Medicine 04/09/24
--- OUTSIDE RECORDS SUMMARY | 2025-04-08 13:06 | XMS_ITS | Encounter Summary ---
Author Organization [facility] Facility Care Team Providers Care Sprinkler Helper Name Role Phone No, Physician Primary Care Provider [phone] Juan Head MD Primary Care Provider [phone] Juan Head MD Primary Care Provider [phone] Roosevelt Mane DO Primary Care Provider [phone] Encounter Details Date Type Department Care Team (Latest Contact Info) Description 10/31/2018 Orders Only [facility] CLINCONV Provider, MD Sean [address] [place] [address] Social History Tobacco Use Types Packs/Day [...] Procedure Name Priority Date/Time Associated Diagnosis Comments PROCEDURE - RESULT 11/22/2018 12 :00 AM ANDROID FRAMEWORK DEVELOPER documented in this encounter Results * PROCEDURE - RESULT (11/22/2018 12:00 AM ANDROID FRAMEWORK DEVELOPER) Narrative 11/22/2018 12:00 AM ANDROID FRAMEWORK DEVELOPER Ordered by an unspecified provider. us Historical Provider Final Res ult documented in this encounter Visit Diagnoses Not on filedocumented in this encounter Additional Health Concerns Infection Onset Date Last Indicated Resolved Time COVID: Suspected 10/10/2021 10/10/2021 10/10/2021 10:52 AM ANDROID FRAMEWORK DEVELOPER COVID: Suspected 05/04/2022 05/04/2022 05/04/2022 6:41 PM CDT documented as of this encounter Care Teams Sprinkler Helper Relationship Specialty Start Date End Date No, Physician PCP - General 04/27/18 01/01/19 Juan Head MD [address] [place] [address] PCP - General 01/16/19 04/08/24 Juan Head MD [address] [place] [address] PCP - General 01/02/19 01/15/19 Roosevelt Mane DO [address] [place] [address] DR WILDER [address] [place] [address] PCP - General Family Medicine 04/09/24 documented as of this encounter
--- OUTSIDE RECORDS SUMMARY | 2025-04-08 13:06 | XMS_ITS | Clinical Summary ---
Author Organization [facility] [address] [facility] Address [address] [place] [address] Care Team Providers Care Reimbursement Specialist Name Role Phone Roosevelt Mane Primary Care Provider [phone] Allergies Active Allergy Reactions Criticality Noted Date [...] total) by mouth daily 30 tablet 5 Active Additional Information Patient taking differently:20 mg [...] 10/11/2021 Assessment & Plan (10/11/2021 7:54 AM QUALITY CONTROL HEAD): Patient presented with chest pains and worsening [...] treatments. Assessment & Plan (10/11/2021 7:54 AM QUALITY CONTROL HEAD): Patient with history of COPD presents with [...] 3.5. Assessment & Plan (10/11/2021 7:51 AM QUALITY CONTROL HEAD): Patient with history of prostatic heart valve. Patient is on Coumadin. INR is 3.5. Continue Coumadin and monitor PT INR closely. Assessment & Plan (01/19/2019 9:24 AM QUALITY CONTROL HEAD): Exam stable. Valve sounds as expected for mechanical valve. Call for any questions Coronary arteriosclerosis 11/16/2016 Pleural effusion 11/16/2016 Congestive heart failure (CMS/HCC) 09/21/2016 Assessment & Plan (10/11/2021 7:50 AM QUALITY CONTROL HEAD): Patient with history of congestive heart failure diastolic dysfunction presented with worsening shortness of breath and elevated BNP. Treat with IV Lasix diuresis and beta-blockers. Cardiology has been consulted. Kidney stone 09/21/2016 Cerebrovascular accident ([facility]) 08/12/2016 Overview (02/13/2019): 2001 Assessment & Plan (05/05/2022 5:16 PM CDT): Continue aspirin and statins Dyspnea 06/14/2016 Palpitations 06/14/2016 Atrial fibrillation ([facility]) 03/13/2016 Assessment & Plan (05/01/2023 10:34 PM CDT): Patient with history of AFib with RVR. Rate is currently controlled. Continue metoprolol for rate control. Continue amiodarone. Continue Coumadin. Assessment & Plan (05/05/2022 5:16 PM CDT): Patient with atrial fibrillation. Rate is currently controlled. Continue amiodarone Cardizem and metoprolol. Patient is on Coumadin. Assessment & Plan (10/11/2021 9:48 AM QUALITY CONTROL HEAD): Patient with history of AFib, kaylah in RVR She is on Cardizem and oral anticoagulation with Coumadin. Control rate. Discussed with behavior therapist Cigarette nicotine dependence without complicati on 03/13/2016 Dyslipidemia 03/13/2016 Assessment & Plan (10/11/2021 7:53 AM QUALITY CONTROL HEAD): Continue statins. Essential hypertension 03/13/2016 Assessment & Plan (05/01/2023 10:37 PM CDT): Monitor and control blood pressure. Assessment & Plan (10/11/2021 7:52 AM QUALITY CONTROL HEAD): Monitor and control blood pressure. Mitral valve disorder 03/13/2016 Resolved Problems Problem Noted Date Diagnosed Date Resolved Date Obstructive sleep apnea syndrome 02/08/2018 12/03/2021 Assessment & Plan (10/11/2021 7:52 AM QUALITY CONTROL HEAD): Continue CPAP at night. Immunizations Immunization Administration Dates Next Due Influenza, Quadrivalent, Spl it, Preservative Free, Intramuscular 12/03/2021 Surgical History Surgery Date Site/Laterality Comments CARDIAC STENT PLACEMENT Angioplasty/Ablation MITRAL VALVE REPLACEMENT 11/27/2009 - 11/26/2010 [facility] in 09/01/2010; HYSTERECTOMY CARDIAC CATHETERIZATION Oct 2014 US GUIDED THORACENTESIS 11/07/2016 N/A US GUIDED THORACENTESIS 05/14/2018 N/A US GUIDED THORACENTESIS 07/04/2018 N/A Medical History Medical History Date Comments CVA (cerebral vascular accident) ([facility]) 2001 COPD (chronic obstructive pulmonary disease) ([facility]) A-fib ([facility]) CHF (congestive heart failure) ([facility]) CAD (coronary artery disease) GERD (gastroesophageal reflux disease) GI bleed 11/02/2018 Kidney stones Family History Medical History Relation Name Comments Stroke Mother Anesthesia problems Neg Hx Relation Name Status Comments Mother Social History Tobacco Use Types Packs/Day Years [...] or neighbors? Three times a week 05/01/20 23 How often do you get togethe r with friends or relatives? Three times a week 05/01/2023 How often do you attend [facility] or sabianism services? 1 to 4 times per year 05/01/2023 Do you belong to any clubs o r organizations such as restorationism groups, unions, fraternal or athletic groups, or [...] place to sleep or slept in a jail (including now)? No 05/01/2023 Personal Safety Answer Date Recorded Getting School Help Needed Not on file 05/18 Comments No Sex and Gender Information Value Date Recorded Sex Assigned at Not on file Legal Sex Female 10:53 AM CDT Gender Identity Not on file Sexual Orientation Not on file Obstetrics History Last Filed Vital Signs Vital Sign Reading [...] 04/09/2024 2:53 PM CDT Plan of Treatment Health Maintenance Due Date Last Done Comments Albumin Creatinine Ratio, Urine 1955 Colon Cancer Screening-Colonoscopy 1955 Depression Screening 1955 Osteoporosis Screening-Bone Density Scan 1955 Dilated Eye Exam 1955 Foot Exam 1955 DTaP/Tdap/Td Vaccine (1 - Tdap) 1965 Hepatitis B Screening 02/07/1972 Pneumococcal vaccine 65+ (1 of 2 - PCV) 1973 Zoster Vaccine (1 of 2) 02/07/2004 Breast Cancer Screening-Mammogram 02/08/2015 014 Well Visit 65+ 2019 Hemoglobin A1C 12/28/2019 06/27/2019, 01/16/2019 Lipid Panel 05/06/2023 05/06/2022, 05/28, 01/18/2019, Additional history exists Fall Risk Assessment 05/02/2024 05/02/2023 eGFR 05/02/2024 05/02/2023, 06/03/2023, 05/06/2022, Additional history exists Covid-19 Vaccine (2023-2 5 season) 2024 07/16/2021, 06/25/2021 Lung Cancer Screening 06/07/2025 06/06/2024, 018 Influenza Vaccine (Season Ended) 2025 12/03/19 Colon Cancer Screening-FIT Discontinued 11/01/2018 Hepatitis C Screening Completed 01/18/2019 Medical Devices Implanted Type Area Custom Home Installer Device Identifier Shelf Expiration Date Model / Serial / Lot [place] Craniomaxillofacial [id number] [place] Neuro Iii 16mmx.4mm 2 Hole Low Profile Bar - [id number] Implanted:Qty: 1 on 01/18/2019 by Jovan Good MD PhD at [facility] Left: Cranial [place] Craniomaxillofacial [id number] / / [place] Craniomaxillofacial [id number] [place] [employer] Iii .4mm 2x2 Hole Low Profile Craniomaxillofacial - [id number] Implanted:Qty: 1 on 01/18/2019 by Jovan Good MD PhD at [facility] Left: Cranial [place] Craniomaxillofacial [id number] 0 / / [place] Craniomaxillofacial [id number] [place] [employer] Iii 20mmx.4mm Low Profile Shunt Tab - [id number] Implanted:Qty: 1 on 01/18/2019 by Jovan Good MD PhD at [facility] Left: Cranial [place] Craniomaxillofacial [id number] 0 / / [place] Craniomaxillofacial [id number] [place] Neuro 3 1.5mm 4mm Self Drill Axial Stability Screw Bone Latex Free - [id number] Implanted:Qty: 12 on 01/18/2019 by Jovan Good MD PhD at [facility] Left: Cranial [place] Craniomaxillofacial [id number] / / Procedures Procedure Name Priority Date/Time Associated Diagnosis Comments CT LUNG CANCER SCREENING Schedule Routine, Read Routine (OP Routine) 06/06/2024 9:00 AM CDT Personal history of nicotine dependence EGFR Routine 05/02/2023 3:08 AM CDT LIPID PANEL Routine 05/06/2022 8:52 AM CDT HEMOGLOBIN A1C Routine 06/27/2019 5:57 AM CDT HEPATITIS C ANTIBODY STAT 01/18/2019 1:06 PM QUALITY CONTROL HEAD OCCULT BLOOD, FECAL (FIT) Routine 11/01/2018 9:53 PM QUALITY CONTROL HEAD SCREENING MAMMOGRAM 2D BILATERAL Routine 02/08/2014 8:36 [...] Godfrey Pineda M.D. LB: LB Report ID: [id number] Reading Location: [place] [address] Griselda Miguel MD IMG CT PROCEDURES Final [...] LAB BLOOD ORDERABLES F inal Result SYLVIE [address] [facility] Department [place] [address] * Lipid panel (05/06/2022 8:52 AM CDT) [...] MD LAB BLOOD ORDERABLES Final Result SYLVIE [address] [facility] Department [place] [address] * Hemoglobin A1c (06/27/2019 5:57 AM CDT) Hemoglobin A1c % 5.1 4.0 - 5.6 % [facility] Comment: ADA 2016 GUIDELINES: Initial Diagnostic Criteria HbA1c Result: Interpretation: <5.7% Normal 5.7-6.4% At risk for diabetes mellitus >=6.5% Consistent with diabetes mellitus Diabetes monitoring Target value (ADA Recommended) <7% 06/27/2019 5:57 AM CDT 06/27/2019 6:36 AM CDT Narrative Resulting Agency Comment DANIEL Juan Head MD LAB BLOOD ORDERABLES Final Result Performing Organization Address City/[facility]/ZIP Co de Phone Number [facility] [address] [place], [place] [id number] [place] [address] * Hepatitis C antibody (01/18/2019 1:06 PM QUALITY CONTROL HEAD) Pathologist [facility] Hep C Ab Nonreactive Nonreactive [facility] Comment: Interpretive Data Positive results should be confirmed by a molecular method. If positive, a second separately collected sample should be submitted for Hepatitis C Virus (HCV) RNA Detection and Quantitation by Real-Time Reverse Lockstitch Waistline Joiner-PCR (RT-PCR). Current interpretive data was last revised on 2016. Blood specimen (specimen) 01/18/2019 1:06 PM QUALITY CONTROL HEAD 01/18/2019 1:42 PM QUALITY CONTROL HEAD Ubaldo [facility] - 01/18/2019 2:52 PM QUALITY CONTROL HEAD us Notinfile Unknown LAB MICROBIOLOGY - GENERAL ORD ERABLES Final Result Performing Organization Address City/[facility] Co de Phone Number [facility] Department [place] [address] * Occult blood, fecal non neoplasm screening (11/01/2018 9:53 PM QUALITY CONTROL HEAD) Pathologist [facility] [place] Stool Occult Blood POSITIVE NEGATIVE 11/01/2018 11:04 PM QUALITY CONTROL HEAD [facility] HISTORICAL RESULTS 11/01/2018 9:53 PM QUALITY CONTROL HEAD 11/01/2018 10:55 PM QUALITY CONTROL HEAD Narrative [facility] HISTORICAL RESULTS - 11/01/2018 11:04 PM QUALITY CONTROL HEAD Collected By Charbel Dejesus Jr., MD LAB BODY FLUIDS AND STOOLS ORDERABLES Final Result [facility] HISTORICAL RESULTS * Screening Mammogram 2D Bilateral [...] AM: Braydon Delvalle M.D. Braydon Delvalle M.D. NH:vt 08:14 AM 08:14 AM [facility] [EOD] Narrative 02/10/2014 8:17 AM CDT EXAMINATION: [...] NEGATIVE. The patient will be entered into [facility] system for an annual screening mammogram in 1 year. THIS IS AN ELECTRONICALLY VERIFIED REPORT 02/10/2014 8:14 AM: Braydon Delvalle M.D. Braydon Delvalle M.D. NH:vt 08:14 AM 08:14 AM [facility] [EOD] Beto Colmenares MD IMG MAMMO PROCEDURES Fi nal Result from Last 3 Months or Most Recently Relevant to Health Maintenance Insurance MEDICARE IDPA IDPA [facility] MEDICARE ADVANTAGE [facility] MEDICARE ADVANTAGE MEDICARE Advance Directives For more information, please contact: [phone] * Full Code (Latest Code Status on [...] 4:35 AM 01/23/2019 5:03 PM Care Teams Reimbursement Specialist Relationship Specialty Start Date End Date Roosevelt Mane DO [address] [place] [address] [address] PCP - General Family Medicine 04/09/24
== END 2025-04-08 12:57 | disposition home or self-care (01) ==
PROVIDERS: Visit Provider Internal Medicine Endocrinology, Diabetes & Metabolism
DX: M85.89 Other specified disorders of bone density and structure, multiple sites (principal); Z78.0 Asymptomatic menopausal state
CPT/HCPCS: 77080

== ENCOUNTER 2025-06-16 14:15 | Outpatient (RCR) | payer MEDICARE, MEDICAID, SELFPAY ==
[2025-04-28 16:45] LABS: INR 3.2; Prothrombin Time 31.9 Seconds (11.1-14.7)
[2025-05-26 13:59] LABS: INR 2.1; Prothrombin Time 22.9 Seconds (11.1-14.7)
[2025-06-16 15:38] LABS: INR 2.9; Prothrombin Time 29.2 Seconds (11.1-14.7)
== END 2025-07-27 23:59 | disposition home or self-care (01) ==
LOC: ANHLAB 14:15
PROVIDERS: Visit Provider Specialist
DX: Z95.4 Presence of other heart-valve replacement (principal)
CPT/HCPCS: 36415; 85610

== ENCOUNTER 2025-06-29 23:06 | Emergency (ER) | payer MEDICARE, MEDICAID, SELFPAY ==
--- OUTSIDE RECORDS SUMMARY | 2025-06-29 23:08 | XMS_ITS | Encounter Summary ---
Author Organization [facility] Facility Care Team Providers Care Genetics Physician Name Role Phone No, Physician Primary Care Provider [phone] Juan Head MD Primary Care Provider [phone] Juan Head MD Primary Care Provider [phone] Roosevelt Mane DO Primary Care Provider Encounter Details Date Type Department Care Team (Latest Contact Info) Description 07/04/2018 Orders Only [facility] CLINCONV ProviderSean MD [address] [place] [address] Social History Tobacco Use Types Packs/Day [...] COVID: Suspected 10/10/2021 10/10/2021 10/10/2021 10:52 AM OPTICIAN COVID: Suspected 05/04/2022 05/04/2022 05/04/2022 6:41 PM CDT documented as of this encounter Care Teams Genetics Physician Relationship Specialty Start Date End Date No, Physician PCP - General 04/27/18 01/01/19 Juan Head MD [address] [place] [address] PCP - General 01/16/19 04/08/24 Juan Head MD [address] [place] [address] PCP - General 01/02/19 01/15/19 Roosevelt Mane DO [address] [place] [address] [place] [address] PCP - General Family Medicine 04/09/24 documented as of this encounter
--- OUTSIDE RECORDS SUMMARY | 2025-06-29 23:08 | XMS_ITS | Clinical Summary ---
Author Organization [facility] [address] [facility] Address [address] [place] [address] Care Team Providers Care Supervisor Sample Name Role Phone Roosevelt Mane Primary Care Provider [phone] Allergies Active Allergy Reactions Criticality Noted Date [...] 10/11/2021 Assessment & Plan (10/11/2021 7:54 AM WEBSITE PROJECT MANAGER): Patient presented with chest pains and worsening [...] treatments. Assessment & Plan (10/11/2021 7:54 AM WEBSITE PROJECT MANAGER): Patient with history of COPD presents with [...] 3.5. Assessment & Plan (10/11/2021 7:51 AM WEBSITE PROJECT MANAGER): Patient with history of prostatic heart valve. Patient is on Coumadin. INR is 3.5. Continue Coumadin and monitor PT INR closely. Assessment & Plan (01/19/2019 9:24 AM WEBSITE PROJECT MANAGER): Exam stable. Valve sounds as expected for mechanical valve. Call for any questions Coronary arteriosclerosis 11/16/2016 Pleural effusion 11/16/2016 Congestive heart failure (CMS/HCC) 09/21/2016 Assessment & Plan (10/11/2021 7:50 AM WEBSITE PROJECT MANAGER): Patient with history of congestive heart failure diastolic dysfunction presented with worsening shortness of breath and elevated BNP. Treat with IV Lasix diuresis and beta-blockers. Cardiology has been consulted. Kidney stone 09/21/2016 Cerebrovascular accident ([facility]) 08/12/2016 Overview (02/13/2019): 2001 Assessment & Plan (05/05/2022 5:16 PM CDT): Continue aspirin and statins Dyspnea 06/14/2016 Palpitations 06/14/2016 Atrial fibrillation ([facility]) 03/13/2016 Assessment & Plan (05/01/2023 10:34 PM CDT): Patient with history of AFib with RVR. Rate is currently controlled. Continue metoprolol for rate control. Continue amiodarone. Continue Coumadin. Assessment & Plan (05/05/2022 5:16 PM CDT): Patient with atrial fibrillation. Rate is currently controlled. Continue amiodarone Cardizem and metoprolol. Patient is on Coumadin. Assessment & Plan (10/11/2021 9:48 AM WEBSITE PROJECT MANAGER): Patient with history of AFib, kaylah in RVR She is on Cardizem and oral anticoagulation with Coumadin. Control rate. 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 Essential hypertension 03/13/2016 Assessment & Plan (05/01/2023 10:37 PM CDT): Monitor and control blood pressure. Assessment & Plan (10/11/2021 7:52 AM WEBSITE PROJECT MANAGER): Monitor and control blood pressure. Mitral valve disorder 03/13/2016 Resolved Problems Problem Noted Date Diagnosed Date Resolved Date Obstructive sleep apnea syndrome 02/08/2018 12/03/2021 Assessment & Plan (10/11/2021 7:52 AM WEBSITE PROJECT MANAGER): Continue CPAP at night. Encounters Date Type Department Care Team Description 05/15/2025 Orders Only [facility] [address] [place] [address] Karissa Kelly RN Nicotine dependence, cigarettes, uncomplicated from Last 3 Months Immunizations Immunization Administration Dates Next Due Influenza, [...] History Date Comments CVA (cerebral vascular accident) ([facility]) 2001 COPD (chronic obstructive pulmonary disease) A-fib ([facility]) CHF (congestive heart failure) ([facility]) CAD (coronary artery disease) GERD (gastroesophageal reflux disease) GI bleed 11/02/2018 Kidney stones Family History Medical History Relation Name Comments Stroke Mother Anesthesia problems Neg Hx Relation Name Status Comments Mother Social History Tobacco Use Types Packs/Day Years Used Date Smoking Tobacco: Every Day Cigarettes 0.5 46.2 Started: 04/10/1979 Smokeless Tobacco: Never Tobacco Cessation:Ready [...] often do you attend chur ch or sabianism services? 1 to 4 times per year 05/01/2023 Do you belong to any clubs o r organizations such as holiness groups, unions, fraternal or athletic groups, or [...] place to sleep or slept in a detention (including now)? No 05/01/2023 Personal Safety Answer [...] P M CDT Height 149.9 cm (4' 11) 04/09/2024 2:53 PM CDT Body Mass Index [...] Risk Assessment 05/02/2024 05/02/2023 eGFR 05/02/2024 05/02/2023, 06/0 03/2023, 05/06/2022, Additional history exists Covid-19 Vaccine (3 - 2023-2 5 season) 2024 07/16/2021, 06/25/2021 Lung Cancer Screening 06/07/2025 06/06/2024, 018 Influenza Vaccine (#1) 2025 12/03/2021 Colon Cancer Screening-FIT Discontinued 11/01/2018 Hepatitis C Screening Completed 01/18/2019 Medical Devices Implanted Type Area Management Psychologist Device Identifier Shelf Expiration Date Model / Serial / Lot Openbay Craniomaxillofacial [id number] Lee Neuro Iii 16mmx.4mm 2 Hole Low Profile Bar - [id number] Implanted:Qty: 1 on 01/18/2019 by Jovan Good MD PhD at [facility] Left: Cranial [place] Craniomaxillofacial [id number] 6 / / [place] Craniomaxillofacial [id number] Lee Neuro Iii .4mm 2x2 Hole Low Profile Craniomaxillofacial - [id number] Implanted:Qty: 1 on 01/18/2019 by Jovan Good MD PhD at [facility] Left: Cranial [place] Craniomaxillofacial [id number] 0 / / [place] Craniomaxillofacial [id number] Lee Neuro Iii 20mmx.4mm Low Profile Shunt Tab - [id number] Implanted:Qty: 1 on 01/18/2019 by Jovan Good MD PhD at [facility] Left: Cranial [place] Craniomaxillofacial [id number] 0 / / [place]assy Craniomaxillofacial [id number] Lee Neuro 3 1.5mm 4mm Self Drill Axial Stability Screw Bone Latex Free - [id number] Implanted:Qty: 12 on 01/18/2019 by Jovan Good MD PhD at [facility] Left: Cranial [place]assy Craniomaxillofacial [id number] / / Procedures Procedure Name Priority Date/Time Associated Diagnosis Comments CT LUNG CANCER SCREENING Schedule Routine, Read Routine (OP Routine) 06/06/2024 9:00 AM CDT Personal history of nicotine dependence EGFR Routine 05/02/2023 3:08 AM CDT LIPID PANEL Routine 05/06/2022 8:52 AM CDT HEMOGLOBIN A1C Routine 06/27/2019 5:57 AM CDT HEPATITIS C ANTIBODY STAT 01/18/2019 1:06 PM WEBSITE PROJECT MANAGER OCCULT BLOOD, FECAL (FIT) Routine 11/01/2018 9:53 PM WEBSITE PROJECT MANAGER SCREENING MAMMOGRAM 2D BILATERAL Routine 02/08/2014 8:36 [...] 1.6 x 1.2 cm is unchanged from 2022 and likely reactive. MUSCULOSKELETAL: Minimal thoracic spondylosis. [...] Godfrey Pineda M.D. LB: LB Report ID: [id number] Reading Location: [place] [address] Griselda Miguel MD IMG CT PROCEDURES Final [...] LAB BLOOD ORDERABLES F inal Result SYLVIE [address] [facility] Department [place] [address] * Lipid panel (05/06/2022 8:52 AM CDT) Cholesterol 116 30 - 199 mg/dL [facility] Comment: Interpretive Data Ages [...] on 2018. Triglycerides 72 <=149 mg/dL [facility] Comment: Interpretive Data Ages [...] on 2018. HDL 43 >=40 mg/dL [facility] Comment: Interpretive Data Ages [...] on 2018. LDL, calculated 59 <=129 mg/dL [facility] Comment: Interpretive Data Ages < or [...] CDT 05/06/2022 9:05 AM CDT us John Tya MD LAB BLOOD ORDERABLES Final Result [facility]IE [facility] [address] [facility] Department [place] [address] * Hemoglobin A1c (06/27/2019 5:57 AM CDT) Pathologist [facility] Hemoglobin A1c % 5.1 4.0 - 5.6 % [facility] Comment: ADA 2016 GUIDELINES: Initial Diagnostic Criteria HbA1c Result: Interpretation: <5.7% Normal 5.7-6.4% At risk for diabetes mellitus >=6.5% Consistent with diabetes mellitus Diabetes monitoring Target value (ADA Recommended) <7% 06/27/2019 5:57 AM CDT 06/27/2019 6:36 AM CDT Narrative Resulting Agency Comment DANIEL Juan Head MD LAB BLOOD ORDERABLES Final Result [facility] [address] [phone] * Hepatitis C antibody (01/18/2019 1:06 PM WEBSITE PROJECT MANAGER) [facility] Hep C Ab Nonreactive Nonreactive [facility] Comment: Interpretive Data Positive results should be confirmed by a molecular method. If positive, a second separately collected sample should be submitted for Hepatitis C Virus (HCV) RNA Detection and Quantitation by Real-Time Reverse Draft Roller Picker-PCR (RT-PCR). Current interpretive data was last revised on 2016. Blood specimen (specimen) 01/18/2019 1:06 PM WEBSITE PROJECT MANAGER 01/18/2019 1:42 PM WEBSITE PROJECT MANAGER Narrative [facility] - 01/18/2019 2:52 PM WEBSITE PROJECT MANAGER us Notinfile Unknown LAB MICROBIOLOGY - GENERAL ORD ERABLES Final Result [facility] Department [place] [address] * Occult blood, fecal non neoplasm screening (11/01/2018 9:53 PM WEBSITE PROJECT MANAGER) [facility] Stool Occult Blood POSITIVE NEGATIVE 11/01/2018 11:04 PM WEBSITE PROJECT MANAGER [facility] HISTORICAL RESULTS 11/01/2018 9:53 PM WEBSITE PROJECT MANAGER 11/01/2018 10:55 PM WEBSITE PROJECT MANAGER Narrative [facility] Delia [facility] - 11/01/2018 11:04 PM WEBSITE PROJECT MANAGER Collected By MD Charbel Dejesus Jr., MD LAB BODY FLUIDS AND STOOLS ORDERABLES Final Result [facility] HISTORICAL RESULTS * Screening Mammogram 2D Bilateral [...] Delvalle M.D. [place] 08:14 AM 08:14 AM [facility] [EOD] Narrative 02/10/2014 8:17 AM CDT EXAMINATION: BILATERAL DIGITAL SCREENING MAMMOGRAM HISTORY: Routine screening. FINDINGS: There are no prior studies available for comparison. The breast tissue is heterogeneously dense, which may limit the sensitivity of mammography. There is no dominant mass, suspicious calcification, or architectural distortion. CAD was utilized to evaluate this mammogram. Procedure Note Provider, Sean, - 04/13/2021 EXAMINATION: BILATERAL DIGITAL SCREENING MAMMOGRAM [...] NEGATIVE. The patient will be entered into [employer] system for an annual screening mammogram in 1 year. THIS IS AN ELECTRONICALLY VERIFIED REPORT 02/10/2014 8:14 AM: Braydon Delvalle M.D. Braydon Delvalle M.D. [place] 08:14 AM 08:14 AM [facility] [EOD] Beto Colmenares MD IMG MAMMO PROCEDURES Fi nal Result from Last 3 Months or Most Recently Relevant to Health Maintenance Insurance MEDICARE IDPA IDPA [facility] MEDICARE ADVANTAGE [facility] UHC MEDICARE ADVANTAGE MEDICARE Advance Directives For more information, please contact: [phone] * Full Code (Latest Code Status on [...] 4:35 AM 01/23/2019 5:03 PM Care Teams Supervisor Sample Relationship Specialty Start Date End Date Roosevelt Mane DO [address] [place] [address] DR WILDRE [address] [place] [id number] PCP - General Family Medicine 04/09/24
--- OUTSIDE RECORDS SUMMARY | 2025-06-29 23:08 | XMS_ITS | Clinical Summary ---
Author Organization [facility] Address [address] [place] [address] Care Team Providers Care Content Checker Name Role Phone Juan Head MD Primary Care Provider [phone] Source Comments [facility],non-owned Affiliates and Associated Physician Practices is amultiple site organization consisting of ambulatory clinics and hospital sitesin [place], [place], [place] and [place]. This disclosure is being madepursuant to the Care Everywhere program and may not contain all information available regarding this patient. Last updated 18.[facility] Allergies Active Allergy Reactions Criticality Noted Date [...] once daily Active vitamin D, ergocalciferol, (DRISDOL) 70567 UNITS capsule Take 1 capsule by mouth every 7 days Active metoprolol tartrate (LOPRESSOR) 25 MG tablet Take 25 mg by mouth 2 times daily Active budesonide-form oterol (SYMBICORT) 160-4.5 MCG/ACT inhaler Inhale 2 puffs by mouth 2 times daily Active Social History Tobacco Use Types Packs/Day Years Used Date Smoking Tobacco: Every Day Cigarettes 0.3 55.5 Started: [birth year]/15/1969 Smokeless Tobacco: Never Tobacco Cessation:Ready to Q uit: Yes Comments:reports reducing Alcohol Use Standard Drinks/Week Comments No 0 (1 standard drink = 0.6 oz pur e alcohol) Comments No Sex and Gender Information Value Date Recorded Sex Assigned at Not on file Legal Sex Female 6:24 AM CLOCK AND WATCH HANDS DIPPER Gender Identity Not on file Sexual Orientation [...] 11:15 AM CDT Height 149.9 cm (4' 11) 09/14/2018 11:15 AM CDT Body Mass Index [...] 02/07/2004 SCREENING FOR DIABETES 09/14/2018 COVID-19 VACCINE (1 - 2023-2 5 season) 2024 DEPRESSION SCREENING 11/27/2024 INFLUENZA VACCINE (#1) 2025 Respiratory Syncytial Virus (RSV) Vaccine Pt: [...] OUT OF STATE UHC MANAGED MEDICARE [facility] Care Teams Content Checker Relationship Specialty Start Date End Date Juan Head MD PCP - General 09/14/18
--- OUTSIDE RECORDS SUMMARY | 2025-06-29 23:08 | XMS_ITS | Encounter Summary ---
Author Organization [facility] Care Team Providers Care Rubber Engraver Name Role Phone No, Physician Primary Care Provider [phone] Juan Haed MD Primary Care Provider [phone] Juan Head MD Primary Care Provider [phone] Roosevelt Mane DO Primary Care Provider [phone] Encounter Details Date Type Department Care Team (Latest Contact Info) Description 10/31/2018 Orders Only [facility] Provider, MD Sean [address] [place] [address] Social History Tobacco Use Types Packs/Day [...] PROCEDURE - RESULT 11/22/2018 12 :00 AM CHERRY PITTER documented in this encounter Results * PROCEDURE - RESULT (11/22/2018 12:00 AM CHERRY PITTER) Narrative 11/22/2018 12:00 AM CHERRY PITTER Ordered by an unspecified provider. us Historical Provider Final Res ult documented in this encounter Visit Diagnoses Not on filedocumented in this encounter Additional Health Concerns Infection Onset Date Last Indicated Resolved Time COVID: Suspected 10/10/2021 10/10/2021 10/10/2021 10:52 AM CHERRY PITTER COVID: Suspected 05/04/2022 05/04/2022 05/04/2022 6:41 PM CDT documented as of this encounter Care Teams Rubber Engraver Relationship Specialty Start Date End Date No, Physician PCP - General 04/27/18 01/01/19 Juan eHad MD [address] [place] [address] PCP - General 01/16/19 04/08/24 Juan Head MD [address] [place] [address] PCP - General 01/02/19 01/15/19 Roosevelt Mane DO [address] [place] [address] DR WILDER [address] [place] [address] PCP - General Family Medicine 04/09/24 documented as of this encounter
--- OUTSIDE RECORDS SUMMARY | 2025-06-29 23:08 | XMS_ITS | Referral Summary ---
Author Organization [facility] [address] [facility] Address [address] [place] [address] Care Team Providers Care Pedicab Driver Name Role Phone Roosevelt Mane Primary Care Provider [phone] Encounters Date Type Department Care Team Description 05/15/2025 Orders Only [facility] [address] [place] [address] Karissa Kelly RN Nicotine dependence, cigarettes, uncomplicated from Last 3 Months Allergies Active Allergy Reactions Criticality Noted Date [...] 10/11/2021 Assessment & Plan (10/11/2021 7:54 AM BROADCAST FIELD SUPERVISOR): Patient presented with chest pains and worsening [...] treatments. Assessment & Plan (10/11/2021 7:54 AM BROADCAST FIELD SUPERVISOR): Patient with history of COPD presents with [...] 3.5. Assessment & Plan (10/11/2021 7:51 AM BROADCAST FIELD SUPERVISOR): Patient with history of prostatic heart valve. Patient is on Coumadin. INR is 3.5. Continue Coumadin and monitor PT INR closely. Assessment & Plan (01/19/2019 9:24 AM BROADCAST FIELD SUPERVISOR): Exam stable. Valve sounds as expected for mechanical valve. Call for any questions Coronary arteriosclerosis 11/16/2016 Pleural effusion 11/16/2016 Congestive heart failure ([facility]) 09/21/2016 Assessment & Plan (10/11/2021 7:50 AM BROADCAST FIELD SUPERVISOR): Patient with history of congestive heart failure diastolic dysfunction presented with worsening shortness of breath and elevated BNP. Treat with IV Lasix diuresis and beta-blockers. Cardiology has been consulted. Kidney stone 09/21/2016 Cerebrovascular accident ([facility]) 08/12/2016 Overview (02/13/2019): 2001 Assessment & Plan (05/05/2022 5:16 PM CDT): Continue aspirin and statins Dyspnea 06/14/2016 Palpitations 06/14/2016 Atrial fibrillation ([facility]) 03/13/2016 Assessment & Plan (05/01/2023 10:34 PM CDT): Patient with history of AFib with RVR. Rate is currently controlled. Continue metoprolol for rate control. Continue amiodarone. Continue Coumadin. Assessment & Plan (05/05/2022 5:16 PM CDT): Patient with atrial fibrillation. Rate is currently controlled. Continue amiodarone Cardizem and metoprolol. Patient is on Coumadin. Assessment & Plan (10/11/2021 9:48 AM BROADCAST FIELD SUPERVISOR): Patient with history of AFib, kaylah in RVR She is on Cardizem and oral anticoagulation with Coumadin. Control rate. 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 Essential hypertension 03/13/2016 Assessment & Plan (05/01/2023 10:37 PM CDT): Monitor and control blood pressure. Assessment & Plan (10/11/2021 7:52 AM BROADCAST FIELD SUPERVISOR): Monitor and control blood pressure. Mitral valve disorder 03/13/2016 Resolved Problems Problem Noted Date Diagnosed Date Resolved Date Obstructive sleep apnea syndrome 02/08/2018 12/03/2021 Assessment & Plan (10/11/2021 7:52 AM BROADCAST FIELD SUPERVISOR): Continue CPAP at night. Immunizations Immunization Administration [...] any clubs o r organizations such as religion groups, unions, fraternal or athletic groups, or [...] place to sleep or slept in a skilled nursing (including now)? No 05/01/2023 Personal Safety Answer [...] on file Medical Devices Implanted Type Area Casino Shift Manager Device Identifier Shelf Expiration Date Model / Serial / Lot Comunitae Craniomaxillofacial [id number] Waldron Neuro Iii 16mmx.4mm 2 Hole Low Profile Bar - [id number] Implanted:Qty: 1 on 01/18/2019 by Jovan Good MD PhD at [facility] Left: Cranial Kassy Craniomaxillofacial [id number] 6 / / [place]assy Craniomaxillofacial [id number] Waldron Neuro Iii .4mm 2x2 Hole Low Profile Craniomaxillofacial - [id number] Implanted:Qty: 1 on 01/18/2019 by Jovan Good MD PhD at [facility] Left: Cranial [place] Craniomaxillofacial [id number] 0 / / [place] Craniomaxillofacial [id number] Waldron Neuro Iii 20mmx.4mm Low Profile Shunt Tab - [id number] Implanted:Qty: 1 on 01/18/2019 by Jovan Good MD PhD at [facility] Left: Cranial [place]asy Craniomaxillofacial [id number] 0 / / [place] Craniomaxillofacial [id number] Waldron Neuro 3 1.5mm 4mm Self Drill Axial Stability Screw Bone Latex Free - [id number] Implanted:Qty: 12 on 01/18/2019 by Jovan Good MD PhD at [facility] Left: Cranial [place] Craniomaxillofacial [id number] 4 / / Procedures Procedure Name Priority Date/Time Associated Diagnosis Comments CT LUNG CANCER SCREENING Schedule Routine, Read Routine (OP Routine) 06/06/2024 9:00 AM CDT Personal history of nicotine dependence EGFR Routine 05/02/2023 3:08 AM CDT LIPID PANEL Routine 05/06/2022 8:52 AM CDT HEMOGLOBIN A1C Routine 06/27/2019 5:57 AM CDT HEPATITIS C ANTIBODY STAT 01/18/2019 1:06 PM BROADCAST FIELD SUPERVISOR OCCULT BLOOD, FECAL (FIT) Routine 11/01/2018 9:53 PM BROADCAST FIELD SUPERVISOR SCREENING MAMMOGRAM 2D BILATERAL Routine 02/08/2014 8:36 [...] 1.6 x 1.2 cm is unchanged from 202 and likely reactive. MUSCULOSKELETAL: Minimal thoracic spondylosis. [...] Godfrey Pineda M.D. LB: LB Report ID: [id number] Reading Location: [place] [address] Griselda Miguel MD IMG CT PROCEDURES Final [...] of Race in Diagnosing Kidney Disease, JASN 2021). The CKD-EPI equation should not be used for patients with unstable renal function and has not been validated in children and those over 70. Current interpretive data was last reviewed 2021. Blood 05/02/2023 3:08 AM CDT 05/02/2023 4:06 AM CDT Clara Payton MD LAB BLOOD ORDERABLES F inal Result SYLVIE [address] [facility] Department [place] [address] * Lipid panel (05/06/2022 8:52 AM CDT) [...] LAB BLOOD ORDERABLES Final Result [facility]IE MOON [address] [facility] Department [place] [address] * Hemoglobin A1c (06/27/2019 5:57 AM CDT) Pathologist [facility] Hemoglobin A1c % 5.1 4.0 - 5.6 % [facility] Comment: ADA 2016 GUIDELINES: Initial Diagnostic Criteria HbA1c Result: Interpretation: <5.7% Normal 5.7-6.4% At risk for diabetes mellitus >=6.5% Consistent with diabetes mellitus Diabetes monitoring Target value (ADA Recommended) <7% 06/27/2019 5:57 AM CDT 06/27/2019 6:36 AM CDT Narrative Resulting Agency Comment DANIEL Juan Head MD LAB BLOOD ORDERABLES Final Result [facility] [address] [phone] * Hepatitis C antibody (01/18/2019 1:06 PM BROADCAST FIELD SUPERVISOR) [facility] Hep C Ab Nonreactive Nonreactive [facility] Comment: Interpretive Data Positive results should be confirmed by a molecular method. If positive, a second separately collected sample should be submitted for Hepatitis C Virus (HCV) RNA Detection and Quantitation by Real-Time Reverse Fertilizer Mixer-PCR (RT-PCR). Current interpretive data was last revised on 2016. Blood specimen (specimen) 01/18/2019 1:06 PM BROADCAST FIELD SUPERVISOR 01/18/2019 1:42 PM BROADCAST FIELD SUPERVISOR Narrative [facility] - 01/18/2019 2:52 PM BROADCAST FIELD SUPERVISOR us Notinfile Unknown LAB MICROBIOLOGY - GENERAL ORD ERABLES Final Result [facility] Department [place] [address] * Occult blood, fecal non neoplasm screening (11/01/2018 9:53 PM BROADCAST FIELD SUPERVISOR) Pathologist [facility] Stool Occult Blood POSITIVE NEGATIVE 11/01/2018 11:04 PM BROADCAST FIELD SUPERVISOR [facility] HISTORICAL RESULTS 11/01/2018 9:53 PM BROADCAST FIELD SUPERVISOR 11/01/2018 10:55 PM BROADCAST FIELD SUPERVISOR Narrative [facility] Del[facility] - 11/01/2018 11:04 PM BROADCAST FIELD SUPERVISOR Collected By MD Charbel Dejesus Jr., MD LAB BODY FLUIDS AND STOOLS ORDERABLES Final Result [facility] HISTORICAL RESULTS * Screening Mammogram 2D Bilateral [...] Delvalle M.D. [place] 08:14 AM 08:14 AM [facility] [EOD] Narrative 02/10/2014 8:17 AM CDT EXAMINATION: [...] NEGATIVE. The patient will be entered into [employer] system for an annual screening mammogram in 1 year. THIS IS AN ELECTRONICALLY VERIFIED REPORT 02/10/2014 8:14 AM: Braydon Delvalle M.D. Braydon Delvalle M.D. NH:[place] 08:14 AM 08:14 AM [facility] [EOD] Beto Colmenares MD IMG MAMMO PROCEDURES Fi nal Result from Last 3 Months or Most Recently Relevant to Health Maintenance Insurance MEDICARE IDPA [facility] MEDICARE ADVANTAGE [facility] MEDICARE ADVANTAGE MEDICARE Advance Directives For more information, please contact: [phone] * Full Code (Latest Code Status on [...] 4:35 AM 01/23/2019 5:03 PM Care Teams Pedicab Driver Relationship Specialty Start Date End Date Roosevelt Mane DO [address] [place] [address] DR WILDER [address] [place] [address] PCP - General Family Medicine 04/09/24
[2025-06-29 23:10] VITALS: BP 147/65; PULSE 60; RESP 19; TEMP 36.7; O2SAT 98
--- NOTE | 2025-06-30 00:07 | PC.NURSE ---
Patient ambulated out of the ED after yan patients name was called. Patient stated as she walked out of the ED waiting room I'm going home, I'm not waiting anymore, I'm fine. Patient left ED with a steady gait before risks of leaving before being evaluated by a provider and benefits of staying. Patient marked as left without being seen, triaged. Patients daughter accompanied patient out of the ED.
--- OUTSIDE RECORDS SUMMARY | 2025-06-30 00:11 | XMS_ITS | Clinical Summary ---
Author Organization [facility] [address] [facility] Address [address] [place] [address] Care Team Providers Care Research Physician Name Role Phone Roosevelt Mane Primary Care Provider [phone] Allergies Active Allergy Reactions Criticality Noted Date [...] 10/11/2021 Assessment & Plan (10/11/2021 7:54 AM MACHINE BRUSHER): Patient presented with chest pains and worsening [...] treatments. Assessment & Plan (10/11/2021 7:54 AM MACHINE BRUSHER): Patient with history of COPD presents with [...] 3.5. Assessment & Plan (10/11/2021 7:51 AM MACHINE BRUSHER): Patient with history of prostatic heart valve. Patient is on Coumadin. INR is 3.5. Continue Coumadin and monitor PT INR closely. Assessment & Plan (01/19/2019 9:24 AM MACHINE BRUSHER): Exam stable. Valve sounds as expected for mechanical valve. Call for any questions Coronary arteriosclerosis 11/16/2016 Pleural effusion 11/16/2016 Congestive heart failure (CMS/HCC) 09/21/2016 Assessment & Plan (10/11/2021 7:50 AM MACHINE BRUSHER): Patient with history of congestive heart failure diastolic dysfunction presented with worsening shortness of breath and elevated BNP. Treat with IV Lasix diuresis and beta-blockers. Cardiology has been consulted. Kidney stone 09/21/2016 Cerebrovascular accident ([facility]) 08/12/2016 Overview (02/13/2019): 2001 Assessment & Plan (05/05/2022 5:16 PM CDT): Continue aspirin and statins Dyspnea 06/14/2016 Palpitations 06/14/2016 Atrial fibrillation ([facility]) 03/13/2016 Assessment & Plan (05/01/2023 10:34 PM CDT): Patient with history of AFib with RVR. Rate is currently controlled. Continue metoprolol for rate control. Continue amiodarone. Continue Coumadin. Assessment & Plan (05/05/2022 5:16 PM CDT): Patient with atrial fibrillation. Rate is currently controlled. Continue amiodarone Cardizem and metoprolol. Patient is on Coumadin. Assessment & Plan (10/11/2021 9:48 AM MACHINE BRUSHER): Patient with history of AFib, kaylah in RVR She is on Cardizem and oral anticoagulation with Coumadin. Control rate. 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 Essential hypertension 03/13/2016 Assessment & Plan (05/01/2023 10:37 PM CDT): Monitor and control blood pressure. Assessment & Plan (10/11/2021 7:52 AM MACHINE BRUSHER): Monitor and control blood pressure. Mitral valve disorder 03/13/2016 Resolved Problems Problem Noted Date Diagnosed Date Resolved Date Obstructive sleep apnea syndrome 02/08/2018 12/03/2021 Assessment & Plan (10/11/2021 7:52 AM MACHINE BRUSHER): Continue CPAP at night. Encounters Date Type Department Care Team Description 05/15/2025 Orders Only [facility] [address] [place] [address] Karissa Kelly RN Nicotine dependence, cigarettes, uncomplicated [...] History Date Comments CVA (cerebral vascular accident) ([facility]) 2001 COPD (chronic obstructive pulmonary disease) A-fib ([facility]) CHF (congestive heart failure) ([facility]) CAD (coronary artery disease) GERD (gastroesophageal reflux [...] often do you attend chur ch or yarsani services? 1 to 4 times per year 05/01/2023 Do you belong to any clubs o r organizations such as orthodox groups, unions, fraternal or athletic groups, or [...] place to sleep or slept in a long term (including now)? No 05/01/2023 Personal Safety Answer [...] Completed 01/18/2019 Medical Devices Implanted Type Area Psych Np Device Identifier Shelf Expiration Date Model / Serial / Lot [employer] Craniomaxillofacial [id number] Reliance Neuro Iii 16mmx.4mm 2 Hole Low Profile Bar - [id number] Implanted:Qty: 1 on 01/18/2019 by Jovan Good MD PhD at [facility] Left: Cranial [place] Craniomaxillofacial [id number] 6 / / [place] Craniomaxillofacial [id number] [employer] Neuro Iii .4mm 2x2 Hole Low Profile Craniomaxillofacial - [id number] Implanted:Qty: 1 on 01/18/2019 by Jovan Good MD PhD at [facility] Left: Cranial [place]assy Craniomaxillofacial [id number] 0 / / [place] Craniomaxillofacial [id number] [employer]iance Neuro Iii 20mmx.4mm Low Profile Shunt Tab - [id number] Implanted:Qty: 1 on 01/18/2019 by Jovan Good MD PhD at [facility] Left: Cranial [place] Craniomaxillofacial [id number] 0 / / [place] Craniomaxillofacial [id number] Reliance Neuro 3 1.5mm 4mm Self Drill Axial Stability Screw Bone Latex Free - [id number] Implanted:Qty: 12 on 01/18/2019 by Jovan Good MD PhD at [facility] Left: Cranial Kassy Craniomaxillofacial [id number] 4 / / Procedures Procedure Name Priority Date/Time Associated Diagnosis Comments CT LUNG CANCER SCREENING Schedule Routine, Read Routine (OP Routine) 06/06/2024 9:00 AM CDT Personal history of nicotine dependence EGFR Routine 05/02/2023 3:08 AM CDT LIPID PANEL Routine 05/06/2022 8:52 AM CDT HEMOGLOBIN A1C Routine 06/27/2019 5:57 AM CDT HEPATITIS C ANTIBODY STAT 01/18/2019 1:06 PM MACHINE BRUSHER OCCULT BLOOD, FECAL (FIT) Routine 11/01/2018 9:53 PM MACHINE BRUSHER SCREENING MAMMOGRAM 2D BILATERAL Routine 02/08/2014 8:36 [...] Godfrey Pineda M.D. LB: LB Report ID: [id number] Reading Location: [place] [address] Griselda Miguel MD IMG CT PROCEDURES Final [...] LAB BLOOD ORDERABLES F inal Result SYLVIE [address] [facility] Department [place] [address] * Lipid panel (05/06/2022 8:52 AM CDT) [...] LAB BLOOD ORDERABLES Final Result SYLVIE MOON [address] [facility] Department [place] [address] * Hemoglobin A1c (06/27/2019 5:57 AM CDT) Pathologist [facility] Hemoglobin A1c % 5.1 4.0 - 5.6 % [facility] Comment: ADA 2016 GUIDELINES: Initial Diagnostic Criteria HbA1c Result: Interpretation: <5.7% Normal 5.7-6.4% At risk for diabetes mellitus >=6.5% Consistent with diabetes mellitus Diabetes monitoring Target value (ADA Recommended) <7% 06/27/2019 5:57 AM CDT 06/27/2019 6:36 AM CDT Narrative Resulting Agency Comment DANIEL Juan Head MD LAB BLOOD ORDERABLES Final Result [facility] [address] [phone] * Hepatitis C antibody (01/18/2019 1:06 PM MACHINE BRUSHER) [facility] Hep C Ab Nonreactive Nonreactive [facility] Comment: Interpretive Data Positive results should be confirmed by a molecular method. If positive, a second separately collected sample should be submitted for Hepatitis C Virus (HCV) RNA Detection and Quantitation by Real-Time Reverse Predictive Maintenance Specialist-PCR (RT-PCR). Current interpretive data was last revised on 2016. Blood specimen (specimen) 01/18/2019 1:06 PM MACHINE BRUSHER 01/18/2019 1:42 PM MACHINE BRUSHER Narrative [facility] - 01/18/2019 2:52 PM MACHINE BRUSHER us Notinfile Unknown LAB MICROBIOLOGY - GENERAL ORD ERABLES Final Result [facility] One [facility] Department [place] [address] * Occult blood, fecal non neoplasm screening (11/01/2018 9:53 PM MACHINE BRUSHER) [facility] Stool Occult Blood POSITIVE NEGATIVE 11/01/2018 11:04 PM MACHINE BRUSHER [facility] HISTORICAL RESULTS 11/01/2018 9:53 PM MACHINE BRUSHER 11/01/2018 10:55 PM MACHINE BRUSHER Narrative [facility] Del[facility] - 11/01/2018 11:04 PM MACHINE BRUSHER Collected By MD Charbel Dejesus Jr., MD LAB BODY FLUIDS AND STOOLS ORDERABLES Final Result [facility] HISTORICAL RESULTS * Screening [...] Delvalle M.D. [place] 08:14 AM 08:14 AM [facility] [EOD] Narrative 02/10/2014 8:17 AM CDT [...] NEGATIVE. The patient will be entered into [facility] system for an annual screening mammogram in 1 year. THIS IS AN ELECTRONICALLY VERIFIED REPORT 02/10/2014 8:14 AM: Braydon Delvalle M.D. Braydon Delvalle M.D. [place] 08:14 AM 08:14 AM [facility] [EOD] Beto Colmenares MD IMG MAMMO PROCEDURES Fi nal Result from Last 3 Months or Most Recently Relevant to Health Maintenance Insurance MEDICARE IDPA IDPA [facility] MEDICARE ADVANTAGE [facility] UHC MEDICARE ADVANTAGE MEDICARE Advance Directives For more information, please contact: [phone] * Full Code (Latest Code Status on [...] 4:35 AM 01/23/2019 5:03 PM Care Teams Research Physician Relationship Specialty Start Date End Date Roosevelt Mane DO [address] [place] [address] DR WILDER [address] [place] [address] PCP - General Family Medicine 04/09/24
--- OUTSIDE RECORDS SUMMARY | 2025-06-30 00:11 | XMS_ITS | Referral Summary ---
Author Organization [facility] [address] Address [address] [place] [address] Care Team Providers Care Pump Machine Operator Name Role Phone Roosevelt Mane Primary Care Provider [phone] Encounters Date Type Department Care Team Description 05/15/2025 Orders Only [facility] [address] [place] [address] Karissa Kelly RN Nicotine dependence, cigarettes, uncomplicated [...] 10/11/2021 Assessment & Plan (10/11/2021 7:54 AM FRONTLOAD DRIVER): Patient presented with chest pains and worsening [...] treatments. Assessment & Plan (10/11/2021 7:54 AM FRONTLOAD DRIVER): Patient with history of COPD presents with [...] 3.5. Assessment & Plan (10/11/2021 7:51 AM FRONTLOAD DRIVER): Patient with history of prostatic heart valve. Patient is on Coumadin. INR is 3.5. Continue Coumadin and monitor PT INR closely. Assessment & Plan (01/19/2019 9:24 AM FRONTLOAD DRIVER): Exam stable. Valve sounds as expected for mechanical valve. Call for any questions Coronary arteriosclerosis 11/16/2016 Pleural effusion 11/16/2016 Congestive heart failure ([facility] 09/21/2016 Assessment & Plan (10/11/2021 7:50 AM FRONTLOAD DRIVER): Patient with history of congestive heart failure diastolic dysfunction presented with worsening shortness of breath and elevated BNP. Treat with IV Lasix diuresis and beta-blockers. Cardiology has been consulted. Kidney stone 09/21/2016 Cerebrovascular accident ([facility] 08/12/2016 Overview (02/13/2019): 2001 Assessment & Plan (05/05/2022 5:16 PM CDT): Continue aspirin and statins Dyspnea 06/14/2016 Palpitations 06/14/2016 Atrial fibrillation ([facility]) 03/13/2016 Assessment & Plan (05/01/2023 10:34 PM CDT): Patient with history of AFib with RVR. Rate is currently controlled. Continue metoprolol for rate control. Continue amiodarone. Continue Coumadin. Assessment & Plan (05/05/2022 5:16 PM CDT): Patient with atrial fibrillation. Rate is currently controlled. Continue amiodarone Cardizem and metoprolol. Patient is on Coumadin. Assessment & Plan (10/11/2021 9:48 AM FRONTLOAD DRIVER): Patient with history of AFib, kaylah in RVR She is on Cardizem and oral anticoagulation with Coumadin. Control rate. Discussed with consumer recruiter Cigarette nicotine dependence without complicati on 03/13/2016 Dyslipidemia 03/13/2016 Assessment & Plan (10/11/2021 7:53 AM FRONTLOAD DRIVER): Continue statins. Essential hypertension 03/13/2016 Assessment & Plan (05/01/2023 10:37 PM CDT): Monitor and control blood pressure. Assessment & Plan (10/11/2021 7:52 AM FRONTLOAD DRIVER): Monitor and control blood pressure. Mitral valve disorder 03/13/2016 Resolved Problems Problem Noted Date Diagnosed Date Resolved Date Obstructive sleep apnea syndrome 02/08/2018 12/03/2021 Assessment & Plan (10/11/2021 7:52 AM FRONTLOAD DRIVER): Continue CPAP at night. Immunizations Immunization Administration [...] often do you attend chur ch or jain services? 1 to 4 times per year 05/01/2023 Do you belong to any clubs o r organizations such as adventism groups, unions, fraternal or athletic groups, or [...] place to sleep or slept in a retirement (including now)? No 05/01/2023 Personal Safety Answer [...] on file Medical Devices Implanted Type Area Curriculum Counselor Device Identifier Shelf Expiration Date Model / Serial / Lot [employer] Craniomaxillofacial [id number] [place] Neuro Iii 16mmx.4mm 2 Hole Low Profile Bar - [id number] Implanted:Qty: 1 on 01/18/2019 by Jovan Good MD PhD at [facility] Left: Cranial Kassy Craniomaxillofacial [id number] 6 / / [place] Craniomaxillofacial [id number] [place] Neuro Iii .4mm 2x2 Hole Low Profile Craniomaxillofacial - [id number] Implanted:Qty: 1 on 01/18/2019 by Jovan Good MD PhD at [facility] Left: Cranial [place] Craniomaxillofacial [id number] 0 / / [place] Craniomaxillofacial [id number] [employer] Neuro Iii 20mmx.4mm Low Profile Shunt Tab - [id number] Implanted:Qty: 1 on 01/18/2019 by Jovan Good MD PhD at [facility] Left: Cranial Kassy Craniomaxillofacial [id number] 0 / / [place] Craniomaxillofacial [id number] [employer] Neuro 3 1.5mm 4mm Self Drill Axial Stability Screw Bone Latex Free - [id number] Implanted:Qty: 12 on 01/18/2019 by Jovan Good MD PhD at [facility] Left: Cranial [place] Craniomaxillofacial [id number] 4 / / Procedures Procedure Name Priority Date/Time Associated Diagnosis Comments CT LUNG CANCER SCREENING Schedule Routine, Read Routine (OP Routine) 06/06/2024 9:00 AM CDT Personal history of nicotine dependence EGFR Routine 05/02/2023 3:08 AM CDT LIPID PANEL Routine 05/06/2022 8:52 AM CDT HEMOGLOBIN A1C Routine 06/27/2019 5:57 AM CDT HEPATITIS C ANTIBODY STAT 01/18/2019 1:06 PM FRONTLOAD DRIVER OCCULT BLOOD, FECAL (FIT) Routine 11/01/2018 9:53 PM FRONTLOAD DRIVER SCREENING MAMMOGRAM 2D BILATERAL Routine 02/08/2014 8:36 [...] Godfrey Pineda M.D. LB: LB Report ID: [id number] Reading Location: [place] [address] Griselda Miguel MD IMG CT PROCEDURES Final [...] LAB BLOOD ORDERABLES F inal Result SYLVIE [address] [facility] Department [place] [address] * Lipid panel (05/06/2022 8:52 AM CDT) Cholesterol 116 30 - 199 mg/dL [facility] MOON Comment: Interpretive Data Ages < or [...] LAB BLOOD ORDERABLES Final Result SYLVIE MOON [address] [facility] Department [place] [address] * Hemoglobin A1c (06/27/2019 5:57 AM CDT) Pathologist [facility] Hemoglobin A1c % 5.1 4.0 - 5.6 % [facility] Comment: ADA 2016 GUIDELINES: Initial Diagnostic Criteria HbA1c Result: Interpretation: <5.7% Normal 5.7-6.4% At risk for diabetes mellitus >=6.5% Consistent with diabetes mellitus Diabetes monitoring Target value (ADA Recommended) <7% 06/27/2019 5:57 AM CDT 06/27/2019 6:36 AM CDT Narrative Resulting Agency Comment DANIEL Juan Head MD LAB BLOOD ORDERABLES Final Result [facility] [address] [phone] * Hepatitis C antibody (01/18/2019 1:06 PM FRONTLOAD DRIVER) [facility] Hep C Ab Nonreactive Nonreactive [facility] Comment: Interpretive Data Positive results should be confirmed by a molecular method. If positive, a second separately collected sample should be submitted for Hepatitis C Virus (HCV) RNA Detection and Quantitation by Real-Time Reverse Wireless Watcher-PCR (RT-PCR). Current interpretive data was last revised on 2016. Blood specimen (specimen) 01/18/2019 1:06 PM FRONTLOAD DRIVER 01/18/2019 1:42 PM FRONTLOAD DRIVER Narrative [facility] - 01/18/2019 2:52 PM FRONTLOAD DRIVER us Notinfile Unknown LAB MICROBIOLOGY - GENERAL ORD ERABLES Final Result [facility] One [facility] Department [place] [address] * Occult blood, fecal non neoplasm screening (11/01/2018 9:53 PM FRONTLOAD DRIVER) Pathologist [facility] Stool Occult Blood POSITIVE NEGATIVE 11/01/2018 11:04 PM FRONTLOAD DRIVER [facility] HISTORICAL RESULTS 11/01/2018 9:53 PM FRONTLOAD DRIVER 11/01/2018 10:55 PM FRONTLOAD DRIVER Narrative [facility] Delia [facility] - 11/01/2018 11:04 PM FRONTLOAD DRIVER Collected By MD Charbel Dejesus Jr., MD LAB BODY FLUIDS AND STOOLS ORDERABLES Final Result [facility] HISTORICAL RESULTS * Screening Mammogram 2D Bilateral [...] Delvalle M.D. [place] 08:14 AM 08:14 AM [facility] [EOD] Narrative 02/10/2014 8:17 AM CDT [...] NEGATIVE. The patient will be entered into [facility] system for an annual screening mammogram in 1 year. THIS IS AN ELECTRONICALLY VERIFIED REPORT 02/10/2014 8:14 AM: Braydon Delvalle M.D. Braydon Delvalle M.D. [place] 08:14 AM 08:14 AM [facility] [EOD] Beto Colmenares MD IMG MAMMO PROCEDURES Fi nal Result from Last 3 Months or Most Recently Relevant to Health Maintenance Insurance MEDICARE [facility] Address: [address] [address] [place] [address] IDPA IDPA [facility] MEDICARE ADVANTAGE [facility] MEDICARE ADVANTAGE MEDICARE Advance Directives For more information, please contact: [phone] * Full Code (Latest Code Status on [...] 4:35 AM 01/23/2019 5:03 PM Care Teams Pump Machine Operator Relationship Specialty Start Date End Date Roosevelt Mane DO [address] [place] [address] DR WILDER [address] [place] [address] PCP - General Family Medicine 04/09/24
--- OUTSIDE RECORDS SUMMARY | 2025-06-30 00:11 | XMS_ITS | Encounter Summary ---
Author Organization [facility] Facility Care Team Providers Care Evaluation Analyst Name Role Phone No, Physician Primary Care Provider [phone] Juna Head MD Primary Care Provider [phone] Juan Head MD Primary Care Provider [phone] Roosevelt Mane DO Primary Care Provider [phone] Encounter Details Date Type Department Care Team (Latest Contact Info) Description 07/04/2018 Orders Only [facility] CLINCONV ProviderSean MD [address] [place] [address] Social History Tobacco Use Types Packs/Day [...] COVID: Suspected 10/10/2021 10/10/2021 10/10/2021 10:52 AM TEST KITCHEN HOME ECONOMIST COVID: Suspected 05/04/2022 05/04/2022 05/04/2022 6:41 PM CDT documented as of this encounter Care Teams Evaluation Analyst Relationship Specialty Start Date End Date No, Physician PCP - General 04/27/18 01/01/19 Juan Head MD [address] [place] [address] PCP - General 01/16/19 04/08/24 Juan Head MD [address] [place] [address] PCP - General 01/02/19 01/15/19 Roosevelt Mane DO [address] [place] [address] [place] [address] PCP - General Family Medicine 04/09/24 documented as of this encounter
--- OUTSIDE RECORDS SUMMARY | 2025-06-30 00:11 | XMS_ITS | Clinical Summary ---
Author Organization [facility] [employer] Address [address] [place] [address] Care Team Providers Care Cook At [employer] Name Role Phone Juan Head MD Primary Care Provider [phone] Source Comments [facility],non-owned Affiliates and Associated Physician Practices is amultiple site organization consisting of ambulatory clinics and hospital sitesin [place], [place], [place] and [place]. This disclosure is being madepursuant to the Care Everywhere program and may not contain all information available regarding this patient. Last updated 18.[facility] [employer] Allergies Active Allergy Reactions Criticality Noted Date [...] once daily Active vitamin D, ergocalciferol, (DRISDOL) 09176 UNITS capsule Take 1 capsule by mouth [...] on file Legal Sex Female 6:24 AM DIFFUSION OPERATOR Gender Identity Not on file Sexual Orientation [...] OUT OF STATE UHC MANAGED MEDICARE ADV [facility] Care Teams [employer] Relationship Specialty Start Date End Date Juan Head MD PCP - General 09/14/18
--- OUTSIDE RECORDS SUMMARY | 2025-06-30 00:11 | XMS_ITS | Encounter Summary ---
Author Organization [facility] Facility Care Team Providers Care Tile Ditcher Name Role Phone No, Physician Primary Care Provider [phone] Juan Head MD Primary Care Provider [phone] Juan Head MD Primary Care Provider [phone] Roosevelt Mane DO Primary Care Provider [phone] Encounter Details Date Type Department Care Team (Latest Contact Info) Description 10/31/2018 Orders Only [facility] CLINCONV Provider, MD Sean [address] [place] [address] Social History Tobacco Use Types Packs/Day [...] PROCEDURE - RESULT 11/22/2018 12 :00 AM DATA WAREHOUSING ENGINEER documented in this encounter Results * PROCEDURE - RESULT (11/22/2018 12:00 AM DATA WAREHOUSING ENGINEER) Narrative 11/22/2018 12:00 AM DATA WAREHOUSING ENGINEER Ordered by an unspecified provider. us Historical Provider Final Res ult documented in this encounter Visit Diagnoses Not on filedocumented in this encounter Additional Health Concerns Infection Onset Date Last Indicated Resolved Time COVID: Suspected 10/10/2021 10/10/2021 10/10/2021 10:52 AM DATA WAREHOUSING ENGINEER COVID: Suspected 05/04/2022 05/04/2022 05/04/2022 6:41 PM CDT documented as of this encounter Care Teams Tile Ditcher Relationship Specialty Start Date End Date No, Physician PCP - General 04/27/18 01/01/19 Juan Head MD [address] [place] [address] PCP - General 01/16/19 04/08/24 Juan Head MD [address] [place] [address] PCP - General 01/02/19 01/15/19 Roosevelt Mane DO [address] [place] [address] DR WILDER [address] [place] [address] PCP - General Family Medicine 04/09/24 documented as of this encounter
== END 2025-06-30 00:10 | disposition left against medical advice (07) ==
LOC: ANHED 06-30 00:09
PROVIDERS: PCP Family Medicine
DX: R06.9 Unspecified abnormalities of breathing (principal)
CPT/HCPCS: 99199

== ENCOUNTER 2025-07-31 16:52 | Outpatient (CLI) | payer MEDICARE, MEDICAID, SELFPAY ==
[2025-07-31 17:31] LABS: Hematocrit 38.1 % (37.0-47.0); Hemoglobin 12.3 g/dL (12.0-15.0); Mean Corpuscular HGB Conc 32.3 g/dl (32-36); Mean Corpuscular Hemoglobin 34.9 pg (26-34); Mean Corpuscular Volume 108.2 fl (80-100); Platelet Count Result 196 k/mm3 (150-375); Red Blood Count 3.52 M/mm3 (4.2-5.4); White Blood Count 5.5 K/mm3 (4.5-10.0)
[2025-07-31 17:43] LABS: Alanine Aminotransferase 22 U/L (6-35); Albumin Level 4.1 g/dL (3.5-5.1); Alkaline Phosphatase 51 U/L (38-126); Anion Gap 3 mmol/L (4-12); Aspartate Amino Transferase 35 U/L (14-36); Bilirubin,Total 0.8 mg/dL (0.2-1.3); Blood Urea Nitrogen 14 mg/dL (7-17); Calcium 9.3 mg/dL (8.4-10.2); Carbon Dioxide 30 mmol/L (22-30); Chloride 107 mmol/L (98-107); Estimated Glomerular Filt Rate 33; Glucose 86 mg/dL (65-110); Potassium 3.6 mmol/L (3.4-5.0); Sodium 140 mmol/L (137-145); Total Protein 7.4 g/dL (6.3-8.2)
[2025-07-31 17:46] LABS: Cholesterol 137 mg/dL (0-200); HDL Direct 68 mg/dL; Triglycerides 48 mg/dL (<150)
[2025-07-31 17:55] LABS: Parathyroid Intact 63.5 pg/mL (14.5-75.2)
[2025-07-31 18:19] LABS: Thyroid Stimulating Hormone 5.150 uIU/mL (0.465-4.680)
[2025-07-31 18:26] LABS: Free T4 Free Thyroxine 1.22 ng/dL (0.78-2.19)
== END 2025-07-31 16:53 | disposition home or self-care (01) ==
PROVIDERS: PCP Nurse Practitioner Family; Visit Provider Internal Medicine Endocrinology, Diabetes & Metabolism
DX: E05.90 Thyrotoxicosis, unspecified without thyrotoxic crisis or storm (principal); E55.9 Vitamin D deficiency, unspecified; M85.80 Other specified disorders of bone density and structure, unspecified site; J43.9 Emphysema, unspecified; I50.42 Chronic combined systolic (congestive) and diastolic (congestive) heart failure; I48.0 Paroxysmal atrial fibrillation; Z79.899 Other long term (current) drug therapy; E78.2 Mixed hyperlipidemia; Z79.01 Long term (current) use of anticoagulants
CPT/HCPCS: 36415; 80053; 80061; 82306; 83970; 84439; 84443; 85027

== ENCOUNTER 2025-09-16 17:44 | Outpatient (RCR) | payer MEDICARE, MEDICAID, SELFPAY ==
[2025-07-31 17:47] LABS: INR 3.0; Prothrombin Time 30.0 Seconds (11.1-14.7)
[2025-08-25 17:52] LABS: INR 2.3; Prothrombin Time 24.8 Seconds (11.1-14.7)
[2025-09-16 18:15] LABS: INR 2.8; Prothrombin Time 29.2 Seconds (11.1-14.7)
== END 2025-10-29 23:59 | disposition home or self-care (01) ==
LOC: ANHLAB 17:44
PROVIDERS: PCP Nurse Practitioner Family; Visit Provider Specialist
DX: Z95.4 Presence of other heart-valve replacement (principal)
CPT/HCPCS: 36415; 85610